=== PATIENT | male | born 1970 | race Caucasian/White ===

== ENCOUNTER 2018-03-04 19:25 | Inpatient (IN) | payer SELFPAY ==
--- NOTE | 2018-03-04 19:46 | RAD REPORT ---
EXAM DESCRIPTION: CT - Ct Stroke Brain Wo Cont - 03/04/2018 7:40 pm CLINICAL HISTORY: CVA COMPARISON: None. TECHNIQUE: All CT scans are performed using dose optimization technique as appropriate and may inclu de automated exposure control or mA/KV adjustment according to patient size. FINDINGS: No intracranial hemorrhage, hydrocephalus or extra-axial fluid collection.No areas of brai n edema or evidence of midline shift. The paranasal sinuses and mastoids are clear. The calvarium is intact. Increased density is seen within the right vitreous presumably related to chronic retinal detachment. Clinical correlation suggested. IMPRESSION: No acute intracranial abnormality. Findings were discussed with Dr. Middleton in the emergency room at 7:42 p.m. on 03/04/2018 by telepho mary.
[2018-03-04 19:55] LABS: Protime INR 0.92
[2018-03-04 19:56] LABS: Absolute Lymphocytes (CBC) 1.6 K/uL (0.7-4.9); Absolute Monocytes 0.5 K/uL (0.1-1.3); Absolute Neutrophil 4.8 K/uL (1.8-8.0); Basophils % 0.9 % (0-1.3); Eosinophils % 5.9 % (0-4.4); Hematocrit 45.2 % (39.6-49.0); Lymphocytes % 21.2 % (15.3-44.8); MCH 27.6 pg (27.0-35.0); MCV 80.6 fL (80-100); MPV 9.2 fL (7.6-11.3); Monocytes % 6.7 % (3.3-12.3)
[2018-03-04] MEDS ORDERED: ASPIRIN 81 MG CHEWABLE TABLET ONE (19:57)
--- NOTE | 2018-03-04 19:57 | RAD REPORT ---
EXAM DESCRIPTION: RAD - Chest Single View - 03/04/2018 7:48 pm CLINICAL HISTORY: Chest pain, CVA. COMPARISON: None. FINDINGS: Portable technique limits examination quality. The lungs are grossly clear. The heart is normal in size. No displaced fractures. IMPRESSION: No acute intrathoracic process suspected.
[2018-03-04 19:58] LABS: Bicarbonate 27 mEq/L (21-31); Glucose Level 285 mg/dL (65-120); Potassium 4.2 mEq/L (3.6-5.0); Sodium Level 135 mEq/L (135-145)
[2018-03-04 19:59] LABS: BUN Blood Urea Nitrogen 20 mg/dL (6-20)
[2018-03-04] MEDS ORDERED: NA CHLORIDE 0.9% 500 ML ONE (20:16)
--- NOTE | 2018-03-04 20:51 | RAD REPORT ---
EXAM DESCRIPTION: CT - Chest For Pe Angio - 03/04/2018 8:39 pm CLINICAL HISTORY: Chest pain. COMPARISON: None. TECHNIQUE: CT angiogram of the pulmonary arteries was performed with MIP. All CT scans are performed using dose optimization technique as appropriate and may include automated exposure control or mA/KV adjustment according to patient size. FINDINGS: No evidence of pulmonary thromboembolism. No acute aortic finding demonstrated. Interstitial lung prominence with mild bilateral ground-glass nodular opacities noted. Findings favor alveolitis/atypical infection. No significant pericardial or pleural fluid. No concerning bony finding. IMPRESSION: No evidence of pulmonary thromboembolism. Interstitial prominence with ground-glass nodular opacities bilaterally, favoring atypical infection. Follow-up CT chest in 2-3 months would be suggested to ensure clearance.
--- NOTE | 2018-03-04 21:05 | ER ---
Nurse's Notes [facility] Name: Zac Serrato Age: 48 yrs Sex: Male : 1970 Arrival Date: 03/04/2018 Time: 19:29 Bed 7 Private MD: Diagnosis: Facial weakness;Weakness;Altered mental status, unspecified;Hyperglycemia, unspecified Presentation: 03/04 19:25 Presenting complaint: EMS states: pt's was making dinner and came in to ask him aa1 how he wanted his steak cooked and pt would not respond to her. Reports this incident occurred at approx 1830 and pt was seen normal about 30 mins prior to that. When pt began to respond his speech was garbled and was acting unusual for himself. Upon arrival to ED pt speech remains slightly slurred and reports his R side feels weak. Denies pain. Hemorrhage noted to R sclera which pt reports is related to eye sx 2 weeks ago. Transition of care: patient was not received from another setting of care. Onset of symptoms was March 04, 2018 at 18:30. Initial Sepsis Screen: Does the patient meet any 2 criteria? No. Patient's initial sepsis screen is negative. Does the patient have a suspected source of infection? No. Patient's initial sepsis screen is negative. Care prior to arrival: IV initiated. 20 GA, in the left forearm, Glucose check: 229. Activity prior to arrival: unresponsive. 19:25 Method Of Arrival: EMS: [facility] aa1 19:25 Acuity: TERRY 2 aa1 Historical: - Allergies: 19:55 No Known Allergies; aa1 - Home Meds: 19:55 metformin 1,000 mg Oral tab 1 tab 2 times per day [Active]; aa1 - PMHx: 19:55 Diabetes - NIDDM; aa1 20:12 retinal detachment; aa1 - PSHx: 19:55 R eye sx; aa1 - Immunization history:: Flu vaccine is not up to date. - Social history:: Smoking status: Patient uses tobacco products, smokes one-half pack cigarettes per day. - Family history:: not pertinent. - Hospitalizations: : No recent hospitalization is reported. Screenin:28 Abuse screen: Denies threats or abuse. Denies injuries from another. Nutritional aa1 screening: No deficits noted. Tuberculosis screening: No symptoms or risk factors identified. Fall Risk Gait- Weak (10 pts.). 20:00 Patient has been NPO before screening. The patient is alert, able to follow commands. aa1 The patient exhibits slurred or garbled speech. The patient is not exhibiting difficulty speaking. The patient does not exhibit difficulty understanding words. The patient is able to swallow own secretions with no drooling or need for suction. Patient tolerated one teaspoon of water. No drooling, immediate coughing, gurgling, or clearing of the throat was noted. The patient tolerated 90mL of water. No drooling, immediate coughing, gurgling, or clearing of the throat was noted. The patient passed the bedside swallow screening. Oral medications may be given as ordered. Contact Physician for further diet orders. Assessment: 19:28 General: Appears in no apparent distress. comfortable, Behavior is calm, cooperative, aa1 appropriate for age. Pain: Denies pain. Neuro: Level of Consciousness is awake, alert, obeys commands, Oriented to person, place, time, situation, Seismic Interpreter are equal bilaterally Moves all extremities. Weakness in left leg(s) Speech is slurred, Facial droop on right, Pupils are PERRLA, Intact. Cardiovascular: Heart tones S1 S2 present Rhythm is regular. Respiratory: Airway is patent Respiratory effort is even, unlabored, Respiratory pattern is regular, symmetrical, Breath sounds are clear bilaterally. GI: No signs and/or symptoms were reported involving the gastrointestinal system. : No signs and/or symptoms were reported regarding the genitourinary system. EENT: Sclera/Cornea are reddened in right eye. Derm: Skin is intact, is healthy with good turgor, Skin is pink, warm \T\ dry. Musculoskeletal: Circulation, motion, and sensation intact. Capillary refill < 3 seconds, Range of motion: intact in all extremities. 19:32 Reassessment: pt in CT at this time. la1 19:39 Reassessment: Patient appears in no apparent distress at this time. Pt back from CT. aa1 20:30 Reassessment: Patient appears in no apparent distress at this time. Patient and/or aa1 family updated on plan of care and expected duration. Pain level reassessed. Patient is alert, oriented x 3, equal unlabored respirations, skin warm/dry/pink. Awaiting provider reassessment. 21:22 Reassessment: Patient appears in no apparent distress at this time. Patient and/or aa1 family updated on plan of care and expected duration. Pain level reassessed. Patient is alert, oriented x 3, equal unlabored respirations, skin warm/dry/pink. Awaiting bed assignment. 22:06 Reassessment: called 4th floor and informed about the admission but nurse is still not mg2 available to receive the report. 22:19 Reassessment: Patient appears in no apparent distress at this time. Patient is alert, aa1 oriented x 3, equal unlabored respirations, skin warm/dry/pink. Report given to Shana on 4th floor Patient states feeling better. Vital Signs: 19:25 BP 169 / 98; Pulse 81; Resp 19; Temp 97.8; Pulse Ox 98% on R/A; Weight 100.24 kg; aa1 Height 5 ft. 8 in. (172.72 cm); Pain 0/10; 20:23 BP 161 / 88; Pulse 86; Resp 18; Pulse Ox 100% on R/A; Pain 0/10; aa1 21:23 BP 166 / 96; Pulse 81; Resp 18; Pulse Ox 100% on R/A; Pain 0/10; aa1 22:08 BP 140 / 92; Pulse 86; Resp 16; Temp 97.6; Pulse Ox 100% on R/A; Pain 0/10; mg2 19:25 Body Mass Index 33.60 (100.24 kg, 172.72 cm) aa1 ED Course: 19:25 Patient arrived in ED. aa1 19:25 Arm band placed on right wrist. Patient placed in an exam room, on a stretcher. aa1 19:28 Patient has correct armband on for positive identification. Placed in gown. Bed in low aa1 position. Call light in reach. Side rails up X2. ekg monitor on. Pulse ox on. NIBP on. 19:29 EKG done, by veterinary technician. bb 19:30 Maintain EMS IV. Dressing intact. Gauge \T\ site: 20g LFA. bb 19:32 Edward Wilburn MD is Attending Physician. rn 19:37 CT Stroke Brain w/o Contrast In Process Unspecified. EDMS 19:39 Initial lab(s) drawn, by cath lab tech, sent to lab. aa1 19:44 [place], Iliana, RN is Primary Nurse. aa1 19:46 X-ray completed. Portable x-ray completed in exam room. Patient tolerated procedure kp1 well. 19:46 Stroke CXR 1 View In Process Unspecified. EDMS 19:52 Triage completed. aa1 20:39 CT completed. Patient tolerated procedure well. Patient moved back from CT. bq 20:39 CT Chest For PE Angio In Process Unspecified. EDMS 21:04 Morales Mascorro MD is Hospitalizing Provider. rn 22:11 No provider procedures requiring assistance completed. Patient admitted, IV remains in mg2 place. Administered Medications: 20:01 Drug: Aspirin Chewable Tablet 324 mg Route: PO; aa1 21:10 Follow up: Response: No adverse reaction aa1 20:20 Drug: NS 0.9% 500 ml Route: IV; Rate: bolus; Site: left forearm; aa1 22:00 Follow up: IV Status: Completed infusion aa1 21:18 Drug: Zithromax 500 mg Route: IVPB; Infused Over: 1 hrs; Site: left forearm; aa1 21:48 Follow up: IV Status: Completed infusion aa1 Point of Care Testing: Blood Glucose: 19:30 Blood Glucose: 272 mg/dL; bb Ranges: Outcome: 21:04 Decision to Hospitalize by Provider. rn 22:19 Admitted to Tele accompanied by nupur, via wheelchair, room 406, with chart, Report aa1 called to Shana 22:19 Condition: stable 22:19 Instructed on the need for admit, Demonstrated understanding of instructions. 22:19 No charge visit due to 22:32 Patient left the ED. aa1 Signatures: Dispatcher [employer] EDAZ Iliana Garnett, RN RN aa1 Meenakshi Chacon Stephanie Solorio RN RN bb Edward Wilburn MD MD rn Attema, Lee, RN RN la1 Emily Kelley am2 Corinne Benedict 1 Wilmer Lucas, RN RN mg2 Corrections: (The following items were deleted from the chart) 19:46 19:29 Patient arrived in ED. am2 aa1 19:53 19:31 BP 169 / 98; Pulse 81bpm; Resp 19bpm; Pulse Ox 98% RA; la1 aa1
--- NOTE | 2018-03-04 21:05 | EDPHYS ---
Physician Documentation [facility] Name: Zac Serrato Age: 48 yrs Sex: Male : 1970 Arrival Date: 03/04/2018 Time: 19:29 Bed 7 Private MD: ED Physician Edward Wilburn HPI: 03/04 19:52 This 48 yrs old Male presents to ER via EMS with complaints of AMS, possible rn stroke. 19:52 The patient presents with decreased responsiveness. Onset: The symptoms/episode rn began/occurred at an unknown time. Current symptoms: In the emergency department the patient's symptoms have improved. The patient has not experienced similar symptoms in the past. Per , has been sleeping a lot lately, no trauma, went to bed around 1/:30PM today, tried to wake him up around 7PM for dinner, patient was hunched over and unresponsive on bed, didn't shake or make movement, concerned wasn't breathing, lasted approx 5min , noticed right lower facial droop and patient reports right sided weakness. . Historical: - Allergies: 19:55 No Known Allergies; aa1 - Home Meds: 19:55 metformin 1,000 mg Oral tab 1 tab 2 times per day [Active]; aa1 - PMHx: 19:55 Diabetes - NIDDM; aa1 20:12 retinal detachment; aa1 - PSHx: 19:55 R eye sx; aa1 - Immunization history:: Flu vaccine is not up to date. - Social history:: Smoking status: Patient uses tobacco products, smokes one-half pack cigarettes per day. - Family history:: not pertinent. - Hospitalizations: : No recent hospitalization is reported. ROS: 19:52 Constitutional: Negative for fever, chills, and weight loss, Eyes: Negative for injury, rn pain, redness, and discharge, Neck: Negative for injury, pain, and swelling, Cardiovascular: Negative for chest pain, palpitations, and edema, Respiratory: Negative for shortness of breath, cough, wheezing, and pleuritic chest pain, Abdomen/GI: Negative for abdominal pain, nausea, vomiting, diarrhea, and constipation, Back: Negative for injury and pain, MS/Extremity: Negative for injury and deformity, Skin: Negative for injury, rash, and discoloration, Neuro: Negative for headache, numbness, tingling, and seizure. Exam: 19:52 Constitutional: This is a well developed, well nourished patient who is awake, alert, rn tearful Head/Face: Normocephalic, atraumatic. Eyes: Right eye with hyphema, pupils round and reactive Neck: Trachea midline, no thyromegaly or masses palpated, and no cervical lymphadenopathy. Supple, full range of motion without nuchal rigidity, or vertebral point tenderness. No Meningismus. Cardiovascular: Regular rate and rhythm with a normal S1 and S2. No gallops, murmurs, or rubs. Normal PMI, no JVD. No pulse deficits. Respiratory: Lungs have equal breath sounds bilaterally, clear to auscultation and percussion. No rales, rhonchi or wheezes noted. No increased work of breathing, no retractions or nasal flaring. Abdomen/GI: Soft, non-tender, with normal bowel sounds. No distension or tympany. No guarding or rebound. No evidence of tenderness throughout. MS/ Extremity: Pulses equal, no cyanosis. Neurovascular intact. Full, normal range of motion. Equal circumference. Neuro: Awake and alert, GCS 15, oriented to person, place, time, and situation. Slight weakness RUE/RLE, but no detectable drift. + mild right lower facial droop. Sensory grossly intact. Vital Signs: 19:25 BP 169 / 98; Pulse 81; Resp 19; Temp 97.8; Pulse Ox 98% on R/A; Weight 100.24 kg; aa1 Height 5 ft. 8 in. (172.72 cm); Pain 0/10; 20:23 BP 161 / 88; Pulse 86; Resp 18; Pulse Ox 100% on R/A; Pain 0/10; aa1 21:23 BP 166 / 96; Pulse 81; Resp 18; Pulse Ox 100% on R/A; Pain 0/10; aa1 22:08 BP 140 / 92; Pulse 86; Resp 16; Temp 97.6; Pulse Ox 100% on R/A; Pain 0/10; mg2 19:25 Body Mass Index 33.60 (100.24 kg, 172.72 cm) aa1 MDM: 19:32 Patient medically screened. rn 19:48 ED course: Patient with recent surgery on eye 2 weeks ago, has hyphema, also spoke with rn and patient, seems like fell asleep around 1:30 PM, has been sleeping a lot because of retinal detachment and depression, denies drugs, woke up to trying to wake him up, noticed right sided weakness and trouble speaking, definitely not at baseline. Will not TPA due to outside of window, onset at 13:30. NIH stroke scale of 2 for facial droop and mild aphasia. . 21:03 Differential Diagnosis: CVA, electrolyte abnormality, intracranial bleed, overdose, rn pneumonia, seizure, sepsis, TIA, volume depletion. Data reviewed: vital signs, nurses notes, lab test result(s), EKG, radiologic studies, CT scan, plain films, and as a result, I will admit patient. Counseling: I had a detailed discussion with the patient and/or guardian regarding: the historical points, exam findings, and any diagnostic results supporting the discharge/admit diagnosis, lab results, radiology results, the need for further work-up and treatment in the hospital. Response to treatment: the patient's symptoms have mildly improved after treatment, and as a result, I will admit patient. Admission orders: after a detailed discussion of the patient's condition and case, the admit orders are written by me. 03/04 19:31 Order name: glucometer results - FOR PT WITH NO ID; Complete Time: 19:52 la 03/04 19:33 Order name: Basic Metabolic Panel; Complete Time: 20:02 03/04 19:33 Order name: CBC with Diff; Complete Time: 20:02 03/04 19:33 Order name: Protime (+inr); Complete Time: 20:02 03/04 19:33 Order name: Ptt, Activated; Complete Time: 20:02 03/04 19:33 Order name: UDS rn 03/04 19:33 Order name: CT Stroke Brain w/o Contrast; Complete Time: 19:52 03/04 19:33 Order name: Stroke CXR 1 View; Complete Time: 20:02 03/04 19:33 Order name: EKG; Complete Time: 19:34 03/04 19:33 Order name: Accucheck; Complete Time: 19:37 03/04 20:03 Order name: CT Chest For PE Angio; Complete Time: 20:57 03/04 19:33 Order name: Cardiac monitoring; Complete Time: 19:56 rn 03/04 19:33 Order name: EKG - Nurse/Tech; Complete Time: 19:38 rn 03/04 19:33 Order name: IV Saline Lock; Complete Time: 19:38 rn 03/04 19:33 Order name: Labs collected and sent; Complete Time: 19:44 rn 03/04 19:33 Order name: NPO; Complete Time: 19:44 rn 03/04 19:33 Order name: O2 Per Protocol; Complete Time: 19:44 rn 03/04 19:33 Order name: O2 Sat Monitoring; Complete Time: 19:45 rn 03/04 19:33 Order name: Stroke Swallow Screen; Complete Time: 20:03 rn Administered Medications: 20:01 Drug: Aspirin Chewable Tablet 324 mg Route: PO; aa1 21:10 Follow up: Response: No adverse reaction aa1 20:20 Drug: NS 0.9% 500 ml Route: IV; Rate: bolus; Site: left forearm; aa1 22:00 Follow up: IV Status: Completed infusion aa1 21:18 Drug: Zithromax 500 mg Route: IVPB; Infused Over: 1 hrs; Site: left forearm; aa1 21:48 Follow up: IV Status: Completed infusion aa1 Point of Care Testing: Blood Glucose: 19:30 Blood Glucose: 272 mg/dL; bb Ranges: Critical Glucose Levels:Adult <50 mg/dl or >400 mg/dl <40 mg/dl or >180 mg/dl Disposition: 03/04/18 21:04 Hospitalization ordered by Morales Mascorro for Inpatient Admission. Preliminary diagnosis are Facial weakness, Weakness, Altered mental status, unspecified, Hyperglycemia, unspecified. - Bed requested for Telemetry/MedSurg (Inpatient). - Status is Inpatient Admission. aa1 - Condition is Stable. - Problem is new. - Symptoms have improved. UTI on Admission? No Signatures: Dispatcher [employer] EDLuciana Dee RN RN Iliana Garnett RN RN aa1 Edward Wilburn MD MD rn
[2018-03-04] MEDS ORDERED: AZITHROMYCIN 500 MG/250 ML BAG ONE (21:11)
[2018-03-04] MEDS ORDERED: ONDANSETRON 4 MG/2 ML VIAL IV PRN (21:44)
[2018-03-04] MEDS ORDERED: ACETAMINOPHEN 500 MG TAB PO PRN (21:44)
[2018-03-04] MEDS ORDERED: MAGNESIUM HYDROXIDE 8% 30 ML PO PRN (21:44)
[2018-03-04] MEDS ORDERED: NA CHLORIDE 0.9% 1,000 ML IV SCH ×2 (22:00)
[2018-03-04 22:35] VITALS: O2SAT 97
[2018-03-05 01:58] VITALS: BMI 33.5
[2018-03-05 04:54] VITALS: BP 154/83; TEMP 97.4
[2018-03-05 06:01] LABS: Absolute Lymphocytes (CBC) 2.3 K/uL (0.7-4.9); Absolute Monocytes 0.6 K/uL (0.1-1.3); Absolute Neutrophil 5.5 K/uL (1.8-8.0); Basophils % 0.6 % (0-1.3); Eosinophils % 5.5 % (0-4.4); Hematocrit 44.8 % (39.6-49.0); Lymphocytes % 25.7 % (15.3-44.8); MCH 27.5 pg (27.0-35.0); MCV 80.6 fL (80-100); MPV 9.1 fL (7.6-11.3); Monocytes % 6.3 % (3.3-12.3); RBC Red Blood Cell Count 5.57 M/uL (4.33-5.43)
[2018-03-05 06:33] LABS: ALT/SGPT 12 IU/L (10-60); AST/SGOT 12 IU/L (10-42); Albumin 3.3 g/dL (3.2-5.5); Alkaline Phosphatase 64 IU/L (42-121); BUN Blood Urea Nitrogen 16 mg/dL (6-20); Bicarbonate 28 mEq/L (21-31); Bilirubin Total 1.1 mg/dL (0.3-1.2); Glucose Level 224 mg/dL (65-120); HDL Cholesterol 41 mg/dL (27-67); LDL Cholesterol, Calculated 127 (<130); Magnesium 1.7 mg/dL (1.8-2.5); Potassium 4.4 mEq/L (3.6-5.0); Protein, Total 6.5 g/dL (6.0-8.3); Sodium Level 137 mEq/L (135-145)
[2018-03-05] MEDS ORDERED: PNEUMOCOCCAL VACCINE 0.5 ML IMVAC ONE (08:00)
--- NOTE | 2018-03-05 08:02 | P.HP ---
Certification for Inpatient Patient admitted to: Inpatient With expected LOS: >2 Midnights Patient will require the following post-hospital care: None Practitioner: I am a practitioner with admitting privileges, knowledge of patient current condition, hospital course, and medical plan of care. Services: Services provided to patient in accordance with Admission requirements found in Title 42 Section 412.3 of the Code of Federal Regulations Patient History Date of Service: 03/04/18 Reason for admission: acute CVA History of Present Illness: Patient is a 48-year-old gentleman who came into the hospital with acute CVA. Patient had right-sided weakness and a facial droop. Patient's right-sided weakness has improved. Patient continues to have a facial droop and aphasia. However, patient's states his speech is better. In the emergency room patient had a CT which was suggestive of an acute CVA. This looks to be in the left middle cerebral artery territory. Patient will be admitted to the hospital for further evaluation including an MRI of the brain and neurology consultation. Will also get an echocardiogram. A carotid Doppler has already been ordered. Will get a lipid profile and physical therapy evaluation. Bedside swallow has been done and patient has been started on a diet. Allergies No Known Allergies Allergy (Unverified 09/22/17 08:50) Home Medications: Metformin HCl [Glucophage] 1,000 mg PO BID 03/05/18 - Past Medical/Surgical History Has patient received pneumonia vaccine in the past: No Diabetic: Yes -: DM -: Rential Detachment -: Rential Detachment - Family History Mother Medical History: Diabetes Father Medical History: Lung disease, Cancer - Social History Smoking Status: Current every day smoker Alcohol use: No CD- Drugs: No Caffeine use: Yes Place of Residence: Home Review of Systems 10-point ROS is otherwise unremarkable Physical Examination - Vital Signs Temperature: 97.4 F Blood Pressure: 154/83 Pulse: 85 Respirations: 17 Pulse Ox (%): 98 - Physical Exam General: Alert, In no apparent distress, Oriented x3 HEENT: Atraumatic, PERRLA, Mucous membr. moist/pink, EOMI, Sclerae nonicteric Neck: Supple, 2+ carotid pulse no bruit, No LAD, Without JVD or thyroid abnormality Respiratory: Clear to auscultation bilaterally, Normal air movement Cardiovascular: Regular rate/rhythm, Normal S1 S2, No murmurs Gastrointestinal: Normal bowel sounds, Soft and benign, Non-distended, No tenderness Musculoskeletal: No clubbing, No swelling, No tenderness Integumentary: No rashes Neurological: Normal gait, Normal speech, Normal tone, Sensation intact, Normal affect, Abnormal strength, Abnormal cranial nerve function Lymphatics: No axilla or inguinal lymphadenopathy - Studies Laboratory Data (last 24 hrs) 03/04/18 19:40: PT 10.8, INR 0.92, APTT 29.2 03/04/18 19:40: WBC 7.3, Hgb 15.5, Hct 45.2, Plt Count 175 03/04/18 19:40: Sodium 135, Potassium 4.2, BUN 20, Creatinine 0.59 L, Glucose 285 H Assessment & Plan - Problems (Diagnosis) (1) Acute CVA (cerebrovascular accident) Current Visit: Yes Status: Acute (2) Diabetes type 2, controlled Current Visit: Yes Status: Acute (3) Tobacco abuse Current Visit: Yes Status: Acute - Plan 1. MRI of the brain 2. Echocardiogram and carotid Doppler 3. Anti-platelet therapy and statin therapy 4. Neurology consultation 5. Physical therapy/occupational therapy/speech therapy evaluation 6. Modified barium swallow study 7. DVT prophylaxis Discharge Plan: Home Plan to discharge in: Greater than 2 days - Advance Directives Does patient have a Living Will: No Does patient have a Durable POA for Healthcare: No - Code Status/Comfort Care Code Status Assessed: Yes Code Status: Full Code Critical Care: No Time Spent Managing PTS Care (In Minutes): 55
--- NOTE | 2018-03-05 08:16 | RAD REPORT ---
EXAM DESCRIPTION: CT - Ct Stroke Brain Wo Cont - 03/05/2018 7:57 am CLINICAL HISTORY: CVA, change in mental status since prior imaging. COMPARISON: CT head March 04 TECHNIQUE: Axial 5 millimeter thick images of the head were obtained without IV contrast. All CT scans are performed using dose optimization technique as appropriate and may include automated exposure control or mA/KV adjustment according to patient size. FINDINGS: No intracranial hemorrhage has developed since the prior study. There is no new mass effec t or edema. No shift of midline structures. No acute cortical based infarction identified. In the pos terior limb internal capsule on the left and lateral margin of the left thalamus there is a subtle de crease in density compared to the corresponding area on the right. This is regarded as suspicious for an nonhemorrhagic infarction. A CVA in this location would explain right extremity motor symptoms. G ray matter-white matter differentiation is preserved. Visualized portions of the mastoid air cells, paranasal sinuses, and orbits are unremarkable. Findings telephoned to Dr. Thomason 8:12 a.m. IMPRESSION: No intracranial hemorrhage has developed since the prior day study. Suspected nonhemorrhagic CVA in lateral aspect of the left thalamus and posterior limb internal capsu le on the left. CVA in this location would explain motor deficits on the right side. Followup MR imaging could be performed to confirm the suspected CVA and to evaluate any other acute b rain parenchymal process.
--- NOTE | 2018-03-05 08:40 | RAD REPORT ---
EXAM DESCRIPTION: RAD - Chest Single View - 03/05/2018 8:23 am CLINICAL HISTORY: Code stroke chest film COMPARISON: March 04 TECHNIQUE: AP portable chest image was obtained 0809 hours . FINDINGS: Lung volumes are low. No failure, infiltrate or other acute cardiopulmonary finding. Heart and vasculature are normal. No measurable pleural effusion and no pneumothorax. No gross bony abnorm ality seen. No acute aortic findings suspected. IMPRESSION: No acute cardiopulmonary process. No identifiable change from comparison.
[2018-03-05] MEDS ORDERED: CEFTRIAXONE 1 GM/NS 50 ML 1 GM/50 ML BAG IV SCH (09:00)
[2018-03-05] MEDS ORDERED: CEFTRIAXONE/SWI 1gm 1 GM/10 ML SYR IV SCH (09:00)
[2018-03-05] MEDS ORDERED: MAGNESIUM SULFATE 1 gm IVPB 1 GM/100 ML BAG IV ONE (09:00)
[2018-03-05] MEDS ORDERED: AZITHROMYCIN IV 500 MG in NA CHLORIDE 0.9% 250 ML IVPB SCH (09:00)
[2018-03-05] MEDS ORDERED: ASPIRIN EC 81 MG TAB PO SCH (09:00)
[2018-03-05] MEDS ORDERED: CLOPIDOGREL 75 MG TABLET PO SCH (09:00)
[2018-03-05] MEDS ORDERED: ENOXAPARIN 40 MG/0.4 ML SQ SCH (09:00)
--- NOTE | 2018-03-05 09:46 | RAD REPORT ---
EXAM DESCRIPTION: CT - Neck Angio - 03/05/2018 9:09 am CLINICAL HISTORY: Acute stroke symptoms COMPARISON: CT head March 05, February 24 TECHNIQUE: During dynamic enhancement using nonionic IV contrast, axial 2 mm thick images were obtai joshua of the head and neck. Coronal, axial and sagittal 1.5 mm reformatted images were generated and re viewed. FINDINGS: Aortic arch is 3 vessel with no origin stenosis. Left vertebral artery is slightly dominan t. No vertebral artery origin stenosis seen. The bilateral common carotid and internal carotid artery show no dissection, stenosis or measurable atherosclerotic change. There is tortuosity of the bilate ral internal carotid arteries medially prior to entry into the skullbase. Sandra portions are limited in visualization. No focal vertebral artery dissection or stenosis. No discrete pharyngeal mass identified on limited assessment. Tonsillar tissue is prominent but symme tric. No large mass or bulky lymphadenopathy. Exam protocol does not optimally imaged soft tissues of the neck. IMPRESSION: CT angiography of the cervical vasculature shows no measurable atherosclerotic change, d issection or significant vascular finding.
--- NOTE | 2018-03-05 09:50 | RAD REPORT ---
EXAM DESCRIPTION: CT - Head angio - 03/05/2018 9:06 am CLINICAL HISTORY: CVA, abnormal CT study COMPARISON: CT head same day TECHNIQUE: During dynamic enhancement using nonionic IV contrast, axial 2 millimeter thick images of the head and neck were obtained. Axial, sagittal and coronal 1.5 millimeter reconstruction images we re generated and reviewed. FINDINGS: No aneurysm or vascular malformation. Bilateral internal carotid arteries from skullbase t o supraclinoid termination show no stenosis or significant atherosclerotic changes. Basilar artery an d distal vertebral arteries show no dissection, stenosis or suspicious finding. There is normal opaci fication of the major intracranial veins. The anterior, posterior and middle cerebral artery distribu tions show no significant stenosis or occlusion. The suspected CVA in the left thalamus and posterior limb internal capsule region is typically supplied by small perforating branches not well visualized on either CTA or MRA imaging. IMPRESSION: No intracranial aneurysm or vascular malformation. The major intracranial arteries and veins show no significant or suspicious finding on CT angiography . The small perforating branches supplying the suspected area of infarction are not well visualized o n either CTA or MRA imaging.
--- NOTE | 2018-03-05 09:58 | RAD REPORT ---
EXAM DESCRIPTION: KERRY Mathis CP - 03/05/2018 9:40 am CLINICAL HISTORY: CVA COMPARISON: None. TECHNIQUE: Real-time sonographic evaluation of both carotid systems was performed. Doppler interroga tion was performed with waveform tracing bilaterally. FINDINGS: Normal high resistance waveforms are noted in both external carotid arteries. The common c arotid arteries and internal carotid arteries show normal low resistance waveforms. Minimal plaquing changes noted on the left. No measurable narrowing of the vessel lumen. Peak systoli c and end diastolic velocity values and the ICA/CCA ratios are in the non-hemodynamically significant range. Antegrade flow seen in both vertebral arteries. Velocity values and ratios were recorded and are retained in the patient's imaging records. IMPRESSION: No significant atherosclerotic changes noted. No evidence of a hemodynamically significant stenosis.
[2018-03-05] MEDS ORDERED: NA CHLORIDE 0.9% 500 ML IV ONE (10:17)
[2018-03-05 11:16] LABS: Bicarbonate 26 mEq/L (21-31); Glucose Level 214 mg/dL (65-120); Potassium 3.7 mEq/L (3.6-5.0); Protime INR 1.05; Sodium Level 135 mEq/L (135-145)
[2018-03-05 11:17] LABS: Absolute Monocytes 0.5 K/uL (0.1-1.3); Absolute Neutrophil 5.1 K/uL (1.8-8.0); BUN Blood Urea Nitrogen 17 mg/dL (6-20); Basophils % 0.2 % (0-1.3); Eosinophils % 5.2 % (0-4.4); Hematocrit 44.6 % (39.6-49.0); Lymphocytes % 24.9 % (15.3-44.8); MCH 27.5 pg (27.0-35.0); MCV 80.1 fL (80-100); MPV 9.8 fL (7.6-11.3); Monocytes % 6.7 % (3.3-12.3); RBC Red Blood Cell Count 5.57 M/uL (4.33-5.43)
--- NOTE | 2018-03-05 13:00 | DS ---
Date of Discharge: 03/05/2018 Admitting Diagnoses: 1.Acute cerebrovascular accident. 2.Type 2 diabetes mellitus, non-insulin requiring with hyperglycemia. 3.Nicotine dependence. Discharge Diagnoses: 1.Acute cerebrovascular accident, left thalamus. Neurology recommended transfer to higher level of care. 2.Diabetes mellitus type 2 with no use of insulin long-term with hyperglycemia. 3.Obesity, BMI 33. 4.Recent surgery for retinal detachment. 5.Nicotine dependence with cigarette smoking, uncomplicated. Hospital Course: The patient is a 48-year-old male, who came in with right-sided weakness, facial dr oop, aphasia. The patient had waxing and waning symptoms. The patient was admitted to the hospital for workup of his acute CVA type symptoms. He had a CT scan of the brain done which did not show any intracranial abnormalities. CT angio chest was done, which showed no evidence of PE. Did show some ground-glass nodular opacities favoring atypical infection. He had workup done including carotid ar shawna ultrasound, which showed no significant stenosis and Dr. Mayen was consulted. The patient was o n stroke guidelines. He was not a candidate for tPA due to the symptoms, initial onset being unclear . Also the patient had recent surgery. The patient had worsening symptoms, became more weak on the right side with aphasia and worsening facial droop. Therefore, code stroke was called. CT scan was repeated, which showed acute stroke in the left thalamic area. The patient also had CT angio of head and neck, which did not show any major intracranial arteries and veins to show any significant or mullen spicious finding. The patient was then recommended to be transferred by Dr. Mayen, neurologist for p ossible thrombectomy and for higher level of care. [facility] was contacted for transfer for high er level of care and the patient was accepted by the neurologist and hospitalist. The patient was th en transferred to [facility] for higher level of care. Physical Examination: General: Awake, alert, oriented, in some mild distress. Obese male. BMI 33. CV: S1, S2. No murmurs. Regular rate and rhythm. Respiratory: Moving air well bilaterally. No wheezing. Gastrointestinal: Abdomen is soft, nontender, nondistended. Positive bowel sounds. Extremities: No clubbing, cyanosis, edema. Neuro: The patient has right-sided facial droop. The patient is aphasic. Right side strength is 4/ 5 upper and lower extremities. Left upper and lower extremities are 5/5. Sensation intact to light touch. Total time spent transferring patient was 47 minutes. ELIZABETH Voice ID: [id number] Report ID: [id number]
[2018-03-05 13:50] LABS: Platelet Estimate ADEQ; Platelets, Giant PRESENT; Urine White Blood Cell Casts OK
[2018-03-05 13:51] LABS: Blood Morphology Comment NOT SEEN (NOT SEEN)
--- NOTE | 2018-03-05 14:51 | CON ---
Reason: Stroke. History: A 48-year-old gentleman with history of diabetes, diabetic retinopathy, just had surgery to his eye on the 15 of February. Had a retinal detachment that was repaired. He is blind. Came into the emergency department last night at approximately 6:37 p.m. The patient experienced right-sided w eakness, difficulty speaking, and right-sided facial drooping. Evaluation in the Emergency Departmen t, 17:42, no acute stroke on TTE. Symptoms improved while he was in the ER because of the recent ocu lar surgery, felt not to be a candidate for tPA by 2200 and patient's symptoms were fairly resolved a nd when admitted was noted to have some residual right facial weakness and right upper extremity weak ness by the admitting physician last night at 23:58. Carotid Doppler, no hemodynamically significant stenosis and the patient apparently did reasonably well throughout the night, but 7:30 this morning, developed recurrent and progressive symptoms with right hemiparesis difficulty speaking/aphasia, rig ht sky-paresthesias with stroke scale of 8. Emergent repeat CT scan of the brain demonstrates vague hypodensity in the lateral aspect of the left thalamus, was contacted by his attending, recommended CT angio, which does not demonstrate any large vessel occlusion in the carotids or MCA branches on th e left. The patient has actually improved currently. Consultation was requested. Past Medical History: Diabetes. Medications: Glucophage. Allergies: NONE. Social History: , smokes. Normally independent activities of daily living. Family History: No family history of hypercoagulable state. Review of Systems: General: Good health. Eyes: Legally blind, recent ocular surgery for retinal detachment as noted, less than a month ago. Ears, Nose, Throat: Aphasia and dysarthria, currently improving. Cardiovascular: Negative. Pulmonary: Negative. GI: Negative. : Negative. Musculoskeletal: Negative. Neurologic: As noted. Psychiatric: Negative. Endocrine: Diabetes. Hematologic: Negative. Physical Examination: Vital Signs: Temperature 97.4, 85, 17, 154/83. General: He is pleasant gentleman, lying in bed, in no distress. Heart: Sinus rhythm. No carotid bruits. Lungs: Clear. Abdomen: Soft. Bowel sounds present. He is awake, alert, oriented. Neurologic: Legally blind, cannot count fingers, can see light out of the left eye and not the right , which is dilated and fixed with significant ecchymosis around the sclerae and scleral injection. L eft pupil reactive. Ocular motion full. Alejandro full. Face is symmetric. Tongue is midline. Soft palate elevates bilaterally. Examination of his extremities reveals very slight drift, right upper e xtremity. Manual muscle testing reveals full strength. Sensation decreased symmetrically distally. Reflexes are trace. Toes are bilaterally neutral. No [id number] ataxia. Stroke scale per pa is 1 for drift right upper extremity. Laboratory Data: CT angios as noted. White count 8.8, platelets 221. PT/PTT yesterday normal. Glu cose in the 94-200. Liver function tests normal. LDL 127. Impression: Stroke with crescendo/decrescendo symptoms. Fortunately, no evidence of large vessel oc clusion on imaging. Nevertheless, I think the patient would benefit given the waxing, waning symptom s from a higher level of care being in the stroke unit up in the [facility], so he can be observe d more closely. We reviewed those recommendations with his attending. If he cannot be transferred t ana up to the [facility], he should be transferred to the ICU for closer neuro checks. Continue aspirin and Plavix, and bolus 500 cc of normal saline. EVAN/CANDELARIOL Voice ID: [id number] Report ID: [id number]
--- NOTE | 2018-03-05 16:08 | EKG ---
Test Date: 2018-03-05 Test Time: 08:25:24 Sulfate Drier Machine Operator: KEYLA MEASUREMENT RESULTS: Intervals: Rate: 79 FL: 186 QRSD: 102 QT: 404 QTc: 463 [place]: P: 56 FL: 186 QRS: 55 T: 58 INTERPRETIVE STATEMENTS: Normal sinus rhythm Normal ECG No previous ECG available for comparison Electronically Signed On 03-05-18 16:07:34 CDT by Azam Gerber
[2018-03-05] MEDS ORDERED: ATORVASTATIN 20 MG TAB PO SCH (21:00)
--- NOTE | 2018-03-06 07:19 | EKG ---
Test Date: 2018-03-04 Test Time: 19:29:11 Log Truck Driver: MERARI MEASUREMENT RESULTS: Intervals: Rate: 81 MN: 164 QRSD: 100 QT: 386 QTc: 448 [place]: P: 38 MN: 164 QRS: 45 T: 74 INTERPRETIVE STATEMENTS: Normal sinus rhythm Normal ECG No previous ECG available for comparison Electronically Signed On 03-06-18 07:18:53 CDT by Azam Gerber
== END 2018-03-05 11:58 | disposition short-term general hospital (02) | DRG 65 ==
LOC: ER 19:25 → ERHOLD 21:43 → 4TH 21:58
PROVIDERS: ADMIT Hospitalist; ATTEND Family Medicine
DX: I63.9 Cerebral infarction, unspecified (principal); G81.94 Hemiplegia, unspecified affecting left nondominant side; R29.810 Facial weakness; R47.01 Aphasia; E11.319 Type 2 diabetes mellitus with unspecified diabetic retinopathy without macular edema; E11.65 Type 2 diabetes mellitus with hyperglycemia; H54.7 Unspecified visual loss; E66.9 Obesity, unspecified; Z68.33 Body mass index [BMI] 33.0-33.9, adult; Z98.890 Other specified postprocedural states; Z72.0 Tobacco use
CPT/HCPCS: 36415; 70450; 70496; 70498; 71045; 71275; 80048; 80053; 80061; 82962; 83735; 84100; 85025; 85610; 85730; 93005; 93880; 94760; 96361; 96365; J0456; J0696; J1650; J3475; J7030; Q9967

== ENCOUNTER 2018-07-15 09:35 | Emergency (ER) | payer SELFPAY ==
[~2018-07-15 09:35] MED LIST: EPINEPHRINE/PF 1 MG/ML AMP ONE; EPINEPHrine 1 MG/10 ML SYR ONE; LIDOCAINE VISCOUS 2% SOLN 15 ML UDC ONE; NA CHLORIDE 0.9% 1,000 ML ONE
--- OUTSIDE RECORDS SUMMARY | 2018-07-15 09:37 | XMS REPORT | Clinical Summary ---
:1970 Author Organization [facility] Address [address] [place] [address] Phone Care Team Providers Name Role Phone Unavailable Primary Care Provider Unavailable Allergies No Known Allergies Current Medications Prescription Sig. Disp. Refills Start Date End Date Status metFORMIN Take 1,000 mg by Active (GLUCOPHAGE) 1000 mouth. MG tablet prednisoLONE Place 1 drop into Active acetate (PRED the right eye 2 FORTE) 1 % (two) times daily. ophthalmic suspension polymyxin B Place 1 drop into Active sulf-trimethoprim the right eye 2 10,000 unit- 1 (two) times daily. mg/mL Drop timolol (BETIMOL) Place 1 drop into Active 0.5 % ophthalmic the right eye 2 solution (two) times daily. aspirin 81 MG EC Take 1 tablet (81 mg 30 tablet 1 03/08/2018 03/08/2019 Active tablet total) by mouth daily. atorvastatin Take 1 tablet (80 mg 30 tablet 1 03/07/2018 03/07/2019 Active (LIPITOR) 80 MG total) by mouth tablet nightly. lisinopril Take 1 tablet (5 mg 30 tablet 0 03/08/2018 03/08/2019 Active (PRINIVIL,ZESTRIL) total) by mouth 5 MG tablet daily. insulin 70/30, Inject 15 Units 10 mL 1 03/07/2018 03/07/2019 Active insulin NPH-insulin subcutaneously 2 regular, (HUMULIN (two) times daily 70/30,NOVOLIN before meals. 70/30) 100 unit/mL (70-30) injection insulin Use as directed to 100 each 0 03/07/2018 Active syringe-needle inject insulin twice U-100 (BD INSULIN a day. SYRINGE) 1 mL 25 gauge x 5/8" Syrg Active Problems Problem Noted Date Proteinuria 03/06/2018 Acute CVA (cerebrovascular accident) (FORM[facility]LY [facility]) 03/05/2018 Type 2 diabetes mellitus ([facility]) 03/05/2018 Tobacco abuse 03/05/2018 Diabetic retinopathy ([facility]) 03/05/2018 Overview: Retinal detachment on the right Encounters Date Type Specialty Care Team Description 03/05/2018 - Hospital Encounter General Internal Amanda Rice, Acute CVA 03/07/2018 Medicine Juanis Alfaro MD (cerebrovascular Chris, Nejmudin accident) MD Leti ([facility]);Diabetic retinopathy of both eyes without macular edema associated with type 2 diabetes mellitus, unspecified retinopathy severity ([facility]);Tobacco abuse;Right sided weakness after 07/14/2017 Family History Medical History Relation Name Comments Stroke Neg Hx Social History Tobacco Use Types Packs/Day Years Used Date Current Every Day Smoker 0.5 Smokeless Tobacco: Never Used Tobacco Cessation: Ready to Quit: No Alcohol Use Drinks/Week oz/Week Comments No Sex Assigned at Date Recorded Not on file Last Filed Vital Signs Vital Sign Reading Time Taken Blood Pressure 158/96 03/07/2018 11:30 AM CDT Pulse 74 03/07/2018 11:30 AM CDT Temperature 35.9 C (96.6 F) 03/07/2018 11:30 AM CDT Respiratory Rate 22 03/07/2018 11:30 AM CDT Oxygen Saturation 98% 03/07/2018 11:30 AM CDT Inhaled Oxygen Concentration - - Weight 97.8 kg (215 lb 9.6 oz) 03/06/2018 12:00 PM CDT Height 172.7 cm (5' 8") 03/06/2018 12:00 PM CDT Body Mass Index 32.78 03/06/2018 12:00 PM CDT Plan of Treatment Not on file Results RHYTHM STRIP - SCAN (03/08/2018 1:20 PM)ECHOCARDIOGRAM REPORT - SCAN (2017 3:54 PM)POC-Glucose meter (03/07/2018 11:11 AM)Only the most recent of8 resultswithin the time period is included. Component Value Ref Range POC-Glucose Meter 325 (H)Comment: Procedure Error/TESTED AT [facility] 6720 70 - 110 mg/dL [facility] [address] Specimen Performing Laboratory Blood [facility] [address] [address] 2D Echo W/Doppler(CW/PW/Color) (03/07/2018 10:46 AM) Component Value Ref Range Ejection Fraction Specimen Performing Laboratory [facility] ECHO [facility] JAMES CPACS Narrative Transthoracic Echocardiography Report (TTE) Demographics Patient NameWIYOLI,Date of Study 03/07/2018 ZAC Gender Male Visit [id number] [place] Number [id number] Number Date of 1970 Referring ESSIE POON Physician Age 48 year(s) Manager Bridge Ramila Haney, NB, RDCS,RVT,RDMS Java Engineer Pedro Nixon MD ContrerasPhysician Procedure Type of Study TTE procedure:2DECHO W DOPPLER(CW/PW/COLOR) (Pending Discharge) Indications:Suspected cardiac source of emboli. Clinical History HGB 14.6 HCT 44.4 % CVA, DM, Tobacco Abuse Contrast Medium: Bubble Study. Height: 68 inches Weight: 97.52 kg (215 lbs) BSA: 2.11 m^2 BMI: 32.69 kg/m^2 HR: 75 bpm BP: 149/74 mmHg Summary The LV endocardium is adequately visualized. The left ventricle is chamber size (by vol index) is normal (male - LVED vol - 34-74ml/m2). Mild concentric LV hypertrophy. All of the LV segments contract normally . Global LV systolic function normal . LVEF by Moyer's method of disk assessment is normal (>60%) . Otherwise, essentially normal exam. Previous Study No prior exam available for comparison. Signature Findings Left Ventricle The LV endocardium is adequately visualized. The left ventricle is chamber size (by vol index) is normal (male - LVED vol - 34-74ml/m2). Mild concentric LV hypertrophy. All of the LV segments contract normally . Global LV systolic function normal . LVEF by Moyer's method of disk assessment is normal (>60%) . Left AtriumLA size is normal (16-34 ml/m2) . Right VentricleThe right ventricular chamber size and systolic function are within normal limits. Right Atrium RA size is normal. Atrial SeptumIV saline contrast injection was negative for a PFO (patent foramen ovale) at rest and post Valsalva . Aortic Valve Normal AoV structure and function. Mitral Valve Mild MV leaflet thickening. Trace mitral regurgitation. Tricuspid ValveTV structure is normal. A trace of tricuspid regurgitation. Estimated peak systolic PA pressure is 20-25 mmHg . Pulmonic Valve Normal PV structure and function. AortaAortic root size (SInus of Valsalva diameter) is normal . PericardiumNo pericardial effusion is visualized. IVC/SVC/PA/PV/PleuralThe estimated RA pressure by IVC dynamics 0-5mmHg . A left pleural effusion is noted. Chambers/Structures Left Atrium LA Dimension: 4.31 cmLA Area: 22.34 cm^2 LA Volume: 46.6 ml LA Vol. Index: 22 ml/m^2 Left Ventricle LVIDd: 4.58 cm LVIDs: 3.45 cm LV Septum Diastolic: 1.23 cm LV PW Diastolic: 1.32 cmLV FS: 24.7 % LVEDV Moyer's:95.15 mlLV IVRT: 114.3 msec LVESV Moyer's:36.46 mlLVEDVI: 45 ml/m^2 LVEF Moyer's: 61.7 %LVESVI: 17 ml/m^ 2 LVOT Diameter: 2.05 cm Right Atrium RA Vol. (Sngl Plane): 23.7 ml Right Ventricle RV Systolic Pressure: 24.35 mmHg TAPSE: 2.02 cm Aorta Ao Root S of Shirley.: 2.81 cm Doppler/Quantitative Measurements Mitral Valve MV Peak E-Wave: 0.7 m/s MV Peak A-Wave: 0.86 m/s E/ A Ratio: 0.82 Peak Gradient: 1.96 mmHg Deceleration Time: 196.5 msec MV Ryley. Peak: Tissue Doppler E' Lateral Velocity: 0.07 m/s E/E': 10.26 LVOT Peak Velocity: 0.87 m/s Peak Gradient: 3.03 mmHg Mean Velocity: 0.62 m/s Mean Gradient: 1.74 mmHg LVOT Diameter: 2.05 cmLVOT VTI: 20.15 cm LVOT Area: 3.3 cm^2 LVOT SV:66.47 ml LVOT CO: 4.99 l/min LVOT CI: 2.36 l/min/m^2 Tricuspid Valve Estimated RAP: 5 mmHg TR Velocity: 2.2 m/s TR Gradient: 19.35 mmHg Pulmonic Valve Estimated PASP: 24.35 mmHg Procedure Note Interface, External Ris In - 03/07/2018 3:17 PM CDT Transthoracic Echocardiography Report (TTE) Demographics Patient Name THADDEUS, Date of Study 03/07/2018 ZAC Gender Male Visit Number [id number] Race Unknown Room Number [id number] Number Date of 1970 Referring ESSIE POON Physician Age 48 year(s) Manager Bridge Ramila Haney, JADYN, RDCS,RVT,RDMS Java Engineer Raquel Interpreting MD Reza Haque Physician Procedure Type of Study TTE procedure:2DECHO W DOPPLER(CW/PW/COLOR) (Pending Discharge) Indications:Suspected cardiac source of emboli. Clinical History HGB 14.6 HCT 44.4 % CVA, DM, Tobacco Abuse Contrast Medium: Bubble Study. Height: 68 inches Weight: 97.52 kg (215 lbs) BSA: 2.11 m^2 BMI: 32.69 kg/m^2 HR: 75 bpm BP: 149/74 mmHg Summary The LV endocardium is adequately visualized. The left ventricle is chamber size (by vol index) is normal (male - LVED vol - 34-74ml/m2). Mild concentric LV hypertrophy. All of the LV segments contract normally . Global LV systolic function normal . LVEF by Moyer's method of disk assessment is normal (>60%) . Otherwise, essentially normal exam. Previous Study No prior exam available for comparison. Signature Findings Left Ventricle The LV endocardium is adequately visualized. The left ventricle is chamber size (by vol index) is normal (male - LVED vol - 34-74ml/m2). Mild concentric LV hypertrophy. All of the LV segments contract normally . Global LV systolic function normal . LVEF by Moyer's method of disk assessment is normal (>60%) . Left Atrium LA size is normal (16-34 ml/m2) . Right Ventricle The right ventricular chamber size and systolic function are within normal limits. Right Atrium RA size is normal. Atrial Septum IV saline contrast injection was negative for a PFO (patent foramen ovale) at rest and post Valsalva . Aortic Valve Normal AoV structure and function. Mitral Valve Mild MV leaflet thickening. Trace mitral regurgitation. Tricuspid Valve TV structure is normal. A trace of tricuspid regurgitation. Estimated peak systolic PA pressure is 20-25 mmHg . Pulmonic Valve Normal PV structure and function. Aorta Aortic root size (SInus of Valsalva diameter) is normal . Pericardium No pericardial effusion is visualized. IVC/SVC/PA/PV/Pleural The estimated RA pressure by IVC dynamics 0-5mmHg . A left pleural effusion is noted. Chambers/Structures Left Atrium LA Dimension: 4.31 cm LA Area: 22.34 cm^2 LA Volume: 46.6 ml LA Vol. Index: 22 ml/m^2 Left Ventricle LVIDd: 4.58 cm LVIDs: 3.45 cm LV Septum Diastolic: 1.23 cm LV PW Diastolic: 1.32 cm LV FS: 24.7 % LVEDV Moyer's:95.15 ml LV IVRT: 114.3 msec LVESV Moyer's:36.46 ml LVEDVI: 45 ml/m^2 LVEF Moyer's: 61.7 % LVESVI: 17 ml/m^2 LVOT Diameter: 2.05 cm Right Atrium RA Vol. (Sngl Plane): 23.7 ml Right Ventricle RV Systolic Pressure: 24.35 mmHg TAPSE: 2.02 cm Aorta Ao Root S of Shirley.: 2.81 cm Doppler/Quantitative Measurements Mitral Valve MV Peak E-Wave: 0.7 m/s MV Peak A-Wave: 0.86 m/s E/A Ratio: 0.82 Peak Gradient: 1.96 mmHg Deceleration Time: 196.5 msec MV Ryley. Peak: Tissue Doppler E' Lateral Velocity: 0.07 m/s E/E': 10.26 LVOT Peak Velocity: 0.87 m/s Peak Gradient: 3.03 mmHg Mean Velocity: 0.62 m/s Mean Gradient: 1.74 mmHg LVOT Diameter: 2.05 cm LVOT VTI: 20.15 cm LVOT Area: 3.3 cm^2 LVOT SV:66.47 ml LVOT CO: 4.99 l/min LVOT CI: 2.36 l/min/m^2 Tricuspid Valve Estimated RAP: 5 mmHg TR Velocity: 2.2 m/s TR Gradient: 19.35 mmHg Pulmonic Valve Estimated PASP: 24.35 mmHg CBC with platelet count + automated diff (03/07/2018 3:40 AM)Only the most recent of2 resultswithin the time period is included. Component Value Ref Range WBC 7.8 3.5 - 10.5 K/L RBC 5.41 4.63 - 6.08 M/L Hemoglobin 14.6 13.7 - 17.5 GM/DL Hematocrit 44.4 40.1 - 51.0 % MCV 82.1 79.0 - 92.2 fL MCH 27.0 25.7 - 32.2 pg MCHC 32.9 32.3 - 36.5 GM/DL RDW 14.1 11.6 - 14.4 % Platelets 241 150 - 450 K/CU MM MPV 11.2 9.4 - 12.4 fL nRBC 0 0 - 0 /100 WBC % Neutros 55 % % Lymphs 32 % % Monos 7 % % Eos 6 % % Baso 1 % # Neutros 4.28 1.78 - 5.38 K/L # Lymphs 2.47 1.32 - 3.57 K/L # Monos 0.57 0.30 - 0.82 K/L # Eos 0.46 0.04 - 0.54 K/L # Baso 0.04 0.01 - 0.08 K/L Immature Granulocytes-Relative 0 0 - 1 % Specimen Performing Laboratory Blood - Arm, [address] [address] CBC with platelet count + automated diff (03/07/2018 3:40 AM)Only the most recent of2 resultswithin the time period is included. Specimen Performing Laboratory Blood Narrative The following orders were created for panel order CBC with platelet count + automated diff. Procedure Abnormality Status --------- ------ CBC with platelet count ...[[id number]]Final result Please view results for these tests on the individual orders. Magnesium (03/07/2018 3:40 AM)Only the most recent of2 resultswithin the time period is included. Component Value Ref Range Magnesium 1.8 1.6 - 2.6 mg/dL Specimen Performing Laboratory Blood - Arm, [address] [address] Basic metabolic panel (03/07/2018 3:40 AM)Only the most recent of3 resultswithin the time period is included. Component Value Ref Range Sodium 138 136 - 145 meq/L Potassium 4.0 3.5 - 5.1 meq/L Chloride 104 98 - 107 meq/L CO2 25 22 - 29 meq/L BUN 10 7 - 21 mg/dL Creatinine 0.67 0.57 - 1.25 mg/dL Glucose 236 (H) 70 - 105 mg/dL Calcium 9.1 8.4 - 10.2 mg/dL EGFR 127Comment: ESTIMATED GFR IS NOT ACCURATE mL/min/1.73 sq m CREATININE CLEARANCE IN PREDICTING GLOMERULAR FILTRATION RATE. ESTIMATED GFR IS NOT APPLICABLE FOR DIALYSIS PATIENTS. Specimen Performing Laboratory Blood - Arm, [address] [address] Urinalysis w/ Microscopic (03/05/2018 10:40 PM) Component Value Ref Range Color, UA Yellow Clarity, UA Clear Specific Edison, UA 1.048 (H) 1.001 - 1.035 pH, UA 6.0 5.0 - 8.0 Protein, UA 300 mg/dL (A) Negative Glucose, UA >1000 mg/dL (A) Negative Ketones, UA 100 mg/dL (A) Negative Bilirubin, UA Negative Negative Blood, UA Negative Negative Nitrite, UA Negative Negative Leukocytes, UA Negative Negative Urobilinogen, UA 0.2 0.2 - 1.0 mg/dL RBC, UA <1 /HPF WBC, UA 2 /HPF Mucus Occasional Squam Epithel, UA <1 /HPF Specimen Source Urine, Clean Catch Specimen Performing Laboratory Urine - Urine, Clean Catch [facility] [address] [place] [id number] MR brain without IV contrast (03/05/2018 9:32 PM) Specimen Performing Laboratory Beepl RIS Narrative FINAL REPORT MR, BRAIN, WITHOUT CONTRAST, MR, MRA, NECK, WITHOUT IV CONTRAST, MR, MRA, BRAIN, WITHOUT CONTRAST INDICATION: Stroke TECHNIQUE: Multiplanar, multisequence MR images of the brain.3-D time of flight MRA of the cranial and cervical circulation. 2-D time of flight MRA of the neck. 3D MIP angiographic post-processing was performed. Stenosis evaluation utilized NASCET criteria. COMPARISON: None FINDINGS: MRI BRAIN: Midline structures and posterior fossa within normal limits. Small 7 mm, nonhemorrhagic infarct in the left thalamus. No acute intracranial hemorrhage. No acute hydrocephalus. Preserved flow voids in the major intracranial vascular structures. Mild paranasal sinus mucosal disease. There is left-sided retinal detachment. On the right, there is mild periorbital soft tissue swelling. There is some T2 hypointense debris layering dependently within the posterior chamber which could reflect some hemorrhagic products. Additionally, there is complete separation of membranes along the posterior aspect of the globe from the optic nerve insertion. Question recent surgery. The lenses are intact. MRA NECK: On the right, there is no significant atherosclerotic plaque at the CCA bifurcation. No flow-limiting stenosis or dissection. On the left, there is no significant atherosclerotic plaque at the CCA bifurcation. No flow-limiting stenosis or dissection. Co-dominant vertebral artery system. No flow-limiting stenosis of vertebral arteries. MRA HEAD: No flow-limiting stenosis, dissection, or aneurysm of the anterior circulation. No flow-limiting stenosis, dissection, or aneurysm of the posterior circulation. IMPRESSION: Small nonhemorrhagic left thalamic infarct. Unremarkable MRA of the head and neck. Left-sided retinal detachment. Findings suggestive of right orbital surgery. Clinical correlation recommended. Details above. Signed: Oralia Del Rio MD Report Verified Date/Time:03/06/2018 00:02:34 Reading Location: [facility] [id number] Ortho Consult Reading Room Procedure Note Interface, External Ris In - 03/06/2018 12:04 AM CDT FINAL REPORT MR, BRAIN, WITHOUT CONTRAST, MR, MRA, NECK, WITHOUT IV CONTRAST, MR, MRA, BRAIN, WITHOUT CONTRAST INDICATION: Stroke TECHNIQUE: Multiplanar, multisequence MR images of the brain. 3-D time of flight MRA of the cranial and cervical circulation. 2-D time of flight MRA of the neck. 3D MIP angiographic post-processing was performed. Stenosis evaluation utilized NASCET criteria. COMPARISON: None FINDINGS: MRI BRAIN: Midline structures and posterior fossa within normal limits. Small 7 mm, nonhemorrhagic infarct in the left thalamus. No acute intracranial hemorrhage. No acute hydrocephalus. Preserved flow voids in the major intracranial vascular structures. Mild paranasal sinus mucosal disease. There is left-sided retinal detachment. On the right, there is mild periorbital soft tissue swelling. There is some T2 hypointense debris layering dependently within the posterior chamber which could reflect some hemorrhagic products. Additionally, there is complete separation of membranes along the posterior aspect of the globe from the optic nerve insertion. Question recent surgery. The lenses are intact. MRA NECK: On the right, there is no significant atherosclerotic plaque at the CCA bifurcation. No flow-limiting stenosis or dissection. On the left, there is no significant atherosclerotic plaque at the CCA bifurcation. No flow-limiting stenosis or dissection. Co-dominant vertebral artery system. No flow-limiting stenosis of vertebral arteries. MRA HEAD: No flow-limiting stenosis, dissection, or aneurysm of the anterior circulation. No flow-limiting stenosis, dissection, or aneurysm of the posterior circulation. IMPRESSION: Small nonhemorrhagic left thalamic infarct. Unremarkable MRA of the head and neck. Left-sided retinal detachment. Findings suggestive of right orbital surgery. Clinical correlation recommended. Details above. Signed: Oralia Del Rio MD Report Verified Date/Time: 03/06/2018 00:02:34 Reading Location: [facility] B1 [id number] Ortho Consult Reading Room neck without IV contrast (03/05/2018 9:32 PM) Specimen Performing Laboratory Beepl RIS Narrative FINAL REPORT MR, BRAIN, WITHOUT CONTRAST, MR, MRA, NECK, WITHOUT IV CONTRAST, MR, MRA, BRAIN, WITHOUT CONTRAST INDICATION: Stroke TECHNIQUE: Multiplanar, multisequence MR images of the brain.3-D time of flight MRA of the cranial and cervical circulation. 2-D time of flight MRA of the neck. 3D MIP angiographic post-processing was performed. Stenosis evaluation utilized NASCET criteria. COMPARISON: None FINDINGS: MRI BRAIN: Midline structures and posterior fossa within normal limits. Small 7 mm, nonhemorrhagic infarct in the left thalamus. No acute intracranial hemorrhage. No acute hydrocephalus. Preserved flow voids in the major intracranial vascular structures. Mild paranasal sinus mucosal disease. There is left-sided retinal detachment. On the right, there is mild periorbital soft tissue swelling. There is some T2 hypointense debris layering dependently within the posterior chamber which could reflect some hemorrhagic products. Additionally, there is complete separation of membranes along the posterior aspect of the globe from the optic nerve insertion. Question recent surgery. The lenses are intact. MRA NECK: On the right, there is no significant atherosclerotic plaque at the CCA bifurcation. No flow-limiting stenosis or dissection. On the left, there is no significant atherosclerotic plaque at the CCA bifurcation. No flow-limiting stenosis or dissection. Co-dominant vertebral artery system. No flow-limiting stenosis of vertebral arteries. MRA HEAD: No flow-limiting stenosis, dissection, or aneurysm of the anterior circulation. No flow-limiting stenosis, dissection, or aneurysm of the posterior circulation. IMPRESSION: Small nonhemorrhagic left thalamic infarct. Unremarkable MRA of the head and neck. Left-sided retinal detachment. Findings suggestive of right orbital surgery. Clinical correlation recommended. Details above. Signed: Oralia Del Rio MD Report Verified Date/Time:03/06/2018 00:02:34 Reading Location: [facility] B1 [id number] Ortho Consult Reading Room Procedure Note Interface, External Ris In - 03/06/2018 12:04 AM CDT FINAL REPORT MR, BRAIN, WITHOUT CONTRAST, MR, MRA, NECK, WITHOUT IV CONTRAST, MR, MRA, BRAIN, WITHOUT CONTRAST INDICATION: Stroke TECHNIQUE: Multiplanar, multisequence MR images of the brain. 3-D time of flight MRA of the cranial and cervical circulation. 2-D time of flight MRA of the neck. 3D MIP angiographic post-processing was performed. Stenosis evaluation utilized NASCET criteria. COMPARISON: None FINDINGS: MRI BRAIN: Midline structures and posterior fossa within normal limits. Small 7 mm, nonhemorrhagic infarct in the left thalamus. No acute intracranial hemorrhage. No acute hydrocephalus. Preserved flow voids in the major intracranial vascular structures. Mild paranasal sinus mucosal disease. There is left-sided retinal detachment. On the right, there is mild periorbital soft tissue swelling. There is some T2 hypointense debris layering dependently within the posterior chamber which could reflect some hemorrhagic products. Additionally, there is complete separation of membranes along the posterior aspect of the globe from the optic nerve insertion. Question recent surgery. The lenses are intact. MRA NECK: On the right, there is no significant atherosclerotic plaque at the CCA bifurcation. No flow-limiting stenosis or dissection. On the left, there is no significant atherosclerotic plaque at the CCA bifurcation. No flow-limiting stenosis or dissection. Co-dominant vertebral artery system. No flow-limiting stenosis of vertebral arteries. MRA HEAD: No flow-limiting stenosis, dissection, or aneurysm of the anterior circulation. No flow-limiting stenosis, dissection, or aneurysm of the posterior circulation. IMPRESSION: Small nonhemorrhagic left thalamic infarct. Unremarkable MRA of the head and neck. Left-sided retinal detachment. Findings suggestive of right orbital surgery. Clinical correlation recommended. Details above. Signed: Oralia Del Rio MD Report Verified Date/Time: 03/06/2018 00:02:34 Reading Location: [address] Consult Reading Room head without IV contrast (03/05/2018 9:32 PM) Specimen Performing Laboratory Beepl RIS Narrative FINAL REPORT MR, BRAIN, WITHOUT CONTRAST, MR, MRA, NECK, WITHOUT IV CONTRAST, MR, MRA, BRAIN, WITHOUT CONTRAST INDICATION: Stroke TECHNIQUE: Multiplanar, multisequence MR images of the brain.3-D time of flight MRA of the cranial and cervical circulation. 2-D time of flight MRA of the neck. 3D MIP angiographic post-processing was performed. Stenosis evaluation utilized NASCET criteria. COMPARISON: None FINDINGS: MRI BRAIN: Midline structures and posterior fossa within normal limits. Small 7 mm, nonhemorrhagic infarct in the left thalamus. No acute intracranial hemorrhage. No acute hydrocephalus. Preserved flow voids in the major intracranial vascular structures. Mild paranasal sinus mucosal disease. There is left-sided retinal detachment. On the right, there is mild periorbital soft tissue swelling. There is some T2 hypointense debris layering dependently within the posterior chamber which could reflect some hemorrhagic products. Additionally, there is complete separation of membranes along the posterior aspect of the globe from the optic nerve insertion. Question recent surgery. The lenses are intact. MRA NECK: On the right, there is no significant atherosclerotic plaque at the CCA bifurcation. No flow-limiting stenosis or dissection. On the left, there is no significant atherosclerotic plaque at the CCA bifurcation. No flow-limiting stenosis or dissection. Co-dominant vertebral artery system. No flow-limiting stenosis of vertebral arteries. MRA HEAD: No flow-limiting stenosis, dissection, or aneurysm of the anterior circulation. No flow-limiting stenosis, dissection, or aneurysm of the posterior circulation. IMPRESSION: Small nonhemorrhagic left thalamic infarct. Unremarkable MRA of the head and neck. Left-sided retinal detachment. Findings suggestive of right orbital surgery. Clinical correlation recommended. Details above. Signed: Oralia Del Rio MD Report Verified Date/Time:03/06/2018 00:02:34 Reading Location: [address] Consult Reading Room Procedure Note Interface, External Ris In - 03/06/2018 12:04 AM CDT FINAL REPORT MR, BRAIN, WITHOUT CONTRAST, MR, MRA, NECK, WITHOUT IV CONTRAST, MR, MRA, BRAIN, WITHOUT CONTRAST INDICATION: Stroke TECHNIQUE: Multiplanar, multisequence MR images of the brain. 3-D time of flight MRA of the cranial and cervical circulation. 2-D time of flight MRA of the neck. 3D MIP angiographic post-processing was performed. Stenosis evaluation utilized NASCET criteria. COMPARISON: None FINDINGS: MRI BRAIN: Midline structures and posterior fossa within normal limits. Small 7 mm, nonhemorrhagic infarct in the left thalamus. No acute intracranial hemorrhage. No acute hydrocephalus. Preserved flow voids in the major intracranial vascular structures. Mild paranasal sinus mucosal disease. There is left-sided retinal detachment. On the right, there is mild periorbital soft tissue swelling. There is some T2 hypointense debris layering dependently within the posterior chamber which could reflect some hemorrhagic products. Additionally, there is complete separation of membranes along the posterior aspect of the globe from the optic nerve insertion. Question recent surgery. The lenses are intact. MRA NECK: On the right, there is no significant atherosclerotic plaque at the CCA bifurcation. No flow-limiting stenosis or dissection. On the left, there is no significant atherosclerotic plaque at the CCA bifurcation. No flow-limiting stenosis or dissection. Co-dominant vertebral artery system. No flow-limiting stenosis of vertebral arteries. MRA HEAD: No flow-limiting stenosis, dissection, or aneurysm of the anterior circulation. No flow-limiting stenosis, dissection, or aneurysm of the posterior circulation. IMPRESSION: Small nonhemorrhagic left thalamic infarct. Unremarkable MRA of the head and neck. Left-sided retinal detachment. Findings suggestive of right orbital surgery. Clinical correlation recommended. Details above. Signed: Oralia Del Rio MD Report Verified Date/Time: 03/06/2018 00:02:34 Reading Location: [address] Ortho Consult Reading Room chest 1 view portable / bedside (03/05/2018 4:12 PM) Specimen Performing Laboratory [address] Narrative Addendum Begins REPORT STATUS:A Addendum: CLINICAL INFORMATION: Pneumonia Signed: Jessie Florence MD Report Verified Date/Time:03/09/2018 16:17:25 Reading Location: [facility] Diagnostic Imaging Reading Room - [facility] F1 1120 Addendum Ends FINAL REPORT AP view of the chest dated 03/05/2018 CLINICAL INFORMATION: ? Pneumonia Comment:Heart is normal in size. Pulmonary vasculature is unremarkable. Lungs are clear. No pulmonary infiltrate or pleural effusion is present. Impression:No pneumonia. Signed: Jessie Florence MD Report Verified Date/Time:03/05/2018 16:33:23 Reading Location: [address] Ortho Consult Reading Room Procedure Note Interface, External Ris In - 03/09/2018 4:19 PM CDT Addendum Begins REPORT STATUS:A Addendum: CLINICAL INFORMATION: Pneumonia Signed: Jessie Florence MD Report Verified Date/Time: 03/09/2018 16:17:25 Reading Location: [facility] Diagnostic Imaging Reading Room - [place] [address] 1120 Addendum Ends FINAL REPORT AP view of the chest dated 03/05/2018 CLINICAL INFORMATION: ? Pneumonia Comment: Heart is normal in size. Pulmonary vasculature is unremarkable. Lungs are clear. No pulmonary infiltrate or pleural effusion is present. Impression: No pneumonia. Signed: Jessie Florence MD Report Verified Date/Time: 03/05/2018 16:33:23 Reading Location: [facility] C013X Ortho Consult Reading Room Vitamin B12 and Folate (03/05/2018 3:44 PM) Component Value Ref Range Vitamin B12 559 213 - 816 pg/mL Folate 13.7 >=7.0 ng/mL Specimen Performing Laboratory [address] [address] HIV-1 Antigen with HIV-1/2 Antibody (03/05/2018 3:44 PM) Component Value Ref Range HIV-1 Antigen with HIV 1&2 Antibody Nonreactive Nonreactive Specimen Performing Laboratory [address] [address] RPR (03/05/2018 3:44 PM) Component Value Ref Range RPR Nonreactive Nonreactive Specimen Performing Laboratory [address] [address] TSH (03/05/2018 3:44 PM) Component Value Ref Range TSH 0.54 0.35 - 4.94 uIU/mL Specimen Performing Laboratory [address] [address] Sedimentation rate (03/05/2018 3:00 PM) Component Value Ref Range Sed Rate 37 (H) 0 - 15 mm/HR Specimen Performing Laboratory [address] [address] Hemoglobin A1c (03/05/2018 2:46 PM) Component Value Ref Range Hemoglobin A1C 12.3 (H) 4.3 - 6.1 % Specimen Performing Laboratory Blood [address] [address] Lipid panel (03/05/2018 2:46 PM) Component Value Ref Range Triglycerides 149 mg/dL Cholesterol 189 mg/dL HDL 34 mg/dL LDL Calculated 125 mg/dL Specimen Performing Laboratory Blood [address] [address] Narrative Triglyceride Reference Range: Low Risk <150 Kflymhsajs683-884 High Risk 200-499 Very High Risk>=500 Cholesterol Reference Range: Low Risk <200 Gserdxnwmt111-269 High Risk>240 HDL Cholesterol Reference Range: Low Risk >=60 High Risk <40 LDL Cholesterol Reference Range: Optimal<100 Near Psiqhvx987-481 Ienaduexey686-644 Dpys999-412 Very High >=190 after 07/14/2017
--- OUTSIDE RECORDS SUMMARY | 2018-07-15 09:38 | XMS REPORT ---
:1970 [facility] [address] [place] [address] Care Team Providers Name Role Phone KALYANI GOOD Unavailable Unavailable Problems This patient has no known problems. Allergies, Adverse Reactions, Alerts This patient has no known allergies or adverse reactions. Medications This patient has no known medications. Results Test Description Test Time Test Comments Text Results Atomic Results Result Comments RAD, CHEST, 1 2018-03-09 16:17:00 Reason for exam:->? Addendum BeginsREPORT VIEW, NON DEPT PneumoniaShould this be STATUS:A PATIENT ID: performed at the [id number] Addendum: bedside?->Yes CLINICAL INFORMATION: Pneumonia Signed: Jessie Florence Verified Date/Time: 03/09/2018 16:17:25 Reading Location: [facility] Diagnostic Imaging Reading Room - [place] [address]Addendum EndsFINAL REPORT AP view of the chest dated 03/05/2018 CLINICAL INFORMATION: ? Pneumonia Comment: Heart is normal in size. Pulmonary vasculature is unremarkable. Lungs are clear. No pulmonary infiltrate or pleural effusion is present. Impression: No pneumonia. Signed: Jessie Florence Verified Date/Time: 03/05/2018 16:33:23 Reading Location: [facility] B1 C013X Ortho Consult Reading Room -GLUCOSE METER 2018-03-07 11:32:00 Test Item Value Reference Range Comments POC-GLUCOSE METER (BEAKER) (test 325 mg/dL 70-110 Procedure Error/TESTED AT [facility] qvlg=0913) [address] [facility] [address] POCT-GLUCOSE [id number] 07:43:00 Test Item Value Reference Range Comments POC-GLUCOSE METER (BEAKER) 252 mg/dL 70-110 TESTED AT [facility] [address] (test pedl=9064) [facility] [place] [address] [id number] 04:34:00 Test Item Value Reference Range Comments MAGNESIUM (BEAKER) (test czsd=050) 1.8 mg/dL 1.6-2.6 BASIC METABOLIC [id number] 04:34:00 Test Item Value Reference Range Comments SODIUM (BEAKER) (test 138 meq/L 136-145 flmm=118) POTASSIUM (BEAKER) (test 4.0 meq/L 3.5-5.1 kfrj=955) CHLORIDE (BEAKER) (test 104 meq/L 98-107 lknd=777) CO2 (BEAKER) (test 25 meq/L 22-29 ninx=788) BLOOD UREA NITROGEN 10 mg/dL 7-21 (BEAKER) (test yvus=792) CREATININE (BEAKER) (test 0.67 mg/dL 0.57-1.25 zcsy=798) GLUCOSE RANDOM (BEAKER) 236 mg/dL 70-105 (test yuui=904) CALCIUM (BEAKER) (test 9.1 mg/dL 8.4-10.2 yemg=380) EGFR (BEAKER) (test 127 mL/min/1.73 sq m ESTIMATED GFR IS NOT oego=1964) ACCURATE CREATININE CLEARANCE IN PREDICTING GLOMERULAR FILTRATION RATE. ESTIMATED GFR IS NOT APPLICABLE FOR DIALYSIS PATIENTS. CBC W/PLT COUNT & AUTO [id number] 04:11:00 Test Item Value Reference Range Comments WHITE BLOOD CELL COUNT (BEAKER) (test keab=486) 7.8 K/ L 3.5-10.5 RED BLOOD CELL COUNT (BEAKER) (test pudr=490) 5.41 M/ L 4.63-6.08 HEMOGLOBIN (BEAKER) (test lhoz=701) 14.6 GM/DL 13.7-17.5 HEMATOCRIT (BEAKER) (test hvso=482) 44.4 % 40.1-51.0 MEAN CORPUSCULAR VOLUME (BEAKER) (test egqj=727) 82.1 fL 79.0-92.2 MEAN CORPUSCULAR HEMOGLOBIN (BEAKER) (test 27.0 pg 25.7-32.2 iakp=297) MEAN CORPUSCULAR HEMOGLOBIN CONC (BEAKER) (test 32.9 GM/DL 32.3-36.5 asso=771) RED CELL DISTRIBUTION WIDTH (BEAKER) (test 14.1 % 11.6-14.4 ovbg=003) PLATELET COUNT (BEAKER) (test zzim=975) 241 K/CU MM 150-450 MEAN PLATELET VOLUME (BEAKER) (test zqwn=087) 11.2 fL 9.4-12.4 NUCLEATED RED BLOOD CELLS (BEAKER) (test 0 /100 WBC 0-0 wchz=584) NEUTROPHILS RELATIVE PERCENT (BEAKER) (test 55 % pwhh=551) LYMPHOCYTES RELATIVE PERCENT (BEAKER) (test 32 % wdgb=626) MONOCYTES RELATIVE PERCENT (BEAKER) (test 7 % tgvm=142) EOSINOPHILS RELATIVE PERCENT (BEAKER) (test 6 % pejo=372) BASOPHILS RELATIVE PERCENT (BEAKER) (test 1 % cauj=484) NEUTROPHILS ABSOLUTE COUNT (BEAKER) (test 4.28 K/ L 1.78-5.38 yfwk=799) LYMPHOCYTES ABSOLUTE COUNT (BEAKER) (test 2.47 K/ L 1.32-3.57 twre=097) MONOCYTES ABSOLUTE COUNT (BEAKER) (test 0.57 K/ L 0.30-0.82 ctca=398) EOSINOPHILS ABSOLUTE COUNT (BEAKER) (test 0.46 K/ L 0.04-0.54 cifc=117) BASOPHILS ABSOLUTE COUNT (BEAKER) (test 0.04 K/ L 0.01-0.08 dcat=517) IMMATURE GRANULOCYTES-RELATIVE PERCENT (BEAKER) 0 % 0-1 (test ndzh=3854) POCT-GLUCOSE [id number] 03:47:00 Test Item Value Reference Range Comments POC-GLUCOSE METER (BEAKER) 237 mg/dL 70-110 TESTED AT [address] (test qtdd=2770) [place] [id number] POCT-GLUCOSE [id number] 02:07:00 Test Item Value Reference Range Comments POC-GLUCOSE METER (BEAKER) 355 mg/dL 70-110 TESTED AT [address] (test qftp=8859) [place] [address] POCT-GLUCOSE [id number] 18:33:00 Test Item Value Reference Range Comments POC-GLUCOSE METER (BEAKER) 291 mg/dL 70-110 TESTED AT [address] (test wgpb=8205) [place] [address] POCT-GLUCOSE [id number] 11:50:00 Test Item Value Reference Range Comments POC-GLUCOSE METER (BEAKER) 361 mg/dL 70-110 Notified ROMMEL MALONEY/TESTED AT [facility] (test rimq=9130) [address] [facility] [place] [address] HEMOGLOBIN [id number] 09:38:00 Test Item Value Reference Range Comments HEMOGLOBIN A1C (BEAKER) (test dssi=806) 12.3 % 4.3-6.1 POCT-GLUCOSE [id number] 08:08:00 Test Item Value Reference Range Comments POC-GLUCOSE METER (BEAKER) 252 mg/dL 70-110 TESTED AT [facility] [address] (test nxzu=5364) [place] [address] [id number] 06:38:00 Test Item Value Reference Range Comments MAGNESIUM (BEAKER) (test oapm=558) 1.7 mg/dL 1.6-2.6 BASIC METABOLIC [id number] 06:38:00 Test Item Value Reference Range Comments SODIUM (BEAKER) (test 138 meq/L 136-145 cjbl=654) POTASSIUM (BEAKER) (test 3.9 meq/L 3.5-5.1 gznv=754) CHLORIDE (BEAKER) (test 103 meq/L 98-107 wxvw=198) CO2 (BEAKER) (test 25 meq/L 22-29 uscc=259) BLOOD UREA NITROGEN 13 mg/dL 7-21 (BEAKER) (test kmvu=861) CREATININE (BEAKER) (test 0.64 mg/dL 0.57-1.25 awdx=694) GLUCOSE RANDOM (BEAKER) 245 mg/dL 70-105 (test lgnd=792) CALCIUM (BEAKER) (test 9.1 mg/dL 8.4-10.2 yinu=368) EGFR (BEAKER) (test 133 mL/min/1.73 sq m ESTIMATED GFR IS NOT hnsq=4480) ACCURATE CREATININE CLEARANCE IN PREDICTING GLOMERULAR FILTRATION RATE. ESTIMATED GFR IS NOT APPLICABLE FOR DIALYSIS PATIENTS. CBC W/PLT COUNT & AUTO [id number] 06:11:00 Test Item Value Reference Range Comments WHITE BLOOD CELL COUNT (BEAKER) (test xajh=822) 7.9 K/ L 3.5-10.5 RED BLOOD CELL COUNT (BEAKER) (test abkx=171) 5.53 M/ L 4.63-6.08 HEMOGLOBIN (BEAKER) (test rclk=593) 14.9 GM/DL 13.7-17.5 HEMATOCRIT (BEAKER) (test qpcq=461) 45.6 % 40.1-51.0 MEAN CORPUSCULAR VOLUME (BEAKER) (test hjjg=288) 82.5 fL 79.0-92.2 MEAN CORPUSCULAR HEMOGLOBIN (BEAKER) (test 26.9 pg 25.7-32.2 okjx=724) MEAN CORPUSCULAR HEMOGLOBIN CONC (BEAKER) (test 32.7 GM/DL 32.3-36.5 hlnr=643) RED CELL DISTRIBUTION WIDTH (BEAKER) (test 13.8 % 11.6-14.4 phvv=875) PLATELET COUNT (BEAKER) (test lkyy=093) 213 K/CU MM 150-450 MEAN PLATELET VOLUME (BEAKER) (test ngab=229) 11.5 fL 9.4-12.4 NUCLEATED RED BLOOD CELLS (BEAKER) (test 0 /100 WBC 0-0 vshc=254) NEUTROPHILS RELATIVE PERCENT (BEAKER) (test 61 % zvat=979) LYMPHOCYTES RELATIVE PERCENT (BEAKER) (test 27 % klic=836) MONOCYTES RELATIVE PERCENT (BEAKER) (test 7 % lflr=149) EOSINOPHILS RELATIVE PERCENT (BEAKER) (test 5 % purp=404) BASOPHILS RELATIVE PERCENT (BEAKER) (test 1 % ytdz=155) NEUTROPHILS ABSOLUTE COUNT (BEAKER) (test 4.80 K/ L 1.78-5.38 ajnf=301) LYMPHOCYTES ABSOLUTE COUNT (BEAKER) (test 2.08 K/ L 1.32-3.57 cgge=560) MONOCYTES ABSOLUTE COUNT (BEAKER) (test 0.53 K/ L 0.30-0.82 dixf=705) EOSINOPHILS ABSOLUTE COUNT (BEAKER) (test 0.39 K/ L 0.04-0.54 jklr=540) BASOPHILS ABSOLUTE COUNT (BEAKER) (test 0.04 K/ L 0.01-0.08 gzof=947) IMMATURE GRANULOCYTES-RELATIVE PERCENT (BEAKER) 0 % 0-1 (test masr=3351) POCT-GLUCOSE [id number] 05:15:00 Test Item Value Reference Range Comments POC-GLUCOSE METER (BEAKER) 284 mg/dL 70-110 TESTED AT [facility] [address] (test ecok=8045) [facility] [place] [address] [id number] 02:24:00 Test Item Value Reference Range Comments RPR SCREEN (JOVANNY) (test jsrc=333) Nonreactive Nonreactive MR, BRAIN, WITHOUT [id number] 00:02:00FINAL REPORT MR, BRAIN, WITHOUT CONTRAST, MR, MRA, NECK, WITHOUT IV CONTRAST,MR, MRA , BRAIN, WITHOUT CONTRAST INDICATION: Stroke TECHNIQUE: Multiplanar, multisequence MR images of the brain. 3-D time of flight MRA of the cranial and cervical circulation. 2-D time of flight MRAof the neck. 3D MIP angiographic post-processing was performed. Stenosis evaluation utilized NASCET criteria. COMPARISON: None FINDINGS: MRI BRAIN: Midline structures and posterior fossa within normal limits.Small 7 mm, nonhemorrhagic infarct in the left thalamus.No acute intracranial hemorrhage.No acute hydrocephalus.Preserved flow voids in the major intracranial vascular structures. Mild paranasal sinus mucosal disease. There is left-sided retinal detachment.On the right, there is mild periorbital soft tissue swelling. There is some T2 hypointense debris layering dependently within the posterior chamber which could reflect some hemorrhagic products. Additionally, there is complete separationof membranes along the posterior aspect of the globe from the optic nerve insertion. Question recentsurgery.The lenses are intact. MRA NECK: On the right, there is no significant atherosclerotic plaque at the CCA bifurcation. No flow-limiting stenosis or dissection.On the left, there is no significant atherosclerotic plaque at the CCA bifurcation. No flow-limiting stenosis or dissection.Co- dominant vertebral artery system. No flow-limiting stenosis of vertebral arteries. MRA HEAD: No flow-limiting stenosis, dissection, or aneurysm of the anterior circulation.No flow-limiting stenosis, dissection, or aneurysm of the posterior circulation. IMPRESSION:Small nonhemorrhagic left thalamic infarct.Unremarkable MRA of the head and neck.Left-sided retinal detachment.Findings suggestive of right orbital surgery. Clinical correlation recommended. Details above. Signed: Oralia Del Rio MDReport Verified Date/Time : 03/06/2018 00:02:34 Reading Location: [address] Consult Reading Room MR , MRA, BRAIN, WITHOUT [id number] 00:02:00FINAL REPORT MR, BRAIN, WITHOUT CONTRAST, MR, MRA, NECK, WITHOUT IV CONTRAST,MR, MRA , BRAIN, WITHOUT CONTRAST INDICATION: Stroke TECHNIQUE: Multiplanar, multisequence MR images of the brain. 3-D time of flight MRA of the cranial and cervical circulation. 2-D time of flight MRAof the neck. 3D MIP angiographic post-processing was performed. Stenosis evaluation utilized NASCET criteria. COMPARISON: None FINDINGS: MRI BRAIN: Midline structures and posterior fossa within normal limits.Small 7 mm, nonhemorrhagic infarct in the left thalamus.No acute intracranial hemorrhage.No acute hydrocephalus.Preserved flow voids in the major intracranial vascular structures. Mild paranasal sinus mucosal disease. There is left-sided retinal detachment.On the right, there is mild periorbital soft tissue swelling. There is some T2 hypointense debris layering dependently within the posterior chamber which could reflect some hemorrhagic products. Additionally, there is complete separationof membranes along the posterior aspect of the globe from the optic nerve insertion. Question recentsurgery.The lenses are intact. MRA NECK: On the right, there is no significant atherosclerotic plaque at the CCA bifurcation. No flow-limiting stenosis or dissection.On the left, there is no significant atherosclerotic plaque at the CCA bifurcation. No flow-limiting stenosis or dissection.Co- dominant vertebral artery system. No flow-limiting stenosis of vertebral arteries. MRA HEAD: No flow-limiting stenosis, dissection, or aneurysm of the anterior circulation.No flow-limiting stenosis, dissection, or aneurysm of the posterior circulation. IMPRESSION:Small nonhemorrhagic left thalamic infarct.Unremarkable MRA of the head and neck.Left-sided retinal detachment.Findings suggestive of right orbital surgery. Clinical correlation recommended. Details above. Signed: Oralia Del Rio MDReport Verified Date/Time : 03/06/2018 00:02:34 Reading Location: [facility] C0X [facility] Consult Reading Room MR , MRA, NECK, WITHOUT IV [id number] 00:02:00FINAL REPORT MR, BRAIN, WITHOUT CONTRAST, MR, MRA, NECK, WITHOUT IV CONTRAST,MR, MRA , BRAIN, WITHOUT CONTRAST INDICATION: Stroke TECHNIQUE: Multiplanar, multisequence MR images of the brain. 3-D time of flight MRA of the cranial and cervical circulation. 2-D time of flight MRAof the neck. 3D MIP angiographic post-processing was performed. Stenosis evaluation utilized NASCET criteria. COMPARISON: None FINDINGS: MRI BRAIN: Midline structures and posterior fossa within normal limits.Small 7 mm, nonhemorrhagic infarct in the left thalamus.No acute intracranial hemorrhage.No acute hydrocephalus.Preserved flow voids in the major intracranial vascular structures. Mild paranasal sinus mucosal disease. There is left-sided retinal detachment.On the right, there is mild periorbital soft tissue swelling. There is some T2 hypointense debris layering dependently within the posterior chamber which could reflect some hemorrhagic products. Additionally, there is complete separationof membranes along the posterior aspect of the globe from the optic nerve insertion. Question recentsurgery.The lenses are intact. MRA NECK: On the right, there is no significant atherosclerotic plaque at the CCA bifurcation. No flow-limiting stenosis or dissection.On the left, there is no significant atherosclerotic plaque at the CCA bifurcation. No flow-limiting stenosis or dissection.Co- dominant vertebral artery system. No flow-limiting stenosis of vertebral arteries. MRA HEAD: No flow-limiting stenosis, dissection, or aneurysm of the anterior circulation.No flow-limiting stenosis, dissection, or aneurysm of the posterior circulation. IMPRESSION:Small nonhemorrhagic left thalamic infarct.Unremarkable MRA of the head and neck.Left-sided retinal detachment.Findings suggestive of right orbital surgery. Clinical correlation recommended. Details above. Signed: Oralia Del Rio MDReport Verified Date/Time : 03/06/2018 00:02:34 Reading Location: [facility] B1 C013X [facility] Consult Reading Room URINALYSIS W/ [id number] 23:06:00 Test Item Value Reference Range Comments COLOR (BEAKER) (test fkxj=972) Yellow CLARITY (BEAKER) (test ucwb=434) Clear SPECIFIC GRAVITY UA (BEAKER) (test 1.048 1.001-1.035 lgiw=362) PH UA (BEAKER) (test hddn=704) 6.0 5.0-8.0 PROTEIN UA (BEAKER) (test sonx=183) 300 mg/dL Negative GLUCOSE UA (BEAKER) (test hoir=490) >1000 mg/dL Negative KETONES UA (BEAKER) (test mzqf=853) 100 mg/dL Negative BILIRUBIN UA (BEAKER) (test ning=903) Negative Negative BLOOD UA (BEAKER) (test mwdj=383) Negative Negative NITRITE UA (BEAKER) (test rmdj=675) Negative Negative LEUKOCYTE ESTERASE UA (BEAKER) (test Negative Negative rvfy=018) UROBILINOGEN UA (BEAKER) (test pqoh=564) 0.2 mg/dL 0.2-1.0 RBC UA (BEAKER) (test jsht=928) < /HPF WBC UA (BEAKER) (test pjhh=663) 2 /HPF MUCUS (BEAKER) (test euvi=8938) Occasional SQUAMOUS EPITHELIAL (BEAKER) (test < /HPF xndn=967) SOURCE(BEAKER) (test vcfc=4462) Urine, Clean Catch HIV-1 ANTIGEN WITH HIV-1/2 [id number] 18:51:00 Test Item Value Reference Range Comments HIV-1 ANTIGEN WITH HIV 1\T\2 ANTIBODY (2) Nonreactive Nonreactive (BEAKER) (test acri=6521) [id number] 17:29:00 Test Item Value Reference Range Comments THYROID STIMULATING HORMONE (BEAKER) (test 0.54 uIU/mL 0.35-4.94 fpip=463) VITAMIN B12 AND [id number] 17:29:00 Test Item Value Reference Range Comments VITAMIN B12 (BEAKER) (test hoqw=579) 559 pg/mL 213-816 FOLATE (BEAKER) (test oblx=247) 13.7 ng/mL >=7.0 SEDIMENTATION [id number] 16:20:00 Test Item Value Reference Range Comments SEDIMENTATION RATE, ERYTHROCYTE (BEAKER) (test 37 mm/HR 0-15 gavb=726) LIPID [id number] 15:23:00 Test Item Value Reference Range Comments TRIGLYCERIDES (BEAKER) (test mezw=241) 149 mg/dL CHOLESTEROL (BEAKER) (test talv=721) 189 mg/dL HDL CHOLESTEROL (BEAKER) (test chpm=545) 34 mg/dL LDL CHOLESTEROL CALCULATED (BEAKER) (test 125 mg/dL zldw=660) Triglyceride Reference Range: Low Risk <150 Borderline 150- 199 High Risk 200-499 Very High Risk >=500Cholesterol Reference Range: Low Risk <200 Borderline 200-239 High Risk > 240HDL Cholesterol Reference Range: Low Risk >=60 High Risk <40LDL Cholesterol Reference Range: Optimal <100 Near Optimal 100-129 Borderline 130-159 High 160-189 Very High >=190BASIC METABOLIC [id number] 15:23:00 Test Item Value Reference Range Comments SODIUM (BEAKER) (test 137 meq/L 136-145 todt=786) POTASSIUM (BEAKER) (test 4.0 meq/L 3.5-5.1 mgkl=196) CHLORIDE (BEAKER) (test 103 meq/L 98-107 uoko=144) CO2 (BEAKER) (test 23 meq/L 22-29 wxtc=480) BLOOD UREA NITROGEN 14 mg/dL 7-21 (BEAKER) (test asqb=054) CREATININE (BEAKER) (test 0.64 mg/dL 0.57-1.25 uhub=399) GLUCOSE RANDOM (BEAKER) 229 mg/dL 70-105 (test thuw=261) CALCIUM (BEAKER) (test 8.9 mg/dL 8.4-10.2 narj=889) EGFR (BEAKER) (test 133 mL/min/1.73 sq m ESTIMATED GFR IS NOT fpyt=0364) ACCURATE CREATININE CLEARANCE IN PREDICTING GLOMERULAR FILTRATION RATE. ESTIMATED GFR IS NOT APPLICABLE FOR DIALYSIS PATIENTS.
[2018-07-15] MEDS ORDERED: NA CHLORIDE 0.9% 500 ML ONE (09:49)
[2018-07-15 09:56] LABS: Absolute Lymphocytes (CBC) 2.2 K/uL (0.7-4.9); Absolute Monocytes 0.5 K/uL (0.1-1.3); Absolute Neutrophil 4.6 K/uL (1.8-8.0); Basophils % 0.6 % (0-1.3); Eosinophils % 4.5 % (0-4.4); Lymphocytes % 28.8 % (15.3-44.8); MCH 28.1 pg (27.0-35.0); MCV 81.6 fL (80-100); RBC Red Blood Cell Count 4.53 M/uL (4.33-5.43)
[2018-07-15 10:04] LABS: Protime INR 1.04
--- NOTE | 2018-07-15 10:19 | RAD REPORT ---
EXAM DESCRIPTION: CT - Ct Stroke Brain Wo Cont - 07/15/2018 9:53 am CLINICAL HISTORY: slurred speech, weakness CVA COMPARISON: Head angio dated 03/05/2018; Ct Stroke Brain Wo Cont dated 03/05/2018Head angio dated 03/05; Ct Stroke Brain Wo Cont dated 03/05/2018; Neck Angio dated 03/05/2018 TECHNIQUE: All CT scans are performed using dose optimization technique as appropriate and may inclu de automated exposure control or mA/KV adjustment according to patient size. FINDINGS: No intracranial hemorrhage, hydrocephalus or extra-axial fluid collection.Evidence of glio sis in the left basal ganglia likely representing fold infarct.No areas of brain edema or evidence of midline shift. The paranasal sinuses and mastoids are clear. The calvarium is intact. Increased density in the globe s likely represents retinal detachment, age undetermined. IMPRESSION: No acute intracranial abnormality. Bilateral increase globe density as detailed.
[2018-07-15 10:52] LABS: BUN Blood Urea Nitrogen 20 mg/dL (7-18); Bicarbonate 30 mmol/L (21-32); Glucose Level 189 mg/dL (74-106); Sodium Level 143 mmol/L (136-145)
--- NOTE | 2018-07-15 11:03 | RAD REPORT ---
EXAM DESCRIPTION: RAD - Chest Single View - 07/15/2018 10:25 am CLINICAL HISTORY: slurred speech Chest pain. COMPARISON: Chest Single View dated 03/05/2018; Chest Single View dated 03/04/2018 FINDINGS: Portable technique limits examination quality. The lungs are grossly clear. The heart is normal in size. No displaced fractures. IMPRESSION: No acute intrathoracic process suspected.
--- NOTE | 2018-07-15 11:25 | ER ---
Nurse's Notes [facility] Unit Name: Zac Serrato Age: 48 yrs Sex: Male : 1970 Arrival Date: 07/15/2018 Time: 09:37 Bed 5 Private MD: Diagnosis: Slurred speech;Facial weakness Presentation: 07/15 09:37 Presenting complaint: EMS states: Pt hx of CVA x 3, states that when he woke up ph this morning at approx 0845 he had slurred speech and was stumbling, droop noted to R mouth, pt states that he felt normal when he went to bed last night at approx 9 pm. Transition of care: patient was not received from another setting of care. No acute neurological deficit is noted. Onset of symptoms was July 15, 2018. Risk Assessment: Do you want to hurt yourself or someone else? Patient reports no desire to harm self or others. Initial Sepsis Screen: Does the patient meet any 2 criteria? No. Patient's initial sepsis screen is negative. Does the patient have a suspected source of infection? No. Patient's initial sepsis screen is negative. Care prior to arrival: None. 09:37 Method Of Arrival: EMS: [facility] ph 09:37 Acuity: TERRY 2 ph 09:50 The patients blood glucose was checked before arriving to the hospital and was found to hb be normal. Stroke Activation: Symptom onset > 6 hours Physician: Stroke Attending; Name: ; Notified At: ; Arrived At: Physician: Chief Stroke Resident; Name: ; Notified At: ; Arrived At: Physician: Stroke Resident; Name: ; Notified At: ; Arrived At: Physician: ED Attending; Name: ; Notified At: ; Arrived At: Physician: ED Resident; Name: ; Notified At: ; Arrived At: Historical: - Allergies: 09:45 No Known Allergies; hb - Home Meds: 09:45 metformin 1,000 mg Oral tab 1 tab 2 times per day [Active]; hb - PMHx: 09:45 Diabetes - NIDDM; RETINAL DETACHMENT; hb - PSHx: 09:45 R eye sx; hb - Immunization history:: Adult Immunizations up to date. - Social history:: Smoking status: Patient/guardian denies using tobacco. - Ebola Screening: : No symptoms or risks identified at this time. - Family history:: not pertinent. - Hospitalizations: : No recent hospitalization is reported. Screenin:40 Abuse screen: Denies threats or abuse. Denies injuries from another. Nutritional hb screening: No deficits noted. Tuberculosis screening: No symptoms or risk factors identified. Fall Risk Total Zambrano Fall Scale indicates High Risk Score (45 or more points). Fall prevention measures have been instituted. Side Rails Up X 2 Frequent Obs/Assessments Occuring Family Present and informed to notify staff if the need to leave the bedside As available patient and family educated on Fall Prevention Program and Strategies. Assessment: 09:45 Patient has been NPO before screening. The patient is alert, and able to follow hb commands. The patient exhibits slurred or garbled speech. Provider notified of the indication for Speech Therapy consult. The patient failed the bedside swallow screening. The patient will be kept NPO until cleared by Speech Therapy or Physician. Provider notified of bedside swallow screening results: Edward Wilburn MD. T-PA (Activase) Screening: Contraindications: Patient reports onset of signs and symptoms of stroke greater than 6 hours ago: Yes. 10:45 Reassessment: Patient appears in no apparent distress at this time. No changes from hb previously documented assessment. Patient and/or family updated on plan of care and expected duration. Pain level reassessed. Patient is alert, oriented x 3, equal unlabored respirations, skin warm/dry/pink. 11:45 Reassessment: Patient appears in no apparent distress at this time. No changes from hb previously documented assessment. Patient and/or family updated on plan of care and expected duration. Pain level reassessed. Patient is alert, oriented x 3, equal unlabored respirations, skin warm/dry/pink. Vital Signs: 09:34 BP 161 / 82; Pulse 91; Resp 15; Temp 98.1; Pulse Ox 100% on R/A; Pain 0/10; hb 10:30 BP 152 / 87; Pulse 83; Resp 16; Pulse Ox 97% on R/A; Pain 0/10; hb 11:45 BP 154 / 82; Pulse 81; Resp 15; Pulse Ox 100% on R/A; Pain 0/10; hb NIH Stroke Scale Scores: 09:50 NIHSS Score: 5 hb ED Course: 08:35 Arm band placed on right wrist. hb 09:37 Patient arrived in ED. ph 09:37 Edward Wilburn MD is Attending Physician. rn 09:43 Triage completed. ph 09:45 Patient has correct armband on for positive identification. Placed in gown. Bed in low hb position. Call light in reach. Side rails up X2. 09:53 CT completed. Patient moved to CT via stretcher. Patient moved back from CT. cw1 09:53 CT Stroke Brain w/o Contrast In Process Unspecified. EDMS 10:25 Stroke CXR 1 View In Process Unspecified. EDMS 10:56 initiated a transfer with Araceli from the [facility] transfer center. eb 11:[address] Dr[address] Malik with Dr. Wilburn for patient transfer consulation. eb 11:15 Leonor Allison, RN is Primary Nurse. hb 11:23 administrative approval given by Araceli Sanchez/ Pt going to 2406 bed 1/ Dr. Ponce eb has a accepted the patient in transfer/ report to be called to [phone]. Administered Medications: 10:12 Drug: NS 0.9% 500 ml Route: IV; Rate: bolus; Site: right antecubital; hb 11:45 Drug: Aspirin Chewable Tablet 324 mg Route: PO; hb Point of Care Testing: Blood Glucose: 09:40 Blood Glucose: 180 mg/dL; hb Ranges: Outcome: 11:24 ER care complete, transfer ordered by . rn 12:20 Transferred by ground EMS Transfer form completed. X-rays sent w/ patient. iw 12:20 Condition: good 12:20 Discharge instructions given to patient, Instructed on the need for transfer. 12:21 Patient left the ED. iw NIH Stroke Scale - NIH Stroke Score Date: 07/15/2018 Time: 09:50 Total Score = 5 1a. Level of Consciousness (LOC) - 0(Alert) 1b. Level of Consciousness (LOC) (Year \T\ Age) - 0(Both) 1c. LOC Commands (Open \T\ Closes Eyes/Knitting Machine Operator) - 0(Both) 2. Best Gaze (Lateral Gaze Paresis) - 0(Normal) 3. Visual Field Loss - 3(Bilateral hemianopia) 4. Facial Palsy - 1(Minor Paralysis) 5a. Left Arm: Motor (10-second hold) - 0(No drift) 5b. Right Arm: Motor (10-second hold) - 0(No drift) 6a. Left Leg: Motor (5-second hold - always test supine) - 0(No drift) 6b. Right Leg: Motor (5-second hold - always test supine) - 0(No drift) 7. Limb Ataxia (finger/nose \T\ heel/aj - test with eyes open) - 0(Absent) 8. Sensory Loss (pinprick arms/legs/face) - 0(Normal) 9. Best Language: Aphasia (description/naming/reading) - 0(No aphasia) 10. Dysarthria (speech clarity - read or repeat words) - 1(Mild to Moderate) 11. Extinction and Inattention (visual/tactile/auditory/spatial/personal) - 0(No abnormality) Initials: Signatures: Dispatcher [employer] Reanna Magdaleno RN RN iw Nieto, Roman, MD MD rn Woodley, Esha 1 Bing Bardales RN RN ph Baxter, Heather, RN RN hb Botello, Elizabeth eb Corrections: (The following items were deleted from the chart) 11:20 11:10 initiated a transfer with Araceli from the [facility] transfer center. adrianna eb
--- NOTE | 2018-07-15 11:25 | EDPHYS ---
Physician Documentation [facility] Name: Zac Serrato Age: 48 yrs Sex: Male : 1970 Arrival Date: 07/15/2018 Time: 09:37 Bed 5 Private MD: ED Physician Edward Wilburn HPI: 07/15 11:17 This 48 yrs old Male presents to ER via EMS with complaints of S/S of rn Possible Stroke. 11:17 The patient's problem is reported as a facial droop, on right, dysphasia, slurred rn speech. Onset: The symptoms/episode began/occurred at an unknown time. Duration: The episode is continuous. Associated signs and symptoms: Pertinent positives:. Severity of symptoms: At their worst the symptoms were mild in the emergency department the symptoms are unchanged. The patient has experienced similar episodes in the past. The patient has not recently seen a physician. Went to bed normal last night, woke up with slurred speech and generalized weakness with right facial weakness.. Historical: - Allergies: 09:45 No Known Allergies; hb - Home Meds: 09:45 metformin 1,000 mg Oral tab 1 tab 2 times per day [Active]; hb - PMHx: 09:45 Diabetes - NIDDM; RETINAL DETACHMENT; hb - PSHx: 09:45 R eye sx; hb - Immunization history:: Adult Immunizations up to date. - Social history:: Smoking status: Patient/guardian denies using tobacco. - Ebola Screening: : No symptoms or risks identified at this time. - Family history:: not pertinent. - Hospitalizations: : No recent hospitalization is reported. ROS: 11:17 Constitutional: Negative for fever, chills, and weight loss, Eyes: Negative for injury, rn pain, redness, and discharge, Neck: Negative for injury, pain, and swelling, Cardiovascular: Negative for chest pain, palpitations, and edema, Respiratory: Negative for shortness of breath, cough, wheezing, and pleuritic chest pain, Abdomen/GI: Negative for abdominal pain, nausea, vomiting, diarrhea, and constipation, : Negative for injury, bleeding, discharge, and swelling, MS/Extremity: Negative for injury and deformity, Skin: Negative for injury, rash, and discoloration, Neuro: Negative for headache, tingling, and seizure, + slurred speech Exam: 11:17 Radiologist reports: NO acute findings rn 11:17 Constitutional: This is a well developed, well nourished patient who is awake, alert, and in no acute distress. Head/Face: Normocephalic, atraumatic. Eyes: + baseline blindness with watery eyes Neck: Trachea midline, no thyromegaly or masses palpated, and no cervical lymphadenopathy. Supple, full range of motion without nuchal rigidity, or vertebral point tenderness. No Meningismus. Cardiovascular: Regular rate and rhythm with a normal S1 and S2. No gallops, murmurs, or rubs. Normal PMI, no JVD. No pulse deficits. Respiratory: Lungs have equal breath sounds bilaterally, clear to auscultation and percussion. No rales, rhonchi or wheezes noted. No increased work of breathing, no retractions or nasal flaring. Abdomen/GI: Soft, non-tender, with normal bowel sounds. No distension or tympany. No guarding or rebound. No evidence of tenderness throughout. MS/ Extremity: Pulses equal, no cyanosis. Neurovascular intact. Full, normal range of motion. Equal circumference. Neuro: Awake and alert, GCS 15, oriented to person, place, time, and situation. + right facial droop with slurred speech. Motor strength 5/5 in all extremities. Sensory grossly intact. Vital Signs: 09:34 BP 161 / 82; Pulse 91; Resp 15; Temp 98.1; Pulse Ox 100% on R/A; Pain 0/10; hb 10:30 BP 152 / 87; Pulse 83; Resp 16; Pulse Ox 97% on R/A; Pain 0/10; hb 11:45 BP 154 / 82; Pulse 81; Resp 15; Pulse Ox 100% on R/A; Pain 0/10; hb NIH Stroke Scale Scores: 09:50 NIHSS Score: 5 hb MDM: 09:37 Patient medically screened. rn 09:38 ED course: Last known normal 9PM last night, woke up with slurred speech, denies rn residual symptoms from previous strokes, no TPA indicated due to outside of window.. 11:17 Differential diagnosis: CVA, TIA, metabolic disorder. Data reviewed: vital signs, rn nurses notes, lab test result(s), radiologic studies, CT scan, and as a result, I will admit patient. Counseling: I had a detailed discussion with the patient and/or guardian regarding: the historical points, exam findings, and any diagnostic results supporting the discharge/admit diagnosis, lab results, radiology results, the need for further work-up and treatment in the hospital, the need to transfer to another facility, for higher level of care, [facility] does not immediately have the required specialist. Response to treatment: There is no appreciated change of the patient's symptoms at this time. ED course: Accepted for transfer to [facility] due to no neuro here, by Dr. Malik. . 11:17 ED course: NIH score of 2.. rn 07/15 09:38 Order name: Basic Metabolic Panel; Complete Time: 10:53 rn 07/15 09:38 Order name: CBC with Diff; Complete Time: 10: rn 07/15 09:38 Order name: Protime (+inr); Complete Time: 10:29 rn 07/15 09:38 Order name: Ptt, Activated; Complete Time: 10:29 rn 07/15 09:38 Order name: CT Stroke Brain w/o Contrast; Complete Time: 10: rn 07/15 09:40 Order name: Glucose, Ancillary Testing; Complete Time: 10:29 EDMS 07/15 09:38 Order name: Stroke CXR 1 View; Complete Time: 11:04 rn 07/15 09:38 Order name: Accucheck; Complete Time: 10:12 rn 07/15 09:38 Order name: Cardiac monitoring; Complete Time: 10:15 rn 07/15 09:38 Order name: EKG - Nurse/Tech; Complete Time: 10:15 rn 07/15 09:38 Order name: IV Saline Lock; Complete Time: 10:15 rn 07/15 09:38 Order name: Labs collected and sent; Complete Time: 10:15 rn 07/15 09:38 Order name: NPO; Complete Time: 10:15 rn 07/15 09:38 Order name: O2 Per Protocol; Complete Time: 10:15 rn 07/15 09:38 Order name: O2 Sat Monitoring; Complete Time: 10:15 rn 07/15 09:38 Order name: Stroke Swallow Screen; Complete Time: 10:15 rn Administered Medications: 10:12 Drug: NS 0.9% 500 ml Route: IV; Rate: bolus; Site: right antecubital; hb 11:45 Drug: Aspirin Chewable Tablet 324 mg Route: PO; hb Point of Care Testing: Blood Glucose: 09:40 Blood Glucose: 180 mg/dL; hb Ranges: Critical Glucose Levels:Adult <50 mg/dl or >400 mg/dl <40 mg/dl or >180 mg/dl Disposition: 07/15/18 11:24 Transfer ordered to [facility]. Diagnosis are Slurred speech, Facial weakness. - Reason for transfer: Higher level of care. - Accepting physician is Dr. Ponce. - Condition is Stable. - Problem is new. - Symptoms are unchanged. NIH Stroke Scale - NIH Stroke Score Date: 07/15/2018 Time: 09:50 Total Score = 5 1a. Level of Consciousness (LOC) - 0(Alert) 1b. Level of Consciousness (LOC) (Year \T\ Age) - 0(Both) 1c. LOC Commands (Open \T\ Closes Eyes/Service Technician) - 0(Both) 2. Best Gaze (Lateral Gaze Paresis) - 0(Normal) 3. Visual Field Loss - 3(Bilateral hemianopia) 4. Facial Palsy - 1(Minor Paralysis) 5a. Left Arm: Motor (10-second hold) - 0(No drift) 5b. Right Arm: Motor (10-second hold) - 0(No drift) 6a. Left Leg: Motor (5-second hold - always test supine) - 0(No drift) 6b. Right Leg: Motor (5-second hold - always test supine) - 0(No drift) 7. Limb Ataxia (finger/nose \T\ heel/aj - test with eyes open) - 0(Absent) 8. Sensory Loss (pinprick arms/legs/face) - 0(Normal) 9. Best Language: Aphasia (description/naming/reading) - 0(No aphasia) 10. Dysarthria (speech clarity - read or repeat words) - 1(Mild to Moderate) 11. Extinction and Inattention (visual/tactile/auditory/spatial/personal) - 0(No abnormality) Initials: hb Signatures: Dispatcher [employer] Reanna Magdaleno RN RN iw Edward Wilburn MD MD rn Baxter, Heather, RN RN hb Corrections: (The following items were deleted from the chart) 12:21 11:24 07/15/2018 11:24 Transfer ordered to [facility]. iw Diagnosis is Slurred speech; Facial weakness. Reason for transfer: Higher level of care. Accepting physician is Dr. Ponce. Condition is Stable. Problem is new. Symptoms are unchanged. rn
[2018-07-15 12:30] VITALS: BP 154/82; O2SAT 100
== END 2018-07-15 12:21 | disposition short-term general hospital (02) ==
LOC: ER 09:35
DX: R29.810 Facial weakness (principal); E11.9 Type 2 diabetes mellitus without complications
CPT/HCPCS: 36415; 70450; 71045; 80048; 82962; 85025; 85610; 85730; 99285; J0171; J7030

== ENCOUNTER 2019-03-12 00:01 | Inpatient (IN) | payer SELFPAY ==
--- OUTSIDE RECORDS SUMMARY | 2019-03-12 00:12 | XMS REPORT ---
:1970 [facility] Address [address] [place] [address] Care Team Providers Name Role Phone FRANCES REYNOLD Reeves Unavailable Unavailable KALYANI GOOD Unavailable Unavailable Problems This patient has no known problems. Allergies, Adverse Reactions, Alerts This patient has no known allergies or adverse reactions. Medications This patient has no known medications. Results Test Description Test Time Test Comments Text Results Atomic Results Result Comments POCT-GLUCOSE METER 2018-07-17 12:30:00 Test Item Value Reference Range Comments POC-GLUCOSE METER (BEAKER) (test 191 mg/dL 70-110 TESTED AT [address] babc=6219) [facility] [address] POCT-GLUCOSE [id number] 08:49:00 Test Item Value Reference Range Comments POC-GLUCOSE METER (BEAKER) 182 mg/dL 70-110 TESTED AT [address] (test wpus=3121) [facility] [address] POCT-GLUCOSE [id number] 21:25:00 Test Item Value Reference Range Comments POC-GLUCOSE METER (BEAKER) 176 mg/dL 70-110 TESTED AT [address] (test drjx=7165) [place] [address] POCT-GLUCOSE [id number] 17:30:00 Test Item Value Reference Range Comments POC-GLUCOSE METER (BEAKER) 176 mg/dL 70-110 TESTED AT [address] (test abxa=4660) [place] [address] VITAMIN [id number] 15:00:00 Test Item Value Reference Range Comments VITAMIN B12 (BEAKER) (test deim=884) 352 pg/mL 213-816 TSH/FREE T4 IF [id number] 15:00:00 Test Item Value Reference Range Comments THYROID STIMULATING HORMONE (BEAKER) (test 0.91 uIU/mL 0.35-4.94 ldgr=516) POCT-GLUCOSE [id number] 11:13:00 Test Item Value Reference Range Comments POC-GLUCOSE METER (BEAKER) 235 mg/dL 70-110 TESTED AT [address] (test odut=6309) [place] [address] POCT-GLUCOSE [id number] 11:13:00 Test Item Value Reference Range Comments POC-GLUCOSE METER (BEAKER) 195 mg/dL 70-110 TESTED AT [address] (test texs=7746) [place] [address] HEMOGLOBIN [id number] 09:35:00 Test Item Value Reference Range Comments HEMOGLOBIN A1C (BEAKER) (test qawk=535) 7.0 % 4.3-6.1 POCT-GLUCOSE [id number] 21:52:00 Test Item Value Reference Range Comments POC-GLUCOSE METER (BEAKER) 200 mg/dL 70-110 TESTED AT [address] (test jhnr=3499) [place] [address] MR, BRAIN, WITHOUT [id number] 19:24:00Reason for exam:->Ischemic Stroke EvaluationFINAL REPORT MR, BRAIN, WITHOUT CONTRAST INDICATION: Ischemic Stroke EvaluationIschemic Stroke Evaluation TECHNIQUE: Multiplanar, multisequence MR imaging of the brain without intravenous contrast. COMPARISON: March 05, 2018, correlation to CT examination July 15, 2018 approximately six hours prior FINDINGS: Diffusion restriction involving the posterior limb of the left internal capsule and lateral thalamus. No associated susceptibility artifact. Minimal adjacent T2 prolongation. Remaining brain parenchyma is morphologically normal and without signal characteristic abnormality. The ventricles are normal in size and configuration The larger intracranial vascular flow-voids are preserved. Paranasal sinuses and mastoid air cells are clear. There is normal bone marrow signal intensity within the calvarium and skull base. 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 Signed: JR Duggan Robert MDReport Verified Date/Time: 07/15/2018 19:24:03 Reading Location: [facility] B1 C013Y CT Body Reading Room Electronically signedby: JUANY DUGGAN on 07/15/2018 07:24 PMPOCT-GLUCOSE [id number] 17:14:00 Test Item Value Reference Range Comments POC-GLUCOSE METER (BEAKER) 192 mg/dL 70-110 TESTED AT [facility] [address] (test ygta=0972) [place] [address] [id number] 14:54:00 Test Item Value Reference Range Comments MAGNESIUM (BEAKER) (test ypob=667) 1.7 mg/dL 1.6-2.6 COMPREHENSIVE METABOLIC [id number] 14:54:00 Test Item Value Reference Range Comments TOTAL PROTEIN (BEAKER) 6.4 gm/dL 6.0-8.3 (test pcic=480) ALBUMIN (BEAKER) (test 3.5 g/dL 3.5-5.0 fkwf=8394) ALKALINE PHOSPHATASE 58 U/L 40-150 (BEAKER) (test pvyv=217) BILIRUBIN TOTAL (BEAKER) 0.7 mg/dL 0.2-1.2 (test puyt=081) SODIUM (BEAKER) (test 132 meq/L 136-145 nyvc=606) POTASSIUM (BEAKER) (test 3.9 meq/L 3.5-5.1 muhk=141) CHLORIDE (BEAKER) (test 102 meq/L 98-107 geyb=451) CO2 (BEAKER) (test 22 meq/L 22-29 bwhu=195) BLOOD UREA NITROGEN 20 mg/dL 7-21 (BEAKER) (test erap=344) CREATININE (BEAKER) (test 0.68 mg/dL 0.57-1.25 sgtl=908) GLUCOSE RANDOM (BEAKER) 207 mg/dL 70-105 (test oqll=321) CALCIUM (BEAKER) (test 9.1 mg/dL 8.4-10.2 dixt=625) AST (SGOT) (BEAKER) (test 9 U/L 5-34 qgpc=303) ALT (SGPT) (BEAKER) (test 10 U/L 6-55 djki=328) EGFR (BEAKER) (test 124 mL/min/1.73 sq ESTIMATED GFR IS NOT rhnh=8629) m ACCURATE CREATININE CLEARANCE IN PREDICTING GLOMERULAR FILTRATION RATE. ESTIMATED GFR IS NOT APPLICABLE FOR DIALYSIS PATIENTS. LIPID [id number] 14:54:00 Test Item Value Reference Range Comments TRIGLYCERIDES (BEAKER) (test cqkv=588) 115 mg/dL CHOLESTEROL (BEAKER) (test bgsw=665) 129 mg/dL HDL CHOLESTEROL (BEAKER) (test muoc=663) 37 mg/dL LDL CHOLESTEROL CALCULATED (BEAKER) (test 69 mg/dL avgq=333) Triglyceride Reference Range: Low Risk <150 Borderline 150- 199 High Risk 200-499 Very High Risk >=500Cholesterol Reference Range: Low Risk <200 Borderline 200-239 High Risk > 240HDL Cholesterol Reference Range: Low Risk >=60 High Risk <40LDL Cholesterol Reference Range: Optimal <100 Near Optimal 100-129 Borderline 130-159 High 160-189 Very High >=190CBC W/PLT COUNT & AUTO [id number] 14:37:00 Test Item Value Reference Range Comments WHITE BLOOD CELL COUNT (BEAKER) (test onik=693) 7.0 K/ L 3.5-10.5 RED BLOOD CELL COUNT (BEAKER) (test vcfn=855) 4.28 M/ L 4.63-6.08 HEMOGLOBIN (BEAKER) (test yusy=546) 12.0 GM/DL 13.7-17.5 HEMATOCRIT (BEAKER) (test tnsf=070) 35.5 % 40.1-51.0 MEAN CORPUSCULAR VOLUME (BEAKER) (test hfep=068) 82.9 fL 79.0-92.2 MEAN CORPUSCULAR HEMOGLOBIN (BEAKER) (test 28.0 pg 25.7-32.2 rqyb=151) MEAN CORPUSCULAR HEMOGLOBIN CONC (BEAKER) (test 33.8 GM/DL 32.3-36.5 oybc=120) RED CELL DISTRIBUTION WIDTH (BEAKER) (test 13.7 % 11.6-14.4 fnjj=933) PLATELET COUNT (BEAKER) (test emql=487) 195 K/CU MM 150-450 MEAN PLATELET VOLUME (BEAKER) (test jhtw=587) 10.8 fL 9.4-12.4 NUCLEATED RED BLOOD CELLS (BEAKER) (test 0 /100 WBC 0-0 zbsw=312) NEUTROPHILS RELATIVE PERCENT (BEAKER) (test 68 % lamf=501) LYMPHOCYTES RELATIVE PERCENT (BEAKER) (test 22 % rhgw=615) MONOCYTES RELATIVE PERCENT (BEAKER) (test 5 % enog=962) EOSINOPHILS RELATIVE PERCENT (BEAKER) (test 3 % chxg=210) BASOPHILS RELATIVE PERCENT (BEAKER) (test 0 % xksr=017) NEUTROPHILS ABSOLUTE COUNT (BEAKER) (test 4.79 K/ L 1.78-5.38 hqvm=342) LYMPHOCYTES ABSOLUTE COUNT (BEAKER) (test 1.57 K/ L 1.32-3.57 hlcs=858) MONOCYTES ABSOLUTE COUNT (BEAKER) (test 0.37 K/ L 0.30-0.82 ucmp=930) EOSINOPHILS ABSOLUTE COUNT (BEAKER) (test 0.24 K/ L 0.04-0.54 qfpl=553) BASOPHILS ABSOLUTE COUNT (BEAKER) (test 0.03 K/ L 0.01-0.08 qppw=216) IMMATURE GRANULOCYTES-RELATIVE PERCENT (BEAKER) 0 % 0-1 (test lswk=0018) CT, CTANGIO [id number] 14:18:00FINAL REPORT CLINICAL HISTORY: Stroke TECHNIQUE: Contiguous contrast-enhanced axial images through the neck followed by axial images through the head with coronal and sagittal reformations to assess the arterial circulation. 3-D reconstructions were performed using a volume rendered technique separately on a workstation. This exam was performed according to the departmental dose optimization program which includes automated exposure control, adjustment of the mA and/or kV according to the patient size, and/or use of an iterative reconstruction technique. COMPARISON: Noncontrast head CT 07/15/2018 FINDINGS: There is no evidence for a [place] proximal branch vessel occlusion. A severe stenosis of the mid to distal left posterior cerebral artery is again seen. No aneurysms are identified. The major intradural venous sinuses are patent. There is no hemodynamically significant stenosis in the proximal internal carotid arteries by NASCET criteria. The vertebral arteries in the neck are patent including their origins. There are dorsal spondylitic changes in the cervical spine. There are scattered subcentimeter lymph nodes in the neck. The visualized lung apices are clear. IMPRESSION: No evidence for a [place] proximal branch vessel occlusion. 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 No evidence of hemodynamically significant stenosis in the cervical carotid or vertebral arteries by NASCET criteria. Signed: Isadora Sanchez MDReport Verified Date/Time: 07/15/2018 14:18:24 Reading Location: [address] Neuro Reading Room CT, CAROTID, [id number] 14:18:00FINAL REPORT CLINICAL HISTORY: Stroke TECHNIQUE: Contiguous contrast- enhanced axial images through the neck followed by axial images through the head with coronal and sagittal reformations to assess the arterial circulation. 3-D reconstructions were performed using a volume rendered technique separately on a workstation. This exam was performed according to the departmental dose optimization program which includes automated exposure control, adjustment of the mA and/or kV according to the patient size, and/or use of an iterative reconstruction technique. COMPARISON: Noncontrast head CT 07/15/2018 FINDINGS: There is no evidence for a [place] proximal branch vessel occlusion. A severe stenosis of the mid to distal left posterior cerebral artery is again seen. No aneurysms are identified. The major intradural venous sinuses are patent. There is no hemodynamically significant stenosis in the proximal internal carotid arteries by NASCET criteria. The vertebral arteries in the neck are patent including their origins. There are dorsal spondylitic changes in the cervical spine. There are scattered subcentimeter lymph nodes in the neck. The visualized lung apices are clear. IMPRESSION: No evidence for a [place] proximal branch vessel occlusion. 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 No evidence of hemodynamically significant stenosis in the cervical carotid or vertebral arteries by NASCET criteria. Signed: Isadora Sanchez MDReport Verified Date/Time: 07/15/2018 14:18:24 Reading Location: [address] Neuro Reading Room CT, BRAIN, WITHOUT [id number] 13:56: 00FINAL REPORT CT Head without contrast CLINICAL HISTORY : Stroke TECHNIQUE: Contiguous axial images through the head without contrast. This exam was performed according to the departmental dose optimization program which includes automated exposure control, adjustment of the mA and/or kV according to the patient size, and/or use of an iterative reconstruction technique. COMPARISON: MRI 03/05/2018 FINDINGS: There is no CT evidence of acute infarct or intracranial hemorrhage. Thereis a chronic lacunar infarct of the posterior limb left internal capsule. There is mild sulcal prominence without hydrocephalus, midline shift, or apparent mass effect. There are no extra-axial fluid collections. The skull is intact. The visualized paranasal sinuses are well-aerated. There are bilateral globe silicone injections. IMPRESSION: No CT evidence of acute infarct, hemorrhage, or hydrocephalus. Chronic lacunar infarct posterior limb left internal capsule. Signed: Isadora Sanchezort Verified Date/Time: 07/15/2018 13:56:47 Reading Location: [address] Neuro Reading Room RAD, CHEST, 1 VIEW, NON [id number] 16:17:00Reason for exam:->? PneumoniaShould this be performed at the bedside?->YesAddendum BeginsREPORT STATUS:A Addendum: CLINICAL INFORMATION: Pneumonia Signed : Jessie Florenceort Verified Date/Time: 03/09/2018 16:17:25 Reading Location : [facility] Diagnostic Imaging Reading Room - [place] [address] [id number] EndsFINAL REPORT AP view of the chest dated 03/05/2018 CLINICAL INFORMATION: ? Pneumonia Comment: Heart is normal in size. Pulmonary vasculature is unremarkable. Lungs are clear. No pulmonary infiltrate or pleural effusion is present.Impression: No pneumonia. Signed: Jessie Florence Verified Date/Time: 03/05/2018 16:33:23 Reading Location: [facility] C013X Ortho Consult Reading Room POCT-GLUCOSE [id number] 11:32:00 Test Item Value Reference Range Comments POC-GLUCOSE METER (BEAKER) 325 mg/dL 70-110 Procedure Error/TESTED AT [facility] (test wayz=8928) [address] [place] [address] POCT-GLUCOSE [id number] 07:43:00 Test Item Value Reference Range Comments POC-GLUCOSE METER (BEAKER) 252 mg/dL 70-110 TESTED AT [address] (test bzla=6321) [place] [address] [id number] 04:34:00 Test Item Value Reference Range Comments MAGNESIUM (BEAKER) (test ipbt=963) 1.8 mg/dL 1.6-2.6 BASIC METABOLIC [id number] 04:34:00 Test Item Value Reference Range Comments SODIUM (BEAKER) (test 138 meq/L 136-145 uyxf=510) POTASSIUM (BEAKER) (test 4.0 meq/L 3.5-5.1 llsi=578) CHLORIDE (BEAKER) (test 104 meq/L 98-107 upsk=002) CO2 (BEAKER) (test 25 meq/L 22-29 sjro=433) BLOOD UREA NITROGEN 10 mg/dL 7-21 (BEAKER) (test grfv=462) CREATININE (BEAKER) (test 0.67 mg/dL 0.57-1.25 xpxk=850) GLUCOSE RANDOM (BEAKER) 236 mg/dL 70-105 (test tlau=902) CALCIUM (BEAKER) (test 9.1 mg/dL 8.4-10.2 pfad=093) EGFR (BEAKER) (test 127 mL/min/1.73 sq m ESTIMATED GFR IS NOT mvlc=0246) ACCURATE CREATININE CLEARANCE IN PREDICTING GLOMERULAR FILTRATION RATE. ESTIMATED GFR IS NOT APPLICABLE FOR DIALYSIS PATIENTS. CBC W/PLT COUNT & AUTO [id number] 04:11:00 Test Item Value Reference Range Comments WHITE BLOOD CELL COUNT (BEAKER) (test uoxt=700) 7.8 K/ L 3.5-10.5 RED BLOOD CELL COUNT (BEAKER) (test xhly=571) 5.41 M/ L 4.63-6.08 HEMOGLOBIN (BEAKER) (test jsqy=417) 14.6 GM/DL 13.7-17.5 HEMATOCRIT (BEAKER) (test jtsx=438) 44.4 % 40.1-51.0 MEAN CORPUSCULAR VOLUME (BEAKER) (test rcmc=079) 82.1 fL 79.0-92.2 MEAN CORPUSCULAR HEMOGLOBIN (BEAKER) (test 27.0 pg 25.7-32.2 jqsi=469) MEAN CORPUSCULAR HEMOGLOBIN CONC (BEAKER) (test 32.9 GM/DL 32.3-36.5 lrue=578) RED CELL DISTRIBUTION WIDTH (BEAKER) (test 14.1 % 11.6-14.4 lkgp=903) PLATELET COUNT (BEAKER) (test ntqm=165) 241 K/CU MM 150-450 MEAN PLATELET VOLUME (BEAKER) (test qhvh=552) 11.2 fL 9.4-12.4 NUCLEATED RED BLOOD CELLS (BEAKER) (test 0 /100 WBC 0-0 edku=867) NEUTROPHILS RELATIVE PERCENT (BEAKER) (test 55 % kvkt=456) LYMPHOCYTES RELATIVE PERCENT (BEAKER) (test 32 % jqxk=236) MONOCYTES RELATIVE PERCENT (BEAKER) (test 7 % pbxy=020) EOSINOPHILS RELATIVE PERCENT (BEAKER) (test 6 % ordt=515) BASOPHILS RELATIVE PERCENT (BEAKER) (test 1 % zsdf=995) NEUTROPHILS ABSOLUTE COUNT (BEAKER) (test 4.28 K/ L 1.78-5.38 fzhl=814) LYMPHOCYTES ABSOLUTE COUNT (BEAKER) (test 2.47 K/ L 1.32-3.57 wlsn=943) MONOCYTES ABSOLUTE COUNT (BEAKER) (test 0.57 K/ L 0.30-0.82 oihc=324) EOSINOPHILS ABSOLUTE COUNT (BEAKER) (test 0.46 K/ L 0.04-0.54 osai=432) BASOPHILS ABSOLUTE COUNT (BEAKER) (test 0.04 K/ L 0.01-0.08 yhbw=948) IMMATURE GRANULOCYTES-RELATIVE PERCENT (BEAKER) 0 % 0-1 (test lvex=1358) POCT-GLUCOSE [id number] 03:47:00 Test Item Value Reference Range Comments POC-GLUCOSE METER (BEAKER) 237 mg/dL 70-110 TESTED AT [address] (test paje=6710) [place] [address] POCT-GLUCOSE [id number] 02:07:00 Test Item Value Reference Range Comments POC-GLUCOSE METER (BEAKER) 355 mg/dL 70-110 TESTED AT [address] (test kmge=0568) [place] [address] POCT-GLUCOSE [id number] 18:33:00 Test Item Value Reference Range Comments POC-GLUCOSE METER (BEAKER) 291 mg/dL 70-110 TESTED AT [address] (test njvj=8421) [place] [address] POCT-GLUCOSE [id number] 11:50:00 Test Item Value Reference Range Comments POC-GLUCOSE METER (BEAKER) 361 mg/dL 70-110 Notified ROMMEL MALONEY/TESTED AT [facility] (test yquu=0398) [address] [place] [address] HEMOGLOBIN [id number] 09:38:00 Test Item Value Reference Range Comments HEMOGLOBIN A1C (BEAKER) (test myoe=042) 12.3 % 4.3-6.1 POCT-GLUCOSE [id number] 08:08:00 Test Item Value Reference Range Comments POC-GLUCOSE METER (BEAKER) 252 mg/dL 70-110 TESTED AT [facility] [address] [place] [address] (test nrgx=3681) [facility] [address] [id number] 06:38:00 Test Item Value Reference Range Comments MAGNESIUM (BEAKER) (test poso=604) 1.7 mg/dL 1.6-2.6 BASIC METABOLIC [id number] 06:38:00 Test Item Value Reference Range Comments SODIUM (BEAKER) (test 138 meq/L 136-145 zzlf=347) POTASSIUM (BEAKER) (test 3.9 meq/L 3.5-5.1 vtcj=139) CHLORIDE (BEAKER) (test 103 meq/L 98-107 qgpu=374) CO2 (BEAKER) (test 25 meq/L 22-29 xywg=790) BLOOD UREA NITROGEN 13 mg/dL 7-21 (BEAKER) (test yeft=910) CREATININE (BEAKER) (test 0.64 mg/dL 0.57-1.25 btdk=361) GLUCOSE RANDOM (BEAKER) 245 mg/dL 70-105 (test eecr=161) CALCIUM (BEAKER) (test 9.1 mg/dL 8.4-10.2 ljqi=604) EGFR (BEAKER) (test 133 mL/min/1.73 sq m ESTIMATED GFR IS NOT ulpu=6781) ACCURATE CREATININE CLEARANCE IN PREDICTING GLOMERULAR FILTRATION RATE. ESTIMATED GFR IS NOT APPLICABLE FOR DIALYSIS PATIENTS. CBC W/PLT COUNT & AUTO [id number] 06:11:00 Test Item Value Reference Range Comments WHITE BLOOD CELL COUNT (BEAKER) (test bngd=793) 7.9 K/ L 3.5-10.5 RED BLOOD CELL COUNT (BEAKER) (test bmav=560) 5.53 M/ L 4.63-6.08 HEMOGLOBIN (BEAKER) (test nsir=924) 14.9 GM/DL 13.7-17.5 HEMATOCRIT (BEAKER) (test rvly=220) 45.6 % 40.1-51.0 MEAN CORPUSCULAR VOLUME (BEAKER) (test wsue=307) 82.5 fL 79.0-92.2 MEAN CORPUSCULAR HEMOGLOBIN (BEAKER) (test 26.9 pg 25.7-32.2 lpov=966) MEAN CORPUSCULAR HEMOGLOBIN CONC (BEAKER) (test 32.7 GM/DL 32.3-36.5 bqjn=635) RED CELL DISTRIBUTION WIDTH (BEAKER) (test 13.8 % 11.6-14.4 lspx=402) PLATELET COUNT (BEAKER) (test gdlu=612) 213 K/CU MM 150-450 MEAN PLATELET VOLUME (BEAKER) (test whau=651) 11.5 fL 9.4-12.4 NUCLEATED RED BLOOD CELLS (BEAKER) (test 0 /100 WBC 0-0 yaer=136) NEUTROPHILS RELATIVE PERCENT (BEAKER) (test 61 % manm=362) LYMPHOCYTES RELATIVE PERCENT (BEAKER) (test 27 % skup=063) MONOCYTES RELATIVE PERCENT (BEAKER) (test 7 % lgqm=710) EOSINOPHILS RELATIVE PERCENT (BEAKER) (test 5 % blkn=601) BASOPHILS RELATIVE PERCENT (BEAKER) (test 1 % gztq=547) NEUTROPHILS ABSOLUTE COUNT (BEAKER) (test 4.80 K/ L 1.78-5.38 hnfq=419) LYMPHOCYTES ABSOLUTE COUNT (BEAKER) (test 2.08 K/ L 1.32-3.57 bfsh=007) MONOCYTES ABSOLUTE COUNT (BEAKER) (test 0.53 K/ L 0.30-0.82 zeqb=146) EOSINOPHILS ABSOLUTE COUNT (BEAKER) (test 0.39 K/ L 0.04-0.54 hbad=458) BASOPHILS ABSOLUTE COUNT (BEAKER) (test 0.04 K/ L 0.01-0.08 pjtm=193) IMMATURE GRANULOCYTES-RELATIVE PERCENT (BEAKER) 0 % 0-1 (test qvyb=1206) POCT-GLUCOSE [id number] 05:15:00 Test Item Value Reference Range Comments POC-GLUCOSE METER (BEAKER) 284 mg/dL 70-110 TESTED AT [facility] [address] [facility] (test oxvc=6670) [facility] [address] [id number] 02:24:00 Test Item Value Reference Range Comments RPR SCREEN (BEAKER) (test ysni=151) Nonreactive Nonreactive MR, BRAIN, WITHOUT [id number] 00:02:00FINAL REPORT MR, BRAIN, WITHOUT CONTRAST, MR, [...] Verified Date/Time : 03/06/2018 00:02:34 Reading Location: [address] Consult Reading Room MR , MRA, BRAIN, WITHOUT [id number] 00:02:00FINAL REPORT MR, BRAIN, WITHOUT CONTRAST, MR, [...] Verified Date/Time : 03/06/2018 00:02:34 Reading Location: [address] Consult Reading Room MR , MRA, NECK, WITHOUT IV [id number] 00:02:00FINAL REPORT MR, BRAIN, WITHOUT CONTRAST, MR, [...] Verified Date/Time : 03/06/2018 00:02:34 Reading Location: [facility] C013X [facility] Consult Reading Room URINALYSIS W/ [id number] 23:06:00 Test Item Value Reference Range Comments COLOR (BEAKER) (test weaq=922) Yellow CLARITY (BEAKER) (test fiil=791) Clear SPECIFIC GRAVITY UA (BEAKER) (test 1.048 1.001-1.035 aksx=888) PH UA (BEAKER) (test sbhy=320) 6.0 5.0-8.0 PROTEIN UA (BEAKER) (test tfhl=999) 300 mg/dL Negative GLUCOSE UA (BEAKER) (test atnc=223) >1000 mg/dL Negative KETONES UA (BEAKER) (test jccx=893) 100 mg/dL Negative BILIRUBIN UA (BEAKER) (test vhvf=448) Negative Negative BLOOD UA (BEAKER) (test fgtl=919) Negative Negative NITRITE UA (BEAKER) (test hetu=444) Negative Negative LEUKOCYTE ESTERASE UA (BEAKER) (test Negative Negative mfpu=201) UROBILINOGEN UA (BEAKER) (test mdgp=229) 0.2 mg/dL 0.2-1.0 RBC UA (BEAKER) (test xukd=629) < /HPF WBC UA (BEAKER) (test foxx=770) 2 /HPF MUCUS (BEAKER) (test bodj=0837) Occasional SQUAMOUS EPITHELIAL (BEAKER) (test < /HPF vzdk=464) SOURCE(BEAKER) (test vgku=4101) Urine, Clean Catch HIV-1 ANTIGEN WITH HIV-1/2 [id number] 18:51:00 Test Item Value Reference Range Comments HIV-1 ANTIGEN WITH HIV 1\T\2 ANTIBODY (2) Nonreactive Nonreactive (BEAKER) (test rcgt=8031) [id number] 17:29:00 Test Item Value Reference Range Comments THYROID STIMULATING HORMONE (BEAKER) (test 0.54 uIU/mL 0.35-4.94 ksfn=613) VITAMIN B12 AND [id number] 17:29:00 Test Item Value Reference Range Comments VITAMIN B12 (BEAKER) (test pfis=038) 559 pg/mL 213-816 FOLATE (BEAKER) (test btgd=989) 13.7 ng/mL >=7.0 SEDIMENTATION [id number] 16:20:00 Test Item Value Reference Range Comments SEDIMENTATION RATE, ERYTHROCYTE (BEAKER) (test 37 mm/HR 0-15 sojj=096) LIPID [id number] 15:23:00 Test Item Value Reference Range Comments TRIGLYCERIDES (BEAKER) (test cjsm=062) 149 mg/dL CHOLESTEROL (BEAKER) (test kmuw=189) 189 mg/dL HDL CHOLESTEROL (BEAKER) (test jjim=352) 34 mg/dL LDL CHOLESTEROL CALCULATED (BEAKER) (test 125 mg/dL wlog=742) Triglyceride Reference Range: Low Risk <150 Borderline 150- 199 High Risk 200-499 Very High Risk >=500Cholesterol Reference Range: Low Risk <200 Borderline 200-239 High Risk > 240HDL Cholesterol Reference Range: Low Risk >=60 High Risk <40LDL Cholesterol Reference Range: Optimal <100 Near Optimal 100-129 Borderline 130-159 High 160-189 Very High >=190BASIC METABOLIC [id number] 15:23:00 Test Item Value Reference Range Comments SODIUM (BEAKER) (test 137 meq/L 136-145 agan=418) POTASSIUM (BEAKER) (test 4.0 meq/L 3.5-5.1 ezpn=270) CHLORIDE (BEAKER) (test 103 meq/L 98-107 vifr=814) CO2 (BEAKER) (test 23 meq/L 22-29 xxge=151) BLOOD UREA NITROGEN 14 mg/dL 7-21 (BEAKER) (test uhnw=819) CREATININE (BEAKER) (test 0.64 mg/dL 0.57-1.25 efji=589) GLUCOSE RANDOM (BEAKER) 229 mg/dL 70-105 (test jjvl=701) CALCIUM (BEAKER) (test 8.9 mg/dL 8.4-10.2 xzdi=282) EGFR (BEAKER) (test 133 mL/min/1.73 sq m ESTIMATED GFR IS NOT xrkl=[id number]) ACCURATE CREATININE CLEARANCE IN PREDICTING GLOMERULAR FILTRATION RATE. ESTIMATED GFR IS NOT APPLICABLE FOR DIALYSIS PATIENTS.
--- OUTSIDE RECORDS SUMMARY | 2019-03-12 00:12 | XMS REPORT | Clinical Summary ---
:1970 Author Organization [facility] Address [address] [place] [address] Care Team Providers Name Role Phone Sharpless Primary Care Provider Unavailable Allergies No Known Allergies Medications Medication Sig Dispensed Refills Start Date End Date Status metFORMIN Take 1,000 mg by 0 Active (GLUCOPHAGE) 1000 mouth 2 (two) times MG tablet daily with breakfast and dinner . lisinopril Take 20 mg by mouth 0 Active (PRINIVIL,ZESTRIL daily. ) 20 MG tablet insulin degludec Inject 30 Units 0 Active (TRESIBA subcutaneously FLEXTOUCH U-100) daily. 100 unit/mL (3 mL) InPn prednisoLONE Place 1 drop into 0 07/15/20 Discontinued acetate (PRED the right eye 2 18 FORTE) 1 % (two) times daily. ophthalmic suspension polymyxin B Place 1 drop into 0 07/15/20 Discontinued sulf-trimethoprim the right eye 2 18 10,000 unit- 1 (two) times daily. mg/mL Drop timolol (BETIMOL) Place 1 drop into 0 07/15/20 Discontinued 0.5 % ophthalmic the right eye 2 18 solution (two) times daily. aspirin 81 MG EC Take 1 tablet (81 30 tablet 1 03/08/2018 03/08/20 tablet mg total) by mouth 19 daily. atorvastatin Take 1 tablet (80 30 tablet 1 03/07/2018 07/15/20 Discontinued (LIPITOR) 80 MG mg total) by mouth 18 tablet nightly. lisinopril Take 1 tablet (5 mg 30 tablet 0 03/08/2018 07/15/20 Discontinued (PRINIVIL,ZESTRIL total) by mouth 18 ) 5 MG tablet daily. insulin 70/30, Inject 15 Units 10 mL 1 03/07/2018 07/15/20 Discontinued insulin subcutaneously 2 18 NPH-insulin (two) times daily regular, (HUMULIN before meals. 70/30,NOVOLIN 70/30) 100 unit/mL (70-30) injection insulin Use as directed to 100 each 0 03/07/2018 07/15/20 Discontinued syringe-needle inject insulin 18 U-100 (BD INSULIN twice a day. SYRINGE) 1 mL 25 gauge x 5/8" Syrg pravastatin Take 40 mg by mouth 0 07/17/20 Discontinued (PRAVACHOL) 40 MG once at bedtime . 18 tablet atorvastatin Take 1 tablet (80 30 tablet 0 07/17/2018 08/16/20 (LIPITOR) 80 MG mg total) by mouth 18 tabletIndications nightly for 30 : Acute CVA days. (cerebrovascular accident) ([facility]) amLODIPine Take 1 tablet (5 mg 30 tablet 0 07/17/2018 08/16/20 (NORVASC) 5 MG total) by mouth 18 tabletIndications daily for 30 days. : Essential hypertension clopidogrel Take 1 tablet (75 90 tablet 0 07/18/2018 10/16/20 (PLAVIX) 75 mg mg total) by mouth 18 tabletIndications daily for 90 days. : Acute CVA (cerebrovascular accident) ([facility]) Active Problems Problem Noted Date Acute ischemic stroke 07/15/2018 Essential hypertension 07/15/2018 Proteinuria 03/06/2018 Acute CVA (cerebrovascular accident) 03/05/2018 Type 2 diabetes mellitus with complication, with long-term current use of insulin Tobacco abuse 03/05/2018 Diabetic retinopathy 03/05/2018 Overview: Retinal detachment on the right Encounters Date Type Specialty Care Team Description 07/15/2018 - Hospital Encounter General Internal Darshan Ponce Acute CVA ( cerebrovascular accident) ([facility]); 07/17/2018 Medicine MD Lala Acute ischemic stroke ([facility]); Peggy Bryan Diabetic retinopathy of both eyes without macular edema associated with type 2 diabetes mellitus, unspecified retinopathy severity ([facility]) ; MD Malou Tobacco abuse; Facial droop; Dysarthria; Essential hypertension; Type 2 diabetes mellitus with complication, with long-term current use of insulin ([facility]) after 03/11/2018 Family History Medical History Relation Name Comments Stroke Neg Hx Social History Tobacco Use Types Packs/Day Years Used Date Current Every Day Smoker 0.5 Smokeless Tobacco: Never Used Tobacco Cessation: Ready to Quit: No Alcohol Use Drinks/Week oz/Week Comments No Sex Assigned at Date Recorded Not on file Job Start Date Occupation Industry Not on file Not on file Not on file Travel History Travel Start Travel End No recent travel history available. Last Filed Vital Signs Vital Sign Reading Time Taken Blood Pressure 167/72 07/17/2018 2:07 PM CDT Pulse 97 07/17/2018 2:07 PM CDT Temperature 37 C (98.6 F) 07/17/2018 12:00 PM CDT Respiratory Rate 18 07/17/2018 2:07 PM CDT Oxygen Saturation 98% 07/17/2018 2:07 PM CDT Inhaled Oxygen Concentration - - Weight 101.6 kg (224 lb) 07/16/2018 12:00 AM CDT Height 172.7 cm (5' 8") 07/16/2018 12:00 AM CDT Body Mass Index 34.06 07/16/2018 12:00 AM CDT Plan of Treatment Not on file Procedures Procedure Name Priority Date/Time Associated Comments Diagnosis RHYTHM STRIP - SCAN 07/18/2018 2:01 PM CDT POCT-GLUCOSE METER Routine 07/17/2018 12:00 Results for this PM CDT procedure are in the results section. POCT-GLUCOSE METER Routine 07/17/2018 8:30 Results for this AM CDT procedure are in the results section. POCT-GLUCOSE METER Routine 07/16/2018 9:20 Results for this PM CDT procedure are in the results section. POCT-GLUCOSE METER Routine 07/16/2018 5:28 Results for this PM CDT procedure are in the results section. POCT-GLUCOSE METER Routine 07/16/2018 11:09 Results for this AM CDT procedure are in the results section. VITAMIN B12 Routine 07/16/2018 10:38 Results for this AM CDT procedure are in the results section. TSH/FREE T4 IF Routine 07/16/2018 10:38 Results for this INDICATED AM CDT procedure are in the results section. ECHOCARDIOGRAM REPORT 07/16/2018 8:20 - SCAN AM CDT POCT-GLUCOSE METER Routine 07/16/2018 7:48 Results for this AM CDT procedure are in the results section. POCT-GLUCOSE METER Routine 07/15/2018 9:43 Results for this PM CDT procedure are in the results section. MR BRAIN WITHOUT IV Routine 07/15/2018 7:00 Results for this CONTRAST PM CDT procedure are in the results section. POCT-GLUCOSE METER Routine 07/15/2018 5:03 Results for this PM CDT procedure are in the results section. 2D ECHO W/ DOPPLER STAT 07/15/2018 3:58 Results for this (CW/PW/COLOR) PM CDT procedure are in the results section. CBC W/PLT COUNT & AUTO Routine 07/15/2018 2:24 Results for this DIFFERENTIAL PM CDT procedure are in the results section. LIPID PANEL Routine 07/15/2018 2:24 Results for this PM CDT procedure are in the results section. HEMOGLOBIN A1C AP Routine 07/15/2018 2:24 Results for this PM CDT procedure are in the results section. MAGNESIUM Routine 07/15/2018 2:24 Results for this PM CDT procedure are in the results section. COMPREHENSIVE Routine 07/15/2018 2:24 Results for this METABOLIC PANEL PM CDT procedure are in the results section. CBC W/PLT COUNT & AUTO Routine 07/15/2018 2:24 Results for this DIFFERENTIAL PM CDT procedure are in the results section. CT/CTA CAROTID STAT 07/15/2018 2:13 Results for this PM CDT procedure are in the results section. CT/CTA BRAIN STAT 07/15/2018 2:13 Results for this PM CDT procedure are in the results section. CT BRAIN WITHOUT IV STAT 07/15/2018 2:13 Results for this CONTRAST PM CDT procedure are in the results section. after 03/11/2018 Results RHYTHM STRIP - SCAN (07/18/2018 2:01 PM CDT) Narrative Performed At POC-Glucose meter (07/17/2018 12:00 PM CDT)Only the most recent of8 resultswithin the time period is included. POC-Glucose Meter 191 (H)Comment: TESTED AT 70 - 110 mg/dL [place] [id number] [facility] [id number] Specimen Blood Performing Organization Address City/State/Zipcode Phone Number [address] [address] [phone] CENTER TSH/Free T4 If Indicated (07/16/2018 10:38 AM CDT) TSH 0.91 0.35 - 4.94 uIU/mL [facility] Specimen Blood Performing Organization Address City/State/Zipcode Phone Number [facility] [address] [place] [address] CENTER Vitamin B12 (07/16/2018 10:38 AM CDT) Vitamin B12 352 213 - 816 pg/mL [facility] Specimen Blood Performing Organization Address City/[facility]/Zipcode Phone Number [facility] [address] [place] [address] [phone] CENTER ECHOCARDIOGRAM REPORT - SCAN (07/16/2018 8:20 AM CDT) Narrative Performed At MR brain without IV contrast (07/15/2018 7:00 PM CDT) Specimen Narrative Performed At FINAL REPORT [facility] MR, BRAIN, WITHOUT CONTRAST INDICATION: Ischemic Stroke Evaluation Ischemic Stroke Evaluation TECHNIQUE: Multiplanar, multisequence MR imaging [...] capsule nonhemorrhagic infarct. Signed: JR Duggan Robert MD Report Verified Date/Time:07/15/2018 19:24:03 Reading Location: [facility] B1 C013Y CT Body Reading Room Procedure Note Interface, External Ris In - 07/15/2018 7:26 PM CDT FINAL REPORT MR, BRAIN, WITHOUT CONTRAST INDICATION: Ischemic Stroke Evaluation Ischemic Stroke Evaluation TECHNIQUE: Multiplanar, multisequence MR imaging [...] capsule nonhemorrhagic infarct. Signed: JR Duggan Robert MD Report Verified Date/Time: 07/15/2018 19:24:03 Reading Location: [facility] C013Y CT Body Reading Room Performing Organization Address City/State/Zipcode Phone Number [employer] 2D Echo W/Doppler(CW/PW/Color) (07/15/2018 3:58 PM CDT) Ejection Fraction [facility] [employer] [facility] Specimen Narrative Performed At Transthoracic Echocardiography Report (TTE) [facility] ECHO [employer] [facility] Demographics Patient Name ZAC TRAVIS Date of Study 07/15/2018 [id number] GenderMale Visit Number [id number] Unknown [id number] Room Number 2231 Number Date of Birth1970Referring Physician Darshan Ponce Age48 year(s)Ladle Puller Noemi Topete [facility] InterpretingRamayela Nixon Physician Fellow LIANE Trejo Procedure Type of Study TTE procedure:2DECHO W DOPPLER(CW/PW/COLOR) (STAT) Indications:Suspected cardiac source of emboli. Clinical History DM HGB 12.0 HCT 35.5 % Contrast Medium: Definity. Height: 68 inches Weight: 97.52 kg (215 lbs) BSA: 2.11 m^2 BMI: 32.69 kg/m^2 HR: 80 bpm BP: 166/75 mmHg Summary IV saline contrast injection was negative for a PFO (patent foramen ovale) at rest and post Valsalva . Normal interatrial septum by available views. The LV endocardium is adequately visualized. The left ventricle is chamber size (by vol index) is normal (male - LVED vol - 34-74ml/m2). Mild concentric LV hypertrophy. All of the LV segments contract normally . LVEF by Moyer's method of disk assessment is normal (>60%) . Grade 1 diastolic dysfunction (impaired relaxation and low-normal LA pressure). IV saline contrast injection was negative for a PFO (patent foramen ovale) at rest and post Valsalva . Normal interatrial septum by available views. The estimated RA pressure by IVC dynamics 5-10mmHg . TV structure is normal. A trace of tricuspid regurgitation. Estimated peak systolic PA pressure is cannot be determined due to inadequate TR velocity signal . Signature Findings Rhythm/BPRegular sinus rhythm during the exam. Left Ventricle The LV endocardium is adequately visualized. Th e left ventricle is chamber size (by vol index) is normal (male - LVED vol - 34-74ml/m2). Mi ld concentric LV hypertrophy. Al l of the LV segments contract normally . LV EF by Moyer's method of disk assessment is no rmal (>60%) . Gr frank 1 diastolic dysfunction (impaired relaxation an d low-normal LA pressure). Left AtriumLA size is normal (16-34 ml/m2) . Right VentricleThe right ventricular chamber size and systolic fu nction are within normal limits. Right Atrium RA size is normal. Atrial SeptumIV saline contrast injection was negative for a PFO (p atent foramen ovale) at rest and post Valsalva . No rmal interatrial septum by available views. Aortic Valve Normal trileaflet AoV structure and function. Th ere is no aortic stenosis. Mitral Valve Normal MV structure and function. Tricuspid ValveTV structure is normal. A trace of tricuspid regurgitation. Es timated peak systolic PA pressure is cannot be de termined due to inadequate TR velocity signal . Pulmonic Valve Normal PV structure and function by limited views an d Doppler. AortaAortic root size (SInus of Valsalva diameter) is no rmal . Vi sualized aortic arch is normal . PericardiumNo significant pericardial effusion is visualized. IVC/SVC/PA/PV/PleuralThe estimated RA pressure by IVC dynamics 5-10mmHg . Chambers/Structures Left Atrium LA Volume: 44.48 ml LA Area: 16.29 cm^2 LA Vol. Index: 21 ml/m^2 Left Ventricle LVIDd: 4.38 cm LVEDV:104.66 ml LVIDs: 3.34 cm LVESV:37.1 ml LV Septum Diastolic: 1.36 cmLVEF 2D Cube: 65.3 % LV PW Diastolic: 1.21 cm LVEDV Moyer's:121.7 mlLV FS: 23.7 % LVESV Moyer's:42.09 ml LVEF Moyer's: 65.4 %LVEDV I: 58 ml/m^2 LVESVI: 20 ml/m^2 LVOT Diameter: 2.13 cm LVEF: 64.6 % Aorta Ao Root S of Shirley.: 3.21 cmAortic Arch: 2.96 cm Doppler/Quantitative Measurements Mitral Valve MV Peak E-Wave: 0.71 m/sMV Peak A-Wave: 1.04 m/s E/A Ratio: 0.68 Peak Gradient: 1.99 mmHg Deceleration Time: 198.2 msec MV Ryley. Peak: Tissue Doppler E' Lateral Velocity: 0.08 m/s A' Lateral Velocity: 0.17 m/s E/E': 8.72 Aortic Valve Peak Velocity: 1.3 m/s Mean Velocity: 0.84 m/s Peak Gradient: 6.72 mmHg Mean Gradient: 3.28 mmHg AV Area (continuity): 3.55 cm^2 AV VTI: 24.88 cm AV DVI: 1 LVOT Peak Velocity: 1.11 m/s Peak Gradient: 4.96 mmHg Mean Velocity: 0.73 m/s Mean Gradient: 2.47 mmHg LVOT Diameter: 2.13 cmLVOT VTI: 24.83 cm LVOT Area: 3.56 cm^2LVOT SV:88.43 ml LVOT CO: 7.07 l/min LVOT CI: 3.35 l/min/m^2 Procedure Note Interface, External Ris In - 07/16/2018 7:50 AM CDT Transthoracic Echocardiography Report (TTE) Demographics Patient Name ZAC TRAVIS Date of Study 07/15/2018 Gender Male Visit Number [id number] Race Unknown Room Number 2231 Number Date of 1970 Referring Physician Darshan Ponce Age 48 year(s) Ladle Puller Noemi Topete [facility] Interpreting Enrique Nixon, Physician Fellow LIANE Trejo Procedure Type of Study TTE procedure:2DECHO W DOPPLER(CW/PW/COLOR) (STAT) Indications:Suspected cardiac source of emboli. Clinical History DM HGB 12.0 HCT 35.5 % Contrast Medium: Definity. Height: 68 inches Weight: 97.52 kg (215 lbs) BSA: 2.11 m^2 BMI: 32.69 kg/m^2 HR: 80 bpm BP: 166/75 mmHg Summary IV saline contrast injection was negative for a PFO (patent foramen ovale) at rest and post Valsalva . Normal interatrial septum by available views. The LV endocardium is adequately visualized. The left ventricle is chamber size (by vol index) is normal (male - LVED vol - 34-74ml/m2). Mild concentric LV hypertrophy. All of the LV segments contract normally . LVEF by Moyer's method of disk assessment is normal (>60%) . Grade 1 diastolic dysfunction (impaired relaxation and low-normal LA pressure). IV saline contrast injection was negative for a PFO (patent foramen ovale) at rest and post Valsalva . Normal interatrial septum by available views. The estimated RA pressure by IVC dynamics 5-10mmHg . TV structure is normal. A trace of tricuspid regurgitation. Estimated peak systolic PA pressure is cannot be determined due to inadequate TR velocity signal . Signature Findings Rhythm/BP Regular sinus rhythm during the exam. Left Ventricle The LV endocardium is adequately visualized. The left ventricle is chamber size (by vol index) is normal (male - LVED vol - 34-74ml/m2). Mild concentric LV hypertrophy. All of the LV segments contract normally . LVEF by Moyer's method of disk assessment is normal (>60%) . Grade 1 diastolic dysfunction (impaired relaxation and low-normal LA pressure). Left Atrium LA size is normal (16-34 ml/m2) . Right Ventricle The right ventricular chamber size and systolic function are within normal limits. Right Atrium RA size is normal. Atrial Septum IV saline contrast injection was negative for a PFO (patent foramen ovale) at rest and post Valsalva . Normal interatrial septum by available views. Aortic Valve Normal trileaflet AoV structure and function. There is no aortic stenosis. Mitral Valve Normal MV structure and function. Tricuspid Valve TV structure is normal. A trace of tricuspid regurgitation. Estimated peak systolic PA pressure is cannot be determined due to inadequate TR velocity signal . Pulmonic Valve Normal PV structure and function by limited views and Doppler. Aorta Aortic root size (SInus of Valsalva diameter) is normal . Visualized aortic arch is normal . Pericardium No significant pericardial effusion is visualized. IVC/SVC/PA/PV/Pleural The estimated RA pressure by IVC dynamics 5-10mmHg . Chambers/Structures Left Atrium LA Volume: 44.48 ml LA Area: 16.29 cm^2 LA Vol. Index: 21 ml/m^2 Left Ventricle LVIDd: 4.38 cm LVEDV:104.66 ml LVIDs: 3.34 cm LVESV:37.1 ml LV Septum Diastolic: 1.36 cm LVEF 2D Cube: 65.3 % LV PW Diastolic: 1.21 cm LVEDV Moyer's:121.7 ml LV FS: 23.7 % LVESV Moyer's:42.09 ml LVEF Moyer's: 65.4 % LVEDVI: 58 ml/m^2 LVESVI: 20 ml/m^2 LVOT Diameter: 2.13 cm LVEF: 64.6 % Aorta Ao Root S of Shirley.: 3.21 cm Aortic Arch: 2.96 cm Doppler/Quantitative Measurements Mitral Valve MV Peak E-Wave: 0.71 m/s MV Peak A-Wave: 1.04 m/s E/A Ratio: 0.68 Peak Gradient: 1.99 mmHg Deceleration Time: 198.2 msec MV Ryley. Peak: Tissue Doppler E' Lateral Velocity: 0.08 m/s A' Lateral Velocity: 0.17 m/s E/E': 8.72 Aortic Valve Peak Velocity: 1.3 m/s Mean Velocity: 0.84 m/s Peak Gradient: 6.72 mmHg Mean Gradient: 3.28 mmHg AV Area (continuity): 3.55 cm^2 AV VTI: 24.88 cm AV DVI: 1 LVOT Peak Velocity: 1.11 m/s Peak Gradient: 4.96 mmHg Mean Velocity: 0.73 m/s Mean Gradient: 2.47 mmHg LVOT Diameter: 2.13 cm LVOT VTI: 24.83 cm LVOT Area: 3.56 cm^2 LVOT SV:88.43 ml LVOT CO: 7.07 l/min LVOT CI: 3.35 l/min/m^2 Performing Organization Address City/State/Zipcode Phone Number [facility] [employer] CBC with platelet count + automated diff (07/15/2018 2:24 PM CDT) WBC 7.0 3.5 - 10.5 K/L [facility] RBC 4.28 (L) 4.63 - 6.08 M/L [facility] Hemoglobin 12.0 (L) 13.7 - 17.5 GM/DL [facility] Hematocrit 35.5 (L) 40.1 - 51.0 % [facility] MCV 82.9 79.0 - 92.2 fL [facility] MCH 28.0 25.7 - 32.2 pg [facility] MCHC 33.8 32.3 - 36.5 GM/DL [facility] RDW 13.7 11.6 - 14.4 % [facility] Platelets 195 150 - 450 K/CU MM [facility] MPV 10.8 9.4 - 12.4 fL [facility] nRBC 0 0 - 0 /100 WBC [facility] % Neutros 68 % [facility] % Lymphs 22 % [facility] % Monos 5 % [facility] % Eos 3 % [facility] % Baso 0 % [facility] # Neutros 4.79 1.78 - 5.38 K/L [facility] # Lymphs 1.57 1.32 - 3.57 K/L [facility] # Monos 0.37 0.30 - 0.82 K/L [facility] # Eos 0.24 0.04 - 0.54 K/L [facility] # Baso 0.03 0.01 - 0.08 K/L [facility] Immature Granulocytes-Relative 0 0 - 1 % [facility] Specimen Blood Performing Organization Address City/[facility]/Zipcode Phone Number [address] [address] CENTER Magnesium (07/15/2018 2:24 PM CDT) Magnesium 1.7 1.6 - 2.6 mg/dL [facility] Specimen Blood Performing Organization Address City/[facility]/Zipcode Phone Number [address] [address] CENTER Hemoglobin A1c (07/15/2018 2:24 PM CDT) Hemoglobin A1C 7.0 (H) 4.3 - 6.1 % [facility] Specimen Blood Performing Organization Address [facility]/Zipcode Phone Number [address] [address] [place] Lipid panel (07/15/2018 2:24 PM CDT) Triglycerides 115 mg/dL [facility] Cholesterol 129 mg/dL [facility] HDL 37 mg/dL [facility] LDL Calculated 69 mg/dL [facility] Specimen Blood Narrative Performed At [facility] Triglyceride Reference Range: Low Risk <150 [id number] High Risk 200-499 Very High Risk>=500 Cholesterol Reference Range: Low Risk <200 [id number] High Risk>240 HDL Cholesterol Reference Range: Low Risk >=60 High Risk <40 LDL Cholesterol Reference Range: Optimal<100 Near [id number] Very High >=190 Performing Organization Address City/State/Zipcode Phone Number [facility] [address] [place] [address] [phone] [place] Comprehensive metabolic panel (07/15/2018 2:24 PM CDT) Protein, Total 6.4 6.0 - 8.3 gm/dL [facility] Albumin 3.5 3.5 - 5.0 g/dL [facility] Alkaline Phosphatase 58 40 - 150 U/L [facility] Total Bilirubin 0.7 0.2 - 1.2 mg/dL [facility] Sodium 132 (L) 136 - 145 meq/L [facility] Potassium 3.9 3.5 - 5.1 meq/L [facility] Chloride 102 98 - 107 meq/L [facility] CO2 22 22 - 29 meq/L [facility] BUN 20 7 - 21 mg/dL [facility] Creatinine 0.68 0.57 - 1.25 mg/dL [facility] Glucose 207 (H) 70 - 105 mg/dL [facility] Calcium 9.1 8.4 - 10.2 mg/dL [facility] AST 9 5 - 34 U/L [facility] ALT 10 6 - 55 U/L [facility] EGFR 124Comment: ESTIMATED mL/min/1.73 sq m [facility] GFR IS NOT ACCURATE [facility] CREATININE CLEARANCE IN PREDICTING GLOMERULAR FILTRATION RATE. ESTIMATED GFR IS NOT APPLICABLE FOR DIALYSIS PATIENTS. Specimen Blood Performing Organization Address City/State/Zipcode Phone Number [facility] [address] [place] [address] brain without IV contrast (07/15/2018 2:13 PM CDT) Specimen Narrative Performed At FINAL REPORT [employer] CT Head without contrast CLINICAL HISTORY: Stroke TECHNIQUE: Contiguous axial images through the head without contrast. This exam was performed according to the departmental dose optimization program which includes automated exposure control, adjustment of the mA and/or kV according to the patient size, and/or use of an iterative reconstruction technique. COMPARISON: MRI 03/05/2018 FINDINGS: There is no CT evidence of acute infarct or intracranial hemorrhage. There is a chronic lacunar infarct of the posterior [...] posterior limb left internal capsule. Signed: Isadora Sanchez MD Report Verified Date/Time:07/15/2018 13:56:47 Reading Location: [facility] C013V Neuro Reading Room Procedure Note Interface, External Ris In - 07/15/2018 2:14 PM CDT FINAL REPORT CT Head without contrast CLINICAL HISTORY: Stroke TECHNIQUE: Contiguous axial images through the head without contrast. This exam was performed according to the departmental dose optimization program which includes automated exposure control, adjustment of the mA and/or kV according to the patient size, and/or use of an iterative reconstruction technique. COMPARISON: MRI 03/05/2018 FINDINGS: There is no CT evidence of acute infarct or intracranial hemorrhage. There is a chronic lacunar infarct of the posterior [...] posterior limb left internal capsule. Signed: Isadora Sanchez MD Report Verified Date/Time: 07/15/2018 13:56:47 Reading Location: [address] Neuro Reading Room Performing Organization Address City/State/Zipcode Phone Number [employer] CTA carotid (07/15/2018 2:13 PM CDT) Specimen Narrative Performed At FINAL REPORT [employer] RIS CLINICAL HISTORY: Stroke TECHNIQUE:Contiguous contrast-enhanced axial images through the neck followed [...] FINDINGS: There is no evidence for a mcgrath of Leon proximal branch vessel occlusion. A [...] are clear. IMPRESSION: No evidence for a mcgrath of Leon proximal branch vessel occlusion. 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 No evidence of hemodynamically significant stenosis in the cervical carotid or vertebral arteries by NASCET criteria. Signed: Isadora Sanchez MD Report Verified Date/Time:07/15/2018 14:18:24 Reading Location: [address] Neuro Reading Room Procedure Note Interface, External Ris In - 07/15/2018 2:20 PM CDT FINAL REPORT CLINICAL HISTORY: Stroke TECHNIQUE: Contiguous contrast-enhanced [...] FINDINGS: There is no evidence for a mcgrath of Leon proximal branch vessel occlusion. A [...] are clear. IMPRESSION: No evidence for a mcgrath of Leon proximal branch vessel occlusion. 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 No evidence of hemodynamically significant stenosis in the cervical carotid or vertebral arteries by NASCET criteria. Signed: Isadora Sanchez MD Report Verified Date/Time: 07/15/2018 14:18:24 Reading Location: [address] Neuro Reading Room Performing Organization Address City/State/Zipcode Phone Number [employer] CTA brain (07/15/2018 2:13 PM CDT) Specimen Narrative Performed At FINAL REPORT [employer] CLINICAL HISTORY: Stroke TECHNIQUE:Contiguous contrast-enhanced axial images through the neck followed [...] FINDINGS: There is no evidence for a mcgrath of Leon proximal branch vessel occlusion. A [...] are clear. IMPRESSION: No evidence for a mcgrath of Leon proximal branch vessel occlusion. 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 No evidence of hemodynamically significant stenosis in the cervical carotid or vertebral arteries by NASCET criteria. Signed: Isadora Sanchez MD Report Verified Date/Time:07/15/2018 14:18:24 Reading Location: [address] Neuro Reading Room Procedure Note Interface, External Ris In - 07/15/2018 2:20 PM CDT FINAL REPORT CLINICAL HISTORY: Stroke TECHNIQUE: Contiguous contrast-enhanced [...] FINDINGS: There is no evidence for a mcgrath of Leon proximal branch vessel occlusion. A [...] are clear. IMPRESSION: No evidence for a mcgrath of Leon proximal branch vessel occlusion. 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 No evidence of hemodynamically significant stenosis in the cervical carotid or vertebral arteries by NASCET criteria. Signed: Isadora Sanchez MD Report Verified Date/Time: 07/15/2018 14:18:24 Reading Location: [facility] C013V Neuro Reading Room Performing Organization Address City/State/Zipcode Phone Number [employer] RIS after 03/11/2018 Advance Directives For more information, please contact:[address] [phone] Code Status Date Activated Date Inactivated Comments Full Code 07/15/2018 2:39 PM 07/17/2018 5:01 PM This code status was determined by: Patient Full Code 03/05/2018 2:19 PM 03/07/2018 6:56 PM This code status was determined by: Patient
[2019-03-12] MEDS ORDERED: MORPHINE 4 MG/ML SYR ONE (01:07)
[2019-03-12] MEDS ORDERED: NA CHLORIDE 0.9% 1,000 ML ONE (01:07)
[2019-03-12] MEDS ORDERED: ONDANSETRON 4 MG/2 ML VIAL ONE (01:07)
[2019-03-12 01:17] LABS: Absolute Lymphocytes (CBC) 1.9 K/uL (0.7-4.9); Absolute Monocytes 0.6 K/uL (0.1-1.3); Absolute Neutrophil 6.6 K/uL (1.8-8.0); Basophils % 0.6 % (0-1.3); Hematocrit 33.7 % (39.6-49.0); Lymphocytes % 19.8 % (15.3-44.8); MPV 9.6 fL (7.6-11.3); Monocytes % 6.3 % (3.3-12.3); RBC Red Blood Cell Count 4.25 M/uL (4.33-5.43)
[2019-03-12 01:34] LABS: Albumin 2.7 g/dL (3.4-5.0); Bilirubin Direct 0.1 mg/dL (0-0.2); Bilirubin Total 0.6 mg/dL (0.2-1.0); Potassium 4.1 mmol/L (3.5-5.1); Protein, Total 6.9 g/dL (6.4-8.2)
--- NOTE | 2019-03-12 04:29 | ER ---
Nurse's Notes [facility] Name: Zac Serrato Age: 49 yrs Sex: Male : 1970 Arrival Date: 03/12/2019 Time: 00:06 Bed 13 Private MD: Diagnosis: Incarcerated ventral hernia;Renal Mass;Cholelithiasis Presentation: 03/12 00:42 Presenting complaint: Patient states: he is having "hernia pain" x 2 days pt has an bb umbilical hernia denies vomiting or diarrhea. Transition of care: patient was not received from another setting of care. Onset of symptoms was March 09, 2019. Risk Assessment: Do you want to hurt yourself or someone else? Patient reports no desire to harm self or others. Initial Sepsis Screen: Does the patient meet any 2 criteria? No. Patient's initial sepsis screen is negative. Does the patient have a suspected source of infection? No. Patient's initial sepsis screen is negative. Care prior to arrival: None. 00:42 Method Of Arrival: Ambulatory bb 00:42 Acuity: TERRY 3 bb Historical: - Allergies: 00:45 No Known Allergies; bb - Home Meds: 00:45 metformin 1,000 mg Oral tab 1 tab 2 times per day [Active]; Lisinopril Oral [Active]; bb amlodipine oral [Active]; atorvastatin oral oral [Active]; clopidogrel oral oral [Active]; - PMHx: 00:45 Diabetes - NIDDM; RETINAL DETACHMENT; Hypertension; bb - PSHx: 00:45 R eye sx; bb - Immunization history:: Adult Immunizations. - Social history:: Smoking status: unknown. - Ebola Screening: : No symptoms or risks identified at this time. Screenin:10 Abuse screen: Denies threats or abuse. Nutritional screening: No deficits noted. ea Tuberculosis screening: No symptoms or risk factors identified. Fall Risk Assessment: 01:09 General: Appears uncomfortable, Behavior is calm, cooperative, appropriate for age. ea Pain: Complains of pain in abdomen. Neuro: Level of Consciousness is awake, alert, obeys commands, Oriented to person, place, time, situation. Cardiovascular: Patient's skin is warm and dry. Respiratory: Airway is patent Respiratory effort is even, unlabored, Respiratory pattern is regular, symmetrical. GI: Abdomen is hernia noted to right lower abdomen. GI: Reports lower abdominal pain. Derm: Skin is dry, Skin is pale, Skin temperature is warm. 02:30 Reassessment: Patient and/or family updated on plan of care and expected duration. Pain ea level reassessed. Pt resting with eyes closed. Respirations even and unlabored. Chest expansions even and symmetrical. 03:50 Reassessment: Patient and/or family updated on plan of care and expected duration. Pain ea level reassessed. Pt resting with eyes closed, respirations even and unlabored. Chest expansions even and symmetrical. 04:30 Reassessment: Patient and/or family updated on plan of care and expected duration. Pain ea level reassessed. Pt resting with eyes closed, respirations even and unlabored. Chest expansions even and symmetrical. 05:31 Reassessment: Report called to Celine CARNEY. ea Vital Signs: 00:45 BP 176 / 98; Pulse 94; Resp 16 S; Temp 98.9(O); Pulse Ox 99% on R/A; Weight 99.79 kg bb (R); Height 5 ft. 8 in. (172.72 cm) (R); Pain 10/10; 02:50 BP 161 / 90; Pulse 78; Resp 18; Pulse Ox 97% on R/A; ea 00:45 Body Mass Index 33.45 (99.79 kg, 172.72 cm) bb ED Course: 00:06 Patient arrived in ED. es 00:43 Remy Dumont NP is PHCP. pm1 00:43 Edward Wilburn MD is Attending Physician. pm1 00:43 Triage completed. bb 00:45 Arm band placed on Patient placed in an exam room, on a stretcher, on pulse oximetry. bb Family accompanied patient. 01:02 Initial lab(s) drawn, by me, sent to lab. Missed attempt(s): 22 gauge in right lt1 antecubital area. 01:08 Carlyn Moran, ROMMEL is Primary Nurse. ea 01:08 Inserted saline lock: 18 gauge in right forearm, using aseptic technique. ea 01:10 Patient has correct armband on for positive identification. Bed in low position. Call ea light in reach. Side rails up X2. 04:28 Misael Medrano MD is Hospitalizing Provider. rn 05:49 No provider procedures requiring assistance completed. Patient admitted, IV remains in ea place. Administered Medications: 01:07 Drug: morphine 4 mg Route: IVP; Site: right forearm; ea 02:00 Follow up: Response: No adverse reaction; Pain is decreased ea 04:16 Follow up: Response: No adverse reaction; Pain is decreased ea 01:07 Drug: Zofran 4 mg Route: IVP; Site: right forearm; ea 02:00 Follow up: Response: No adverse reaction; Nausea is decreased ea 01:09 Drug: NS 0.9% 1000 ml Route: IV; Rate: 1000 ml; Site: right forearm; ea 02:00 Follow up: Response: No adverse reaction; IV Status: Completed infusion; IV Intake: ea 1000ml Intake: 02:00 IV: 1000ml; Total: 1000ml. ea Outcome: 04:29 Decision to Hospitalize by Provider. rn 05:49 Admitted to Med/surg accompanied by nurse, family with patient, via wheelchair, room ea 229, with chart, Report called to Shandra 05:49 Condition: stable 05:49 Instructed on the need for admit, Demonstrated understanding of instructions. 05:50 Patient left the ED. ea Signatures: Glendy Cartwright Brenda, RN RN Edward Ortega MD MD rn Marinas, Patrick, WATER RESTORATION TECHNICIAN WATER RESTORATION TECHNICIAN pm1 Carlyn Moran RN RN ea Tran, Leah 1
--- NOTE | 2019-03-12 04:29 | EDPHYS ---
Physician Documentation [facility] Name: Zac Serrato Age: 49 yrs Sex: Male : 1970 Arrival Date: 03/12/2019 Time: 00:06 Bed 13 Private MD: ED Physician Edward Wilburn HPI: 03/12 01:26 This 49 yrs old Male presents to ER via Ambulatory with complaints of Hernia pm1 pain. 01:26 The patient presents with abdominal pain in the lower abdomen. Onset: The pm1 symptoms/episode began/occurred 2 day(s) ago. The symptoms do not radiate. Associated signs and symptoms: Pertinent negatives: nausea, vomiting, and diarrhea, blood in stools, shortness of breath. The symptoms are described as sharp. Modifying factors: The symptoms are alleviated by nothing, the symptoms are aggravated by nothing. Severity of pain: in the emergency department the pain is actually worse. 01:26 The patient has not recently seen a physician. According to , the patient has had pm1 this hernia present for at least the past 10 years that they have been . reports that is has not been fully reducible and about the size of a baseball. It appears bigger the past few. Patient is not able to tell the change in size due to blindness. Historical: - Allergies: 00:45 No Known Allergies; bb - Home Meds: 00:45 metformin 1,000 mg Oral tab 1 tab 2 times per day [Active]; Lisinopril Oral [Active]; bb amlodipine oral [Active]; atorvastatin oral oral [Active]; clopidogrel oral oral [Active]; - PMHx: 00:45 Diabetes - NIDDM; RETINAL DETACHMENT; Hypertension; bb - PSHx: 00:45 R eye sx; bb - Immunization history:: Adult Immunizations. - Social history:: Smoking status: unknown. - Ebola Screening: : No symptoms or risks identified at this time. ROS: 01:26 Constitutional: Negative for fever, chills, and weight loss, Eyes: Negative for injury, pm1 pain, redness, and discharge, ENT: Negative for injury, pain, and discharge, Neck: Negative for injury, pain, and swelling, Cardiovascular: Negative for chest pain, palpitations, and edema, Respiratory: Negative for shortness of breath, cough, wheezing, and pleuritic chest pain. 01:26 Back: Negative for injury and pain, : Negative for injury, bleeding, discharge, and swelling, MS/Extremity: Negative for injury and deformity, Skin: Negative for injury, rash, and discoloration, Neuro: Negative for headache, weakness, numbness, tingling, and seizure. 01:26 Abdomen/GI: Positive for abdominal pain, Negative for nausea, vomiting, and diarrhea. Exam: 01:26 Constitutional: This is a well developed, well nourished patient who is awake, alert, pm1 and in no acute distress. Head/Face: Normocephalic, atraumatic. Eyes: Pupils equal round and reactive to light, extra-ocular motions intact. Lids and lashes normal. Conjunctiva and sclera are non-icteric and not injected. Cornea within normal limits. Periorbital areas with no swelling, redness, or edema. ENT: Nares patent. No nasal discharge, no septal abnormalities noted. Tympanic membranes are normal and external auditory canals are clear. Oropharynx with no redness, swelling, or masses, exudates, or evidence of obstruction, uvula midline. Mucous membranes moist. Neck: Trachea midline, no thyromegaly or masses palpated, and no cervical lymphadenopathy. Supple, full range of motion without nuchal rigidity, or vertebral point tenderness. No Meningismus. Chest/axilla: Normal chest wall appearance and motion. Nontender with no deformity. No lesions are appreciated. Cardiovascular: Regular rate and rhythm with a normal S1 and S2. No gallops, murmurs, or rubs. Normal PMI, no JVD. No pulse deficits. Respiratory: Lungs have equal breath sounds bilaterally, clear to auscultation and percussion. No rales, rhonchi or wheezes noted. No increased work of breathing, no retractions or nasal flaring. 01:26 Back: No spinal tenderness. No costovertebral tenderness. Full range of motion. Skin: Warm, dry with normal turgor. Normal color with no rashes, no lesions, and no evidence of cellulitis. MS/ Extremity: Pulses equal, no cyanosis. Neurovascular intact. Full, normal range of motion. 01:26 Abdomen/GI: Inspection: obese large ventral hernia, Bowel sounds: normal, Hernia: noted in the mid line, ventral, tenderness, that is moderate. 01:26 Neuro: Orientation: is normal, Motor: is normal, moves all fours. Vital Signs: 00:45 BP 176 / 98; Pulse 94; Resp 16 S; Temp 98.9(O); Pulse Ox 99% on R/A; Weight 99.79 kg bb (R); Height 5 ft. 8 in. (172.72 cm) (R); Pain 10/10; 02:50 BP 161 / 90; Pulse 78; Resp 18; Pulse Ox 97% on R/A; ea 00:45 Body Mass Index 33.45 (99.79 kg, 172.72 cm) bb MDM: 00:46 Patient medically screened. pm1 03:41 Data reviewed: vital signs. Data interpreted: Pulse oximetry: on room air is 97 %. pm1 Interpretation: normal. 03/12 00:49 Order name: Basic Metabolic Panel pm1 03/12 00:49 Order name: CBC with Diff pm1 03/12 00:49 Order name: Creatinine for Radiology pm1 03/12 00:49 Order name: Hepatic Function pm1 03/12 00:49 Order name: Lipase pm1 03/12 01:13 Order name: Lactate pm1 03/12 00:49 Order name: CT Abd/Pelvis - W/Contrast pm1 03/12 01:18 Order name: CBC with Automated Diff; Complete Time: 01:29 EDMS 03/12 01:30 Order name: Creatinine (Radiology Only); Complete Time: 01:53 EDMS 03/12 01:34 Order name: Basic Metabolic Panel; Complete Time: 01:53 EDMS 03/12 01:34 Order name: Liver (Hepatic) Function; Complete Time: 01:53 EDMS 03/12 01:34 Order name: Lipase; Complete Time: 01:53 EDMS 03/12 02:30 Order name: Lactate; Complete Time: 02:43 EDMS 03/12 00:49 Order name: IV Saline Lock; Complete Time: 01:03 pm1 03/12 00:49 Order name: Labs collected and sent; Complete Time: 01:03 pm1 03/12 00:49 Order name: NPO; Complete Time: 01:09 pm1 Administered Medications: 01:07 Drug: morphine 4 mg Route: IVP; Site: right forearm; ea 02:00 Follow up: Response: No adverse reaction; Pain is decreased ea 04:16 Follow up: Response: No adverse reaction; Pain is decreased ea 01:07 Drug: Zofran 4 mg Route: IVP; Site: right forearm; ea 02:00 Follow up: Response: No adverse reaction; Nausea is decreased ea 01:09 Drug: NS 0.9% 1000 ml Route: IV; Rate: 1000 ml; Site: right forearm; ea 02:00 Follow up: Response: No adverse reaction; IV Status: Completed infusion; IV Intake: ea 1000ml Disposition: 04:27 I agree with the assessment and plan of care. rn Disposition: 03/12/19 04:29 Hospitalization ordered by Misael Medrano for Inpatient Admission. Preliminary diagnosis are Incarcerated ventral hernia, Renal Mass, Cholelithiasis. - Bed requested for Telemetry/MedSurg (Inpatient). - Status is Inpatient Admission. ea - Condition is Stable. - Problem is new. - Symptoms have improved. UTI on Admission? No Signatures: Dispatcher [employer] EDMS Stephanie Solorio RN RN bb Nieto, Roman, MD MD rn Garcia, Cindy, RN RN cg Marinas, Patrick, YUKI TRANSMISSION TECHNICIAN pm1 Carlyn Moran RN RN ea Corrections: (The following items were deleted from the chart) 05:19 04:29 Hospitalization Ordered by Misael Medrano MD for Inpatient Admission. Preliminary cg diagnosis is Incarcerated ventral hernia; Renal Mass; Cholelithiasis. Bed requested for Telemetry/MedSurg (Inpatient). Status is Inpatient Admission. Condition is Stable. Problem is new. Symptoms have improved. UTI on Admission? No. rn 05:50 05:19 03/12/2019 04:29 Hospitalization Ordered by Misael Medrano MD for Inpatient ea Admission. Preliminary diagnosis is Incarcerated ventral hernia; Renal Mass; Cholelithiasis. Bed requested for Telemetry/MedSurg (Inpatient). Status is Inpatient Admission. Condition is Stable. Problem is new. Symptoms have improved. UTI on Admission? No. cg
--- NOTE | 2019-03-12 05:08 | P.HP ---
Certification for Inpatient Patient admitted to: Inpatient With expected LOS: >2 Midnights Practitioner: I am a practitioner with admitting privileges, knowledge of patient current condition, hospital course, and medical plan of care. Services: Services provided to patient in accordance with Admission requirements found in Title 42 Section 412.3 of the Code of Federal Regulations Patient History Date of Service: 03/12/19 Reason for admission: incarcerated ventral hernia History of Present Illness: Mr Serrato is a 49 years old male with history of DM II, CVA, HTN, who came to ED complaining of abdominal pain in his chronic ventral hernia area. His symptoms started about 2 days ago, he denied nausea, vomiting or diarrhea. No history of fever or chills either. Lab work shows normal WBC count, normal lactate. CT abd/pelvis remarkable for large fat containing ventral hernia. Also it was incidentally reported a right kidney mass concerning for malignancy. In ER, his ventral hernia was attempted to be reduced, however, clinically seems to be incarcerated. No fever at presentation. Allergies No Known Allergies Allergy (Unverified 09/22/17 08:50) Home medications list reviewed: Yes Home Medications: Metformin HCl [Glucophage] 1,000 mg PO BID 03/05/18 - Past Medical/Surgical History Diabetic: Yes -: DM -: Rential Detachment -: CVA -: Rential Detachment - Family History Mother -: Diabetes Father -: Lung disease, Cancer - Social History Smoking Status: Former smoker Alcohol use: No CD- Drugs: No Caffeine use: Yes Place of Residence: Home Review of Systems 10-point ROS is otherwise unremarkable Physical Examination - Physical Exam General: Alert, In no apparent distress HEENT: Atraumatic, PERRLA, Mucous membr. moist/pink, EOMI, Sclerae nonicteric Neck: Supple, 2+ carotid pulse no bruit, No LAD, Without JVD or thyroid abnormality Respiratory: Clear to auscultation bilaterally, Normal air movement Cardiovascular: Regular rate/rhythm, Normal S1 S2 Gastrointestinal: Normal bowel sounds, No tenderness Musculoskeletal: No tenderness Integumentary: No rashes Neurological: Normal strength at 5/5 x4 extr, Normal tone, Normal affect, Abnormal speech (slurred (sequelar)) Lymphatics: No axilla or inguinal lymphadenopathy - Studies Laboratory Data (last 24 hrs) 03/12/19 01:01: Creatinine 0.88 03/12/19 01:01: WBC 9.6, Hgb 11.6 L, Hct 33.7 L, Plt Count 248 03/12/19 01:01: Sodium 140, Potassium 4.1, BUN 22 H, Creatinine 0.91, Glucose 183 H, Total Bilirubin 0.6, AST 12 L, ALT 14, Alkaline Phosphatase 100, Lipase 114 Assessment and Plan - Problems (Diagnosis) (1) History of CVA (cerebrovascular accident) Current Visit: Yes Status: Acute (2) Ventral hernia Current Visit: Yes Status: Acute Qualifiers: Obstruction and gangrene presence: without obstruction or gangrene Qualified Code(s): K43.9 - Ventral hernia without obstruction or gangrene (3) Renal mass, right Current Visit: Yes Status: Acute (4) Diabetes type 2, controlled Current Visit: No Status: Acute Qualifiers: Diabetes mellitus fine grade operator insulin use: without fine grade operator use Diabetes mellitus complication status: with unspecified complications Qualified Code(s) : E11.8 - Type 2 diabetes mellitus with unspecified complications - Plan The patient will be admitted to the hospital due to possible incarcerated ventral hernia. It was also incidentally found a right kidney mass concerning for malignancy. Will keep the patient NPO, start IV fluids, symptomatic medication for pain, Consult Dr Bull and also Dr Wade. - Advance Directives Does patient have a Living Will: No Does patient have a Durable POA for Healthcare: No - Code Status/Comfort Care Code Status Assessed: Yes Code Status: Full Code
[2019-03-12] MEDS ORDERED: ONDANSETRON 4 MG/2 ML VIAL IV PRN (05:37)
[2019-03-12] MEDS: INSULIN -REGULAR HUMAN 50 UNIT/0.5 ML ML SQ SCH ×5 (06:00→23:06)
[2019-03-12] MEDS: NA CHLORIDE 0.9% 1,000 ML IV SCH ×2 (06:00→16:35)
[2019-03-12 07:27] VITALS: BMI 33.4
[2019-03-12 10:38] LABS: Urine Appearance CLEAR; Urine Bilirubin NEGATIVE (NEG); Urine Blood 1+ (NEG); Urine Color YELLOW; Urine Glucose TRACE (NEG); Urine Protein 3+ (NEG); Urine Specific Gravity >=1.030 (1.005-1.030); Urine Urobilinogen 0.2 mg/dL (0.2-1.0)
[2019-03-12 10:51] LABS: Urine Microscopic Reflex ORDER UMIC
[2019-03-12 11:07] LABS: Urine Bacteria 20-50 /HPF (NONE SEEN); Urine Culture Reflex Order NOT NEEDED; Urine Mucus 1+ /HPF (NONE SEEN)
[2019-03-12] MEDS: MORPHINE 2 MG/ML SYR IV PRN ×2 (12:03→16:17)
[2019-03-12] MEDS: HYDRALAZINE HCL 20 MG/ML VIAL IV PRN (12:04)
--- NOTE | 2019-03-12 12:56 | RAD REPORT ---
EXAM DESCRIPTION: CT ABDOMEN AND PELVIS WITH CONTRAST CLINICAL HISTORY: Hernia;Abd pain COMPARISON: None Available. TECHNIQUE: CT of the abdomen and pelvis performed following IV administration of iodinated contrast. DLP: 2654 mGycm FINDINGS: Lung Bases: The visualized lung bases are clear. Bones: Degenerative change of the spine. Abdomen: Liver: The liver has normal size and density. No intrahepatic mass or biliary dilatation. Gallbladder: Gallbladder sludge and calcified gallstones. No pericholecystic inflammatory change. Spleen, Pancreas, and Adrenal Glands: The spleen, pancreas, and adrenal glands are unremarkable. Kidneys: Multiple subcentimeter hypodensities in the kidneys bilaterally likely representing cysts. Fat density structure involving the inferior pole of the left kidney. This may represent cortical de fect related to previous injury however an AML could produce this appearance. There is an enhancing h eterogeneous predominantly solid mass involving the superior pole of the left kidney measuring 3.5 x 3.7 x 3.1 cm. No definite abnormalities of the left renal vein. No definite perinephric lymphadenopat hy. Vasculature: Aortoiliac atherosclerosis. IVC is unremarkable. The portal vein is patent. The proxim al visceral and renal arteries are patent. Stomach: The stomach and duodenum have normal course. Other: No free intraperitoneal air. No free fluid or lymphadenopathy. Pelvis: Bladder: Urinary bladder is unremarkable. Bowel: No dilated loops of large or small bowel. Appendix: Normal appendix. Pelvis: Large fat-containing umbilical hernia small amount of free fluid. Prostate is not enlarged. IMPRESSION: 1. There is a 3.7 cm heterogeneous enhancing solid mass arising from the superior pole o f the left kidney highly concerning for renal cell carcinoma. Urologic consultation recommended. 2. Cholelithiasis and gallbladder sludge. 3. Large fat-containing umbilical hernia with small amount of free fluid. This exam was performed according to our departmental dose-optimization program, which includes autom ated exposure control, adjustment of the mA and/or kV according to patient size and/or use of iterati ve reconstruction technique. Electronically signed by: Linden Prabhakar 03/12/2019 3:54 AM CDT Due to temporary technical issues with the PACS/Fluency reporting system, reports are being signed by the in house radiologist as a courtesy to ensure prompt reporting. The interpreting radiologist is f alinaly responsible for the content of the report.
--- NOTE | 2019-03-12 15:02 | CON ---
History Of Present Illness: A 49-year-old gentleman with history of diabetes type 2, CVA, hypertensi on, came to the ED, complaining of ventral hernia pain. Symptom began 2 days before. Denies fever, chills, nausea, vomiting, or diarrhea. He had normal white count. On admission, he had a CT scan that was done, that was remarkable for ventral hernia, but however an incidental 3.5 x 3.7 X 3.1 cm left upper pole lateral renal mass was detected, solid in nature and en hances, very suspicious for renal cell carcinoma, have recommended to the patient to follow up with Jacob Mendez in [place] for possible partial nephrectomy. However, his hernia may need to be repaired onc e the general surgeon sees him at this time due to pain. Dr. Mendez's appointment may take a few weeks . One consideration would be to do both surgeries at the same time, but the hernia may be more press ing right now. Allergies: NO KNOWN DRUG ALLERGIES. Medication List: Reviewed. Takes metformin. Past Medical History: Diabetes, retinal detachment, CVA. Family History: Mother had diabetes. Father had lung disease, cancer. Smoking Status: Former smoker. No alcohol use. No drug use. He does use caffeine. Resides at [facility]. Review of Systems: Ten-point review of systems otherwise unremarkable. Physical Examination: GENERAL: The patient is alert, awake, had difficulty with speech due to his stroke. His mom was pre sent in the room. HEENT: Atraumatic, normocephalic. NECK: Supple. RESPIRATORY: Clear to auscultation bilaterally. CARDIOVASCULAR: Normal S1, S2. GASTROINTESTINAL: Normal bowel sounds. No tenderness. SKIN: No rashes. NEUROLOGIC: Alert and oriented. Lab Studies: Reviewed. Creatinine 0.8. CBC: White count 9.6, H and H of 11.6 and 33.7, platelet c ount 248. Electrolytes: Sodium 144, potassium 4.1, BUN 22, creatinine 0.9, glucose 183, total bili 0.6, AST 12, ALT 14, alkaline phosphatase 100, lipase 114. Assessment/plan: 1.A 3 to 4 cm left upper pole lateral renal mass, solid, suspicious for RCC, needs further evaluatio n by Dr. Mendez. 2.Ventral hernia, will be evaluated by general surgeon. 3.History of cerebrovascular accident. 4.Diabetes type 2, controlled. Thank you very much for this interesting consultation. Will call Dr. Mendez's office to arrange an luisana ointment for the patient. Thank you very much. KISHA Voice ID: [id number] Report ID: [id number]
[2019-03-12] MEDS: LISINOPRIL 10 MG TAB PO SCH (16:34)
[2019-03-12] MEDS: AMLODIPINE 10 MG TAB PO SCH (16:34)
[2019-03-12] MEDS: HYDROCODONE/APAP 5/325 MG TAB PO PRN (18:38)
--- NOTE | 2019-03-12 19:23 | PN ---
Date of Progress Note: 03/12/2019 Subjective: The patient seen and examined, chart reviewed and case discussed with RN and Dr. Selena burton, the patient still having some pain. Medications: List reviewed. Physical Examination: Vital Signs: Temperature 97.6, heart rate 75, blood pressure 190/98, respirations 16, O2 98% on room air. General: Awake, alert, oriented x3. Some mild distress, ill-appearing male, obese, BMI 33. CV: S1, S2. Regular rate and rhythm. Peripheral pulses present. No murmurs. Respiratory: Clear to auscultation bilaterally. No wheezing or stridor. No use of accessory muscle s. Gastrointestinal: Abdomen is soft. The patient does have umbilical hernia, which is non-reducible, hard on palpation. Bowel sounds positive. Extremities: No clubbing, cyanosis, or edema. Neurologic: Nonfocal. Laboratory Data: Glucose levels ranging between 119 to 135. Lactate is normal. Assessment: A 49-year-old male with: 1.Ventral hernia without obstruction or gangrene. Dr. Bull is on board. The patient has had th is hernia for the past 10 to 12 years and does not recommend surgery at this time. 2.History of cerebrovascular accident with right-sided weakness and facial droop. 3.Right renal mass. Dr. Wade has been consulted. CT scan shows lesions suspicious for carcinoma. May need biopsy or cystoscopy for further workup. 4.Diabetes mellitus type 2 without long-term use of insulin with hyperglycemia. We will continue wi sliding scale insulin and monitor Accu-Cheks. 5.Obesity. BMI 33. 6.DVT prophylaxis. No chemical anticoagulation due to possible procedure. We will place SCDs. Plan: The patient is started on full liquids. We will resume home medications as appropriate. Cont inue IV fluids. SA/MODL Voice ID: [id number] Report ID: [id number]
[2019-03-12] MEDS: ATORVASTATIN 80 MG TAB PO SCH (22:11)
[2019-03-13] MEDS: NA CHLORIDE 0.9% 1,000 ML IV SCH ×3 (01:58→22:10)
[2019-03-13] MEDS: HYDRALAZINE HCL 20 MG/ML VIAL IV PRN ×2 (02:01→12:29)
[2019-03-13 05:17] LABS: Absolute Lymphocytes (CBC) 1.1 K/uL (0.7-4.9); Absolute Monocytes 0.7 K/uL (0.1-1.3); Absolute Neutrophil 9.7 K/uL (1.8-8.0); Basophils % 0.6 % (0-1.3); Eosinophils % 2.6 % (0-4.4); Hematocrit 32.2 % (39.6-49.0); Lymphocytes % 9.6 % (15.3-44.8); MPV 9.2 fL (7.6-11.3); Monocytes % 5.7 % (3.3-12.3); RBC Red Blood Cell Count 4.09 M/uL (4.33-5.43)
[2019-03-13 05:45] LABS: BUN Blood Urea Nitrogen 13 mg/dL (7-18); Bicarbonate 25 mmol/L (21-32); Glucose Level 166 mg/dL (74-106); Sodium Level 141 mmol/L (136-145)
[2019-03-13] MEDS: INSULIN -REGULAR HUMAN 50 UNIT/0.5 ML ML SQ SCH ×4 (07:30→21:00)
[2019-03-13] MEDS: LISINOPRIL 10 MG TAB PO SCH (08:45)
[2019-03-13] MEDS: AMLODIPINE 10 MG TAB PO SCH (08:45)
[2019-03-13] MEDS: HYDROCODONE/APAP 5/325 MG TAB PO PRN (13:39)
--- NOTE | 2019-03-13 17:06 | P.PN ---
Subjective Date of Service: 03/13/19 Chief Complaint: incarcerated ventral hernia Subjective: No new changes Patient seen and examined at bedside. No family at bedside. Chart reviewed and case discussed with nursing staff. No changes in pain. Tolerating full liquid diet. No Acute events noted overnight Review of Systems 10-point ROS is otherwise unremarkable Physical Examination - Vital Signs Temperature: 97.5 F Blood Pressure: 169/84 Pulse: 105 Respirations: 18 Pulse Ox (%): 97 - Physical Exam General: Alert, Oriented x3, Mild distress HEENT: Atraumatic, PERRLA, EOMI Neck: Supple, JVD not distended Respiratory: Clear to auscultation bilaterally, Normal air movement Cardiovascular: Regular rate/rhythm, Normal S1 S2 Gastrointestinal: Normal bowel sounds, Other (Umbilical hernia, not reducible and hard), Tenderness Assessment And Plan - Plan A 49-year-old male with: Ventral hernia without obstruction or gangrene. Dr. Bull is on board. The patient has had this hernia for the past 10 to 12 years and does not recommend surgery at this time. We will continue conservative measures. History of cerebrovascular accident with right-sided weakness and facial droop. Right renal mass. Dr. Wade has been consulted, recommendations appreciated. CT scan shows lesions suspicious for carcinoma. May need biopsy or cystoscopy for further workup. Diabetes mellitus type 2 without long-term use of insulin with hyperglycemia. We will continue with sliding scale insulin and monitor Accu-Cheks. Obesity. BMI 33. DVT prophylaxis. Continue with SCDs. Plan: Continue full liquids. We will resume home medications as appropriate. Continue IV fluids. Possible discharge home in the next 24-48 hr
[2019-03-13] MEDS: ATORVASTATIN 80 MG TAB PO SCH (22:10)
[2019-03-14] MEDS: HYDRALAZINE HCL 20 MG/ML VIAL IV PRN ×2 (04:42→22:25)
[2019-03-14 06:15] LABS: BUN Blood Urea Nitrogen 9 mg/dL (7-18); Bicarbonate 24 mmol/L (21-32); Glucose Level 173 mg/dL (74-106); Magnesium 1.7 mg/dL (1.8-2.4); Sodium Level 143 mmol/L (136-145)
[2019-03-14] MEDS: INSULIN -REGULAR HUMAN 50 UNIT/0.5 ML ML SQ SCH ×4 (07:30→22:24)
[2019-03-14] MEDS: LISINOPRIL 10 MG TAB PO SCH (08:46)
[2019-03-14] MEDS: AMLODIPINE 10 MG TAB PO SCH (08:47)
[2019-03-14] MEDS: NA CHLORIDE 0.9% 1,000 ML IV SCH ×2 (08:48→17:45)
[2019-03-14] MEDS ORDERED: MAGNESIUM SULFATE 1 gm IVPB 1 GM/100 ML BAG IV ONE (09:00)
--- NOTE | 2019-03-14 13:19 | P.PN ---
Subjective Date of Service: 03/14/19 Chief Complaint: incarcerated ventral hernia Subjective: Improving Patient seen and examined at bedside. No family at bedside. Chart reviewed and case discussed with nursing staff. No changes in pain. Tolerating full liquid diet. No Acute events noted overnight Review of Systems 10-point ROS is otherwise unremarkable Physical Examination - Vital Signs Temperature: 98.5 F Blood Pressure: 183/92 Pulse: 95 Respirations: 20 Pulse Ox (%): 96 - Physical Exam General: Alert, In no apparent distress HEENT: Atraumatic, PERRLA, EOMI Neck: Supple, JVD not distended Respiratory: Clear to auscultation bilaterally, Normal air movement Cardiovascular: Regular rate/rhythm, Normal S1 S2 Gastrointestinal: Other (Umbilical hernia, hard, unreducible) Assessment And Plan - Plan A 49-year-old male with: Ventral hernia without obstruction or gangrene. Dr. Bull is on board. The patient has had this hernia for the past 10 to 12 years and does not recommend surgery at this time. We will continue conservative measures. Urinary tract infection Will start IV antibiotics, pending urine cultures. History of cerebrovascular accident with right-sided weakness and facial droop. Right renal mass. Dr. Wade has been consulted, recommendations appreciated. CT scan shows lesions suspicious for carcinoma. May need biopsy or cystoscopy for further workup. Diabetes mellitus type 2 without long-term use of insulin with hyperglycemia. We will continue with sliding scale insulin and monitor Accu-Cheks. Obesity. BMI 33. DVT prophylaxis. Continue with SCDs. Plan: Advance to GI soft. We will resume home medications as appropriate. Continue IV fluids. Possible discharge home in the next 24-48 hr
[2019-03-14] MEDS: CEFTRIAXONE/SWI 1gm 1 GM/10 ML SYR IV SCH (13:46)
[2019-03-14] MEDS: ATORVASTATIN 80 MG TAB PO SCH (22:25)
[2019-03-14] MEDS: HYDROCODONE/APAP 5/325 MG TAB PO PRN (23:34)
[2019-03-15 03:47] VITALS: O2SAT 94
[2019-03-15] MEDS: NA CHLORIDE 0.9% 1,000 ML IV SCH (05:30)
[2019-03-15 05:58] LABS: BUN Blood Urea Nitrogen 8 mg/dL (7-18); Bicarbonate 27 mmol/L (21-32); Glucose Level 167 mg/dL (74-106); Potassium 3.9 mmol/L (3.5-5.1); Sodium Level 143 mmol/L (136-145)
[2019-03-15] MEDS: INSULIN -REGULAR HUMAN 50 UNIT/0.5 ML ML SQ SCH ×2 (07:30→11:30)
[2019-03-15] MEDS: LISINOPRIL 10 MG TAB PO SCH (08:30)
[2019-03-15] MEDS: CEFTRIAXONE/SWI 1gm 1 GM/10 ML SYR IV SCH (08:32)
[2019-03-15] MEDS: AMLODIPINE 10 MG TAB PO SCH (08:32)
--- NOTE | 2019-03-15 10:39 | P.DS ---
Admission Date: 03/12/19 Discharge Date: 03/15/19 Disposition: ROUTINE DISCHARGE Discharge Condition: GOOD Reason for Admission: incarcerated ventral hernia Consultations: General surgery, Dr. Bull Urology, Dr. Wade Brief History of Present Illness: Mr Serrato is a 49 years old male with history of DM II, CVA, HTN, who came to ED complaining of abdominal pain in his chronic ventral hernia area. His symptoms started about 2 days ago, he denied nausea, vomiting or diarrhea. No history of fever or chills either. Lab work shows normal WBC count, normal lactate. CT abd/pelvis remarkable for large fat containing ventral hernia. Also it was incidentally reported a right kidney mass concerning for malignancy. In ER, his ventral hernia was attempted to be reduced, however, clinically seems to be incarcerated. No fever at presentation. Hospital Course: Patient was admitted for abdominal pain in his chronic ventral hernia area. Dr. Bull, general surgery was consulted. He was kept NPO, started IV fluids and he was provided symptomatic medications for pain control. It was deemed that patient has had this hernia for the past 10-12 years, no surgical intervention was recommended by general surgery at this time. He was continued on conservative pain management measures. Incidentally, he was also found to have a right kidney mass that was concerning for malignancy on the imaging. Dr. Wade, urology was consulted. Per Dr. Wade, he will need to see Dr. suh as an outpatient. Dr. Wade's office or working on setting this up for the patient. Patient was provided information for Dr. pimentel office to have continued follow up with this. It was suspected that he may have a urinary tract infection, he was started on IV antibiotics. Urine cultures did not grow anything therefore antibiotics were discontinued. Patient does have a history of cerebrovascular accident with right-sided weakness and facial droop, this remained at baseline throughout the stay. Patient otherwise did well throughout the stay. Prior to discharge, his pain had drastically improved, he was tolerating a GI soft diet and he was in no acute distress. His mentation remained at baseline along with the prior right- sided weakness His diagnoses/treatment plans discussed extensively with patient. All questions were answered and he verbalized understanding. He was then discharged home a safe and stable manner. Patient lives with his , does not having insurance/resources at this time. Social work was consulted throughout the stay to help with social situation. Vital Signs/Physical Exam: Temp Pulse Resp BP Pulse Ox 97.8 F 89 20 148/84 H 98 03/15/19 08:00 03/15/19 08:32 03/15/19 08:00 03/15/19 08:32 03/15/19 08:00 General: Alert, In no apparent distress, Oriented x3 Respiratory: Clear to auscultation bilaterally, Normal air movement Cardiovascular: Regular rate/rhythm, Normal S1 S2 Gastrointestinal: Other (Umbilical hernia noted,) Musculoskeletal: No tenderness Neurological: Abnormal speech (At baseline), Abnormal cranial nerve function ( At baseline) Laboratory Data at Discharge: WBC 11.9 K/uL (4.3-10.9) H D 03/13/19 04:51 Hgb 11.1 g/dL (13.6-17.9) L 03/13/19 04:51 Hct 32.2 % (39.6-49.0) L 03/13/19 04:51 Plt Count 217 K/uL (152-406) 03/13/19 04:51 Sodium 143 mmol/L (136-145) 03/15/19 05:35 Potassium 3.9 mmol/L (3.5-5.1) 03/15/19 05:35 BUN 8 mg/dL (7-18) 03/15/19 05:35 Creatinine 0.66 mg/dL (0.55-1.3) 03/15/19 05:35 Glucose 167 mg/dL (74-106) H 03/15/19 05:35 Magnesium 2.0 mg/dL (1.8-2.4) 03/15/19 05:35 Total Bilirubin 0.6 mg/dL (0.2-1.0) 03/12/19 01:01 AST 12 U/L (15-37) L 03/12/19 01:01 ALT 14 U/L (12-78) 03/12/19 01:01 Alkaline Phosphatase 100 U/L (45-117) 03/12/19 01:01 Lipase 114 U/L (73-393) 03/12/19 01:01 Home Medications: Metformin HCl [Glucophage] 1,000 mg PO BID 03/05/18 Amlodipine [Norvasc*] 10 mg PO DAILY 03/12/19 Aspirin Chewable [Aspirin Chewable*] 81 mg PO DAILY 03/12/19 Atorvastatin Calcium [Lipitor] 80 mg PO DAILY 03/12/19 Clopidogrel Bisulfate [Clopidogrel] 300 mg PO DAILY 03/12/19 Lisinopril [Prinivil*] 10 mg PO DAILY 03/12/19 Patient Discharge Instructions: Please follow up with Dr. Bull, General surgery, is in 2 weeks. Please follow up with Dr. Wade, urology in 1-2 weeks. Please follow up at the [facility] in 2-3 days. Please return to the emergency room for worsening symptoms Diet: GI soft Activity: Ad samantha Followup: Thong Wade MD [ACTIVE - CAN ADMIT] - 1-2 Weeks Burton Bull MD [ACTIVE - CAN ADMIT] - 1-2 Weeks Time spent managing pt's care (in minutes): 45
[2019-03-15 13:21] VITALS: BP 151/87; TEMP 98.4
== END 2019-03-15 12:53 | disposition home or self-care (01) | DRG 394 ==
LOC: ER 00:01 → ERHOLD 04:57 → 2ND 05:30
PROVIDERS: ADMIT Internal Medicine; ATTEND Family Medicine
DX: K43.9 Ventral hernia without obstruction or gangrene (principal); I69.351 Hemiplegia and hemiparesis following cerebral infarction affecting right dominant side; N28.89 Other specified disorders of kidney and ureter; E11.65 Type 2 diabetes mellitus with hyperglycemia; I10 Essential (primary) hypertension; I69.392 Facial weakness following cerebral infarction; E66.9 Obesity, unspecified; Z68.33 Body mass index [BMI] 33.0-33.9, adult; Z79.84 Long term (current) use of oral hypoglycemic drugs; Z87.891 Personal history of nicotine dependence
CPT/HCPCS: 36415; 74177; 80048; 80076; 81003; 81015; 82962; 83605; 83690; 83735; 85025; 87077; 87086; 87088; 87186; 96361; 96365; 96367; 96374; 96375; 99285; J0360; J0696; J2270; J2405; J3475; J7030; Q9967

== ENCOUNTER 2020-11-22 19:20 | Inpatient (IN) | payer OTHER, SELFPAY ==
--- OUTSIDE RECORDS SUMMARY | 2020-11-22 19:22 | XMS REPORT | Clinical Summary ---
:1970 Author Organization [facility] Address [address] [place] [address] Care Team Providers Name Role Phone Sharptracy Primary Care Provider Unavailable Allergies No Known Allergies Medications Medication Sig Dispensed Refills Start Date End Date Status metFORMIN Take 1,000 mg by mouth 0 Active (GLUCOPHAGE) 1000 2 (two) times daily MG tablet with breakfast and dinner . lisinopril Take 20 mg by mouth 0 Active (PRINIVIL,ZESTRIL) daily. 20 MG tablet insulin degludec Inject 30 Units 0 Active (TRESIBA FLEXTOUCH subcutaneously daily. U-100) 100 unit/mL (3 mL) InPn Active Problems Problem Noted Date Acute ischemic stroke 07/15/2018 Essential hypertension 07/15/2018 Proteinuria 03/06/2018 Acute CVA (cerebrovascular accident) 03/05/2018 Type 2 diabetes mellitus with complication, with long- term current use of 03/05/2018 insulin Tobacco abuse 03/05/2018 Diabetic retinopathy 03/05/2018 Overview: Retinal detachment on the right Family History Medical History Relation Name Comments Stroke Neg Hx Social History Tobacco Use Types Packs/Day Years Used Date Current Every Day Smoker 0.5 Smokeless Tobacco: Never Used Tobacco Cessation: Ready to Quit: No Alcohol Use Drinks/Week oz/Week Comments No Sex Assigned at Date Recorded Not on file Last Filed Vital Signs Not on file Plan of Treatment Health Maintenance Due Date Last Done Comments COLON CANCER SCREENING COLONOSCOPY 1970 PNEUMOCOCCAL VACCINE 0-64 YRS (1 of 1 - 02/04/1976 PPSV23) DIABETIC EYE EXAM 02/04/1980 DIABETIC FOOT EXAM 02/04/1980 URINE MICROALBUMIN 02/04/1980 HEMOGLOBIN A1C 01/12/2019 07/15/2018, 03/05/2018 INFLUENZA VACCINE (#1) 2020 LIPID PANEL 07/15/2021 07/15/2018, 03/05/2018 Results Not on fileafter 11/22/2019 Advance Directives For more information, please contact: [phone] Code Status Date Activated Date Inactivated Comments Full Code 07/15/2018 2:39 PM 07/17/2018 5:01 PM This code status was determined by: Patient Full Code 03/05/2018 2:19 PM 03/07/2018 6:56 PM This code status was determined by: Patient
--- OUTSIDE RECORDS SUMMARY | 2020-11-22 19:24 | XMS REPORT | Continuity of Care Document ---
:[address] [facility] [place], [place] t Address [address] [place] [address] Care Team Providers Name Role Phone Sharpless Primary Care Physician Unavailable Bairon Roe MD Attending Clinician Janna MALONEY Attending Clinician Doctor Unassigned, Name Attending Clinician Unavailable Marv CARNEY C Attending Clinician Lala DANIELS Attending Clinician Unavailable GUILLERMINA GOOD Attending Clinician Unavailable Lala DANIELS Admitting Clinician Unavailable GUILLERMINA GOOD Admitting Clinician Unavailable Problems Condition Condition Condition Status Onset Resolution Last Treating Co mments Source Name Details Category Date Date Treatment Clinician Date Acute Acute Disease Active [facility] stroke 00:[facility]: Medical 00 [place] Essential Essential Disease Active [facility] hypertensi hypertensi 07-15 Tabatha kes - on on 00:00: Medical 00 [place] 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-06 [facility] - 00:[facility]: Medical 00 [place] Acute CVA Acute CVA Disease Active [facility] (cerebrova (cerebrova 03-05 Tabatha kes - scular scular 00:00: Medical accident) accident) 00 Cent er Type 2 Type [address] [facility] diabetes diabetes 03-05 [facility] - mellitus mellitus 00:00: Medica l with with 00 Center complicati complicati on, with on, with long-term long-term current current use of use of insulin insulin Tobacco Tobacco Disease Active [facility] abuse abuse 03-05 [facility] - 00:00: Medical [address] [place] [address] Diabetic Diabetic Disease Active Overview: [facility] retinopath retinopath 03-05 Retinal L u[facility] - y y 00:00: [place] [address] t on the Center right Allergies, Adverse Reactions, Alerts This patient has no known allergies or adverse reactions. Family History Family Member Diagnosis Comments Start Date Stop Date Source Family member Stroke [facility] Social History Social Habit Start Date Stop Date Quantity Comments Source Sex Assigned At [facility] Cigarettes smoked 2018-07-15 2018-07-15 [facility] - current (pack per 00:00:00 00:00:00 [facility] day) - Reported Tobacco use and 2018-07-15 2018-07-15 Never used [facility] - exposure 00:00:00 00:00:00 [facility] Alcohol intake 2018-07-15 2018-07-15 Current [facility] es - 00:00:00 00:00:00 non-drinker of [facility] nter alcohol (finding) Smoking Status Start Date Stop Date Source Current every day smoker 2018-07-15 00:00:00 [facility] Medications Ordered Filled Start Stop Current Ordering Indication Dosage Frequency Signature Comments Components Source Medication Medication Date Date Medication? Clinician (SIG) Name Name metFORMIN Yes 1000mg Take 1,[address] [facility] [address] (GLUCOPHAGE 9-10 mg by [facility] - ) 1000 MG 15:01: mouth 2 Medic al tablet 39 (two) Center times daily with breakfast and dinner . lisinopril Yes 20mg QD Take [address] (PRINIVIL,Z 9-10 by mouth [place] s ESTRIL) 20 15:01: daily. Medic al MG tablet 39 [place] insulin Yes 30U QD Inject 30 [facility] degludec 9-10 Units [facility] - (TRESIBA 15:01: subcutaneo Med ical FLEXTOUCH 39 [facility] Center U-100) 100 daily. unit/mL (3 mL) InPn Procedures This patient has no known procedures. Plan of Care Planned Activity Planned Date Details Comments Source Future Scheduled 2021-07-[address] [address] [facility] - Test 00:00:00 (procedure) [code = Medical Center 32627744] Future Scheduled 2020-07-08 INFLUENZA VACCINE (#1) [facility] - Test 00:[facility]:00 [code = INFLUENZA Medical Ce nter VACCINE (#1)] Future Scheduled 2019-01-[address] [address] Tabatha kes - Test 00:00:00 measurement Medical Center (procedure) [code = 72537769] Future Scheduled 1980-02-[address] EXAM [facility] - Test 00:00:00 [code = DIABETIC EYE Medical Center EXAM] Future Scheduled 1980-02-[address] [facility] es - Test 00:00:00 examination Medical Center (regime/therapy) [code = 946120436] Future Scheduled 1980-02-04 Urine screening [facility] - Test 00:00:00 protein (procedure) Medical Center [code = 792139336] Future Scheduled 1976-02-[address] [facility] - Test 00:00:00 0-64 YRS (1 of 1 - Medical C enter PPSV23) [code = PNEUMOCOCCAL VACCINE 0-64 YRS (1 of 1 - PPSV23)] Future Scheduled [address] - Test 00:00:00 malignant neoplasm of Medica l Center colon (procedure) [code = 322291856] Encounters Start End Encounter Admission Attending Care Care Encounter Source Date/Time Date/Time Type Type Clinicians Facility Department ID 2020-01-04 2020-01-04 Emergency Virilegacy [facility], [facility] [id number] 13:23:35 18:37:00 Juany Lyle [id number] [place] 4.2.7.2.686 [place] [id number] 2019-12-04 2019-12-04 Imm/Inj Puthenparam [facility] [id number] 10:27:45 11:20:12 Visit Iban liu 350.1.13.10 [place] 4.2.7.2.686 [facility] [facility] [id number] AND DEN[facility] 2019-12-04 2019-12-04 Orders Doctor GLADYS [id number] 00:00:00 00:00:00 Only Unassigned, KANDI 350.1.13.10 [facility] 4.2.7.2.686 [id number] 2019-07-17 2019-07-17 Office Sirisha [facility] [id number] 10:02:14 11:00:55 Visit alexa, Iban MALIK 350..13.10 IALTY 4.2.7.2.686 [facility] [id number] AND [facility] 2019-07-17 2019-07-17 Case Marv GRAHAM [id number] 00:00:00 00:00:00 Management , Chyna CHAU 350.1.13.10 [facility] 4.2.7.2.686 [id number] Results Test Description Test Time Test Comments Results Result Comments Source POCT-GLUCOSE METER 2018-07-17 12:30:00 Test Item Value Reference Range Interpretation Comme nts POC-GLUCOSE METER (Mila) (test 191 mg/dL 70-110 H TESTED AT [address] code = 1538) [facility] 7[address] 0 POCT-GLUCOSE [id number] 08:49:00 Test Item Value Reference Range Interpretation Comments POC-GLUCOSE METER 182 mg/dL 70-110 H TESTED AT [place] [address] ([facility]) (test code = IVONNE Menezes [facility] 1538) [address] POCT-GLUCOSE [id number] 21:25:00 Test Item Value Reference Range Interpretation Comments POC-GLUCOSE METER 176 mg/dL 70-110 H TESTED AT [place] [address] ([facility]) ([facility] = [facility] 1538) [address] POCT-GLUCOSE [id number] 17:30:00 Test Item Value Reference Range Interpretation Comments POC-GLUCOSE METER 176 mg/dL 70-110 H TESTED AT [place] [address] ([facility]) (test code = [facility] Riri [facility] 1538) [address] VITAMIN [id number] 15:00:00 Test Item Value Reference Range Interpretation Comments VITAMIN B12 (Mila) (test code = 352 pg/mL 321-909 890) TSH/FREE T4 IF [id number] 15:00:00 Test Item Value Reference Range Interpretation Comments THYROID STIMULATING HORMONE 0.91 uIU/mL 0.35-4.94 ([facility]) (test code = 772) POCT-GLUCOSE [id number] 11:13:00 Test Item Value Reference Range Interpretation Comments POC-GLUCOSE METER 235 mg/dL 70-110 H TESTED AT [place] [address] ([facility]) (test code = IVONNE Menezes [place] 1538) [address] POCT-GLUCOSE [id number] 11:13:00 Test Item Value Reference Range Interpretation Comments POC-GLUCOSE METER 195 mg/dL 70-110 H TESTED AT [place] [address] ([facility]) (test code = IVONNE Menezes [place] 1538) [address] HEMOGLOBIN [id number] 09:35:00 Test Item Value Reference Range Interpretation Comments HEMOGLOBIN A1C ([facility]) (test code = 7.0 % 4.3-6.1 H 368) POCT-GLUCOSE [id number] 21:52:00 Test Item Value Reference Range Interpretation Comments POC-GLUCOSE METER 200 mg/dL 70-110 H TESTED AT [place] [address] ([facility]) (test code = IVONNE Menezes [place] 1538) [address] MR, BRAIN, WITHOUT [id number] 19:24:00Reason for exam:->Ischemic Stroke EvaluationFINAL REPORT MR, [...] is morphologically normal and without signal characteristic abnorma lity. The ventricles are normal in size and configuration The larger intracranial vascular flow-voids are preserved. Paranasal sinuses and mastoid air cells are clear. There is normal bone marrow signal intensity within the calvarium and skull base. 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 Signed: JR Duggan Robert MDReport Verified Date/Time: 07/15/2018 19:24:03 Reading Location: [facility] B1 C013Y CT Body Reading Room Electronically signedby: JUANY DUGGAN on 07/15/2018 07:24 PMPOCT-GLUCOSE [id number] 17:14:00 Test Item Value Reference Range Interpretation Comments POC-GLUCOSE METER 192 mg/dL 70-[address] [facility] 67[address] (BEAKER) (test code = IVONNE [place] 1538) [address] [id number] 14:54:00 Test Item Value Reference Range Interpretation Comments MAGNESIUM (BEAKER) (test code = 1.7 mg/dL 1.6-2.6 627) COMPREHENSIVE METABOLIC [id number] 14:54:00 Test Item Value Reference Range Interpretation Comments TOTAL PROTEIN 6.4 gm/dL 6.0-8.3 (BEAKER) (test code = 770) ALBUMIN (BEAKER) 3.5 g/dL 3.5-5.0 (test code = 1145) ALKALINE PHOSPHATASE 58 U/L 40-150 (BEAKER) (test code = 346) BILIRUBIN TOTAL 0.7 mg/dL 0.2-1.2 (BEAKER) (test code = 377) SODIUM (BEAKER) (test 132 meq/L 136-145 L code = 381) POTASSIUM (BEAKER) 3.9 meq/L 3.5-5.1 (test code = 379) CHLORIDE (BEAKER) 102 meq/L 98-107 (test code = 382) CO2 (BEAKER) (test 22 meq/L 22-29 code = 355) BLOOD UREA NITROGEN 20 mg/dL 7-21 (BEAKER) (test code = 354) CREATININE (BEAKER) 0.68 mg/dL 0.57-1.25 (test code = 358) GLUCOSE RANDOM 207 mg/dL 70-105 H (BEAKER) (test code = 652) CALCIUM (BEAKER) 9.1 mg/dL 8.4-10.2 (test code = 697) AST (SGOT) (BEAKER) 9 U/L 5-34 (test code = 353) ALT (SGPT) (BEAKER) 10 U/L 6-55 (test code = 347) EGFR (BEAKER) (test 124 ESTIMATE D GFR IS code = 1092) mL/min/1.73 sq NOT ACCURA TE m CREATININE CLEARANCE IN PREDICTING GLOMERULAR FILTRATION RATE . ESTIMATED GFR I S NOT APPLICABLE FOR DIALYSIS PATIEN TS. LIPID [id number] 14:54:00 Test Item Value Reference Range Interpretation Comments TRIGLYCERIDES (BEAKER) (test code = 115 mg/dL 540) CHOLESTEROL (BEAKER) (test code = 129 mg/dL 631) HDL CHOLESTEROL (BEAKER) (test code 37 mg/dL = 976) LDL CHOLESTEROL CALCULATED (BEAKER) 69 mg/dL (test code = 633) Triglyceride Reference Range: Low Risk <150 Borderline 150-199 High Risk 200-499 Very High Risk >=500Cholesterol Reference Range: Low Risk <200 Borderline 200-239 High Risk >240HDL Cholesterol Reference Range: Low Risk >=60 High Risk <40LDL Cholesterol Reference Range: Optimal <100 Near Optimal 100-129 Borderline 130-159 High 160-189 Very High >=190CBC W/PLT COUNT & AUTO [id number] 14:37:00 Test Item Value Reference Range Interpretation Comments WHITE BLOOD CELL COUNT (BEAKER) 7.0 K/ L 3.5-10.5 (test code = 775) RED BLOOD CELL COUNT (BEAKER) 4.28 M/ L 4.63-6.08 L (test code = 761) HEMOGLOBIN (BEAKER) (test code = 12.0 GM/DL 13.7-17.5 L 410) HEMATOCRIT (BEAKER) (test code = 35.5 % 40.1-51.0 L 411) MEAN CORPUSCULAR VOLUME (BEAKER) 82.9 fL 79.0-92.2 (test code = 753) MEAN CORPUSCULAR HEMOGLOBIN 28.0 pg 25.7-32.2 (BEAKER) (test code = 751) MEAN CORPUSCULAR HEMOGLOBIN CONC 33.8 GM/DL 32.3-36.5 (BEAKER) (test code = 752) RED CELL DISTRIBUTION WIDTH 13.7 % 11.6-14.4 (BEAKER) (test code = 412) PLATELET COUNT (BEAKER) (test 195 K/CU MM 150-450 code = 756) MEAN PLATELET VOLUME (BEAKER) 10.8 fL 9.4-12.4 (test code = 754) NUCLEATED RED BLOOD CELLS 0 /100 WBC 0-0 (BEAKER) (test code = 413) NEUTROPHILS RELATIVE PERCENT 68 % (BEAKER) (test code = 429) LYMPHOCYTES RELATIVE PERCENT 22 % (BEAKER) (test code = 430) MONOCYTES RELATIVE PERCENT 5 % (BEAKER) (test code = 431) EOSINOPHILS RELATIVE PERCENT 3 % (BEAKER) (test code = 432) BASOPHILS RELATIVE PERCENT 0 % (BEAKER) (test code = 437) NEUTROPHILS ABSOLUTE COUNT 4.79 K/ L 1.78-5.38 (BEAKER) (test code = 670) LYMPHOCYTES ABSOLUTE COUNT 1.57 K/ L 1.32-3.57 (BEAKER) (test code = 414) MONOCYTES ABSOLUTE COUNT (BEAKER) 0.37 K/ L 0.30-0.82 (test code = 415) EOSINOPHILS ABSOLUTE COUNT 0.24 K/ L 0.04-0.54 (BEAKER) (test code = 416) BASOPHILS ABSOLUTE COUNT (BEAKER) 0.03 K/ L 0.01-0.08 (test code = 417) IMMATURE GRANULOCYTES-RELATIVE 0 % 0-1 PERCENT (BEAKER) (test code = 2801) CT, CTANGIO [id number] 14:18:00FINAL REPORT CLINICAL HISTORY: Stroke TECHNIQUE: Contiguous [...] control, adjustment of the mA and/or kV acco rding to the patient size, and/or use of an iterative reconstruction technique. COMPARISON: Noncontrast head CT 07/15/2018 FINDINGS: There is no evidence for a [place] proximal branch vessel occlusion. A [...] are clear. IMPRESSION: No evidence for a [place] proximal branch vessel occlusion. 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 No evidence of hemodynamically significant stenosis in the cervical carotid or vertebral arteries by NASCET criteria. Signed: Isadora Salas MDRalberto Verified Date/Time: 07/15/2018 14:18:24 Reading Location: [address] Neuro Reading Room CT, CAROTID, [id number] 14:18:00FINAL REPORT CLINICAL HISTORY: Stroke TECHNIQUE: Contiguous [...] control, adjustment of the mA and/or kV acco rding to the patient size, and/or use of an iterative reconstruction technique. COMPARISON: Noncontrast head CT 07/15/2018 FINDINGS: There is no evidence for a [place] proximal branch vessel occlusion. A [...] are clear. IMPRESSION: No evidence for a [place] proximal branch vessel occlusion. 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 No evidence of hemodynamically significant stenosis in the cervical carotid or vertebral arteries by NASCET criteria. Signed: Isadora Salas MDRalberto Verified Date/Time: 07/15/2018 14:18:24 Reading Location: [address] Neuro Reading Room CT, BRAIN, WITHOUT [id number] 13:56:00FINAL REPORT CT Head without contrast CLINICAL HISTORY: [...] posterior limb left internal capsule. Signed: Isadora Salasort Verified Date/Time: 07/15/2018 13:56:47 Reading Location: [address] Neuro Reading Room RAD, CHEST, 1 VIEW, NON [id number] 16:17:00Reason for exam:->? PneumoniaShould this be performed at the bedside?->YesAddendum BeginsREPORT STATUS:A Addendum: CLINICAL INFORMATION: Pneumonia Signed: Jessie Florenceort Verified Date/Time: 03/09/2018 16:17:25 Reading Location: [facility] Diagnostic Imaging Reading Room - [place] [id number] EndsFINAL REPORT AP view of the chest dated 03/05/2018 CLINICAL INFORMATION: ? Pneumonia Comment: Heart is normal in size. Pulmonary vasculature is unremarkable. Lungs are clear. No pulmonary infiltrate or pleural effusion is present.Impression: No pneumonia. Signed: Jessie Florence Verified Date/Time: 03/05/2018 16:33:23 Reading Location: [facility] C013X Ortho Consult Reading Room POCT-GLUCOSE [id number] 11:32:00 Test Item Value Reference Range Interpretation Comments POC-GLUCOSE METER 325 mg/dL 70-110 H Procedure Error/TESTED (BEAKER) (test code AT [facility] [address] [facility] = 1538) [facility] 7703 0 POCT-GLUCOSE [id number] 07:43:00 Test Item Value Reference Range Interpretation Comments POC-GLUCOSE METER 252 mg/dL 70-[address] [facility] 67[address] (BEAKER) (test code = [place] 1538) [address] [id number] 04:34:00 Test Item Value Reference Range Interpretation Comments MAGNESIUM (BEAKER) (test code = 1.8 mg/dL 1.6-2.6 627) BASIC METABOLIC [id number] 04:34:00 Test Item Value Reference Range Interpretation Comments SODIUM (BEAKER) 138 meq/L 136-145 (test code = 381) POTASSIUM (BEAKER) 4.0 meq/L 3.5-5.1 (test code = 379) CHLORIDE (BEAKER) 104 meq/L 98-107 (test code = 382) CO2 (BEAKER) (test 25 meq/L 22-29 code = 355) BLOOD UREA NITROGEN 10 mg/dL 7-21 (BEAKER) (test code = 354) CREATININE (BEAKER) 0.67 mg/dL 0.57-1.25 (test code = 358) GLUCOSE RANDOM 236 mg/dL 70-105 H (BEAKER) (test code = 652) CALCIUM (BEAKER) 9.1 mg/dL 8.4-10.2 (test code = 697) EGFR (BEAKER) (test 127 mL/min/1.73 ESTIM ATED GFR IS code = 1092) sq m NOT ACCURATE CREATININE CLEARANCE IN PREDICTING GLOMERULAR FILTRATION RATE . ESTIMATED GFR I S NOT APPLICABLE FOR DIALYSIS PATIEN TS. CBC W/PLT COUNT & AUTO [id number] 04:11:00 Test Item Value Reference Range Interpretation Comments WHITE BLOOD CELL COUNT (BEAKER) 7.8 K/ L 3.5-10.5 (test code = 775) RED BLOOD CELL COUNT (BEAKER) 5.41 M/ L 4.63-6.08 (test code = 761) HEMOGLOBIN (BEAKER) (test code = 14.6 GM/DL 13.7-17.5 410) HEMATOCRIT (BEAKER) (test code = 44.4 % 40.1-51.0 411) MEAN CORPUSCULAR VOLUME (BEAKER) 82.1 fL 79.0-92.2 (test code = 753) MEAN CORPUSCULAR HEMOGLOBIN 27.0 pg 25.7-32.2 (BEAKER) (test code = 751) MEAN CORPUSCULAR HEMOGLOBIN CONC 32.9 GM/DL 32.3-36.5 (BEAKER) (test code = 752) RED CELL DISTRIBUTION WIDTH 14.1 % 11.6-14.4 (BEAKER) (test code = 412) PLATELET COUNT (BEAKER) (test 241 K/CU MM 150-450 code = 756) MEAN PLATELET VOLUME (BEAKER) 11.2 fL 9.4-12.4 (test code = 754) NUCLEATED RED BLOOD CELLS 0 /100 WBC 0-0 (BEAKER) (test code = 413) NEUTROPHILS RELATIVE PERCENT 55 % (BEAKER) (test code = 429) LYMPHOCYTES RELATIVE PERCENT 32 % (BEAKER) (test code = 430) MONOCYTES RELATIVE PERCENT 7 % (BEAKER) (test code = 431) EOSINOPHILS RELATIVE PERCENT 6 % (BEAKER) (test code = 432) BASOPHILS RELATIVE PERCENT 1 % (BEAKER) (test code = 437) NEUTROPHILS ABSOLUTE COUNT 4.28 K/ L 1.78-5.38 (BEAKER) (test code = 670) LYMPHOCYTES ABSOLUTE COUNT 2.47 K/ L 1.32-3.57 (BEAKER) (test code = 414) MONOCYTES ABSOLUTE COUNT (BEAKER) 0.57 K/ L 0.30-0.82 (test code = 415) EOSINOPHILS ABSOLUTE COUNT 0.46 K/ L 0.04-0.54 (BEAKER) (test code = 416) BASOPHILS ABSOLUTE COUNT (BEAKER) 0.04 K/ L 0.01-0.08 (test code = 417) IMMATURE GRANULOCYTES-RELATIVE 0 % 0-1 PERCENT (BEAKER) (test code = 2801) POCT-GLUCOSE [id number] 03:47:00 Test Item Value Reference Range Interpretation Comments POC-GLUCOSE METER 237 mg/dL 70-[address] [facility] [address] [facility] (test code = [place] 1538) [address] POCT-GLUCOSE [id number] 02:07:00 Test Item Value Reference Range Interpretation Comments POC-GLUCOSE METER 355 mg/dL 70-[address] [facility] 67[address] (BEAKER) (test code = [place] 1538) [address] POCT-GLUCOSE [id number] 18:33:00 Test Item Value Reference Range Interpretation Comments POC-GLUCOSE METER 291 mg/dL 70-[address] [facility] 67[address] (BEAKER) (test code = IVONNE Menezes [facility] 1538) [address] POCT-GLUCOSE [id number] 11:50:00 Test Item Value Reference Range Interpretation Comments POC-GLUCOSE METER 361 mg/dL 70-110 H Notified R Amena MALONEY/TESTED (BEAKER) (test code = AT [facility] [address] [facility] 1538) [facility] 7703 0 HEMOGLOBIN [id number] 09:38:00 Test Item Value Reference Range Interpretation Comments HEMOGLOBIN A1C (BEAKER) (test code = 12.3 % 4.3-6.1 H 368) POCT-GLUCOSE [id number] 08:08:00 Test Item Value Reference Range Interpretation Comments POC-GLUCOSE METER 252 mg/dL 70-[address] [facility] 67[address] (BEAKER) (test code = IVONNE Menezes [facility] 1538) [address] [id number] 06:38:00 Test Item Value Reference Range Interpretation Comments MAGNESIUM (BEAKER) (test code = 1.7 mg/dL 1.6-2.6 627) BASIC METABOLIC [id number] 06:38:00 Test Item Value Reference Range Interpretation Comments SODIUM (BEAKER) 138 meq/L 136-145 (test code = 381) POTASSIUM (BEAKER) 3.9 meq/L 3.5-5.1 (test code = 379) CHLORIDE (BEAKER) 103 meq/L 98-107 (test code = 382) CO2 (BEAKER) (test 25 meq/L 22-29 code = 355) BLOOD UREA NITROGEN 13 mg/dL 7-21 (BEAKER) (test code = 354) CREATININE (BEAKER) 0.64 mg/dL 0.57-1.25 (test code = 358) GLUCOSE RANDOM 245 mg/dL 70-105 H (BEAKER) (test code = 652) CALCIUM (BEAKER) 9.1 mg/dL 8.4-10.2 (test code = 697) EGFR (BEAKER) (test 133 mL/min/1.73 ESTIM ATED GFR IS code = 1092) sq m NOT ACCURATE CREATININE CLEARANCE IN PREDICTING GLOMERULAR FILTRATION RATE . ESTIMATED GFR I S NOT APPLICABLE FOR DIALYSIS PATIEN TS. CBC W/PLT COUNT & AUTO [id number] 06:11:00 Test Item Value Reference Range Interpretation Comments WHITE BLOOD CELL COUNT (BEAKER) 7.9 K/ L 3.5-10.5 (test code = 775) RED BLOOD CELL COUNT (BEAKER) 5.53 M/ L 4.63-6.08 (test code = 761) HEMOGLOBIN (BEAKER) (test code = 14.9 GM/DL 13.7-17.5 410) HEMATOCRIT (BEAKER) (test code = 45.6 % 40.1-51.0 411) MEAN CORPUSCULAR VOLUME (BEAKER) 82.5 fL 79.0-92.2 (test code = 753) MEAN CORPUSCULAR HEMOGLOBIN 26.9 pg 25.7-32.2 (BEAKER) (test code = 751) MEAN CORPUSCULAR HEMOGLOBIN CONC 32.7 GM/DL 32.3-36.5 (BEAKER) (test code = 752) RED CELL DISTRIBUTION WIDTH 13.8 % 11.6-14.4 (BEAKER) (test code = 412) PLATELET COUNT (BEAKER) (test 213 K/CU MM 150-450 code = 756) MEAN PLATELET VOLUME (BEAKER) 11.5 fL 9.4-12.4 (test code = 754) NUCLEATED RED BLOOD CELLS 0 /100 WBC 0-0 (BEAKER) (test code = 413) NEUTROPHILS RELATIVE PERCENT 61 % (BEAKER) (test code = 429) LYMPHOCYTES RELATIVE PERCENT 27 % (BEAKER) (test code = 430) MONOCYTES RELATIVE PERCENT 7 % (BEAKER) (test code = 431) EOSINOPHILS RELATIVE PERCENT 5 % (BEAKER) (test code = 432) BASOPHILS RELATIVE PERCENT 1 % (BEAKER) (test code = 437) NEUTROPHILS ABSOLUTE COUNT 4.80 K/ L 1.78-5.38 (BEAKER) (test code = 670) LYMPHOCYTES ABSOLUTE COUNT 2.08 K/ L 1.32-3.57 (BEAKER) (test code = 414) MONOCYTES ABSOLUTE COUNT (BEAKER) 0.53 K/ L 0.30-0.82 (test code = 415) EOSINOPHILS ABSOLUTE COUNT 0.39 K/ L 0.04-0.54 (BEAKER) (test code = 416) BASOPHILS ABSOLUTE COUNT (BEAKER) 0.04 K/ L 0.01-0.08 (test code = 417) IMMATURE GRANULOCYTES-RELATIVE 0 % 0-1 PERCENT (JOVANNY) (test code = 2801) POCT-GLUCOSE [id number] 05:15:00 Test Item Value Reference Range Interpretation Comments POC-GLUCOSE METER 284 mg/dL 70-[address] [facility] 67[address] (JOVANNY) (test code = [place] 1538) [id number] 02:24:00 Test Item Value Reference Range Interpretation Comments RPR SCREEN (JOVANNY) (test code = Nonreactive Nonreactive 420) MR, BRAIN, WITHOUT [id number] 00:02:00FINAL REPORT MR, BRAIN, WITHOUT CONTRAST, MR, MRA, NECK, WITHOUT IV CONTRAST,MR, MRA, BRAIN, WITHOUT CONTRAST INDICATION: Stroke TECHNIQUE: [...] the CCA bifurcation. No flow-limiting stenosis or dissection.Co-dominant vertebral artery system. No flow-limiting stenosis of vertebral arteries. MRA HEAD: No flow-limiting stenosis, dissection, or aneurysm of the anterior circulation.No flow-limiting stenosis, dissection, or aneurysm of the posterior circulation. IMPRESSION:Small nonhemorrhagic left thalamic infarct.Unremarkable MRA of the head and neck.Left-sided retinal detachment.Findings suggestive of right orbital surgery. Clinical correlation recommended. Details above. Signed: Oralia Del Rio MDReport Verified Date/Time: 03/06/2018 00:02:34 Reading Location: [facility] B1 [id number] Ortho Consult Reading Room MR, MRA, BRAIN, WITHOUT [id number] 00:02:00FINAL REPORT MR, BRAIN, WITHOUT CONTRAST, MR, MRA, NECK, WITHOUT IV CONTRAST,MR, MRA, BRAIN, WITHOUT CONTRAST INDICATION: Stroke TECHNIQUE: [...] the CCA bifurcation. No flow-limiting stenosis or dissection.Co-dominant vertebral artery system. No flow-limiting stenosis of vertebral arteries. MRA HEAD: No flow-limiting stenosis, dissection, or aneurysm of the anterior circulation.No flow-limiting stenosis, dissection, or aneurysm of the posterior circulation. IMPRESSION:Small nonhemorrhagic left thalamic infarct.Unremarkable MRA of the head and neck.Left-sided retinal detachment.Findings suggestive of right orbital surgery. Clinical correlation recommended. Details above. Signed: Oralia Del Rio MDReport Verified Date/Time: 03/06/2018 00:02:34 Reading Location: [facility] B1 [id number] Ortho Consult Reading Room MR, MRA, NECK, WITHOUT IV [id number] 00:02:00FINAL REPORT MR, BRAIN, WITHOUT CONTRAST, MR, MRA, NECK, WITHOUT IV CONTRAST,MR, MRA, BRAIN, WITHOUT CONTRAST INDICATION: Stroke TECHNIQUE: Multiplanar, multisequence MR images of the brain. 3-D time of flight MRA of the cranial and cervical circulation. 2-D time of flight MRAof the neck. 3D MIP angiographic post- processing was performed. Stenosis evaluation utilized NASCET criteria. [...] the CCA bifurcation. No flow-limiting stenosis or dissection.Co-dominant vertebral artery system. No flow-limiting stenosis of vertebral arteries. MRA HEAD: No flow-limiting stenosis, dissection, or aneurysm of the anterior circulation.No flow-limiting stenosis, dissection, or aneurysm of the posterior circulation. IMPRESSION:Small nonhemorrhagic left thalamic infarct.Unremarkable MRA of the head and neck.Left-sided retinal detachment.Findings suggestive of right orbital surgery. Clinical correlation recommended. Details above. Signed: Oralia Del Rio MDReport Verified Date/Time: 03/06/2018 00:02:34 Reading Location: [facility] [id number] [facility] Consult Reading Room URINALYSIS W/ [id number] 23:06:00 Test Item Value Reference Range Interpretation Comments COLOR (BEAKER) (test code Yellow = 470) CLARITY (BEAKER) (test Clear code = 469) SPECIFIC GRAVITY UA 1.048 1.001-1.035 H (BEAKER) (test code = 468) PH UA (BEAKER) (test code 6.0 5.0-8.0 = 467) PROTEIN UA (BEAKER) (test 300 mg/dL Negative A code = 464) GLUCOSE UA (BEAKER) (test >1000 mg/dL Negative A code = 365) KETONES UA (BEAKER) (test 100 mg/dL Negative A code = 371) BILIRUBIN UA (BEAKER) Negative Negative (test code = 462) BLOOD UA (BEAKER) (test Negative Negative code = 461) NITRITE UA (BEAKER) (test Negative Negative code = 465) LEUKOCYTE ESTERASE UA Negative Negative (BEAKER) (test code = 466) UROBILINOGEN UA (BEAKER) 0.2 mg/dL 0.2-1.0 (test code = 463) RBC UA (BEAKER) (test code < /HPF = 519) WBC UA (BEAKER) (test code 2 /HPF = 520) MUCUS (BEAKER) (test code Occasional = 1574) SQUAMOUS EPITHELIAL < /HPF (BEAKER) (test code = 516) SOURCE(BEAKER) (test code Urine, Clean Catch = 2795) HIV-1 ANTIGEN WITH HIV-1/2 [id number] 18:51:00 Test Item Value Reference Range Interpretation Comments HIV-1 ANTIGEN WITH HIV 1\T\2 Nonreactive Nonreactive ANTIBODY (2) (BEAKER) (test code = 2586) [id number] 17:29:00 Test Item Value Reference Range Interpretation Comments THYROID STIMULATING HORMONE 0.54 uIU/mL 0.35-4.94 (BEAKER) (test code = 772) VITAMIN B12 AND [id number] 17:29:00 Test Item Value Reference Range Interpretation Comments VITAMIN B12 (BEAKER) (test code = 559 pg/mL 213-816 774) FOLATE (BEAKER) (test code = 362) 13.7 ng/mL >=7.0 SEDIMENTATION [id number] 16:20:00 Test Item Value Reference Range Interpretation Comments SEDIMENTATION RATE, ERYTHROCYTE 37 mm/HR 0-15 H (BEAKER) (test code = 766) LIPID [id number] 15:23:00 Test Item Value Reference Range Interpretation Comments TRIGLYCERIDES (BEAKER) (test code = 149 mg/dL 540) CHOLESTEROL (BEAKER) (test code = 189 mg/dL 631) HDL CHOLESTEROL (BEAKER) (test code 34 mg/dL = 976) LDL CHOLESTEROL CALCULATED (BEAKER) 125 mg/dL (test code = 633) Triglyceride Reference Range: Low Risk <150 Borderline 150-199 High Risk 200-499 Very High Risk >=500Cholesterol Reference Range: Low Risk <200 Borderline 200-239 High Risk >240HDL Cholesterol Reference Range: Low Risk >=60 High Risk <40LDL Cholesterol Reference Range: Optimal <100 Near Optimal 100-129 Borderline 130-159 High 160-189 Very High >=190BASIC METABOLIC [id number] 15:23:00 Test Item Value Reference Range Interpretation Comments SODIUM (BEAKER) 137 meq/L 136-145 (test code = 381) POTASSIUM (BEAKER) 4.0 meq/L 3.5-5.1 (test code = 379) CHLORIDE (BEAKER) 103 meq/L 98-107 (test code = 382) CO2 (BEAKER) (test 23 meq/L 22-29 code = 355) BLOOD UREA NITROGEN 14 mg/dL 7-21 (BEAKER) (test code = 354) CREATININE (BEAKER) 0.64 mg/dL 0.57-1.25 (test code = 358) GLUCOSE RANDOM 229 mg/dL 70-105 H (BEAKER) (test code = 652) CALCIUM (BEAKER) 8.9 mg/dL 8.4-10.2 (test code = 697) EGFR (BEAKER) (test 133 mL/min/1.73 ESTIM ATED GFR IS code = 1092) sq m NOT ACCURATE CREATININE CLEARANCE IN PREDICTING GLOMERULAR FILTRATION RATE . ESTIMATED GFR I S NOT APPLICABLE FOR DIALYSIS PATIEN TS.
[2020-11-22 20:33] LABS: Absolute Lymphocytes (CBC) 0.9 K/uL (0.7-4.9); Basophils % 0.7 % (0-1.3); Lymphocytes % 9.8 % (15.3-44.8); Protime INR 1.06; RBC Red Blood Cell Count 3.64 M/uL (4.33-5.43)
[2020-11-22] MEDS ORDERED: ONDANSETRON 4 MG/2 ML VIAL ONE (20:46)
[2020-11-22] MEDS ORDERED: FAMOTIDINE 20 MG/2 ML VIAL IV ONE (20:46)
[2020-11-22] MEDS ORDERED: NA CHLORIDE 0.9% 1,000 ML ONE ×2 (20:46→22:45)
[2020-11-22 20:47] LABS: ALT/SGPT 9 U/L (12-78); AST/SGOT 16 U/L (15-37); Albumin 2.2 g/dL (3.4-5.0); Alkaline Phosphatase 102 U/L (45-117); BUN Blood Urea Nitrogen 27 mg/dL (7-18); Bicarbonate 25 mmol/L (21-32); Bilirubin Direct 0.1 mg/dL (0-0.2); Bilirubin Total 0.4 mg/dL (0.2-1.0); Glucose Level 151 mg/dL (74-106); Lipase 76 U/L (73-393); Magnesium 1.8 mg/dL (1.8-2.4); NT PRO-BNP 275 pg/mL (<125); Protein, Total 6.6 g/dL (6.4-8.2); Sodium Level 142 mmol/L (136-145); Troponin (Emerg Dept Use Only) < 0.02 ng/mL (0.0-0.045)
--- NOTE | 2020-11-22 21:19 | RAD REPORT ---
EXAM DESCRIPTION: RAD - Chest Single View - 11/22/2020 9:14 pm CLINICAL HISTORY: weakness Chest pain. COMPARISON: Chest Single View dated 07/15/2018; Chest Single View dated 03/05/2018; Chest Single View d ated 03/04/2018 FINDINGS: Portable technique limits examination quality. The lungs are grossly clear. The heart is normal in size. No displaced fractures. IMPRESSION: No acute intrathoracic process suspected.
--- NOTE | 2020-11-22 21:27 | RAD REPORT ---
EXAM DESCRIPTION: CT - Head Brain Wo Cont - 11/22/2020 9:16 pm CLINICAL HISTORY: DIZZINESS Headache, drowsiness COMPARISON: Ct Stroke Brain Wo Cont dated 07/15/2018; Head angio dated 03/05/2018 TECHNIQUE: All CT scans are performed using dose optimization technique as appropriate and may inclu de automated exposure control or mA/KV adjustment according to patient size. FINDINGS: No intracranial hemorrhage, hydrocephalus or extra-axial fluid collection.No areas of brai n edema or evidence of midline shift. The paranasal sinuses and mastoids are clear. The calvarium is intact. Increased density is seen with in the globes, chronic. IMPRESSION: No acute intracranial abnormality.
--- NOTE | 2020-11-22 21:32 | RAD REPORT ---
EXAM DESCRIPTION: CT - Abdomen Pelvis Wo Contrast - 11/22/2020 9:16 pm CLINICAL HISTORY: Abdominal pain. ABD PAIN COMPARISON: Abdomen Pelvis W Contrast dated 03/12/2019; Ct Stroke Brain Wo Cont dated 03/05/2018; Hea d Brain Wo Cont dated 11/22/2020 TECHNIQUE: CT imaging of the abdomen and pelvis was performed without contrast. Solid organ and vasc ular assessment is limited due to lack of IV contrast. All CT scans are performed using dose optimization technique as appropriate and may include automated exposure control or mA/KV adjustment according to patient size. FINDINGS: The lower lung mcfralane are clear.Small hiatal hernia. The liver, spleen, pancreas, adrenal glands and right kidney are within normal limits for a limited n on-contrast examination.3 cm lesion is present superolateral left kidney. Full assessment is limited due to lack of contrast but on prior study dated 03/12/2019 this was shown to be a solid-appearing ma ss. The gallbladder appears distended with gallstones present. No bowel obstruction, free air, free fluid or abscess. Large ventral hernia is present containing pre dominately small intestine without bowel obstruction. The appendix is normal. The osseous structures are within normal limits. IMPRESSION: Large ventral hernia containing fat and small intestine without evidence of bowel obstru ction. Distended gallbladder containing multiple gallstones. Followup gallbladder ultrasound could be obtain ed for further evaluation. Suspected 3 cm superolateral left kidney lesion. Assessment is limited on this study due to lack of I V contrast, however prior CT in 2019 demonstrated a solid mass in this location. A limited non-contrast examination was performed as detailed.
[2020-11-22] MEDS ORDERED: PROMETHAZINE INJ 25 MG/ML AMP ONE (21:43)
[2020-11-22 23:28] LABS: Urine Blood 3+ (NEG); Urine Glucose 2+ (NEG); Urine Protein 3+ (NEG); Urine Specific Gravity 1.025 (1.005-1.030); Urine pH 5.5 (5.0-7.0)
[2020-11-23 00:22] LABS: Potassium 4.2 mmol/L (3.5-5.1)
--- NOTE | 2020-11-23 00:32 | EDPHYS ---
Physician Documentation [facility] Name: Zac Serrato Age: 50 yrs Sex: Male : 1970 Arrival Date: 11/22/2020 Time: 19:23 Bed 15 Private MD: ED Physician Ravindra Brantley HPI: 11/22 20:18 This 50 yrs old Male presents to ER via EMS with complaints of Weakness, mh7 Nausea. Dizziness. 20:18 The patient presents with dizziness, generalized weakness, lightheadedness. Onset: The mh7 symptoms/episode began/occurred yesterday. Context: occurred at home, occurred while the patient was standing. Modifying factors: The symptoms are alleviated by nothing, the symptoms are aggravated by movement of head, standing up. Associated signs and symptoms:. 20:19 Associated signs and symptoms: Pertinent positives: nausea, vomiting, Noise in left mh7 ear, Pertinent negatives: abdominal pain, agitation, ataxia, blurred vision, chest pain, combativeness, confusion, diaphoresis, focal weakness, head injury, headache, near-syncope, numbness, palpitations, seizure, shortness of breath, syncope, tingling. Severity of symptoms: At their worst the symptoms were moderate last night, in the emergency department the symptoms have improved moderately. 20:22 Patient's baseline: Neuro: alert and fully oriented, Motor: no deficits, Ambulation: mh7 walks without assistance, Speech: slurred. Historical: - Allergies: 19:33 No Known Allergies; mg2 - PMHx: 19:33 Diabetes - NIDDM; Hypertension; RETINAL DETACHMENT; mg2 - PSHx: 19:33 eye surgery; mg2 - Immunization history:: Flu vaccine is not up to date. - Social history:: Smoking status: Patient denies any tobacco usage or history of. Patient/guardian denies using alcohol, street drugs, IV drugs. ROS: 20:22 Constitutional: Negative for fever, chills, and weight loss, Eyes: Negative for injury, mh7 pain, redness, and discharge, ENT: Negative for injury, pain, and discharge, Neck: Negative for injury, pain, and swelling, Cardiovascular: Negative for chest pain, palpitations, and edema, Respiratory: Negative for shortness of breath, cough, wheezing, and pleuritic chest pain, Back: Negative for injury and pain, : Negative for injury, bleeding, discharge, and swelling, MS/Extremity: Negative for injury and deformity, Skin: Negative for injury, rash, and discoloration, Psych: Negative for depression, anxiety, suicide ideation, homicidal ideation, and hallucinations, Allergy/Immunology: Negative for hives, rash, and allergies, Endocrine: Negative for neck swelling, polydipsia, polyuria, polyphagia, and marked weight changes, Hematologic/Lymphatic: Negative for swollen nodes, abnormal bleeding, and unusual bruising. Exam: 20:22 Constitutional: This is a well developed, well nourished patient who is awake, alert, mh7 and in no acute distress. Head/Face: Normocephalic, atraumatic. Eyes: Pupils equal round and reactive to light, extra-ocular motions intact. Lids and lashes normal. Conjunctiva and sclera are non-icteric and not injected. Cornea within normal limits. Periorbital areas with no swelling, redness, or edema. ENT: Nares patent. No nasal discharge, no septal abnormalities noted. Tympanic membranes are normal and external auditory canals are clear. Oropharynx with no redness, swelling, or masses, exudates, or evidence of obstruction, uvula midline. Mucous membranes moist. Neck: Trachea midline, no thyromegaly or masses palpated, and no cervical lymphadenopathy. Supple, full range of motion without nuchal rigidity, or vertebral point tenderness. No Meningismus. Chest/axilla: Normal chest wall appearance and motion. Nontender with no deformity. No lesions are appreciated. Cardiovascular: Regular rate and rhythm with a normal S1 and S2. No gallops, murmurs, or rubs. Normal PMI, no JVD. No pulse deficits. Respiratory: Lungs have equal breath sounds bilaterally, clear to auscultation and percussion. No rales, rhonchi or wheezes noted. No increased work of breathing, no retractions or nasal flaring. 20:22 Back: No spinal tenderness. No costovertebral tenderness. Full range of motion. Skin: Warm, dry with normal turgor. Normal color with no rashes, no lesions, and no evidence of cellulitis. MS/ Extremity: Pulses equal, no cyanosis. Neurovascular intact. Full, normal range of motion. Neuro: Awake and alert, GCS 15, oriented to person, place, time, and situation. Cranial nerves II-XII grossly intact. Motor strength 5/5 in all extremities. Sensory grossly intact. Cerebellar exam normal. Normal gait. Psych: Awake, alert, with orientation to person, place and time. Behavior, mood, and affect are within normal limits. 20:22 Abdomen/GI: Inspection: obese Bowel sounds: normal, in all quadrants, Palpation: moderate abdominal tenderness, in the epigastric area, right upper quadrant and left upper quadrant, Rectal exam: the exam is deferred, because of patient request, Indicators: McBurney's point is not tender, Cox's sign is negative, Rovsing's sign is negative, Obturator sign is negative, Psoas sign is negative, Liver: no appreciated palpable abnormalities, Hernia: noted in the paraumbilical area. Vital Signs: 19:29 BP 196 / 98; Pulse 95; Resp 18; Temp 98.3; Pulse Ox 100% on R/A; Weight 99.79 kg; mg2 Height 5 ft. 8 in. (172.72 cm); Pain 0/10; 20:11 BP 164 / 90; mg2 21:40 BP 173 / 91; Pulse 92; Resp 18; Pulse Ox 98% on R/A; mg2 22:50 BP 165 / 79; Pulse 100; Resp 18; Pulse Ox 100% on R/A; mg2 19:29 Body Mass Index 33.45 (99.79 kg, 172.72 cm) mg2 MDM: 11/23 00:28 Differential diagnosis: cardiac arrhythmia, CVA, generalized weakness, hypovolemia, mh7 idiopathic dizziness, near-syncope, sepsis, syncope, vertigo. Data reviewed: vital signs, nurses notes, old medical records, lab test result(s), cardiac enzymes, CBC, electrolytes, urinalysis, EKG, radiologic studies, CT scan, plain films. Data interpreted: Pulse oximetry: on room air is 100 %. Interpretation: normal. Counseling: I had a detailed discussion with the patient and/or guardian regarding: the historical points, exam findings, and any diagnostic results supporting the discharge/admit diagnosis, the presence of at least one elevated blood pressure reading (>120/80) during this emergency department visit, lab results, radiology results, the need for further work-up and treatment in the hospital. Response to treatment: the patient's symptoms have mildly improved after treatment. 00:31 Patient medically screened. [facility] 11/22 19:53 Order name: Basic Metabolic Panel; Complete Time: 20:51 7 11/22 19:53 Order name: CBC with Diff; Complete Time: 20:51 7 11/22 19:53 Order name: LFT's; Complete Time: 20:51 7 11/22 19:53 Order name: Magnesium; Complete Time: 20:51 7 11/22 19:53 Order name: NT PRO-BNP; Complete Time: 20:51 7 11/22 19:53 Order name: PT-INR; Complete Time: 20:51 [facility] 11/22 19:53 Order name: Troponin (emerg Dept Use Only); Complete Time: 20:51 [facility] 11/22 19:53 Order name: Lipase; Complete Time: 20:51 [facility] 11/22 20:01 Order name: Glucose, Ancillary Testing; Complete Time: 20:51 [facility] 11/22 22:49 Order name: BMP: after completing iv fluid; Complete Time: 00:23 [facility] [place] 11/22 23:12 Order name: Urine Dipstick--Ancillary (enter results); Complete Time: 23:43 [facility] 11/23 00:31 Order name: COVID-19 [facility] [place] 11/23 01:07 Order name: CBC with Automated Diff [facility] 11/23 01:07 Order name: CBC with Automated Diff [facility] 11/22 19:53 Order name: XRAY Chest (1 view); Complete Time: 21:48 [facility] 11/22 19:53 Order name: EKG; Complete Time: 19:54 7 11/22 19:53 Order name: CT Head Brain wo Cont; Complete Time: 21:48 [facility] 11/22 20:55 Order name: CT Abd/Pelvis - Without Contrast; Complete Time: 21:48 [facility] 11/23 01:07 Order name: CONS Pharmacy Consult [facility] 11/23 01:07 Order name: Regular [facility]NE 11/23 01:07 Order name: Comprehensive Metabolic Panel [facility] 11/23 01:07 Order name: Comprehensive Metabolic Panel [facility] 11/23 03:38 Order name: SARS-COV-2 RT PCR [facility] 11/22 19:53 Order name: Cardiac monitoring; Complete Time: 20:10 7 11/22 19:53 Order name: EKG - Nurse/Tech; Complete Time: 20:11 [facility] 11/22 19:53 Order name: IV Saline Lock; Complete Time: 20:11 [facility] 11/22 19:53 Order name: Labs collected and sent; Complete Time: 20:11 [facility] 11/22 19:53 Order name: O2 Per Protocol; Complete Time: 20:11 [facility] 11/22 19:53 Order name: O2 Sat Monitoring; Complete Time: 20:11 [facility] 11/22 19:53 Order name: Urine Dipstick-Ancillary (obtain specimen); Complete Time: 23:34 [facility] 11/22 22:43 Order name: PO challenge; Complete Time: 22:44 mg2 Administered Medications: 11/22 20:45 Drug: Pepcid 20 mg Route: IVP; Site: right antecubital; mg2 21:41 Follow up: Response: No adverse reaction mg2 20:46 Drug: NS 0.9% 1000 ml Route: IV; Rate: 1000 ml; Site: right antecubital; mg2 21:41 Follow up: Response: No adverse reaction; IV Status: Completed infusion; IV Intake: mg2 1000ml 20:46 Drug: Zofran (Ondansetron) 4 mg Route: IVP; Site: right antecubital; mg2 21:41 Follow up: Response: No adverse reaction mg2 21:32 Drug: Phenergan 12.5 mg Route: IVP; Site: right antecubital; rr5 22:43 Follow up: Response: No adverse reaction mg2 22:44 Drug: NS 0.9% 1000 ml Route: IV; Rate: 1000 ml; Site: right antecubital; mg2 11/23 00:45 Drug: Phenergan 12.5 mg Route: IVP; Site: right antecubital; mg2 Disposition: 11/23/20 00:31 Hospitalization ordered by Luis Daniel Aaron for Observation. Preliminary diagnosis are Dizziness and giddiness, Vomiting, Dehydration. - Bed requested for Telemetry/MedSurg (Inpatient). - Status is Observation. mg2 - Condition is Stable. - Problem is new. - Symptoms have improved. Signatures: Dispatcher [employer] EDMS Luciana Clements RN RN Wilmer Lucas RN RN mg2 Enrique Riddle RN RN rr5 Ravindra Brantley MD MD 7 Corrections: (The following items were deleted from the chart) 11/22 21:10 19:55 Abdomen Pelvis W Con+CT.RAD.BRZ ordered. EDMS EDMS 11/23 02:21 00:31 Hospitalization Ordered by Luis Daniel Aaron MD for Observation. Preliminary mg2 diagnosis is Dizziness and giddiness; Vomiting; Dehydration. Bed requested for Telemetry/MedSurg (observation). Status is Observation. Condition is Stable. Problem is new. Symptoms have improved. mh7 04:14 02:21 11/23/2020 00:31 Hospitalization Ordered by Luis Daniel Aaron MD for Observation. mw Preliminary diagnosis is Dizziness and giddiness; Vomiting; Dehydration. Bed requested for [facility] ER HOLD. Status is Observation. Condition is Stable. Problem is new. Symptoms have improved. mg2 04:15 04:14 11/23/2020 00:31 Hospitalization Ordered by Luis Daniel Aaron MD for Observation. mw Preliminary diagnosis is Dizziness and giddiness; Vomiting; Dehydration. Bed requested for Telemetry/MedSurg (Inpatient). Status is Observation. Condition is Stable. Problem is new. Symptoms have improved. mw 05:38 04:15 11/23/2020 00:31 Hospitalization Ordered by Luis Daniel Aaron MD for Observation. mg2 Preliminary diagnosis is Dizziness and giddiness; Vomiting; Dehydration. Bed requested for Telemetry/MedSurg (Inpatient). Status is Observation. Condition is Stable. Problem is new. Symptoms have improved. mw
--- NOTE | 2020-11-23 00:32 | ER ---
Nurse's Notes [facility] Name: Zac Serrato Age: 50 yrs Sex: Male : 1970 Arrival Date: 11/22/2020 Time: 19:23 Bed 15 Private MD: Diagnosis: Dizziness and giddiness;Vomiting;Dehydration Presentation: 11/22 19:29 Chief complaint: EMS states: he started to have weakness yesterday and vomiting with mg2 dizziness today. he is also complaining of muffled sound in the left ear propbably an ear infection. BP- 100/101. Coronavirus screen: Client denies travel out of the [place] in the last 14 days. Ebola Screen: No symptoms or risks identified at this time. Initial Sepsis Screen: Does the patient meet any 2 criteria? No. Patient's initial sepsis screen is negative. Does the patient have a suspected source of infection? No. Patient's initial sepsis screen is negative. Risk Assessment: Do you want to hurt yourself or someone else? Patient reports no desire to harm self or others. 19:29 Method Of Arrival: EMS: [facility] mg2 19:29 Acuity: TERRY 3 mg2 19:33 Care prior to arrival: Medication(s) given: zofran 4 mg. mg2 19:53 Onset of symptoms was November 21, 2020. mg2 Historical: - Allergies: 19:33 No Known Allergies; mg2 - PMHx: 19:33 Diabetes - NIDDM; Hypertension; RETINAL DETACHMENT; mg2 - PSHx: 19:33 eye surgery; mg2 - Immunization history:: Flu vaccine is not up to date. - Social history:: Smoking status: Patient denies any tobacco usage or history of. Patient/guardian denies using alcohol, street drugs, IV drugs. Screenin:54 Abuse screen: Denies threats or abuse. Denies injuries from another. Nutritional mg2 screening: No deficits noted. Tuberculosis screening: No symptoms or risk factors identified. Fall Risk IV access (20 points). Assessment: 19:53 General: Appears in no apparent distress. comfortable, Behavior is calm, cooperative. mg2 19:53 Pain: Denies pain. Neuro: Level of Consciousness is awake, alert, obeys commands, mg2 Oriented to person, place, time, situation. Neuro: Reports dizziness. Cardiovascular: Capillary refill < 3 seconds Patient's skin is warm and dry. Respiratory: Airway is patent Respiratory effort is even, unlabored, Respiratory pattern is regular, symmetrical. GI: Reports nausea, vomiting. : No signs and/or symptoms were reported regarding the genitourinary system. EENT: No signs and/or symptoms were reported regarding the EENT system. Derm: Skin is intact, is healthy with good turgor, Skin is pink, warm \T\ dry. normal. Musculoskeletal: Circulation, motion, and sensation intact. Capillary refill < 3 seconds. 21:25 Reassessment: came back from CT scan complaining of nausea and vomiting. ED provider rr5 aware with order made and carried out. 21:44 Reassessment: Richard- (brother) [id number]. mg2 23:06 Reassessment: Melyssa-[id number] ( sister in law). mg2 11/23 02:14 Reassessment: [id number] (brother). mg2 Vital Signs: 11/22 19:29 BP 196 / 98; Pulse 95; Resp 18; Temp 98.3; Pulse Ox 100% on R/A; Weight 99.79 kg; mg2 Height 5 ft. 8 in. (172.72 cm); Pain 0/10; 20:11 BP 164 / 90; mg2 21:40 BP 173 / 91; Pulse 92; Resp 18; Pulse Ox 98% on R/A; mg2 22:50 BP 165 / 79; Pulse 100; Resp 18; Pulse Ox 100% on R/A; mg2 19:29 Body Mass Index 33.45 (99.79 kg, 172.72 cm) mg2 ED Course: 19:23 Patient arrived in ED. cl3 19:28 Wilmer Lucas, ROMMEL is Primary Nurse. mg2 19:30 Ravindra Brantley MD is Attending Physician. mh7 19:32 Triage completed. mg2 19:32 Arm band placed on. mg2 19:55 Patient has correct armband on for positive identification. Pulse ox on. NIBP on. Door mg2 closed. Warm blanket given. 19:55 No provider procedures requiring assistance completed. Maintain EMS IV. Dressing mg2 intact. Good blood return noted. Site clean \T\ dry. Gauge \T\ site: 20 \T\ RAC. 21:14 XRAY Chest (1 view) In Process Unspecified. EDMS 21:16 CT Head Brain wo Cont In Process Unspecified. EDMS 21:16 CT Abd/Pelvis - Without Contrast In Process Unspecified. EDMS 11/23 00:29 Luis Daniel Aaron MD is Hospitalizing Provider. [facility] 03:30 Patient admitted, IV remains in place. mg2 Administered Medications: 11/22 20:45 Drug: Pepcid 20 mg Route: IVP; Site: right antecubital; mg2 21:41 Follow up: Response: No adverse reaction mg2 20:46 Drug: NS 0.9% 1000 ml Route: IV; Rate: 1000 ml; Site: right antecubital; mg2 21:41 Follow up: Response: No adverse reaction; IV Status: Completed infusion; IV Intake: mg2 1000ml 20:46 Drug: Zofran (Ondansetron) 4 mg Route: IVP; Site: right antecubital; mg2 21:41 Follow up: Response: No adverse reaction mg2 21:32 Drug: Phenergan 12.5 mg Route: IVP; Site: right antecubital; rr5 22:43 Follow up: Response: No adverse reaction mg2 22:44 Drug: NS 0.9% 1000 ml Route: IV; Rate: 1000 ml; Site: right antecubital; mg2 11/23 00:45 Drug: Phenergan 12.5 mg Route: IVP; Site: right antecubital; mg2 Intake: 11/22 21:41 IV: 1000ml; Total: 1000ml. mg2 Outcome: 11/23 00:31 Decision to Hospitalize by Provider. mh7 03:30 Admitted to ER Hold. Please see [facility] for further documentation. mg2 03:30 Condition: stable 03:30 Instructed on the need for admit, Demonstrated understanding of instructions, report given to ROMMEL Thompson 05:38 Patient left the ED. [facility] [place] Signatures: Dispatcher [employer] EDMS Wilmer Lucas RN RN mg2 Enrique Riddle RN RN rr5 Shira Gastelum cl3 Ravindra Brantley MD MD 7
[2020-11-23] MEDS ORDERED: PROMETHAZINE INJ 25 MG/ML AMP ONE (00:45)
[2020-11-23] MEDS ORDERED: ACETAMINOPHEN 500 MG TAB PO PRN (01:04)
--- NOTE | 2020-11-23 01:04 | P.HP ---
Certification for Inpatient Patient admitted to: Observation With expected LOS: <2 Midnights Patient will require the following post-hospital care: None Practitioner: I am a practitioner with admitting privileges, knowledge of patient current condition, hospital course, and medical plan of care. Services: Services provided to patient in accordance with Admission requirements found in Title 42 Section 412.3 of the Code of Federal Regulations Patient History Date of Service: 11/23/20 Reason for admission: Intractable nausea and vomiting. Dizziness History of Present Illness: 50 yo male With past medical history of hypertension, diabetes, history of retinal detachment, CVA came to ER with dizziness and generalized weakness which started 1 day back. This states that he started feeling dizzy and had a rotational feeling associated with nausea and vomiting. Worsened on standing or changing positions. Denies any headache. No focal weakness would associated with generalized weakness and fatigue. Denies any ringing in the ears. No chest pain or shortness of breath. No fever or chills. As the symptoms worsened during the day and was brought to ER . In the ER he had a workup with CT of the brain and was noted to be dehydrated and was started on IV fluids and other measures. At the time of interview patient is feeling slightly better but still continues to have dizziness. No chest pain or shortness of breath Allergies No Known Allergies Allergy (Verified 11/23/20 02:59) Home medications list reviewed: Yes Home Medications: Amlodipine [Norvasc] 10 mg PO DAILY 11/23/20 Aspirin [Low Dose Aspirin EC] 81 mg PO DAILY 11/23/20 Atorvastatin Calcium [Lipitor] 80 mg PO BEDTIME 11/23/20 Clopidogrel Bisulfate [Plavix] 75 mg PO DAILY 11/23/20 Insulin Degludec [Tresiba Flextouch U-100] 20 unit SQ DAILY 11/23/20 Lisinopril [Zestril] 40 mg PO DAILY 11/23/20 Metformin HCl 1,000 mg PO BID 11/23/20 - Past Medical/Surgical History Diabetic: Yes Past Medical History: Reviewed- Non-Contributory -: DM -: Rential Detachment -: CVA Past Surgical History: Reviewed- Non-Contributory -: Rential Detachment -: Cataract - Family History Mother -: Diabetes Father -: Lung disease, Cancer - Social History Smoking Status: Never smoker Alcohol use: No CD- Drugs: No Caffeine use: Yes Review of Systems 10-point ROS is otherwise unremarkable Physical Examination - Vital Signs Temperature: 99.2 F Blood Pressure: 142/78 Pulse: 86 Respirations: 18 - Physical Exam General: Alert, In no apparent distress, Oriented x3 HEENT: Atraumatic, Normocephalic Neck: Supple, 2+ carotid pulse no bruit Respiratory: Clear to auscultation bilaterally, Normal air movement Cardiovascular: Regular rate/rhythm, Normal S1 S2 Capillary refill: <2 Seconds Gastrointestinal: Soft and benign, Non-distended, W/out hepatosplenomegaly Musculoskeletal: No clubbing, No swelling Integumentary: No rashes, No breakdown Neurological: Other (Alert, Awake , Nystagmus +) Lymphatics: No axilla or inguinal lymphadenopathy - Studies Laboratory Data (last 24 hrs) 11/22/20 23:58: Sodium 143, Potassium 4.2, BUN 30 H, Creatinine 1.98 H, Glucose 159 H 11/22/20 20:15: PT 12.5, INR 1.06 11/22/20 20:15: WBC 9.4, Hgb 9.9 L, Hct 29.0 L, Plt Count 265 11/22/20 20:15: Sodium 142, Potassium 4.0, BUN 27 H, Creatinine 2.03 H, Glucose 151 H, Magnesium 1.8, Total Bilirubin 0.4, AST 16, ALT 9 L, Alkaline Phosphatase 102, Lipase 76 Assessment and Plan - Problems (Diagnosis) (1) Dizziness Current Visit: Yes Status: Acute (2) Diabetes type 2, controlled Current Visit: No Status: Acute Qualifiers: Diabetes mellitus retirement insulin use: without retirement use Diabetes m ellitus complication status: with unspecified complications Qualified Code(s): E11.8 - Type 2 diabetes mellitus with unspecified complications (3) History of CVA (cerebrovascular accident) Current Visit: No Status: Acute (4) Renal mass, right Current Visit: No Status: Acute (5) Tobacco abuse Current Visit: No Status: Acute (6) Ventral hernia Current Visit: No Status: Acute Qualifiers: Obstruction and gangrene presence: without obstruction or gangrene Qualified Code(s): K43.9 - Ventral hernia without obstruction or gangrene - Plan Vertigo Acute kidney injury Dehydration History of CVA Diabetes Hypertension Hematuria Renal mass Large ventral hernia without bowel obstruction Plan Monitor closely under tc operator neuro vital signs serially CT of the head was negative for any acute changes Start on aspirin and statin will start on meclizine as well IV hydration Monitor renal parameters Electrolytes monitored and replaced accordingly insulin sliding scale CT abdomen showed Large ventral hernia containing fat and small intestine without evidence of bowel obstruction,Distended gallbladder containing multiple gallstones. Followup gallbladder ultrasound could be obtained for further evaluation.Suspected 3 cm superolateral left kidney lesion. Assessment is limited on this study due to lack of IV contrast, however prior CT in 2019 demonstrated a solid mass in this location. Get an ultrasound of the abdomen of right upper quadrant May need MRI of the brain if symptoms continues to be present to exclude posterior circulation CVA Continue home medications and titrate as needed Hydralazine p.r.n. Patient needs follow up with urology as outpatient Advised smoking cessation GI/DVT prophylaxis - Advance Directives Does patient have a Living Will: No Does patient have a Durable POA for Healthcare: Yes Time Spent Managing Pts Care (In Minutes): 42
[2020-11-23] MEDS: NA CHLORIDE 0.9% 1,000 ML IV SCH ×3 (02:00→22:00)
[2020-11-23] MEDS ORDERED: NA CHLORIDE 0.9% 1,000 ML ONE (03:00)
[2020-11-23] MEDS: ONDANSETRON 4 MG/2 ML VIAL IV PRN ×3 (04:09→21:20)
[2020-11-23] MEDS ORDERED: ONDANSETRON 4 MG/2 ML VIAL ONE (04:20)
[2020-11-23 06:18] VITALS: BMI 33.4
[2020-11-23] MEDS: AMLODIPINE 10 MG TAB PO SCH (06:43)
[2020-11-23] MEDS: INSULIN -REGULAR HUMAN 50 UNIT/0.5 ML ML SQ SCH ×4 (08:27→21:08)
[2020-11-23] MEDS: ASPIRIN 81 MG CHEWABLE TABLET PO SCH (08:28)
[2020-11-23] MEDS: MECLIZINE HCL 12.5 MG TAB PO SCH ×3 (08:28→21:07)
[2020-11-23] MEDS: ATORVASTATIN 80 MG TAB PO SCH (08:29)
[2020-11-23] MEDS ORDERED: Levofloxacin500mg IV 500 MG/100 ML BAG IV SCH (13:00)
[2020-11-23] MEDS ORDERED: cloNIDine HCL 0.1 MG TAB PO ONE (13:25)
[2020-11-23] MEDS ORDERED: METOCLOPRAMIDE 10 MG/2mL INJ IV ONE (16:03)
[2020-11-23] MEDS ORDERED: INFLUENZA VACCINE (for 3y+) 0.5 ML DOSE IMVAC ONE (17:00)
[2020-11-23] MEDS: METRONIDAZOLE 500mg IVPB 500 MG/100 ML BAG IV SCH ×2 (18:04→23:32)
[2020-11-23] MEDS ORDERED: ATORVASTATIN 80 MG TAB PO SCH (21:00)
[2020-11-24] MEDS: ONDANSETRON 4 MG/2 ML VIAL IV PRN ×2 (04:08→10:25)
[2020-11-24] MEDS: NA CHLORIDE 0.9% 1,000 ML IV SCH (04:14)
[2020-11-24 04:58] LABS: Absolute Lymphocytes (CBC) 1.2 K/uL (0.7-4.9); Basophils % 0.5 % (0-1.3); Hematocrit 28.9 % (39.6-49.0); Lymphocytes % 13.9 % (15.3-44.8); MPV 8.7 fL (7.6-11.3)
[2020-11-24 05:11] LABS: Albumin 2.3 g/dL (3.4-5.0); Bilirubin Total 0.4 mg/dL (0.2-1.0); Protein, Total 6.6 g/dL (6.4-8.2)
[2020-11-24] MEDS: METRONIDAZOLE 500mg IVPB 500 MG/100 ML BAG IV SCH ×3 (05:19→17:00)
--- NOTE | 2020-11-24 06:43 | P.PN ---
Subjective Date of Service: 11/23/20 Patient having persistent nausea and vomiting. Patient was given Zofran as well as Reglan. Patient does have a large ventral hernia as well as CT scan finding revealing distended gallbladder. Will get general surgery consultation for their recommendations. Hopefully we can manage patient conservatively. Abdominal ultrasound pending as well. Review of Systems 10-point ROS is otherwise unremarkable Physical Examination - Vital Signs Temperature: 97.3 F Blood Pressure: 160/70 Pulse: 81 Respirations: 16 Pulse Ox (%): 96 - Physical Exam General: Alert, In no apparent distress, Oriented x3 Respiratory: Clear to auscultation bilaterally, Normal air movement Cardiovascular: Regular rate/rhythm, Normal S1 S2, No murmurs Gastrointestinal: Normal bowel sounds, Other ( Ventral hernia. Mild abdominal tenderness.), Distended, Tenderness Musculoskeletal: No tenderness Neurological: Sensation intact, Cranial nerves 3-12 intact, Normal affect Lymphatics: No axilla or inguinal lymphadenopathy - Studies Medications List Reviewed: Yes Assessment & Plan - Problems (Diagnosis) (1) Intractable nausea and vomiting Current Visit: Yes Status: Acute (2) Gallbladder anomaly Current Visit: Yes Status: Acute (3) Diabetes type 2, controlled Current Visit: No Status: Acute Qualifiers: Diabetes mellitus terminal block assembler insulin use: without prison use Diabetes mellitus complication status: with unspecified complications Qualified Code(s): E11.8 - Type 2 diabetes mellitus with unspecified complications (4) History of CVA (cerebrovascular accident) Current Visit: No Status: Acute (5) Renal mass, right Current Visit: No Status: Acute (6) Tobacco abuse Current Visit: No Status: Acute (7) Ventral hernia Current Visit: No Status: Acute Qualifiers: Obstruction and gangrene presence: without obstruction or gangrene Qualified Code(s): K43.9 - Ventral hernia without obstruction or gangrene - Plan Plan: 1. IV hydration 2. Antiemetics 3. Abdominal ultrasound 4. IV antibiotics 5. General surgery consultation 6. Outpatient urology follow-up 7. PPI and DVT prophylaxis Discharge Plan: Home Plan to discharge in: Greater than 2 days - Advance Directives Does patient have a Living Will: No Does patient have a Durable POA for Healthcare: Yes - Code Status/Comfort Care Code Status Assessed: Yes Code Status: Full Code Critical Care: No Time Spent Managing PTS Care (In Minutes): 35
[2020-11-24] MEDS ORDERED: SODIUM CHLORIDE 0.9% 10ML INJ IV PRN (06:44)
[2020-11-24] MEDS: INSULIN -REGULAR HUMAN 50 UNIT/0.5 ML ML SQ SCH ×4 (07:30→20:58)
--- NOTE | 2020-11-24 08:05 | RAD REPORT ---
EXAM DESCRIPTION: US - Abdomen Exam Complete - 11/23/2020 9:21 pm CLINICAL HISTORY: cholecystitis COMPARISON: Abdomen Pelvis Wo Contrast dated 11/22/2020; Abdomen Pelvis W Contrast dated 03/12/2019 FINDINGS: There are several 5 millimeter or less sized gallstones present surrounded by sandlike sto marlyn and sludge, all layering in the dependent portion the gallbladder. This matches the CT November 22 findings. No wall thickening or pericholecystic fluid seen. Common bile duct is normal with no commo n duct stone identified. The liver and spleen show no suspicious findings. Liver shows a slight increased parenchymal echogeni city. Fatty infiltration was not evident on the recent CT study. The pancreas is grossly normal. Pancreatic tail is partially obscured by bowel. No pancreatic tail ab normality suspected on the noncontrast November 22 study. No hydronephrosis of either kidney. In the superior pole left kidney a 3.2 centimeter partially exoph ytic masses present isoechoic to the renal parenchyma. This is the correlate to CT finding. This does not meet sonographic criteria for simple or high protein content cyst. This finding needs evaluation as a solid mass of the kidney. The 2018 contrast-enhanced study showed a heterogeneously enhancing s olid mass, suspicious for renal cell carcinoma. Bilateral renal cysts are present. Small hyperechoic mass lower pole left kidney is probably a high protein content cyst or possibly an angiomyolipoma. Th is is probably not a significant finding. Aorta and IVC show no significant finding. No ascites or bulky lymphadenopathy. IMPRESSION: Solid mass upper pole left kidney present suspicious for renal cell carcinoma. Several 5 mm or less gallstones are present along with moderate amount of sandlike stones and sludge in a normal size gallbladder. No wall thickening or pericholecystic fluid. No biliary tree abnormality seen.
[2020-11-24] MEDS: CLOPIDOGREL 75 MG TABLET PO SCH (09:00)
[2020-11-24] MEDS: PANTOPRAZOLE 40 MG INJ IVP SCH ×2 (09:00→21:00)
[2020-11-24] MEDS: HOME MED 1 EA UNK (Insulin Degludec [Tresiba Flextouch U-100] 100 UNIT/ML Insuln.Pen) SQ SCH (09:00)
[2020-11-24] MEDS ORDERED: AMLODIPINE 10 MG TAB PO SCH (09:00)
[2020-11-24] MEDS: ASPIRIN 81 MG CHEWABLE TABLET PO SCH (09:00)
[2020-11-24] MEDS: AMLODIPINE 10 MG TAB PO SCH (09:00)
[2020-11-24] MEDS ORDERED: ASPIRIN EC 81 MG TAB PO SCH (09:00)
[2020-11-24] MEDS: ATORVASTATIN 80 MG TAB PO SCH (09:00)
[2020-11-24] MEDS: NACHLORIDE 0.45% 1,000 ML IV SCH ×3 (09:00→17:00)
[2020-11-24] MEDS: MECLIZINE HCL 12.5 MG TAB PO SCH ×3 (09:00→21:00)
--- NOTE | 2020-11-24 09:11 | RAD REPORT ---
EXAM DESCRIPTION: MRI - Brain Wo Cont - 11/24/2020 8:42 am CLINICAL HISTORY: to r/o CVA, stroke-like symptoms, nausea, vomiting COMPARISON: No comparisons TECHNIQUE: Sagittal T1-weighted images were obtained along with axial PD, heavily T2-weighted and T2 -FLAIR images. Axial DWI and ADC mapping sequences were also obtained along with coronal heavily T2-w eighted images. FINDINGS: No intracranial hemorrhage, mass or acute infarction. There is no edema or shift of midlin e structures. No extra-axial fluid collections. Dee-matter/white matter junction is preserved. Signa l voids are seen as a normal finding in the major intracranial vessels. No measurable atrophy changes . Ventricles are normal. Hyperintense T2/IR signal is present in the deep periventricular white matte r posterior left frontal lobe extending inferiorly into the left posterior internal capsule region. T here is faint T2/IR signal that continues inferiorly into the left cerebral peduncle and left anterio r sidra. This is a probable area of old ischemic injury. Patient could potentially have right extremit y chronic symptoms. This needs clinical correlation. Serpiginous hypointense signal is present in each posterior globe. Ophthalmic history is unknown. The se could be retinal detachments and can be correlated with ophthalmic examination or history. No mass in the orbits. No supra sella mass. Mastoid air cells and paranasal sinuses are clear. IMPRESSION: No acute infarction changes are present. No mass, hemorrhage or other acute intracrania l finding seen. Abnormal signal extending from the left posterior frontal lobe white matter through the posterior ramirez b internal capsule into the brainstem is probably an old ischemic injury. Correlation is needed with any chronic right extremity motor sensory symptoms. Suspected bilateral retinal detachments. Correlation is needed with ophthalmic history and exam.
[2020-11-24] MEDS: Levofloxacin 250mg IV 250 MG/50 ML BAG IV SCH (10:25)
[2020-11-24] MEDS: HYDRALAZINE HCL 20 MG/ML VIAL IV PRN ×2 (10:33→20:58)
--- NOTE | 2020-11-24 12:49 | P.CNS ---
Date of Consult: 11/24/20 PC: HPC: This 50-year-old male to the emergency room with abdominal pain and vomiting. PMH: Patient starting have abdominal pain yesterday. More importantly is been having nausea. Keeps having dry heaves. Describes is very distressing. Used to weigh 450 lb, now down to 210. PSHx: Denies any prior abdominal surgeries SOC: An allergies SYS REVIEW: No cough, wheeze, shortness of breath. No chest pain or palpitations. Has a larger ventral hernia that has a min causing him any pain. Came about after he lost all was weighed. O/E awake alert ill-looking male currently dry heaving vital signs are stable HEENT: NAD Chest: Chest movement equal bilaterally ABD: On palpation of his abdomen the hernia is mobile and is reducible. There is no peritoneal signs. He does have mild right upper quadrant discomfort. LOCO: Intact DATA: Scan demonstrates gallbladder full of sludge, as well as large ventral hernia IMPRESSION: Acute on chronic cholecystitis with cholelithiasis, ventral hernia PLAN: I will take him the operating room for laparoscopic cholecystectomy with intraoperative cholangiogram. The patient does have a large ventral hernia I have explained to him that we cannot do an adequate mesh repair at this time due to the fact that his gallbladder is inflamed. We will most likely reduce the hernia, and placed sutures has at least a temporizing if not a permanent a remedy for his hernia. The risks of this procedure were discussed. The possibility of bleeding, infection, injury to bowel and surrounding structures were outlined. The possibility of injury to bile ducts blood vessels intestines were described. The possible need for an open and further surgeries and procedures were explained. Recurrence of this hernia ABD have it redone were also outlined. He understands and wants us to proceed.
[2020-11-24] MEDS ORDERED: propofoL 200 MG/20 ML VIAL IV ONE (13:14)
[2020-11-24] MEDS ORDERED: FENTANYL CITR 100 MCG/2 ML ONE (13:15)
[2020-11-24] MEDS ORDERED: MIDAZOLAM HCL 2 MG/2 ML INJ ONE (13:15)
[2020-11-24] MEDS ORDERED: ONDANSETRON 4 MG/2 ML VIAL ONE (13:18)
[2020-11-24] MEDS ORDERED: GLYCOPYRROLATE 0.2 MG/ML SYR ONE (13:18)
[2020-11-24] MEDS ORDERED: LIDOCAINE 1% MPF 2 ML AMPULE ONE (13:20)
[2020-11-24] MEDS ORDERED: ROCURONIUM 50 MG/5 ML VIAL IV ONE (13:20)
[2020-11-24] MEDS ORDERED: NEOSTIGMINE 1 MG/ML -5 ML ONE (13:20)
[2020-11-24] MEDS ORDERED: EPHEDRINE SULF 50 MG/ML VIAL ONE (14:43)
--- NOTE | 2020-11-24 15:04 | P.PN ---
Subjective Date of Service: 11/24/20 Chief Complaint: Intractable nausea and vomiting. Dizziness Subjective: Other (Still with nausea or vomiting.) Physical Examination - Vital Signs Temperature: 97.9 F Blood Pressure: 187/84 Pulse: 94 Respirations: 18 Pulse Ox (%): 97 - Physical Exam General: Alert, In no apparent distress, Oriented x3, Cooperative HEENT: Atraumatic Neck: Supple Respiratory: Clear to auscultation bilaterally, Normal air movement Cardiovascular: Normal pulses, Regular rate/rhythm Gastrointestinal: Normal bowel sounds, Tenderness (mild pain to the RUQ area. Large ventral hernia noted. It is reducible. ) Neurological: Normal speech, Normal strength at 5/5 x4 extr, Normal tone, Normal affect - Studies Laboratory Data (last 24 hrs) 11/24/20 04:03: Sodium 142, Potassium 4.0, BUN 29 H, Creatinine 2.10 H, Glucose 131 H, Total Bilirubin 0.4, AST 17, ALT 11 L, Alkaline Phosphatase 99 11/24/20 04:03: WBC 8.6, Hgb 9.9 L, Hct 28.9 L, Plt Count 283 Medications List Reviewed: Yes Assessment & Plan Discharge Plan: Home Plan to discharge in: 48 Hours Physician Review Additional Text: Impression: Intractable nausea and vomiting with right upper quadrant abdominal pain secondary to cholecystitis Large ventral hernia, reducible Diabetes mellitus type 2 History of CVA Left 3.2 cm kidney mass suspect renal cell carcinoma Acute renal failure likely related to above Anemia of chronic disease Hypertension History of retinal detachment Plan: Intractable nausea and vomiting with right upper quadrant abdominal pain secondary to cholecystitis: Patient still with significant nausea and vomiting. Will keep the patient NPO. Case discussed in detail with surgery. Patient wi th cholecystitis. Surgery plans to take the patient to the operating room for intervention. Await findings. Large ventral hernia, reducible: Appears reducible. Surgery does not plan to intervene. Diabetes mellitus type 2: Continue Accu-Cheks. Sliding scale in place. History of CVA: MRI shows no acute stroke. Left 3.2 cm kidney mass suspect renal cell carcinoma: Abdominal ultrasound and CT scan reviewed. Patient will need urology evaluation as an outpatient to further evaluate and treat. Acute renal failure likely related to above: Nephrology consulted. Continue with IV fluids. Anemia of chronic disease: Will monitor this closely. Intervention needed at this time. Patient should have GI evaluation as an outpatient. Hypertension: Continue with blood pressure medication. Will monitor closely. History of retinal detachment: MRI reviewed. Time Spent Managing Pts Care (In Minutes): 55
--- NOTE | 2020-11-24 15:07 | P.OP ---
Preoperative diagnosis: Acute on chronic cholecystitis with cholelithiasis, incarcerated ventral he Postoperative diagnosis: The same Primary procedure: Laparoscopic cholecystectomy Secondary procedure: Ventral hernia repair Other procedure(s): Cholangiogram Anesthesia: General Estimated blood loss: Less than 10 cc Specimen: 1 gallbladder and contents, her ventral hernia sac Operative Technique: The patient brought the operating room and placed supine on the table. After the induction of adequate general endotracheal anesthesia, after insuring the airway was secured, pressure was placed on this ventral hernia of the anterior abdominal wall. We were able to gradually reduce it down but could not get it fully back into the peritoneal cavity. We could see that the patient has had some diaper previous umbilical hernia repair most likely with suture. A subumbilical incision was made. This brought down through the skin and subcutaneous tissue. We were now able to place a Visiport into the peritoneal cavity. We actually entered the hernia sac. We went out a with into the para 2 peritoneal cavity. At no point was any the bowel compromise or the we can close to it. The patient was now placed in reverse Trendelenburg and rolled to the left. A upper midline and 2 right lateral trocars were placed. We could visualize the gallbladder itself. We could see was markedly distended and edematous. The contents were aspirated using the aspirating needle. A grasper was now placed on the fundus. Another down by Neetu's pouch. Gentle dissection lattice to obtain the critical view with the cystic duct and cystic artery being isolated. A clip was placed between the gallbladder and the cystic duct. While we had on lateral traction we could see that there was a small stone actually stuck in the cystic duct. An opening was made into the cystic duct. The small stone was removed. We were now able to obtain intraoperative cholangiogram. The cholangiogram showed good flow contrast into the duodenum. No other filling defects were noted. The catheter was removed. Clips were placed on the distal portion of the cystic duct. The cystic duct was then transected. Attention was turned towards the artery. 2 clips were placed on this and it was divided using electro cautery. The gallbladder was now dissected free from the liver bed, placed into the Endo-Catch and brought out through the umbilical trocar site. The area was inspected to ensure adequate hemostasis. The area was irrigated with a copious amount of saline solution. Attention was now turned towards the umbilical trocar site in the emboli kiss itself. There is approximately a 6 cm abdominal wall defect. I did not see any other all remaining suture or mesh in that area. The area initially we tried to close using just the Endo Close. It was clear this was not going to be an adequate closure. At this point the pneumoperitoneum was collapsed. Attention was turned towards the emboli kiss. An old skin incision that had been noted was now opened. This allowed us to access the underlying hernia defect and the peritoneal sac. The peritoneal sac was dissected away from the surrounding tissue. It was cut down just adjacent to the fascia itself. We were now able to close the fashion with a running suture of 0 looped nylon. Insert there closure was obtained. Did pneumoperitoneum was Re established. Once again we checked to ensure adequate hemostasis. The pneumoperitoneum was collapsed, and now after tacking the emboli kiss down to our repair the skin was approximated with raghu. The trocars were then removed and raghu used to close those holes as well. Percent Marcaine was active into the area around the emboli kiss. At the end of the procedure he was in a stable condition when sent week in. Needle sponge instrument count were correct. No drains placed. Complications: None Transferred to: Recovery Room Condition: Good
[2020-11-24] MEDS ORDERED: MORPHINE 4 MG/ML SYR IV PRN (15:12)
[2020-11-24] MEDS ORDERED: NA CHLORIDE 0.9% 1,000 ML ONE (15:32)
[2020-11-24] MEDS: HYDROMORPHONE HCL 1 MG/ML INJ ONE ×2 (15:33→15:40)
[2020-11-24] MEDS: MEPERIDINE HCL 25 MG/ML SYR ONE ×2 (15:44→15:49)
--- NOTE | 2020-11-24 16:13 | RAD REPORT ---
EXAM DESCRIPTION: RADCholangiogram Oper-Xray Or11/24/2020 4:02 pm CLINICAL HISTORY: Abdominal pain FINDINGS: The examination was performed by Dr. Lazo. The cystic duct was cannulated and contrast administered. Contrast flowed into the duodenum. The biliary tree is normal caliber Fluoroscopy time 0.4 minutes. Six fluoroscopic spot images obtained
[2020-11-24] MEDS: MORPHINE 2 MG/ML SYR IV PRN (20:57)
--- NOTE | 2020-11-24 21:42 | CON ---
Date of Consultation: 11/24/2020 Chief Complaint: Acute on chronic kidney injury, severe prerenal azotemia, nonoliguric acute tubular necrosis. The patient has multiple medical problems including history of diabetes mellitus, hypertension, history of CVA. History Of Present Illness: The patient is a 50-year-old male with past medical history of diabetes mellitus, hypertension, history of retinal detachment, peripheral neuropathy. He came to emergency room because of dizziness and generalized weakness of at least 1 day duration. This started with dizziness and the patient was complaining of nausea, vomiting. Denies melena or hematemesis. His dizziness was getting worse upon standing or changing position. Denies headache or syncope, vision changes, although he has history of retinal detachment and vision impairment. ER workup did not show any focal deficit. He was complaining of generalized weakness and fatigue. CT scan of the brain was done. The patient was started on IV fluids for volume depletion and acute kidney injury. Nephrology consultation is requested for acute kidney injury. The patient was taking lisinopril for blood pressure control prior to this admission. He is on insulin. He has insulin-dependent diabetes mellitus. Past Medical History: Diabetes mellitus, hypertension, CVA, hyperlipidemia, retinal detachment, cataract. Family History: Mother with diabetes, lung disease, and cancer. Social History: Denies tobacco, alcohol, or illicit drugs. Review of Systems: Constitutional: Denies fever, chills. Eyes: Denies vision changes. Ears, Nose, Mouth, and Throat: Denies sore throat or earache. Respiratory: Denies PND or orthopnea. Cardiovascular: Denies chest pain or palpitation. GI: He has nausea, vomiting, and dizziness. Denies hematemesis. : Denies dysuria or hematuria. All other systems reviewed and all are negative. Physical Examination: General: The patient is alert, not in apparent distress, oriented x3. Eyes: Anicteric sclerae. EOMI. Ears, Nose, Mouth, and Throat: Oral mucosa moist. No pallor. Neck: Supple. No bruits. Lungs: Diminished breath sounds at bases. Heart: S1, S2. No pericardial friction rub. Abdomen: Soft, benign, nontender. Extremities: Minimal edema. No clubbing. No cyanosis. Neurological: Moving extremities. Cranial nerves intact. Laboratory Data: Sodium 143, potassium 4.2, BUN 30, creatinine 1.98, glucose 159. Platelets count is 265. Sodium 142, potassium 4.0, creatinine 2.03, glucose 151, magnesium 1.8, lipase 76, bicarbonate 26, chloride 112, albumin 2.3, total protein 6.6. Urinalysis showed specific gravity 1.025, ketones trace, blood 3+, urine protein 3+, urine leukocyte esterase negative, glucose 2+. Abdomen and pelvis without contrast CT scan was done and was compared with ultrasound. There is solid mass in upper pole of left kidney present suspicious for renal cell carcinoma. In the superior pole of the left kidney, 3.2 cm partially exophytic mass is present, isoechoic to renal parenchyma. This is to correlate to CT scan finding. This does not need sonographic criteria for simple cyst. Impression And Plan: 1. Acute on chronic kidney injury with prerenal azotemia. The patient will start IV fluids. Urinalysis showed positive blood. Plan is to check CK level to rule out rhabdomyolysis. Plan is to monitor phosphorus and magnesium level. The patient was found to have proteinuria. He needs to be screen for monoclonal gammopathy of unknown significance. Likely, he has diabetic kidney disease. Monitor creatinine level. Previously in 2019, creatinine level baseline was 0.66. 2. The patient was found to have kidney mass and possible kidney cancer. I recommended to consult urologist as soon as possible for further workup. 3. Hypertension. Continue blood pressure medication. Hold POPPY inhibitor due to acute kidney injury. 4. Diabetes mellitus with renal manifestation. Avoid metformin. Continue insulin and adjust dose according to the blood glucose. SHELDON/MOON Voice ID: [id number] Report ID: [id number] SERGIO
[2020-11-25] MEDS: METRONIDAZOLE 500mg IVPB 500 MG/100 ML BAG IV SCH ×5 (00:28→23:25)
[2020-11-25] MEDS: ONDANSETRON 4 MG/2 ML VIAL IV PRN ×2 (01:19→08:28)
[2020-11-25] MEDS: MECLIZINE HCL 12.5 MG TAB PO SCH ×2 (03:41→10:33)
[2020-11-25] MEDS: NACHLORIDE 0.45% 1,000 ML IV SCH ×3 (05:00→23:25)
[2020-11-25 07:09] LABS: Absolute Lymphocytes (CBC) 0.7 K/uL (0.7-4.9); Basophils % 0.2 % (0-1.3); Hematocrit 28.2 % (39.6-49.0); Lymphocytes % 4.9 % (15.3-44.8); MPV 8.9 fL (7.6-11.3); RBC Red Blood Cell Count 3.48 M/uL (4.33-5.43)
[2020-11-25 07:12] LABS: Albumin 2.1 g/dL (3.4-5.0); Bilirubin Total 0.3 mg/dL (0.2-1.0); Magnesium 2.1 mg/dL (1.8-2.4); Potassium 3.9 mmol/L (3.5-5.1)
[2020-11-25 08:14] LABS: Blood Morphology Comment NOT SEEN (NOT SEEN); Platelet Estimate ADEQ; Platelets, Giant FEW
[2020-11-25] MEDS: ATORVASTATIN 80 MG TAB PO SCH (08:27)
[2020-11-25] MEDS: AMLODIPINE 10 MG TAB PO SCH (08:27)
[2020-11-25] MEDS: ASPIRIN 81 MG CHEWABLE TABLET PO SCH (08:27)
[2020-11-25] MEDS: CLOPIDOGREL 75 MG TABLET PO SCH (08:27)
[2020-11-25] MEDS: Levofloxacin 250mg IV 250 MG/50 ML BAG IV SCH (08:30)
[2020-11-25] MEDS: MORPHINE 2 MG/ML SYR IV PRN (08:35)
[2020-11-25] MEDS: HOME MED 1 EA UNK (Insulin Degludec [Tresiba Flextouch U-100] 100 UNIT/ML Insuln.Pen) SQ SCH (08:38)
[2020-11-25] MEDS: INSULIN -REGULAR HUMAN 50 UNIT/0.5 ML ML SQ SCH ×4 (08:39→21:06)
[2020-11-25] MEDS: PANTOPRAZOLE 40 MG INJ IVP SCH (09:00)
[2020-11-25] MEDS: HYDRALAZINE HCL 20 MG/ML VIAL IV PRN ×2 (09:53→17:11)
[2020-11-25] MEDS ORDERED: FAMOTIDINE 20 MG/2 ML VIAL IV SCH (10:30)
--- NOTE | 2020-11-25 11:46 | P.PN ---
Subjective Date of Service: 11/28/20 Chief Complaint: Intractable nausea and vomiting. Dizziness A a 50-year-old male with past medical history of diabetes mellitus, hypertension, history of retinal detachment, peripheral neuropathy and ventral hernia presmetd for nausea and vomiting , Cr 1.0 in 2019, wa on metfromin and POPPY today Cr trending up , will cont IVF will send for serology W/U S/P lap cholecystectomy and ventral hernia repair yesterday Review of Systems: Head and Neck: No red eye. No ear pain. GI: have nausea and abdominal pain , no vomiting. : No polyuria, no dysuria, no hematuria. Plastic Cutter: Not applicable. Respiratory: No shortness of breath. Cardiovascular: No chest pain. Endocrine: No polydipsia. Skin: No rash. Neuro: Has neuropathy. Musculoskeletal: No back pain . Physical exam general: in moderate sidtress, obese Neck; Supple, No elevated JVD hear: RRR, normal S1,2 no murmur or rub Chest: CTAB, no rlaes or wheezes Abdomen: abdominal dressing Extremities No edema or ulcer EBONI possibly due to ATN will cont IVF abd CT : no hydro no need for renal replacement therpay at this time avoid NSAID and contrast will sned for serology W/U renal mass possible RCC? W/U As an OP DM SSI HTN BP controlled Abodminal pain S/P lap cholecystectomy and ventral hernia repair total time spent [id number] Physical Examination - Vital Signs Temperature: 97.4 F Blood Pressure: 170/90 Pulse: 97 Respirations: 20 Pulse Ox (%): 98 - Studies Medications List Reviewed: Yes
[2020-11-25] MEDS ORDERED: TRAMADOL HCL 50 MG TAB PO PRN (12:57)
--- NOTE | 2020-11-25 13:00 | P.PN ---
Subjective Date of Service: 11/25/20 Chief Complaint: Intractable nausea and vomiting. Dizziness Subjective: Other (Patient status post lap cholecystectomy with ventral repair. Overall stable.) Physical Examination - Vital Signs Temperature: 97.4 F Blood Pressure: 170/90 Pulse: 97 Respirations: 20 Pulse Ox (%): 98 - Physical Exam General: Alert, Cooperative HEENT: Atraumatic Neck: Supple Respiratory: Clear to auscultation bilaterally, Normal air movement Cardiovascular: Normal pulses, Regular rate/rhythm Gastrointestinal: Normal bowel sounds, Other (Status post surgical changes. No significant abdominal pain with deep palpation noted.) Neurological: Normal speech, Normal tone, Normal affect - Studies Medications List Reviewed: Yes Assessment & Plan Discharge Plan: Home Plan to discharge in: 48 Hours Physician Review Additional Text: Impression: Intractable nausea and vomiting with right upper quadrant abdominal pain secondary to cholecystitis status post laparoscopic cholecystectomy with ventral repair Large ventral hernia, reducible status post ventral hernia repair Diabetes mellitus type 2 History of CVA Left 3.2 cm kidney mass suspect renal cell carcinoma Acute renal failure likely related to above Anemia of chronic disease Hypertension History of retinal detachment Plan: Intractable nausea and vomiting with right upper quadrant abdominal pain secondary to cholecystitis status post laparoscopic cholecystectomy with ventral hernia repair: Patient doing well post operatively. Continue to advance diet. No significant nausea noted this morning. Will provide medication for pain. Will adjust medication for pain. Encourage ambulation. Will order physical therapy and occupational therapy to evaluate. Renal function still compromise. Continue IV fluids. Anticipate improvement over the next 24 hr. Will discuss with nephrology and surgery. Large ventral hernia, reducible status post ventral hernia repair: Status post ventral hernia repair. No heavy lifting, pushing or pulling. Binding in place. Diabetes mellitus type 2: Continue Accu-Cheks. Sliding scale in place. History of CVA: MRI shows no acute stroke. Physical therapy and occupational therapy to evaluate. Continue with home medication. Left 3.2 cm kidney mass suspect renal cell carcinoma: Abdominal ultrasound and CT scan reviewed. Patient will need urology evaluation as an outpatient to further evaluate and treat. Acute renal failure likely related to above: Continue IV fluids. Will discuss with nephrology. Patient may have underlying chronic renal disease.. Anemia of chronic disease: Will monitor this closely. Intervention needed at this time. Patient should have GI evaluation as an outpatient. Hypertension: Continue with blood pressure medication. Will monitor closely. History of retinal detachment: MRI reviewed. Time Spent Managing Pts Care (In Minutes): 55
[2020-11-25] MEDS: HYDROCODONE/APAP 7.5/325 MG TAB PO PRN (14:16)
--- NOTE | 2020-11-25 16:10 | CON ---
Reason For Consultation: Left renal mass lesion. History Of Present Illness: Mr. Serrato is a 50-year-old gentleman with hypertension, type 2 diabet es, and history of CVA approximately 2 years ago with resultant right hemiparesis, vision loss, and d ysarthria, who presented to the emergency department with dizziness, ringing in his ears, nausea and vomiting as well as generalized weakness. He describes himself as normally being able to walk, despi te he has right-sided weakness, but because he is visually impaired at this time since the stroke, he is unable to observe much beyond that. Also, because he is dizzy at this time, he is unable to walk . Upon his admitting evaluation, a CT scan was performed, which revealed the following. 11/22/2019, CT scan abdomen and pelvis without contrast, a 3 cm lesion is present in the superolatera l left kidney associated with a distended gallbladder, containing multiple gallstones and a large laney tral hernia containing fat as well as small intestine without evidence of bowel obstruction. This CT scan was then followed up with an abdominal ultrasound, which confirmed the presence of the g allstones as well as sludge within the dependent portion of the gallbladder without wall thickening o r pericholecystic fluid seen and the common bile duct without a common duct stone identified. It als o identified in the superior pole of the left kidney a 3.2 cm partially exophytic mass, isoechoic to the renal parenchyma. It suggested a 2019 contrast-enhanced study that showed a heterogeneously enha ncing solid mass suspicious for renal cell carcinoma. Bilateral renal cysts are otherwise present. I reviewed the imaging directly and could identify the superior isoechoic lesion almost indistinguish able from the normal parenchyma. Unfortunately, I was not able to identify the prior contrast enhanc ed CT study from 2019 that the radiologist mentioned as it was not present within the medical record to my review. As a result, I met with the patient, who was aware of the presence of the mass, but was generally not feeling well at this time. He was lying in bed on his side with a bile bag for emesis in front of h im having a period of retching with spit up. Assessment: This is a 50-year-old gentleman with hypertension, type 2 diabetes, and history of cereb rovascular accident with significant deficits and potential ongoing neurologic compromise, being eval uated at this time relative to the potential for cholecystitis or choledocholithiasis with an inciden tally observed left 3 cm renal mass lesion with prior contrast enhanced study suggestive of being an enhancing renal mass. I was unable to identify the prior contrast enhanced study for comparison today, and I would be curio us about the rate of growth or change of the mass, which was not commented on in the CT report. Rega rdless, given the patient's significant medical comorbidity and risk for mortality, the conversation would better be centered around the potential risk versus benefit of a surgical approach as opposed t o active surveillance/observation of the left renal mass, if it is indeed confirmed to be enhancing a s well as solid as is indicated in the current CT scan, which I am able to review. As a result, I re commend the patient simply recover from his acute circumstance and then follow up with me in the [facility] where we likely would obtain an MRI of the abdomen to assess and characterize the mass luisana ropriately. Certainly, given his medical comorbidity, this may be done 4-6 months from the most rece nt CT scan, so we have an interval assessment of the growth rate of the mass and the risk of metastas is. No acute surgical intervention is recommended or required in this circumstance, though given his relative youth, if he has at least a 5-year life expectancy, perhaps intervention may eventually be required. ALE/MOON Voice ID: [id number] Report ID: [id number]
[2020-11-25] MEDS: METOPROLOL TAR 25 MG TAB PO SCH (17:09)
[2020-11-26] MEDS: NACHLORIDE 0.45% 1,000 ML IV SCH ×2 (01:00→11:00)
[2020-11-26 06:10] LABS: Absolute Lymphocytes (CBC) 1.2 K/uL (0.7-4.9); Basophils % 0.2 % (0-1.3); Hematocrit 27.7 % (39.6-49.0); Lymphocytes % 8.7 % (15.3-44.8); MPV 8.7 fL (7.6-11.3); RBC Red Blood Cell Count 3.45 M/uL (4.33-5.43)
[2020-11-26 06:15] LABS: Magnesium 2.4 mg/dL (1.8-2.4); Potassium 3.6 mmol/L (3.5-5.1)
[2020-11-26] MEDS: METRONIDAZOLE 500mg IVPB 500 MG/100 ML BAG IV SCH ×2 (06:18→12:14)
[2020-11-26] MEDS: METOPROLOL TAR 25 MG TAB PO SCH ×2 (06:21→17:13)
[2020-11-26 07:11] LABS: Phosphorus 3.9 mg/dL (2.5-4.9); Thyroid Stimulating Hormone 0.426 uIU/mL (0.360-3.740)
[2020-11-26] MEDS: INSULIN -REGULAR HUMAN 50 UNIT/0.5 ML ML SQ SCH ×4 (07:30→20:58)
[2020-11-26 07:42] LABS: Rheumatoid Factor NEG (NEG)
[2020-11-26] MEDS: ASPIRIN 81 MG CHEWABLE TABLET PO SCH (08:22)
[2020-11-26] MEDS: ATORVASTATIN 80 MG TAB PO SCH (08:22)
[2020-11-26] MEDS: AMLODIPINE 10 MG TAB PO SCH (08:22)
[2020-11-26] MEDS: CLOPIDOGREL 75 MG TABLET PO SCH (08:22)
[2020-11-26] MEDS: Levofloxacin 250mg IV 250 MG/50 ML BAG IV SCH (08:23)
[2020-11-26] MEDS: HOME MED 1 EA UNK (Insulin Degludec [Tresiba Flextouch U-100] 100 UNIT/ML Insuln.Pen) SQ SCH (08:24)
[2020-11-26] MEDS: HYDRALAZINE HCL 20 MG/ML VIAL IV PRN (12:15)
[2020-11-26] MEDS ORDERED: NACHLORIDE 0.45% 1,000 ML IV SCH (13:57)
--- NOTE | 2020-11-26 16:18 | RAD REPORT ---
EXAM DESCRIPTION: RAD - Abdomen 1 View (KUB) - 11/26/2020 3:49 pm CLINICAL HISTORY: nausea/vomitinhg Pain COMPARISON: Cholangiogram Oper-Xray Or dated 11/24/2020 FINDINGS: The bowel gas pattern is non-obstructive. No evidence of free air or pneumatosis. Moderate stool is seen in the right colon. Mild nonspecific gaseous distention of bowel loops seen. Skin raghu noted in the left lower quadran t and right upper quadrant. IMPRESSION: A mild ileus is probably present. Moderate fecal retention in the right colon.
--- NOTE | 2020-11-26 16:18 | RAD REPORT ---
EXAM DESCRIPTION: RAD - Chest Single View - 11/26/2020 3:48 pm CLINICAL HISTORY: SOB Chest pain. COMPARISON: Abdomen 1 View (KUB) dated 11/26/2020; Chest Single View dated 11/22/2020; Chest Single Vi ew dated 07/15/2018; Chest Single View dated 03/05/2018 FINDINGS: Portable technique limits examination quality. Subsegmental atelectasis is present in the right lung base with an elevated right hemidiaphragm. The heart is mildly prominent size. No displaced fractures.
--- NOTE | 2020-11-26 16:46 | P.PN ---
Subjective Date of Service: 11/26/20 Chief Complaint: Intractable nausea and vomiting. Dizziness Subjective: Other (still with nausea. Patient also with constipation. No BM yet.) Physical Examination - Vital Signs Temperature: 98.3 F Blood Pressure: 128/71 Pulse: 101 Respirations: 16 Pulse Ox (%): 95 - Physical Exam General: Alert, Cooperative HEENT: Atraumatic Neck: Supple Respiratory: Clear to auscultation bilaterally Cardiovascular: Normal pulses, Regular rate/rhythm Gastrointestinal: Normal bowel sounds, Soft and benign, Non-distended, Other (post op changes noted. No significant pain) Integumentary: No erythema, No warmth, No cyanosis Neurological: Normal affect - Studies Medications List Reviewed: Yes Assessment & Plan Discharge Plan: Home Plan to discharge in: 48 Hours Physician Review Additional Text: Impression: Intractable nausea and vomiting with right upper quadrant abdominal pain secondary to cholecystitis status post laparoscopic cholecystectomy with ventral repair Large ventral hernia, reducible status post ventral hernia repair Diabetes mellitus type 2 History of CVA Left 3.2 cm kidney mass suspect renal cell carcinoma Acute renal failure likely related to above with possible chronic renal disease Anemia of chronic disease Hypertension History of retinal detachment Vertigo likely from left otitis media Plan: Intractable nausea and vomiting with right upper quadrant abdominal pain secondary to cholecystitis status post laparoscopic cholecystectomy with ventral hernia repair: Patient still with out of bowel movement. Abdominal soft. X- ray shows increased stool. Possible ileus no distention noted. Will provide mineral oil x1. Will monitor this closely. Case discussed with surgery. Will continue with Levaquin. Dc Flagyl. Will provide medication for nausea. Encourage ambulation. Renal function still compromise. Await recommendations from nephrology. Urology has evaluated patient. Urology recommends follow-up as an outpatient for suspected renal cell carcinoma. Continue ambulation. Will provide incentive spirometer. Need to consider skilled placement if no significant improvement. Large ventral hernia, reducible status post ventral hernia repair: Status post ventral hernia repair. No heavy lifting, pushing or pulling. Binding in place. Abdominal soft. X-ray shows increased stool. Will provide mineral oil. Will monitor for bowel movement. Diabetes mellitus type 2: Continue Accu-Cheks. Sliding scale in place. History of CVA: MRI shows no acute stroke. Physical therapy and occupational therapy to evaluate. Continue with home medication. Left 3.2 cm kidney mass suspect renal cell carcinoma: Abdominal ultrasound and CT scan reviewed. Urology recommends follow-up as an outpatient. Acute renal failure likely related to above with possible chronic renal disease: Continue IV fluids. Will discuss with nephrology. Patient may have underlying chronic renal disease.. Anemia of chronic disease: Will monitor. No intervention needed at this time. Hypertension: Continue with blood pressure medication. Will monitor closely. History of retinal detachment: MRI reviewed. Vertigo likely from left otitis media: Will continue with Levaquin. Will provide nasal spray Time Spent Managing Pts Care (In Minutes): 55
[2020-11-26] MEDS: ONDANSETRON 4 MG/2 ML VIAL IV PRN ×2 (17:02→23:21)
[2020-11-26] MEDS: HYDROCODONE/APAP 7.5/325 MG TAB PO PRN (17:03)
[2020-11-26] MEDS ORDERED: MINERAL OIL 30 ML UCUP PO ONE (18:00)
--- NOTE | 2020-11-26 22:38 | PN ---
Date of Progress Note: 11/26/2020 Subjective: The patient was admitted with a cholecystitis, status post surgery, recovered. The patient is feeling well. Tolerating diet. No nausea or vomiting as by when I interview him. Objective: Vital Signs: Blood pressure 128/71, pulse of 100, afebrile. The patient had good urine output of 1000. Chest: Clear to auscultation. Heart: S1, S2, regular. Abdomen: Soft, mild tenderness on the right upper quadrant. Neurologic: Alert and oriented. Extremities: No edema. Laboratory Data: WBC 13.8, H and H 9.4/27.7, platelets 330. Sodium 143, potassium 3.6, bicarb 22, BUN 41, creatinine 2.4, GFR of 28. Calcium 8.7, magnesium 2.4. Assessment And Plan: 1. Acute kidney injury on chronic kidney disease. The patient possible has chronic kidney disease. I am going to continue the patient on hydration given the patient's poor intake and we will monitor the patient. 2. Hypertension, controlled, optimal. I am going to continue current treatment. 3. Proteinuria +3 with the presence of diabetes and anemia, light chain disease needs to be ruled out. Serum protein electrophoresis is still pending. I am going to quantify the PC ratio. 4. Cholecystitis, status post surgery, follow up with the primary. 5. Anemia with the presence of acute kidney injury, we will rule out light chain disease. We will send for anemia workup. Serum protein electrophoresis and we will follow up. time spend discussing with the patient face to face , placing order , discusse with the patient and other contact center team lead including hospitalist 45 min. ANGEL Voice ID: [id number] Report ID: [id number] [id number]
[2020-11-27 00:15] LABS: Urine Protein/Creatinine Ratio 9.67 ratio (<0.15)
[2020-11-27] MEDS: HYDRALAZINE HCL 20 MG/ML VIAL IV PRN (00:53)
[2020-11-27] MEDS: HYDROCODONE/APAP 7.5/325 MG TAB PO PRN (03:06)
[2020-11-27] MEDS: METOPROLOL TAR 25 MG TAB PO SCH (05:13)
[2020-11-27 06:18] LABS: Absolute Lymphocytes (CBC) 1.1 K/uL (0.7-4.9); Basophils % 0.4 % (0-1.3); Hematocrit 28.8 % (39.6-49.0); Lymphocytes % 8.4 % (15.3-44.8); MPV 8.6 fL (7.6-11.3); RBC Red Blood Cell Count 3.54 M/uL (4.33-5.43)
[2020-11-27] MEDS: MECLIZINE HCL 12.5 MG TAB PO PRN (06:34)
[2020-11-27 06:36] LABS: Ferritin 163.9 ng/mL (26-388); Magnesium 2.4 mg/dL (1.8-2.4); Phosphorus 3.5 mg/dL (2.5-4.9); Potassium 3.6 mmol/L (3.5-5.1)
[2020-11-27] MEDS ORDERED: AYR NASAL SALINE DROPS NAS PRN (07:16)
[2020-11-27] MEDS: INSULIN -REGULAR HUMAN 50 UNIT/0.5 ML ML SQ SCH ×4 (07:30→21:21)
[2020-11-27] MEDS: HOME MED 1 EA UNK (Insulin Degludec [Tresiba Flextouch U-100] 100 UNIT/ML Insuln.Pen) SQ SCH (09:00)
[2020-11-27] MEDS ORDERED: CIPROFLOXACIN/DEXAMETH OTIC 7.5 ML BTL OTIC SCH (09:00)
[2020-11-27] MEDS: Levofloxacin 250mg IV 250 MG/50 ML BAG IV SCH (10:04)
[2020-11-27] MEDS: ASPIRIN 81 MG CHEWABLE TABLET PO SCH (10:06)
[2020-11-27] MEDS: AMLODIPINE 10 MG TAB PO SCH (10:06)
[2020-11-27] MEDS: ATORVASTATIN 80 MG TAB PO SCH (10:06)
[2020-11-27] MEDS: LACTOBACILLUS/ACIDOPHILUS TAB PO SCH ×2 (10:06→21:20)
[2020-11-27] MEDS: CLOPIDOGREL 75 MG TABLET PO SCH (10:07)
[2020-11-27] MEDS: NYSTATIN 500,000 UNIT/5 ML UDC PO SCH ×3 (10:08→21:19)
[2020-11-27] MEDS: FLUTICASONE 50MCG NASAL SPRAY NAS SCH ×2 (10:08→21:20)
--- NOTE | 2020-11-27 12:25 | PN ---
Date of Progress Note: 11/27/2020 Subjective: The patient was admitted with small cholecystitis. The patient was started on hydration. Kidney function is slightly better. Physical Examination: Vital Signs: Blood pressure 180/84, pulse of 84, afebrile. The patient had good urine output of 1000. Chest: Clear to auscultation. Heart: S1, S2 regular. Abdomen: Soft, mild tenderness. No guarding, no rebound. Extremities: No edema. Neuro: Alert. Nonfocal. Laboratory Data: WBC 13, H and H 9.4/28.8. Sodium 143, potassium 3.6, bicarb 24, BUN 40, creatinine 2.2, GFR of 31, calcium 8.3. Iron saturation 12, ferritin 163. Current Medication: The patient on includes: 1. Aspirin. 2. Levaquin. 3. Plavix. 4. Amlodipine. 5. Hydralazine. 6. Metoprolol. 7. Meclizine. 8. Insulin. Assessment And Plan: 1. Acute kidney injury on chronic kidney disease secondary to prerenal, recovering. Still on the dry side. I am going to continue hydration. 2. Hypertension, not controlled. I am going to go ahead and add hydralazine schedule dose and we will follow up. 3. Cholecystitis, status post surgery. We will follow up with Surgery and Primary. time spend discussing with the patient face to face , placing order , discusse with the patient and other steam and power superintendent including hospitalist 45 min. ANGEL Voice ID: [id number] Report ID: [id number] SERGIO
[2020-11-27] MEDS: OFLOXACIN OPH 0.3%-5 ML BTL OTIC SCH ×2 (12:58→21:20)
[2020-11-27] MEDS: HYDRALAZINE HCL 25 MG TABLET PO SCH ×2 (13:05→21:20)
--- NOTE | 2020-11-27 17:30 | P.PN ---
Subjective Date of Service: 11/27/20 Chief Complaint: Intractable nausea and vomiting. Dizziness Subjective: Other (Patient doing better. Still some dizziness. No bowel movement yet) Physical Examination - Vital Signs Temperature: 98.5 F Blood Pressure: 186/82 Pulse: 96 Respirations: 19 Pulse Ox (%): 98 - Physical Exam General: Alert, In no apparent distress, Cooperative HEENT: Atraumatic, Other (Some swelling to the eyelids) Neck: Supple Respiratory: Clear to auscultation bilaterally, Normal air movement Cardiovascular: Normal pulses, Regular rate/rhythm Gastrointestinal: Normal bowel sounds, Soft and benign, Non-distended, No masses, No rebound, No guarding, Other (Postop changes noted) Neurological: Normal speech, Normal tone, Normal affect - Studies Medications List Reviewed: Yes Assessment & Plan Discharge Plan: Home Plan to discharge in: 48 Hours Physician Review Additional Text: Impression: Intractable nausea and vomiting with right upper quadrant abdominal pain secondary to cholecystitis status post laparoscopic cholecystectomy with ventral repair Large ventral hernia, reducible status post ventral hernia repair Diabetes mellitus type 2 History of CVA Left 3.2 cm kidney mass suspect renal cell carcinoma Acute renal failure likely related to above with possible chronic renal disease Anemia of chronic disease Hypertension History of retinal detachment Vertigo likely from left otitis media Plan: Intractable nausea and vomiting with right upper quadrant abdominal pain secondary to cholecystitis status post laparoscopic cholecystectomy with ventral hernia repair: Continue to monitor closely. Still no bowel movement. Patient given medication for this. Will also provide medication for E ear and nasal congestion. Will check chest x-ray. Encourage incentive spirometer. Will advance diet. Continue hydration. Consider Lasix. Will discuss with nephrology. Encourage ambulation. Discuss multiple issues with family and patient. Patient desires soft diet. Will advance tonight and monitor. Doubt ileus at this time. Reassess tomorrow. Large ventral hernia, reducible status post ventral hernia repair: Status post ventral hernia repair. No heavy lifting, pushing or pulling. Binding in place. Abdominal soft. X-ray shows increased stool. Will provide mineral oil. Will monitor for bowel movement. Diabetes mellitus type 2: Continue Accu-Cheks. Sliding scale in place. History of CVA: MRI shows no acute stroke. Physical therapy and occupational therapy to evaluate. Continue with home medication. Left 3.2 cm kidney mass suspect renal cell carcinoma: Abdominal ultrasound and CT scan reviewed. Urology recommends follow-up as an outpatient. Acute renal failure likely related to above with possible chronic renal disease: Hold IV fluids. This has improved Will discuss with nephrology. Patient may have underlying chronic renal disease.. Anemia of chronic disease: Will monitor. No intervention needed at this time. Hypertension: Continue with blood pressure medication. Will monitor closely. History of retinal detachment: MRI reviewed. Vertigo likely from left otitis media: Will continue with Levaquin. Will provide nasal spray Time Spent Managing Pts Care (In Minutes): 55
[2020-11-27] MEDS: METOPROLOL TAR 50 MG TAB PO SCH (18:26)
--- NOTE | 2020-11-27 19:10 | RAD REPORT ---
EXAM DESCRIPTION: RAD - Chest Single View - 11/27/2020 6:57 pm CLINICAL HISTORY: SOB Chest pain. COMPARISON: Chest Single View dated 11/26/2020; Abdomen 1 View (KUB) dated 11/26/2020; Chest Single Vi ew dated 11/22/2020; Chest Single View dated 07/15/2018 FINDINGS: Portable technique limits examination quality. The lungs are underinflated with bilateral interstitial lung opacities again seen, mildly progressive since the comparative study. The heart is normal in size. No displaced fractures. IMPRESSION: Mild worsening in lung aeration is noted since comparative study.
[2020-11-28] MEDS: METOPROLOL TAR 50 MG TAB PO SCH ×2 (05:41→18:11)
[2020-11-28] MEDS: INSULIN -REGULAR HUMAN 50 UNIT/0.5 ML ML SQ SCH ×4 (07:30→20:54)
[2020-11-28 07:42] LABS: Absolute Lymphocytes (CBC) 1.1 K/uL (0.7-4.9); Basophils % 0.3 % (0-1.3); Hematocrit 28.1 % (39.6-49.0); Lymphocytes % 9.6 % (15.3-44.8); MPV 8.7 fL (7.6-11.3); RBC Red Blood Cell Count 3.46 M/uL (4.33-5.43)
[2020-11-28 07:47] LABS: Albumin 1.9 g/dL (3.4-5.0); Magnesium 2.5 mg/dL (1.8-2.4); Phosphorus 3.1 mg/dL (2.5-4.9); Potassium 3.6 mmol/L (3.5-5.1)
[2020-11-28] MEDS ORDERED: FUROSEMIDE 20 MG/ 2ML VIAL IV ONE (07:48)
--- NOTE | 2020-11-28 07:55 | P.PN ---
Subjective Date of Service: 11/28/20 Chief Complaint: Intractable nausea and vomiting. Dizziness Subjective: Other (Patient slightly improved. Still reports some ear pain. No significant nausea this morning. Some nasal congestion. Patient remains on 2 L per nasal cannula) Physical Examination - Vital Signs Temperature: 97.5 F Blood Pressure: 163/71 Pulse: 87 Respirations: 19 Pulse Ox (%): 96 - Physical Exam General: Alert, Cooperative HEENT: Atraumatic Neck: Supple Respiratory: Crackles/rales (Slight crackles to the right base. Left side clear.) Cardiovascular: Normal pulses, Regular rate/rhythm Gastrointestinal: Normal bowel sounds, Soft and benign, Non-distended, No tenderness (No significant abdominal pain noted), Other (Postop changes noted) Integumentary: No tenderness/swelling, No erythema, No warmth, No cyanosis Neurological: Normal strength at 5/5 x4 extr, Normal tone, Normal affect - Studies Medications List Reviewed: Yes Assessment & Plan Discharge Plan: Home Plan to discharge in: 24 Hours Physician Review Additional Text: Impression: Intractable nausea and vomiting with right upper quadrant abdominal pain secondary to cholecystitis status post laparoscopic cholecystectomy with ventral repair Large ventral hernia, reducible status post ventral hernia repair Diabetes mellitus type 2 insulin-dependent Suspect GERD History of CVA with residual right hemipareses, vision loss and dysarthria Left 3.2 cm kidney mass suspect renal cell carcinoma Acute renal failure likely related to above with possible chronic renal disease stage III Anemia of chronic disease Hypertension History of retinal detachment Vertigo likely from left otitis media Plan: Intractable nausea and vomiting with right upper quadrant abdominal pain secondary to cholecystitis status post laparoscopic cholecystectomy with ventral hernia repair: Patient was able the tolerate full diet last night. Will advance diet to soft. Will provide medication for nausea as needed. Encourage incentive spirometer. Encourage ambulation. Chest x-ray shows mild worsening in aeration. Patient remains on 2 L. will give Lasix 20 mg IV x1. Condition improving overall. Will change antibiotic to oral. Case discussed with nephrology and surgery yesterday. If patient has significantly improved will consider discharge today if not tomorrow. Will continue monitor closely. Will discuss with physical therapy about ambulation. Discuss with family in detail about the need for outpatient workup for kidney mass. No heavy lifting, pushing or pulling. I will turn the service over to the hospitalist team tomorrow. I will go plan of care with him. Large ventral hernia, reducible status post ventral hernia repair: Status post ventral hernia repair. No heavy lifting, pushing or pulling. Binding in place. Abdominal soft. X-ray showed increased stool. Patient given medication for constipation. Abdomen soft. This appears benign. Encourage ambulation. Will monitor for bowel movements. Diabetes mellitus type 2 insulin-dependent: Continue Accu-Cheks. Sliding scale in place. Suspect GERD: Will start Protonix. History of CVA with residual right hemipareses, vision loss and dysarthria: Current MRI shows no acute stroke. Physical therapy and occupational therapy the continue to evaluate. Encourage ambulation. Patient appears to be at his baseline level. Left 3.2 cm kidney mass suspect renal cell carcinoma: Abdominal ultrasound and CT scan reviewed. Urology recommends follow-up as an outpatient. Patient will need MRI of kidney in the next 2-4 months to re-evaluate. If this is a solid mass that is suspicious for renal cell carcinoma patient will require referral to [place] to further evaluate and address. Acute renal failure likely related to above with possible chronic renal disease stage III: Case discussed with nephrology. Patient was receiving IV fluids. Chest x-ray showed some mild congestion. Will give IV Lasix x1. Suspect chronic renal disease. Will discuss further with nephrology. Patient is slowly improving. Anticipate improvement over the next 24 hr. Anemia of chronic disease: Will monitor. Overall stable.. Hypertension: Continue with blood pressure medication. Continue to adjust for better control. Will monitor closely. History of retinal detachment: MRI reviewed. Patient with history of retinal detachment. Patient with residual vision loss. Vertigo likely from left otitis media: Will continue with Levaquin. Will provide nasal spray. Overall stable. Provide medication for pain as needed Time Spent Managing Pts Care (In Minutes): 55
[2020-11-28] MEDS: HOME MED 1 EA UNK (Insulin Degludec [Tresiba Flextouch U-100] 100 UNIT/ML Insuln.Pen) SQ SCH (09:00)
[2020-11-28] MEDS: ASPIRIN 81 MG CHEWABLE TABLET PO SCH (10:50)
[2020-11-28] MEDS: ATORVASTATIN 80 MG TAB PO SCH (10:50)
[2020-11-28] MEDS: CLOPIDOGREL 75 MG TABLET PO SCH (10:50)
[2020-11-28] MEDS: LACTOBACILLUS/ACIDOPHILUS TAB PO SCH ×2 (10:50→20:55)
[2020-11-28] MEDS: AMLODIPINE 10 MG TAB PO SCH (10:50)
[2020-11-28] MEDS: levoFLOXacin 250 MG TAB PO SCH (10:51)
[2020-11-28] MEDS: HYDRALAZINE HCL 25 MG TABLET PO SCH ×3 (10:51→20:55)
[2020-11-28] MEDS: NYSTATIN 500,000 UNIT/5 ML UDC PO SCH ×3 (10:51→20:55)
[2020-11-28] MEDS: OFLOXACIN OPH 0.3%-5 ML BTL OTIC SCH ×2 (10:52→20:55)
[2020-11-28] MEDS: FLUTICASONE 50MCG NASAL SPRAY NAS SCH ×2 (10:52→20:55)
--- NOTE | 2020-11-28 10:57 | P.PN ---
Subjective Date of Service: 11/28/20 Chief Complaint: Intractable nausea and vomiting. Dizziness A a 50-year-old male with past medical history of diabetes mellitus, hypertension, history of retinal detachment, peripheral neuropathy and ventral hernia presmetd for nausea and vomiting , Cr 1.0 in 2019, wa on metfromin and POPPY today Cr stable WBC near normal, still complaining of nausea CXR with posible congestion, IVF Dc Review of Systems: Head and Neck: No red eye. No ear pain. GI: have nausea : No polyuria, no dysuria, no hematuria. Senior Analytical Chemist: Not applicable. Respiratory: No shortness of breath. Cardiovascular: No chest pain. Endocrine: No polydipsia. Skin: No rash. Neuro: Has neuropathy. Musculoskeletal: No back pain . Physical exam general: in moderate sidtress, obese Neck; Supple, No elevated JVD hear: RRR, normal S1,2 no murmur or rub Chest: CTAB, no rlaes or wheezes Abdomen: abdominal dressing Extremities No edema or ulcer EBONI possibly due to ATN abd CT : no hydro avoid NSAID and contrast F/U serology Cr slowly improving renal mass possible RCC? W/U As an OP DM SSI HTN BP controlled Abodminal pain S/P lap cholecystectomy and ventral hernia repair total time spent 45min Physical Examination - Vital Signs Temperature: 97.4 F Blood Pressure: 170/90 Pulse: 97 Respirations: 20 Pulse Ox (%): 98 - Studies Medications List Reviewed: Yes
[2020-11-28] MEDS: PANTOPRAZOLE 40MG TABLET PO SCH (11:06)
[2020-11-28] MEDS: HYDROCODONE/APAP 7.5/325 MG TAB PO PRN ×2 (14:19→20:55)
[2020-11-28] MEDS: ONDANSETRON 4 MG/2 ML VIAL IV PRN (18:13)
[2020-11-28] MEDS: HYDRALAZINE HCL 20 MG/ML VIAL IV PRN (18:22)
[2020-11-29] MEDS: ONDANSETRON 4 MG/2 ML VIAL IV PRN (03:40)
[2020-11-29 05:25] LABS: Albumin, (SPE) 2.2 g/dL (3.8-4.8); Alpha-1-Globulins 0.3 g/dL (0.2-0.3); Alpha-2-Globulins 1.1 g/dL (0.5-0.9); Gamma Globulins 0.9 g/dL (0.8-1.7); INTERPRETATION REPORT
[2020-11-29] MEDS: METOPROLOL TAR 50 MG TAB PO SCH ×2 (05:47→17:47)
[2020-11-29] MEDS: PANTOPRAZOLE 40MG TABLET PO SCH (05:48)
[2020-11-29 06:05] LABS: Albumin 1.9 g/dL (3.4-5.0); Phosphorus 3.1 mg/dL (2.5-4.9); Potassium 3.5 mmol/L (3.5-5.1)
[2020-11-29] MEDS ORDERED: PANTOPRAZOLE 40MG TABLET PO SCH (06:30)
[2020-11-29] MEDS: INSULIN -REGULAR HUMAN 50 UNIT/0.5 ML ML SQ SCH ×4 (07:30→20:00)
--- NOTE | 2020-11-29 08:19 | P.PN ---
Subjective Date of Service: 11/29/20 Chief Complaint: Intractable nausea and vomiting. Dizziness Subjective: No C/O voiced, New changes, C/O voiced (-still feel weak -still headache and vomiting - elevated BP noted -) Physical Examination - Vital Signs Temperature: 97.8 F Blood Pressure: 145/76 Pulse: 96 Respirations: 20 Pulse Ox (%): 94 - Physical Exam General: Alert, In no apparent distress, Oriented x3 HEENT: Atraumatic, Normocephalic Neck: Supple, 2+ carotid pulse no bruit Respiratory: Clear to auscultation bilaterally, Normal air movement Cardiovascular: Normal pulses, Regular rate/rhythm, Normal S1 S2 Gastrointestinal: Normal bowel sounds, Soft and benign, Non-distended Musculoskeletal: Swelling Rectal: Normal - Studies Medications List Reviewed: Yes Assessment & Plan Physician Review Additional Text: Impression: Intractable nausea and vomiting with right upper quadrant abdominal pain secondary to cholecystitis status post laparoscopic cholecystectomy with ventral repair Large ventral hernia, reducible status post ventral hernia repair Diabetes mellitus type 2 insulin-dependent Suspect GERD History of CVA with residual right hemipareses, vision loss and dysarthria Left 3.2 cm kidney mass suspect renal cell carcinoma Acute renal failure likely related to above with possible chronic renal disease stage III Anemia of chronic disease Hypertension History of retinal detachment Vertigo likely from left otitis media Plan: - still vomiting , will place scopolamine patch -creatinine improving -since elvated BP and unable to tolerate po well , start clonidine patch for now -still weak and having incontinence , will place condom cath - per PT, need SNF , will place SNF consult -continue other plans 11/28/20 Intractable nausea and vomiting with right upper quadrant abdominal pain secondary to cholecystitis status post laparoscopic cholecystectomy with ventral hernia repair: Patient was able the tolerate full diet last night. Will advance diet to soft. Will provide medication for nausea as needed. Encourage incentive spirometer. Encourage ambulation. Chest x-ray shows mild worsening in aeration. Patient remains on 2 L. will give Lasix 20 mg IV x1. Condition improving overall. Will change antibiotic to oral. Case discussed with nephrology and surgery yesterday. If patient has significantly improved will consider discharge today if not tomorrow. Will continue monitor closely. Will discuss with physical therapy about ambulation. Discuss with family in detail about the need for outpatient workup for kidney mass. No heavy lifting, pushing or pulling. I will turn the service over to the hospitalist team tomorrow. I will go plan of care with him. Large ventral hernia, reducible status post ventral hernia repair: Status post ventral hernia repair. No heavy lifting, pushing or pulling. Binding in place. Abdominal soft. X-ray showed increased stool. Patient given medication for constipation. Abdomen soft. This appears benign. Encourage ambulation. Will monitor for bowel movements. Diabetes mellitus type 2 insulin-dependent: Continue Accu-Cheks. Sliding scale in place. Suspect GERD: Will start Protonix. History of CVA with residual right hemipareses, vision loss and dysarthria: Current MRI shows no acute stroke. Physical therapy and occupational therapy the continue to evaluate. Encourage ambulation. Patient appears to be at his baseline level. Left 3.2 cm kidney mass suspect renal cell carcinoma: Abdominal ultrasound and CT scan reviewed. Urology recommends follow-up as an outpatient. Patient will need MRI of kidney in the next 2-4 months to re-evaluate. If this is a solid mass that is suspicious for renal cell carcinoma patient will require referral to [place] to further evaluate and address. Acute renal failure likely related to above with possible chronic renal disease stage III: Case discussed with nephrology. Patient was receiving IV fluids. Chest x-ray showed some mild congestion. Will give IV Lasix x1. Suspect chronic renal disease. Will discuss further with nephrology. Patient is slowly improving. Anticipate improvement over the next 24 hr. Anemia of chronic disease: Will monitor. Overall stable.. Hypertension: Continue with blood pressure medication. Continue to adjust for better control. Will monitor closely. History of retinal detachment: MRI reviewed. Patient with history of retinal detachment. Patient with residual vision loss. Vertigo likely from left otitis media: Will continue with Levaquin. Will provide nasal spray. Overall stable. Provide medication for pain as needed
[2020-11-29] MEDS ORDERED: SCOPOLAMINE HYDROBROMIDE PATCH TD ONE (08:21)
[2020-11-29] MEDS ORDERED: CLONIDINE 0.2 MG/PATCH TD SCH (09:00)
[2020-11-29] MEDS: HOME MED 1 EA UNK (Insulin Degludec [Tresiba Flextouch U-100] 100 UNIT/ML Insuln.Pen) SQ SCH (09:00)
[2020-11-29] MEDS: NYSTATIN 500,000 UNIT/5 ML UDC PO SCH ×3 (09:28→19:59)
[2020-11-29] MEDS: AMLODIPINE 10 MG TAB PO SCH (09:28)
[2020-11-29] MEDS: CLOPIDOGREL 75 MG TABLET PO SCH (09:28)
[2020-11-29] MEDS: FLUTICASONE 50MCG NASAL SPRAY NAS SCH ×2 (09:29→19:59)
[2020-11-29] MEDS: levoFLOXacin 250 MG TAB PO SCH (09:29)
[2020-11-29] MEDS: ATORVASTATIN 80 MG TAB PO SCH (09:29)
[2020-11-29] MEDS: LACTOBACILLUS/ACIDOPHILUS TAB PO SCH ×2 (09:29→19:59)
[2020-11-29] MEDS: HYDRALAZINE HCL 25 MG TABLET PO SCH ×3 (09:29→19:59)
[2020-11-29] MEDS: ASPIRIN 81 MG CHEWABLE TABLET PO SCH (09:29)
[2020-11-29] MEDS: OFLOXACIN OPH 0.3%-5 ML BTL OTIC SCH ×2 (09:30→20:00)
[2020-11-29 15:17] LABS: HIV AG/AB 4TH GEN Non-reactive (Non-reactive)
--- NOTE | 2020-11-29 16:32 | P.PN ---
Subjective Date of Service: 11/29/20 Chief Complaint: Intractable nausea and vomiting. Dizziness A a 50-year-old male with past medical history of diabetes mellitus, hypertension, history of retinal detachment, peripheral neuropathy and ventral hernia presmetd for nausea and vomiting , Cr 1.0 in 2019, wa on metfromin and POPPY today CR slowly improving will add ensure PT/OT Review of Systems: Head and Neck: No red eye. No ear pain. GI: no nausea, vomiting or diarrhea : No polyuria, no dysuria, no hematuria. Consulting It Architect: Not applicable. Respiratory: No shortness of breath. Cardiovascular: No chest pain. Endocrine: No polydipsia. Skin: No rash. Neuro: Has neuropathy. Musculoskeletal: No back pain . Physical exam general: awake and alert NAD obese Neck; Supple, No elevated JVD hear: RRR, normal S1,2 no murmur or rub Chest: CTAB, no rlaes or wheezes Abdomen: abdominal dressing Extremities No edema or ulcer EBONI possibly due to ATN abd CT : no hydro avoid NSAID and contrast F/U serology Cr slowly improving renal mass possible RCC? W/U As an OP DM SSI HTN BP controlled Abodminal pain S/P lap cholecystectomy and ventral hernia repair total time spent 35min Physical Examination - Vital Signs Temperature: 97.7 F Blood Pressure: 155/81 Pulse: 78 Respirations: 20 Pulse Ox (%): 96 - Studies Medications List Reviewed: Yes
[2020-11-29] MEDS: LACTULOSE 20 GM/30 ML UCUP PO PRN (18:10)
[2020-11-29 18:54] LABS: HBsAG Nonreactive (Nonreactive)
[2020-11-30] MEDS: PANTOPRAZOLE 40MG TABLET PO SCH (05:14)
[2020-11-30] MEDS: METOPROLOL TAR 50 MG TAB PO SCH ×2 (05:15→17:25)
[2020-11-30 05:39] LABS: Absolute Lymphocytes (CBC) 1.2 K/uL (0.7-4.9); Basophils % 0.5 % (0-1.3); Hematocrit 26.5 % (39.6-49.0); Lymphocytes % 13.2 % (15.3-44.8); MPV 8.9 fL (7.6-11.3); RBC Red Blood Cell Count 3.28 M/uL (4.33-5.43)
[2020-11-30 05:49] LABS: Albumin 1.8 g/dL (3.4-5.0); Bilirubin Total 0.4 mg/dL (0.2-1.0); Phosphorus 2.7 mg/dL (2.5-4.9); Potassium 3.5 mmol/L (3.5-5.1); Protein, Total 5.4 g/dL (6.4-8.2)
[2020-11-30] MEDS: HOME MED 1 EA UNK (Insulin Degludec [Tresiba Flextouch U-100] 100 UNIT/ML Insuln.Pen) SQ SCH (09:00)
[2020-11-30] MEDS: CLOPIDOGREL 75 MG TABLET PO SCH (09:38)
[2020-11-30] MEDS: LACTULOSE 20 GM/30 ML UCUP PO PRN (09:38)
[2020-11-30] MEDS: levoFLOXacin 250 MG TAB PO SCH (09:38)
[2020-11-30] MEDS: ASPIRIN 81 MG CHEWABLE TABLET PO SCH (09:38)
[2020-11-30] MEDS: HYDRALAZINE HCL 25 MG TABLET PO SCH ×3 (09:38→21:59)
[2020-11-30] MEDS: LACTOBACILLUS/ACIDOPHILUS TAB PO SCH ×2 (09:38→21:59)
[2020-11-30] MEDS: AMLODIPINE 10 MG TAB PO SCH (09:38)
[2020-11-30] MEDS: ATORVASTATIN 80 MG TAB PO SCH (09:38)
[2020-11-30] MEDS: NYSTATIN 500,000 UNIT/5 ML UDC PO SCH ×3 (09:38→22:02)
[2020-11-30] MEDS: OFLOXACIN OPH 0.3%-5 ML BTL OTIC SCH ×2 (09:39→22:00)
[2020-11-30] MEDS: INSULIN -REGULAR HUMAN 50 UNIT/0.5 ML ML SQ SCH ×4 (09:39→21:00)
[2020-11-30] MEDS: FLUTICASONE 50MCG NASAL SPRAY NAS SCH ×2 (09:39→22:00)
--- NOTE | 2020-11-30 10:41 | P.PN ---
Subjective Date of Service: 11/30/20 Chief Complaint: Intractable nausea and vomiting. Dizziness A a 50-year-old male with past medical history of diabetes mellitus, hypertension, history of retinal detachment, peripheral neuropathy and ventral hernia presmetd for nausea and vomiting , Cr 1.0 in 2019, wa on metfromin and POPPY today Cr stable improving PT/OT plan for SNF discharge Review of Systems: Head and Neck: No red eye. No ear pain. GI: no nausea, vomiting or diarrhea : No polyuria, no dysuria, no hematuria. Butt Welder: Not applicable. Respiratory: No shortness of breath. Cardiovascular: No chest pain. Endocrine: No polydipsia. Skin: No rash. Neuro: Has neuropathy. Musculoskeletal: No back pain . Physical exam general: awake and alert NAD obese Neck; Supple, No elevated JVD hear: RRR, normal S1,2 no murmur or rub Chest: CTAB, no rlaes or wheezes Abdomen: abdominal dressing Extremities No edema or ulcer EBONI possibly due to ATN abd CT : no hydro avoid NSAID and contrast serology W/U negative Cr slowly improving renal mass possible RCC? W/U and Urology evaluation As an OP DM SSI HTN BP controlled Abodminal pain S/P lap cholecystectomy and ventral hernia repair total time spent 35min Physical Examination - Vital Signs Temperature: 98.3 F Blood Pressure: 185/82 Pulse: 76 Respirations: 20 Pulse Ox (%): 96 - Studies Medications List Reviewed: Yes
--- NOTE | 2020-11-30 12:22 | P.PN ---
Subjective Date of Service: 11/30/20 Chief Complaint: Intractable nausea and vomiting. Dizziness Patient has been eating and drinking had 1 episode of nausea and vomiting today he is hurting all over Review of Systems General: Weakness Gastrointestinal: Nausea Physical Examination - Vital Signs Temperature: 98.3 F Blood Pressure: 185/82 Pulse: 76 Respirations: 20 Pulse Ox (%): 96 - Physical Exam General: Alert, Oriented x3, Moderate distress Respiratory: Clear to auscultation bilaterally Cardiovascular: No edema, Regular rate/rhythm Gastrointestinal: Normal bowel sounds, Soft and benign, Non-distended - Studies Medications List Reviewed: Yes Assessment & Plan - Problems (Diagnosis) (1) Intractable nausea and vomiting Current Visit: Yes Status: Acute Plan: Patient is 50 years of age this post laparoscopic cholecystectomy complaining of nausea vomiting he has also had some ileus renal failure is stable white count is normal mild anemia awaiting group home placement blood pressure is little elevated blood pressure is little elevated Discharge Plan: Home
[2020-11-30] MEDS: HYDROCODONE/APAP 7.5/325 MG TAB PO PRN (21:59)
[2020-11-30] MEDS: ONDANSETRON 4 MG/2 ML VIAL IV PRN (22:08)
[2020-11-30 23:55] LABS: Vitamin D 1,25-Dihydroxy Total <8 pg/mL (18-72); Vitamin D,1,25-OH2, D2 <8 pg/mL
[2020-12-01] MEDS: ONDANSETRON 4 MG/2 ML VIAL IV PRN (04:23)
[2020-12-01 04:41] LABS: Absolute Lymphocytes (CBC) 1.6 K/uL (0.7-4.9); Basophils % 0.7 % (0-1.3); Lymphocytes % 19.6 % (15.3-44.8); MPV 8.8 fL (7.6-11.3); RBC Red Blood Cell Count 3.24 M/uL (4.33-5.43)
[2020-12-01 05:02] LABS: Albumin 1.8 g/dL (3.4-5.0); Bilirubin Total 0.5 mg/dL (0.2-1.0); Phosphorus 2.4 mg/dL (2.5-4.9); Potassium 3.4 mmol/L (3.5-5.1); Protein, Total 5.1 g/dL (6.4-8.2)
[2020-12-01] MEDS: METOPROLOL TAR 50 MG TAB PO SCH ×2 (05:31→17:24)
[2020-12-01] MEDS: PANTOPRAZOLE 40MG TABLET PO SCH (05:31)
[2020-12-01] MEDS: HOME MED 1 EA UNK (Insulin Degludec [Tresiba Flextouch U-100] 100 UNIT/ML Insuln.Pen) SQ SCH (09:00)
[2020-12-01] MEDS: FLUTICASONE 50MCG NASAL SPRAY NAS SCH ×2 (09:00→21:40)
[2020-12-01] MEDS: OFLOXACIN OPH 0.3%-5 ML BTL OTIC SCH ×2 (09:00→21:42)
[2020-12-01] MEDS: ATORVASTATIN 80 MG TAB PO SCH (09:25)
[2020-12-01] MEDS: AMLODIPINE 10 MG TAB PO SCH (09:25)
[2020-12-01] MEDS: CLOPIDOGREL 75 MG TABLET PO SCH (09:25)
[2020-12-01] MEDS: MECLIZINE HCL 12.5 MG TAB PO PRN (09:25)
[2020-12-01] MEDS: ASPIRIN 81 MG CHEWABLE TABLET PO SCH (09:25)
[2020-12-01] MEDS: LACTOBACILLUS/ACIDOPHILUS TAB PO SCH ×2 (09:25→21:32)
[2020-12-01] MEDS: HYDRALAZINE HCL 25 MG TABLET PO SCH ×3 (09:26→21:32)
[2020-12-01] MEDS: NYSTATIN 500,000 UNIT/5 ML UDC PO SCH ×3 (09:26→21:32)
[2020-12-01] MEDS: INSULIN -REGULAR HUMAN 50 UNIT/0.5 ML ML SQ SCH ×4 (09:27→21:32)
[2020-12-01] MEDS: LACTULOSE 20 GM/30 ML UCUP PO PRN (18:32)
--- NOTE | 2020-12-01 21:11 | PN ---
Date of Progress Note: 12/01/2020 Chief Complaint: Acute on chronic kidney injury, diabetic kidney disease. History Of Present Illness: The patient presented to the hospital because of nausea and vomiting. T he patient previously was evaluated back in 2019, creatinine level was 1.0. The patient was treated with metformin with an POPPY inhibitor for diabetic kidney disease. The patient during this admission was found to have acute on chronic kidney injury. The patient's creatinine is improving. The patien t was ruled out obstructive uropathy and received IV fluids to prevent renal hypoperfusion. Review of Systems: Unobtainable. The patient is lethargic. Physical Examination: Lungs: Diminished breath sounds at bases. Heart: S1, S2. Abdomen: Soft, benign. Extremities: Dressing in place. Impression And Plan: 1.Acute kidney injury due to acute tubular necrosis. Abdominal CT scan did not show hydronephrosis. Avoid nephrotoxic medication. The patient cannot take nonsteroidal anti-inflammatory medication. Avoid IV contrast procedure. 2.Serology workup is pending to screen for possible secondary glomerulonephritis. Creatinine level is improving. Monitor CK level to rule out rhabdomyolysis. 3.Renal mass, possible renal cell carcinoma. The patient will need to follow up with Urology. 4.Diabetes mellitus. Avoid metformin due to renal insufficiency. 5.Hypertension. Blood pressure controlled. Continue treatment. SHELDON/MOON Voice ID: [id number] Report ID: [id number]
[2020-12-01] MEDS: SOD CHLORIDE 0.65% NASAL SPRAY NAS PRN (21:41)
[2020-12-01] MEDS: ENSURE HIGH PROTEIN 237 ML CAN PO SCH (21:45)
[2020-12-02] MEDS: PANTOPRAZOLE 40MG TABLET PO SCH (05:24)
[2020-12-02] MEDS: METOPROLOL TAR 50 MG TAB PO SCH ×2 (05:25→17:26)
[2020-12-02 05:53] LABS: Absolute Lymphocytes (CBC) 1.4 K/uL (0.7-4.9); Basophils % 0.7 % (0-1.3); Hematocrit 25.4 % (39.6-49.0); Lymphocytes % 16.4 % (15.3-44.8); MPV 8.9 fL (7.6-11.3); RBC Red Blood Cell Count 3.13 M/uL (4.33-5.43)
[2020-12-02 06:16] LABS: Albumin 1.7 g/dL (3.4-5.0); Bilirubin Total 0.3 mg/dL (0.2-1.0); Potassium 3.6 mmol/L (3.5-5.1)
[2020-12-02] MEDS: ATORVASTATIN 80 MG TAB PO SCH (08:41)
[2020-12-02] MEDS: LACTOBACILLUS/ACIDOPHILUS TAB PO SCH ×2 (08:41→20:53)
[2020-12-02] MEDS: MECLIZINE HCL 12.5 MG TAB PO PRN (08:41)
[2020-12-02] MEDS: INSULIN -REGULAR HUMAN 50 UNIT/0.5 ML ML SQ SCH ×4 (08:41→22:42)
[2020-12-02] MEDS: HYDRALAZINE HCL 25 MG TABLET PO SCH ×3 (08:41→20:53)
[2020-12-02] MEDS: LACTULOSE 20 GM/30 ML UCUP PO PRN ×2 (08:41→17:27)
[2020-12-02] MEDS: AMLODIPINE 10 MG TAB PO SCH (08:41)
[2020-12-02] MEDS: CLOPIDOGREL 75 MG TABLET PO SCH (08:41)
[2020-12-02] MEDS: NYSTATIN 500,000 UNIT/5 ML UDC PO SCH ×3 (08:41→20:57)
[2020-12-02] MEDS: ASPIRIN 81 MG CHEWABLE TABLET PO SCH (08:41)
[2020-12-02] MEDS: FLUTICASONE 50MCG NASAL SPRAY NAS SCH ×2 (08:42→20:52)
[2020-12-02] MEDS: ENSURE HIGH PROTEIN 237 ML CAN PO SCH ×2 (08:42→20:52)
[2020-12-02] MEDS: OFLOXACIN OPH 0.3%-5 ML BTL OTIC SCH ×2 (08:42→20:52)
[2020-12-02] MEDS: HOME MED 1 EA UNK (Insulin Degludec [Tresiba Flextouch U-100] 100 UNIT/ML Insuln.Pen) SQ SCH (08:43)
[2020-12-02] MEDS: ONDANSETRON 4 MG/2 ML VIAL IV PRN (14:58)
--- NOTE | 2020-12-02 15:28 | PN ---
Date of Progress Note: 12/02/2020 Subjective: The patient was admitted with acute kidney injury secondary to GI loss secondary to diverticulitis. The patient is more awake today, still confused. Physical Examination: Vital Signs: Blood pressure 153/67, pulse of 73, afebrile. The patient had good urine output of voiding. Chest: Clear to auscultation. Heart: S1, S2. Regular. Abdomen: Soft, nontender. Extremities: No edema. Neuro: Confused. No focality. Laboratory Data: H and H 8.4/25.4. Sodium 145, potassium 3.6, bicarb 26, BUN 30, creatinine 1.7, GFR 42, calcium 7.7. PTH 87. Current Medications: The patient on include; 1. Aspirin. 2. Nystatin. 3. Eyedrops. 4. Plavix. 5. Amlodipine. 6. Atorvastatin. 7. Clonidine 0.2. 8. Metoprolol. 9. Zoloft. 10. Zofran. 11. Pantoprazole. Assessment And Plan: 1. Acute kidney injury on chronic kidney disease secondary to prerenal, recovered, back to baseline. 2. Chronic kidney disease secondary to diabetes nephropathy, hypertension, nephrosclerosis, status post acute kidney injury, normal volume. I am going to continue to monitor the patient. 3. Hypertension, controlled, optimal. Continue current treatment. 4. Cholecystitis, status post surgery. We will follow up with primary and Surgery. 5. Hypokalemia. We will supplement. time spend discussing with the patient face to face , placing order , discusse with the patient and other food service team member including hospitalist 45 min. ANGEL Voice ID: [id number] Report ID: [id number] MTDJacob
--- NOTE | 2020-12-02 15:45 | RAD REPORT ---
EXAM DESCRIPTION: CT - Abdomen Pelvis Wo Contrast - 12/02/2020 2:28 pm CLINICAL HISTORY: Abdominal pain COMPARISON: November TECHNIQUE: Computed axial tomography of the abdomen and pelvis was obtained. IV and oral contrast we re not requested. All CT scans are performed using dose optimization technique as appropriate and may include automated exposure control or mA/KV adjustment according to patient size. FINDINGS: The evaluation of solid organs, vessels and bowel is limited secondary to the lack of con trast administration. Postsurgical changes of a ventral hernia repair are present. 7 centimeter fluid collection is present within the adjacent anterior subcutaneous fat containing air. There appears to have been a cholecystectomy with small amount of fluid in the gallbladder fossa Left renal mass is unchanged an described on the recent ultrasound. The liver, spleen, pancreas, adrenals and right kidney appear grossly normal No evidence of diverticulitis IMPRESSION: Postsurgical changes of a ventral hernia repair. 7 millimeter fluid collection within th e adjacent anterior subcutaneous fat could represent a hematoma or abscess
--- NOTE | 2020-12-02 16:02 | P.PN ---
Subjective Date of Service: 12/01/20 Patient continues to have issues with intractable nausea and vomiting. Patient states he has not had a bowel movement for many days now. Patient does not appear to be improving from even when I was here last time. Patient had his gallbladder removed but this is not helped him either. I think patient may have some underlying neurologic her psychiatric condition that is preventing him from eating or drinking properly. At this time my plan would be to try to continue with arrangements for skilled placement. I will check another CT scan but overall I think this is psychogenic. Physical Examination - Vital Signs Temperature: 97.0 F Blood Pressure: 173/79 Pulse: 64 Respirations: 20 Pulse Ox (%): 96 - Studies Medications List Reviewed: Yes Assessment & Plan - Problems (Diagnosis) (1) Intractable nausea and vomiting Current Visit: Yes Status: Acute (2) Gallbladder anomaly Current Visit: Yes Status: Acute (3) Diabetes type 2, controlled Current Visit: No Status: Acute Qualifiers: Diabetes mellitus halfway insulin use: without terminal superintendent use Diabetes mellitus complication status: with unspecified complications Qualified Code(s): E11.8 - Type 2 diabetes mellitus with unspecified complications (4) History of CVA (cerebrovascular accident) Current Visit: No Status: Acute (5) Renal mass, right Current Visit: No Status: Acute (6) Tobacco abuse Current Visit: No Status: Acute (7) Ventral hernia Current Visit: No Status: Acute Qualifiers: Obstruction and gangrene presence: without obstruction or gangrene Qualified Code(s): K43.9 - Ventral hernia without obstruction or gangrene - Plan Plan: 1. IV hydration 2. Antiemetics 3. Abdominal ultrasound 4. IV antibiotics 5. General surgery consultation 6. Outpatient urology follow-up 7. PPI and DVT prophylaxis - Advance Directives Does patient have a Living Will: No Does patient have a Durable POA for Healthcare: Yes - Code Status/Comfort Care Code Status: Full Code
[2020-12-02] MEDS: KCL 20 MEQ/100 mL IVPB 20 MEQ/100 ML BAG IV SCH ×2 (17:25→20:49)
[2020-12-02] MEDS: HYDROCORTISONE SUC 100 MG INJ IV SCH (17:26)
[2020-12-02] MEDS: METOCLOPRAMIDE 10 MG/2mL INJ IV SCH ×2 (17:26→20:57)
[2020-12-02] MEDS: SOD CHLORIDE 0.65% NASAL SPRAY NAS PRN (20:54)
[2020-12-02 20:55] VITALS: O2SAT 95
[2020-12-02] MEDS: clonazePAM 0.5 MG TAB PO SCH (20:58)
[2020-12-02] MEDS ORDERED: NA CHLORIDE 0.9% 0 ML ONE (21:01)
[2020-12-03] MEDS: HYDROCORTISONE SUC 100 MG INJ IV SCH ×2 (01:00→08:29)
[2020-12-03 06:00] LABS: Albumin 1.8 g/dL (3.4-5.0); Bilirubin Total 0.3 mg/dL (0.2-1.0); Potassium 3.7 mmol/L (3.5-5.1)
[2020-12-03] MEDS: METOPROLOL TAR 50 MG TAB PO SCH (06:20)
[2020-12-03] MEDS: PANTOPRAZOLE 40MG TABLET PO SCH (06:20)
[2020-12-03] MEDS: INSULIN -REGULAR HUMAN 50 UNIT/0.5 ML ML SQ SCH ×2 (08:25→12:47)
[2020-12-03] MEDS: ASPIRIN 81 MG CHEWABLE TABLET PO SCH (08:27)
[2020-12-03] MEDS: METOCLOPRAMIDE 10 MG/2mL INJ IV SCH ×2 (08:27→11:29)
[2020-12-03] MEDS: clonazePAM 0.5 MG TAB PO SCH ×2 (08:27→15:21)
[2020-12-03] MEDS: LACTOBACILLUS/ACIDOPHILUS TAB PO SCH (08:27)
[2020-12-03] MEDS: HYDRALAZINE HCL 25 MG TABLET PO SCH (08:28)
[2020-12-03] MEDS: NYSTATIN 500,000 UNIT/5 ML UDC PO SCH ×2 (08:28→14:00)
[2020-12-03] MEDS: CLOPIDOGREL 75 MG TABLET PO SCH (08:28)
[2020-12-03] MEDS: AMLODIPINE 10 MG TAB PO SCH (08:29)
[2020-12-03] MEDS: FLUTICASONE 50MCG NASAL SPRAY NAS SCH (08:29)
[2020-12-03] MEDS: OFLOXACIN OPH 0.3%-5 ML BTL OTIC SCH (08:29)
[2020-12-03] MEDS: SOD CHLORIDE 0.65% NASAL SPRAY NAS PRN (08:29)
[2020-12-03] MEDS: ENSURE HIGH PROTEIN 237 ML CAN PO SCH (08:30)
[2020-12-03] MEDS: HOME MED 1 EA UNK (Insulin Degludec [Tresiba Flextouch U-100] 100 UNIT/ML Insuln.Pen) SQ SCH (09:00)
[2020-12-03] MEDS ORDERED: BISACODYL 10 MG RECTAL SUPP PR ONE (09:17)
[2020-12-03] MEDS ORDERED: MINERAL OIL 30 ML UCUP PO ONE (09:17)
--- NOTE | 2020-12-03 09:23 | P.PN ---
Subjective Date of Service: 12/02/[address] scheduled which is pending. He still is not eating as much as he should. But he is overall improving. Clinically his labs look stable. Patient does have hypoalbuminemia. His oral intake is minimal. He may need PEG tube if he does really improve his caloric intake. Review of Systems 10-point ROS is otherwise unremarkable Physical Examination - Vital Signs Temperature: 98.0 F Blood Pressure: 149/69 Pulse: 68 Respirations: 18 Pulse Ox (%): 96 - Physical Exam General: Alert, In no apparent distress, Oriented x3 Respiratory: Clear to auscultation bilaterally, Normal air movement Cardiovascular: Regular rate/rhythm, Normal S1 S2, No murmurs Gastrointestinal: Normal bowel sounds, Soft and benign, Non-distended, Tenderness Musculoskeletal: No clubbing, No swelling, No tenderness Neurological: Normal strength at 5/5 x4 extr, Sensation intact, Cranial nerves 3-12 intact - Studies Medications List Reviewed: Yes Assessment & Plan - Problems (Diagnosis) (1) Intractable nausea and vomiting Current Visit: Yes Status: Acute (2) Gallbladder anomaly Current Visit: Yes Status: Acute (3) Diabetes type 2, controlled Current Visit: No Status: Acute Qualifiers: Diabetes mellitus fdc insulin use: without equipment operator intermodal yard use Diabetes mellitus complication status: with unspecified complications Qualified Code(s): E11.8 - Type 2 diabetes mellitus with unspecified complications (4) History of CVA (cerebrovascular accident) Current Visit: No Status: Acute (5) Renal mass, right Current Visit: No Status: Acute (6) Tobacco abuse Current Visit: No Status: Acute (7) Ventral hernia Current Visit: No Status: Acute Qualifiers: Obstruction and gangrene presence: without obstruction or gangrene Qualified Code(s): K43.9 - Ventral hernia without obstruction or gangrene - Plan Plan: 1. IV hydration 2. Antiemetics 3. CT of the abdomen and pelvis 4. IV antibiotics 5. General surgery consultation appreciated 6. Outpatient urology follow-up 7. Will go ahead and start laxative 8. PPI and DVT prophylaxis Discharge Plan: Skilled Nursing Plan to discharge in: Greater than 2 days - Advance Directives Does patient have a Living Will: No Does patient have a Durable POA for Healthcare: Yes - Code Status/Comfort Care Code Status: Full Code Critical Care: No Time Spent Managing PTS Care (In Minutes): 35
[2020-12-03] MEDS ORDERED: POTASSIUM CL 40 MEQ in NA CHLORIDE 0.9% 500 ML IV SCH (11:00)
[2020-12-03] MEDS ORDERED: HYDRALAZINE HCL 25 MG TABLET PO SCH (14:00)
[2020-12-03 14:05] VITALS: BP 166/73; TEMP 97.2
[2020-12-03] MEDS ORDERED: WATER FOR INJ,STERILE 10 ML IV SCH (15:00)
--- NOTE | 2020-12-03 15:38 | PN ---
Date of Progress Note: 12/03/2020 Subjective: The patient was admitted with cholecystitis, status post surgery. The patient had acute kidney injury on chronic kidney disease secondary to prerenal, on recovery. Physical Examination: Vital Signs: Blood pressure 166/74, pulse of 65, afebrile. The patient had good urine output, voiding. Chest: Clear to auscultation. Heart: S1, S2. Regular. Abdomen: Soft, nontender. Neuro: Confused pleasantly. No focal. Laboratory Data: WBC 8.3, H and H 8.4/25.4. Sodium 144, potassium 3.7, bicarb 26, BUN 30, creatinine 1.8, GFR of 39, calcium 7.5, phosphorus 2.5. Current Medications: The patient on include; 1. Aspirin. 2. Plavix. 3. Amlodipine 10. 4. Clonidine patch 0.2. 5. Hydralazine 50 t.i.d. 6. Metoprolol. 7. Clonazepam. 8. Lactulose. Assessment And Plan: 1. Acute kidney injury on advanced chronic kidney disease, stable, normal volume. I am going to continue to monitor the patient. 2. Hypertension, controlled, not optimal. Yesterday, we added hydralazine. I am going to go ahead and decrease hydrocortisone to 25 mg and we will follow up the patient. 3. Hypokalemia. We will supplement. 4. Cholecystitis, status post surgery. Follow up with primary. 5. Deconditioning. Continue PT, OT. The patient cleared from the Renal standpoint for discharge planning to follow up as outpatient. time spend discussing with the patient face to face , placing order , discusse with the patient and other steam and power superintendent including hospitalist 45 min. ANGEL Voice ID: [id number] Report ID: [id number] SERGIO
[2020-12-03] MEDS ORDERED: HYDROCORTISONE SUC 100 MG INJ IV SCH (17:00)
--- NOTE | 2020-12-09 23:43 | P.DS ---
Discharge Date: 12/03/20 Disposition: TRANSFER TO SNF - REHAB Discharge Condition: GOOD Reason for Admission: Intractable nausea and vomiting. Dizziness - Problems (1) Intractable nausea and vomiting Status: Acute (2) Gallbladder anomaly Status: Acute (3) Diabetes type 2, controlled Status: Acute Qualifiers: Diabetes mellitus warehouse director insulin use: without warehouse director use Diabetes mellitus complication status: with unspecified complications Qualified Code(s): E11.8 - Type 2 diabetes mellitus with unspecified complications (4) History of CVA (cerebrovascular accident) Status: Acute (5) Renal mass, right Status: Acute (6) Tobacco abuse Status: Acute (7) Ventral hernia Status: Acute Qualifiers: Obstruction and gangrene presence: without obstruction or gangrene Qualified Code(s): K43.9 - Ventral hernia without obstruction or gangrene Brief History of Present Illness: Patient is a 50 yo male With past medical history of hypertension, diabetes, history of retinal detachment, CVA came to ER with dizziness and generalized weakness which started 1 day back. This states that he started feeling dizzy and had a rotational feeling associated with nausea and vomiting. Worsened on standing or changing positions. Denies any headache. No focal weakness would associated with generalized weakness and fatigue. Denies any ringing in the ears. No chest pain or shortness of breath. No fever or chills. As the symptoms worsened during the day and was brought to ER . In the ER he had a workup with CT of the brain and was noted to be dehydrated and was started on IV fluids and other measures. At the time of interview patient is feeling slightly better but still continues to have dizziness. No chest pain or shortness of breath Hospital Course: Patient had a very prolonged hospitalization. Patient had a laparoscopic cholecystectomy. Patient was very slow to recover from this. Patient had fecal impaction and after being given a laxative patient had multiple bowel movements. Patient is feeling much better. At this time, patient is stable for discharge with outpatient followup. Vital Signs/Physical Exam: Temp Pulse Resp BP Pulse Ox 97.2 F 65 20 166/73 H 96 12/03/20 12:00 12/03/20 12:00 12/03/20 12:00 12/03/20 12:00 12/03/20 12:00 General: Alert, In no apparent distress, Oriented x3 Laboratory Data at Discharge: WBC 8.30 K/uL (4.3-10.9) 12/02/20 05:34 Hgb 8.4 g/dL (13.6-17.9) L 12/02/20 05:34 Hct 25.4 % (39.6-49.0) L 12/02/20 05:34 Plt Count 231 K/uL (152-406) 12/02/20 05:34 PT 12.5 SECONDS (9.5-12.5) 11/22/20 20:15 INR 1.06 11/22/20 20:15 Sodium 144 mmol/L (136-145) 12/03/20 05:16 Potassium 3.7 mmol/L (3.5-5.1) 12/03/20 05:16 BUN 30 mg/dL (7-18) H 12/03/20 05:16 Creatinine 1.85 mg/dL (0.55-1.3) H 12/03/20 05:16 Glucose 179 mg/dL (74-106) H 12/03/20 05:16 Uric Acid 6.0 mg/dL (3.5-7.2) 11/26/20 05:39 Phosphorus 2.4 mg/dL (2.5-4.9) L 12/01/20 04:18 Magnesium 2.5 mg/dL (1.8-2.4) H 12/03/20 05:16 Total Bilirubin 0.3 mg/dL (0.2-1.0) 12/03/20 05:16 AST 17 U/L (15-37) 12/03/20 05:16 ALT 19 U/L (12-78) 12/03/20 05:16 Alkaline Phosphatase 78 U/L (45-117) 12/03/20 05:16 Lipase 76 U/L (73-393) 11/22/20 20:15 Home Medications: Amlodipine [Norvasc*] 10 mg PO DAILY 11/23/20 Aspirin [Low Dose Aspirin EC] 81 mg PO DAILY 11/23/20 Atorvastatin Calcium [Lipitor] 80 mg PO BEDTIME 11/23/20 Clopidogrel Bisulfate [Plavix*] 75 mg PO DAILY 11/23/20 Insulin Degludec [Tresiba Flextouch U-100] 20 unit SQ DAILY 11/23/20 Lisinopril [Zestril] 40 mg PO DAILY 11/23/20 Metformin HCl 1,000 mg PO BID 11/23/20 Amlodipine [Norvasc*] 10 mg PO DAILY #30 tab 12/03/20 Aspirin Chewable [Aspirin Chewable*] 81 mg PO DAILY #30 tab.chew 12/03/20 Ciprofloxacin/Hydrocortisone [Cipro Hc Otic Suspension] 10 ml OT Q6H #1 drops.susp 12/03/20 Clonidine Patch [Catapres-Tts 2*] 0.2 mg TD EVERY 7TH DAY #10 patch 12/03/20 Docusate [Colace Cap] 100 mg PO BID #60 cap 12/03/20 Ensure High Protein 237 ml PO BID #60 can 12/03/20 Lactulose 30 ml PO DAILY #1000 ml 12/03/20 Metoprolol Tartrate [Lopressor*] 50 mg PO BID 6AM 6PM #60 tab 12/03/20 Ofloxacin Oph [Floxin Otic 0.3%*] 4 ml OTIC BID #1 btl 12/03/20 Pantoprazole [Protonix Tab*] 40 mg PO DAILYAC #30 tab 12/03/20 clonazePAM [Klonopin*] 0.5 mg PO TID #60 tab 12/03/20 predniSONE [Prednisone*] 20 mg PO TID #30 tab 12/03/20 New Medications: Aspirin Chewable [Aspirin Chewable*] 81 mg PO DAILY #30 tab.chew Clonidine Patch [Catapres-Tts 2*] 0.2 mg TD EVERY 7TH DAY #10 patch Ciprofloxacin/Hydrocortisone [Cipro Hc Otic Suspension] 10 ml OT Q6H #1 drops.susp Docusate [Colace Cap] 100 mg PO BID #60 cap Ensure High Protein 237 ml PO BID #60 can Ofloxacin Oph [Floxin Otic 0.3%*] 4 ml OTIC BID #1 btl clonazePAM [Klonopin*] 0.5 mg PO TID #60 tab Lactulose 30 ml PO DAILY #1000 ml Metoprolol Tartrate [Lopressor*] 50 mg PO BID 6AM 6PM #60 tab Amlodipine [Norvasc*] 10 mg PO DAILY #30 tab predniSONE [Prednisone*] 20 mg PO TID #30 tab Pantoprazole [Protonix Tab*] 40 mg PO DAILYAC #30 tab Diet: Regular Activity: Fall precautions Followup: Matt Lazo MD [ACTIVE - CAN ADMIT] - NONE,NONE [Primary Care Provider] - Time spent managing pt's care (in minutes): 35
== END 2020-12-03 16:34 | DRG 418 ==
LOC: ER 19:20 → ERHOLD 11-23 01:13 → 2ND 11-23 04:47 → OBSVTOIN 11-24 10:47
PROVIDERS: ADMIT Family Medicine; ATTEND Hospitalist
PROC: 0WQF4ZZ Repair Abdominal Wall, Percutaneous Endoscopic Approach (ICD-10-PCS; 2020-11-24)
PROC: 0FT44ZZ Resection of Gallbladder, Percutaneous Endoscopic Approach (ICD-10-PCS; principal; 2020-11-24 13:00)
DX: K80.12 Calculus of gallbladder with acute and chronic cholecystitis without obstruction (principal); N17.9 Acute kidney failure, unspecified; H33.20 Serous retinal detachment, unspecified eye; Q44.1 Other congenital malformations of gallbladder; N18.4 Chronic kidney disease, stage 4 (severe); I69.351 Hemiplegia and hemiparesis following cerebral infarction affecting right dominant side; K56.7 Ileus, unspecified; I12.9 Hypertensive chronic kidney disease with stage 1 through stage 4 chronic kidney disease, or unspecified chronic kidney disease; E11.22 Type 2 diabetes mellitus with diabetic chronic kidney disease; E11.42 Type 2 diabetes mellitus with diabetic polyneuropathy; E86.0 Dehydration; N28.9 Disorder of kidney and ureter, unspecified; D63.8 Anemia in other chronic diseases classified elsewhere; K21.9 Gastro-esophageal reflux disease without esophagitis; H54.7 Unspecified visual loss; E87.6 Hypokalemia; E88.09 Other disorders of plasma-protein metabolism, not elsewhere classified; E66.9 Obesity, unspecified; I69.322 Dysarthria following cerebral infarction; K43.9 Ventral hernia without obstruction or gangrene; R42 Dizziness and giddiness; R31.9 Hematuria, unspecified; Z68.33 Body mass index [BMI] 33.0-33.9, adult; Z79.82 Long term (current) use of aspirin; Z79.4 Long term (current) use of insulin; Z79.02 Long term (current) use of antithrombotics/antiplatelets; Z20.822 Contact with and (suspected) exposure to COVID-19
CPT/HCPCS: 36415; 70450; 70551; 71045; 74018; 74176; 74300; 76700; 80048; 80053; 80069; 80076; 81003; 82550; 82570; 82607; 82652; 82728; 82746; 82947; 83520; 83540; 83690; 83735; 83880; 83970; 84100; 84156; 84165; 84443; 84466; 84484; 84550; 85025; 85610; 86021; 86038; 86160; 86225; 86317; 86334; 86430; 86706; 86803; 87340; 87389; 88302; 88304; 93005; 94010; 94760; 96361; 96374; 96375; 97161; 97165; 97530; 99285; G0378; J0360; J1170; J1720; J1940; J2001; J2175; J2250; J2270; J2405; J2550; J2704; J2710; J2765; J3010; J3480; J7030; J7040; J7050; U0003

== ENCOUNTER 2024-07-17 12:39 | Inpatient (IN) | payer OTHER ==
[2024-07-17] MEDS ORDERED: PANTOPRAZOLE 40 MG INJ ONE (12:54)
[2024-07-17] MEDS ORDERED: NA CHLORIDE 0.9% 500 ML ONE (12:54)
[2024-07-17 13:00] LABS: Absolute Basophils 0.1 K/uL (0-0.5); Absolute Eosinophils 0.3 K/uL (0-0.5); Absolute Monocytes 0.5 K/uL (0.1-1.3); Absolute Neutrophil 4.1 K/uL (1.8-8.0); Hematocrit 22.7 % (39.6-49.0); Lymphocytes % 16.5 % (15.3-44.8); MCH 25.3 pg (27.0-35.0); MCHC 30.7 g/dL (32.0-36.0); MCV 82.4 fL (80-100); MPV 8.9 fL (7.6-11.3); Monocytes % 8.6 % (3.3-12.3); Neutrophils % 68.9 % (41.7-73.7); Platelets 167 thou/uL (152-406); RBC Red Blood Cell Count 2.76 M/uL (4.33-5.43); Red Cell Distribution Width 16.7 % (12.1-15.2)
[2024-07-17 13:04] LABS: PT Prothrombin Time 12.5 SECONDS (9.4-12.5); Protime INR 1.12
[2024-07-17 13:33] LABS: Albumin 2.8 g/dL (3.4-5.0); Albumin/Globulin Ratio 0.7 (1.1-1.8); Alkaline Phosphatase 68 U/L (45-117); Anion Gap 8.7 mEq/L (5.0-15.0); BUN Blood Urea Nitrogen 62 mg/dL (7-18); Bicarbonate 25 mEq/L (21-32); Bilirubin Total 0.4 mg/dL (0.2-1.0); Globulin 4.2 g/dL (2.3-3.5); Glomerular Filtration Rate 11 ml/min (=/>90); Glucose Level 144 mg/dL (74-106); Lipase 26 U/L (13-75); Magnesium 2.2 mg/dL (1.6-2.4); NT PRO-BNP 4574 pg/mL (<125); Potassium 4.7 mEq/L (3.5-5.1); Sodium Level 140 mEq/L (136-145); Troponin High Sensitivity 15.1 pg/mL (<58.9)
[2024-07-17 13:34] LABS: ALT/SGPT < 14 U/L (16-61); AST/SGOT < 10 U/L (15-37); Bilirubin Direct < 0.2 mg/dL (0-0.2); Bilirubin Indirect, Calculated 0.2 mg/dL (0.2-0.8)
--- NOTE | 2024-07-17 13:52 | RAD REPORT ---
EXAM DESCRIPTION: RAD - Chest Single View - 07/17/2024 1:16 pm CLINICAL HISTORY: COUGH Chest pain. COMPARISON: Chest Single View dated 11/27/2020; Chest Single View dated 11/26/2020; Abdomen 1 View ([facility]) dated 11/26/2020; Chest Single View dated 11/22/2020 FINDINGS: Portable technique limits examination quality. Mild interstitial pulmonary edema. The heart is moderately enlarged. No displaced fractures. IMPRESSION: Mild CHF.
--- NOTE | 2024-07-17 15:51 | EDPHYS ---
Physician Documentation [facility] Name: Zac Serrato Age: 54 yrs Sex: Male : 1970 Arrival Date: 07/17/2024 Time: 12:39 Bed 8 Private MD: VÍCTOR Physician Bill Middleton HPI: 07/17 15:41 This 54 yrs old Male presents to ER via EMS with complaints of Abnormal Lab gauri Results. 15:41 The patient complains of pain in the left mid back and right mid back. The pain does gauri not radiate. Onset: The symptoms/episode began/occurred at an unknown time. Modifying factors: The symptoms are alleviated by nothing. the symptoms are aggravated by nothing. WEAK , PALE , HGB 7. The patient presents with dizziness, generalized weakness. Onset: The symptoms/episode began/occurred 3 day(s) ago. Modifying factors: The symptoms are alleviated by nothing, the symptoms are aggravated by movement of head, standing up, changing position. Severity of symptoms: At their worst the symptoms were mild in the emergency department the symptoms are unchanged. Historical: - Allergies: 12:42 No Known Allergies; ko1 - PMHx: 12:42 Diabetes - NIDDM; Hypertension; RETINAL DETACHMENT; Cerebrovascular accident; Anemia; ko1 Diabetes mellitus; Anxiety; Depressive disorder; Kidney disease; - PSHx: 12:42 Unable to Obtain; ko1 - Immunization history:: Adult Immunizations unknown. - Infectious Disease History:: Denies. - Social history:: Smoking status: Patient denies any tobacco usage or history of. - Family history:: not pertinent. ROS: 15:41 Constitutional: Negative for fever, chills, and weight loss, Eyes: Negative for injury, gauri pain, redness, and discharge, ENT: Negative for injury, pain, and discharge, Neck: Negative for injury, pain, and swelling, Cardiovascular: Negative for chest pain, palpitations, and edema, Abdomen/GI: Negative for abdominal pain, nausea, vomiting, diarrhea, and constipation, Back: Negative for injury and pain, : Negative for injury, bleeding, discharge, and swelling, MS/Extremity: Negative for injury and deformity, Neuro: Negative for headache, weakness, numbness, tingling, and seizure, Psych: Negative for depression, anxiety, suicide ideation, homicidal ideation, and hallucinations, Allergy/Immunology: Negative for hives, rash, and allergies, Endocrine: Negative for neck swelling, polydipsia, polyuria, polyphagia, and marked weight changes, Hematologic/Lymphatic: Negative for swollen nodes, abnormal bleeding, and unusual bruising, 15:41 Respiratory: Positive for cough, shortness of breath, 15:41 Skin: Positive for pallor, Exam: 15:41 Constitutional: This is a well developed, well nourished patient who is awake, alert, gauri and in no acute distress. Head/Face: Normocephalic, atraumatic. Eyes: Pupils equal round and reactive to light, extra-ocular motions intact. Lids and lashes normal. Conjunctiva and sclera are non-icteric and not injected. Cornea within normal limits. Periorbital areas with no swelling, redness, or edema. ENT: Nares patent. No nasal discharge, no septal abnormalities noted. Tympanic membranes are normal and external auditory canals are clear. Oropharynx with no redness, swelling, or masses, exudates, or evidence of obstruction, uvula midline. Mucous membranes moist. Neck: Trachea midline, no thyromegaly or masses palpated, and no cervical lymphadenopathy. Supple, full range of motion without nuchal rigidity, or vertebral point tenderness. No Meningismus. Chest/axilla: Normal chest wall appearance and motion. Nontender with no deformity. No lesions are appreciated. Cardiovascular: Regular rate and rhythm with a normal S1 and S2. No gallops, murmurs, or rubs. Normal PMI, no JVD. No pulse deficits. Back: No spinal tenderness. No costovertebral tenderness. Full range of motion. Male : Normal genitalia with no discharge or lesions. MS/ Extremity: Pulses equal, no cyanosis. Neurovascular intact. Full, normal range of motion. Neuro: Awake and alert, GCS 15, oriented to person, place, time, and situation. Cranial nerves II-XII grossly intact. Motor strength 5/5 in all extremities. Sensory grossly intact. Cerebellar exam normal. Normal gait. Psych: Awake, alert, with orientation to person, place and time. Behavior, mood, and affect are within normal limits. 15:41 ECG was reviewed by the Attending Physician. 15:41 Respiratory: the patient does not display signs of respiratory distress, Respirations: normal, no acute changes, Breath sounds: rales, that are moderate, are located in both bases, decreased breath sounds, that are mild, are located in both bases, rhonchi, that are moderate, are scattered, stridor, is not appreciated, 15:45 Abdomen/GI: Inspection: distension, Bowel sounds: normal, Palpation: soft, nontender, gauri Rectal exam: Prostate: normal, rectal tone normal, Stool: normal, hemorrhoid(s), are not appreciated, mass, is not appreciated, swelling, is not appreciated, tenderness, is not appreciated, Liver: no appreciated palpable abnormalities, Hernia: not appreciated, Vital Signs: 12:40 BP 177 / 84; Pulse 57; Resp 15; Temp 98; Pulse Ox 98% ; ko1 13:00 BP 162 / 82; Pulse 54; Resp 16; Pulse Ox 99% ; ko1 15:00 BP 167 / 56; Pulse 56; Resp 16; Pulse Ox 97% ; ko1 17:58 BP 168 / 50; Pulse 55; Resp 16; Temp 98; Pulse Ox 97% on R/A; ko1 MDM: 12:39 Patient medically screened. gauri 15:44 Differential diagnosis: UTI, diverticulitis. Differential Diagnosis altered mental gauri status, sepsis, flu. Differential diagnosis: cardiac arrhythmia, generalized weakness, hypovolemia, idiopathic dizziness, near-syncope, sepsis, TIA. Data reviewed: vital signs, nurses notes, EMS record, lab test result(s), EKG, radiologic studies, CT scan, plain films. Consideration of Admission/Observation Escalation of care including admission/observation considered. I considered the following discharge prescriptions or medication management in the emergency department Medications were administered in the Emergency Department. See MAR. Independent interpretation of the following test(s) in the Emergency Department EKG: See my EKG interpretation above. Test considered but Not performed: Ultrasound NO ABD USG. Historians other than the Patient: EMS: EMS WELL INFORMED. Counseling: I had a detailed discussion with the patient and/or guardian regarding the historical points, exam findings, and any diagnostic results supporting the discharge/admit diagnosis, the presence of at least one elevated blood pressure reading (>120/80) during this emergency department visit, lab results, radiology results, the need for further work-up and treatment in the hospital. 07/17 12:41 Order name: Basic Metabolic Panel; Complete Time: 15:07 [facility] 07/17 12:41 Order name: CBC with Diff; Complete Time: 15:07 [facility] 07/17 12:41 Order name: LFT's; Complete Time: 15: [facility] 07/17 12:41 Order name: Magnesium; Complete Time: 15: [facility] 07/17 12:41 Order name: NT PRO-BNP; Complete Time: 15: [facility] 07/17 12:41 Order name: PT-INR; Complete Time: 15: [facility] 07/17 12:41 Order name: Troponin HS; Complete Time: 15: [facility] 07/17 12:41 Order name: Lipase; Complete Time: 15: [facility] 07/17 12:41 Order name: Urinalysis w/ reflexes; Complete Time: 18:24 [facility] 07/17 12:41 Order name: Type And Screen [facility] 07/17 15:40 Order name: PRBC [facility] 07/17 15:43 Order name: ABO/RH typing [facility] 07/17 15:43 Order name: Antibody Screen [facility] 07/17 15:47 Order name: Bb Add On bd 07/17 16:01 Order name: ABO/RH no charge; Complete Time: 18:24 EDMS 07/17 16:14 Order name: Packed RBCs (Additional Unit) ED[facility] 07/17 16:26 Order name: Thyroid Stimulating Hormone; Complete Time: 18:24 EDMS 07/17 16:26 Order name: Urinalysis w/ reflexes ED[facility] 07/17 16:26 Order name: CBC with Automated Diff [facility] 07/17 16:26 Order name: CBC with Automated Diff [facility] 07/17 16:26 Order name: CBC with Automated Diff EDMS 07/17 16:26 Order name: CBC with Automated Diff EDMS 07/17 16:26 Order name: Comprehensive Metabolic Panel EDMS 07/17 16:26 Order name: Comprehensive Metabolic Panel ED[facility] 07/17 16:26 Order name: Comprehensive Metabolic Panel EDMS 07/17 16:26 Order name: Comprehensive Metabolic Panel ED[facility] 07/17 16:26 Order name: Lipid Profile [facility] 07/17 16:26 Order name: Lipid Profile [facility] 07/17 16:26 Order name: Magnesium EDMS 07/17 16:26 Order name: Magnesium EDMS 07/17 16:26 Order name: Magnesium EDMS 07/17 16:26 Order name: Magnesium EDMS 07/17 16:26 Order name: Phosphorus EDMS 07/17 16:26 Order name: Phosphorus EDMS 07/17 16:26 Order name: Phosphorus EDMS 07/17 16:26 Order name: Phosphorus EDMS 07/17 12:41 Order name: XRAY Chest (1 view); Complete Time: 15:07 gauri 07/17 17:27 Order name: CT; Complete Time: 18:24 EDMS 07/17 12:41 Order name: Cardiac monitoring; Complete Time: 12:45 [facility] 07/17 12:41 Order name: EKG - Nurse/Tech; Complete Time: 13:48 [facility] 07/17 12:41 Order name: IV Saline Lock; Complete Time: 12:56 [facility] 07/17 12:41 Order name: Labs collected and sent; Complete Time: 12:56 [facility] 07/17 12:41 Order name: O2 Per Protocol; Complete Time: 12:45 [facility] 07/17 12:41 Order name: O2 Sat Monitoring; Complete Time: 12:45 [facility] 07/17 12:41 Order name: IV Saline Lock - Large Bore; Complete Time: 12:55 [facility] 07/17 13:18 Order name: Labs - recollect needed: recollect type and screen, reband pt; Complete bd Time: 13:55 EC:41 Rate is 54 beats/min. Rhythm is regular. QRS [place] is Normal. RI interval is normal. QRS gauri interval is normal. QT interval is normal. T waves are Normal. No ST changes noted. Clinical impression: NSR w/ Non-specific ST/T Changes and No evidence of ischemia. Interpreted by me. Reviewed by me. Administered Medications: 12:59 Drug: Pantoprazole IVP 80 mg IVP once Route: IVP; Site: right forearm; ko1 13:14 Follow up: Response: No adverse reaction ko1 12:59 Drug: NS 0.9% IV 500 ml IV at bolus once Route: IV; Rate: bolus; Site: right forearm; ko1 13:14 Follow up: Response: No adverse reaction ko1 15:00 Follow up: Response: No adverse reaction; IV Status: Completed infusion; IV Intake: ko1 500ml Disposition Summary: 07/17/24 15:50 Hospitalization Ordered Notes: Hospitalization Status: Inpatient Admission gauri Provider: Parveen Hernandez cha Location: Telemetry/MedSurg (Inpatient) gauri Condition: Fair gauri Problem: new gauri Symptoms: have improved gauri Bed/Room Type: Standard gauri Room Assignment: 422(07/17/24 16:41) bd Diagnosis - Anemia, unspecified gauri - Anemia in chronic kidney disease gauri - Obesity, unspecified gauri - Acute kidney failure, unspecified - ON CHRONIC gauri - Chronic combined systolic (congestive) and diastolic (congestive) heart failure gauri - ocean transportation intermediary (current) use of anticoagulants - ASPIRIN / PLAVIX gauri Forms: - Medication Reconciliation Form gauri - SBAR form gauri - Leadership Thank You Letter gauri Signatures: Dispatcher [employer] EDCarolyn Link Corey, MD MD cha Oliver, Kathy, RN RN ko1 Corrections: (The following items were deleted from the chart) 16:41 15:50 gauri bd
--- NOTE | 2024-07-17 15:51 | ER ---
Nurse's Notes [facility] Name: Zac Serrato Age: 54 yrs Sex: Male : 1970 Arrival Date: 07/17/2024 Time: 12:39 Bed 8 Private MD: Diagnosis: Anemia, unspecified;Anemia in chronic kidney disease;Obesity, unspecified;Acute kidney failure, unspecified-ON CHRONIC;Chronic combined systolic (congestive) and diastolic (congestive) heart failure;side puller (current) use of anticoagulants-ASPIRIN / PLAVIX Presentation: 07/17 12:40 Chief complaint: EMS states: sent from [facility] for hgb 6.6, complained of headache ko1 and was given tylenol. No pain now, 162/67 57. BG 218. Coronavirus screen: At this time, the client does not indicate any symptoms associated with coronavirus-19. Ebola Screen: No symptoms or risks identified at this time. Initial Sepsis Screen: Does the patient meet any 2 criteria? No. Patient's initial sepsis screen is negative. Does the patient have a suspected source of infection? No. Patient's initial sepsis screen is negative. Risk Assessment: Do you want to hurt yourself or someone else? Patient reports no desire to harm self or others. Onset of symptoms was July 17, 2024. Care prior to arrival: Glucose check: 218. Transition of care: patient was received from another setting of care (long-term care facility), [facility]. 12:40 Method Of Arrival: EMS: [facility] ko1 12:40 Acuity: TERRY 2 ko1 Triage Assessment: 12:42 General: Appears in no apparent distress. Behavior is calm, cooperative, appropriate ko1 for age. Pain: Denies pain. Historical: - Allergies: 12:42 No Known Allergies; ko1 - PMHx: 12:42 Diabetes - NIDDM; Hypertension; RETINAL DETACHMENT; Cerebrovascular accident; Anemia; ko1 Diabetes mellitus; Anxiety; Depressive disorder; Kidney disease; - PSHx: 12:42 Unable to Obtain; ko1 - Immunization history:: Adult Immunizations unknown. - Infectious Disease History:: Denies. - Social history:: Smoking status: Patient denies any tobacco usage or history of. - Family history:: not pertinent. Screenin:45 [facility] ED Fall Risk Assessment (Adult) History of falling in the last 3 months, ko1 including since admission No falls in past 3 months (0 pts) Confusion or Disorientation No (0 pts) Intoxicated or Sedated No (0 pts) Impaired Gait Yes (1 pt) Mobility Assist Device Used Yes (1 pt) Altered Elimination Yes (1 pt) Score/Fall Risk Level 3 or more points = High Risk Oriented to surroundings, Maintained a safe environment, Educated pt \T\ family on fall prevention, incl call for assistance when getting out of bed, Assessed \T\ reinforced patient's understanding of fall precautions, Provided non-skid footwear, Hourly rounding (assess needs \T\ fall precautionary measures) done, Used ambulatory aids as needed (educated on \T\ assisted with), Used gait belt as appropriate Implemented a Fall Risk Plan of Care, Apply high fall risk patient identification: yellow non skid footwear/ fall signage, Activated bed/chair alarm, Remained w/in arm's length of patient and in sight while toileting, Offered frequent toileting (1:1 observation), Remained with patient while ambulating, Utilized family, sitter, or virtual check cashier as indicated. Abuse screen: Denies threats or abuse. Denies injuries from another. Nutritional screening: No deficits noted. Tuberculosis screening: No symptoms or risk factors identified. Assessment: 12:45 General: Appears in no apparent distress. Behavior is calm, cooperative. Pain: Denies ko1 pain. Neuro: No deficits noted. Cardiovascular: No deficits noted. Respiratory: No deficits noted. GI: No deficits noted. : No deficits noted. EENT: Reports blind. Derm: Skin is pale. Musculoskeletal: Range of motion: limited in all extremities. Vital Signs: 12:40 BP 177 / 84; Pulse 57; Resp 15; Temp 98; Pulse Ox 98% ; ko1 13:00 BP 162 / 82; Pulse 54; Resp 16; Pulse Ox 99% ; ko1 15:00 BP 167 / 56; Pulse 56; Resp 16; Pulse Ox 97% ; ko1 17:58 BP 168 / 50; Pulse 55; Resp 16; Temp 98; Pulse Ox 97% on R/A; ko1 ED Course: 12:39 Patient arrived in ED. ko1 12:39 Bill Middleton MD is Attending Physician. [facility] [place] 12:42 Triage completed. ko1 12:42 Arm band placed on right wrist. Patient placed in an exam room, on a stretcher, on ko1 statue carver, on pulse oximetry, Patient notified of wait time. 12:45 Patient has correct armband on for positive identification. Placed in gown. Bed in low ko1 position. Call light in reach. Side rails up X2. Provided Education on: labs. Client placed on continuous cardiac and pulse oximetry monitoring. NIBP monitoring applied. inspector and adjuster golf club head on. Door closed. Noise minimized. Lights dimmed. Warm blanket given. Pillow given. 12:45 No provider procedures requiring assistance completed. ko1 12:56 Basic Metabolic Panel Sent. bc6 12:56 CBC with Diff Sent. bc6 12:56 LFT's Sent. bc6 12:56 Magnesium Sent. bc6 12:56 NT PRO-BNP Sent. bc6 12:56 PT-INR Sent. bc6 12:56 Troponin HS Sent. bc6 12:56 Initial lab(s) drawn, by al, sent to lab. Inserted saline lock: 20 gauge in right bc6 forearm, using aseptic technique. Blood collected. Flushed with 10 mL NS. 13:06 Type And Screen Sent. bc6 13:06 T\T\S collected, blood band applied to patient. bc6 13:18 XRAY Chest (1 view) In Process Unspecified. EDMS 15:49 Parveen Hernandez MD is Hospitalizing Provider. [facility] [place] 16:02 MARIAH ZIEGLER, ROMMEL is Primary Nurse. dd2 16:22 Bb Add On Sent. ko1 17:58 Patient admitted, IV remains in place. ko1 Administered Medications: 12:59 Drug: Pantoprazole IVP 80 mg IVP once Route: IVP; Site: right forearm; ko1 13:14 Follow up: Response: No adverse reaction ko1 12:59 Drug: NS 0.9% IV 500 ml IV at bolus once Route: IV; Rate: bolus; Site: right forearm; ko1 13:14 Follow up: Response: No adverse reaction ko1 15:00 Follow up: Response: No adverse reaction; IV Status: Completed infusion; IV Intake: ko1 500ml Medication: 12:45 VIS not applicable for this client. ko1 Intake: 15:00 IV: 500ml; Total: 500ml. ko1 Outcome: 15:50 Decision to Hospitalize by Provider. gauri 17:58 Admitted to Med/surg via stretcher, ko1 17:58 Condition: stable 17:58 Instructed on the need for admit, 18:01 Admitted to Med/surg room 422, ko1 18:28 Patient left the ED. ko1 Signatures: Dispatcher [employer] Bill Patiño MD MD cha Oliver, Kathy, RN RN ko1 Dipti Arrieta DIANA, RN RN dd2 Corrections: (The following items were deleted from the chart) 15:03 12:45 EENT: No deficits noted. ko1 ko1 18: 17:58 Instructed on the need for admit, ko1 ko1
[2024-07-17 16:12] LABS: Specific Gravity 1.016 (1.005-1.030); Sqamous Epithelial <5 /HPF (None Seen); Urine Bacteria None Seen /HPF (<20); Urine Bilirubin NEGATIVE (Negative); Urine Blood 1+ (Negative); Urine Clarity Turbid (Clear); Urine Color Light-Yellow (Yellow); Urine Culture Reflex Order NOT NEEDED; Urine Glucose TRACE (Negative); Urine Ketones NEGATIVE (Negative); Urine Microscopic Reflex YN ORDER UMIC; Urine Mucus Slight /HPF (None Seen); Urine Nitrite NEGATIVE (Negative); Urine Protein 3+ (Negative); Urine RBC >50 /HPF (None Seen); Urine Urobilinogen Normal (Normal); Urine WBC <5 /HPF (<5)
[2024-07-17] MEDS: ALBUMIN HUMAN 25% 12.5 GM, FUROSEMIDE 100 MG in NA CHLORIDE 0.9% 40 ML IV SCH (17:00)
[2024-07-17] MEDS ORDERED: DOCUSATE NA/SENNA CONC 1 TAB PO PRN (17:03)
[2024-07-17] MEDS ORDERED: SODIUM CHLORIDE 0.9% 10ML INJ IV PRN (17:03)
[2024-07-17] MEDS ORDERED: LACTULOSE 20 GM/30 ML UCUP PO PRN (17:03)
--- NOTE | 2024-07-17 17:26 | RAD REPORT ---
EXAM DESCRIPTION: CT - Stone Protocol - 07/17/2024 4:57 pm CLINICAL HISTORY: Flank pain. FLANK PAIN COMPARISON: Abdomen Pelvis Wo Contrast dated 01/14/2022 TECHNIQUE: Axial images were obtained without oral or IV contrast. Lack of contrast limits solid org an and vascular assessment. The [id number] spans the entirety of the system partially obscuring uppermost abdomen and lung bases. Coronal reformatted images were obtained and reviewed. All CT scans are performed using dose optimization technique as appropriate and may include automated exposure control or mA/KV adjustment according to patient size. FINDINGS: The lower lung mcfarlane are clear. Cholecystectomy. Imaged portions of the liver and spleen show no suspicious findings on non-contrast imaging. The panc reas and adrenal glands are normal. No pathologic lymphadenopathy in the abdomen or pelvis. There is a large mass emanating from the superior aspect of the left kidney measuring 5.6 x 7 cm. Thi s is compatible with a renal cell carcinoma. No bowel obstruction, free air, free fluid or abscess. Moderate stool retention throughout the colon. Normal appendix. No lytic or blastic bone lesion. IMPRESSION: 7 cm mass superior left kidney compatible with renal cell carcinoma.
[2024-07-17] MEDS: CLONIDINE 0.1 MG/PATCH TD SCH (18:00)
--- NOTE | 2024-07-17 18:41 | P.HP ---
Certification for Inpatient Patient admitted to: Inpatient With expected LOS: >2 Midnights Patient will require the following post-hospital care: [facility] Practitioner: I am a practitioner with admitting privileges, knowledge of patient current condition, hospital course, and medical plan of care. Services: Services provided to patient in accordance with Admission requirements found in Title 42 Section 412.3 of the Code of Federal Regulations <Letty Baumann Eddie - Last Filed: 07/17/24 18:35> Patient History Date of Service: 07/17/24 Reason for admission: Acute on chronic anemia CKD with ARF History of Present Illness: Mr. Serrato is a 54-year-old gentleman with a past medical history of hypertension, [id number]-[id number] diabetes, retinal detachment, depression, CKD, anemia, and a debilitating CVA. He currently lives at [facility]. He denies any complaints but was sent to the emergency department secondary to abnormal blood work. On evaluation he has a hemoglobin of 7.0 with a worsening of his kidney function from a creatinine around 2.5 to a creatinine over 5. On exam he is not severely pale. Vital signs stable at 167/56, pulse 56, respiratory rate 16, SpO2 on room air 97%. CT stone protocol performed that shows no obstructive uropathy. We will admit him for blood administration and diuresis. Labs: H/H 7.0/22.7, INR 1.12, electrolytes generally unremarkable however BUN of 62 with a creatinine of 5.54 9with a GFR of 11, BNP 4574, urine with 3+ hematuria Imaging: Chest x-ray shows Mild CHF, unfortunately although there is no obstructive uropathy there is a 7 cm mass to the superior left kidney compatible with renal cell carcinoma Home medications list reviewed: Yes - Past Medical/Surgical History Has patient received pneumonia vaccine in the past: Yes Diabetic: Yes -: DM -: Rential Detachment -: CVA -: Anemia -: Diabetes -: Anxiety/depression -: CKD -: Rential Detachment -: Cataract Psychosocial/ Personal History: Lives at [facility], CODE STATUS DNR - Family History Mother -: Diabetes Father -: Lung disease, Cancer - Social History Smoking Status: Unknown if ever smoked Alcohol use: No CD- Drugs: No Caffeine use: Yes [facility] <Letty Baumann Eddie - Last Filed: 07/17/24 18:35> Date of Service: 07/18/24 <Parveen Hernandez Tyra - Last Filed: 07/18/24 08:24> Allergies No Known Allergies Allergy (Verified 11/23/20 02:59) Home Medications: Amlodipine [Norvasc*] 10 mg PO DAILY 11/23/20 Aspirin [Low Dose Aspirin EC] 81 mg PO DAILY 11/23/20 Atorvastatin Calcium [Lipitor] 80 mg PO BEDTIME 11/23/20 Clopidogrel Bisulfate [Plavix*] 75 mg PO DAILY 11/23/20 Insulin Degludec [Tresiba Flextouch U-100] 20 unit SQ DAILY 11/23/20 Lisinopril [Zestril] 40 mg PO DAILY 11/23/20 Metformin HCl 1,000 mg PO BID 11/23/20 Amlodipine [Norvasc*] 10 mg PO DAILY #30 tab 12/03/20 Aspirin Chewable [Aspirin Chewable*] 81 mg PO DAILY #30 tab.chew 12/03/20 Ciprofloxacin/Hydrocortisone [Cipro Hc Otic Suspension] 10 ml OT Q6H #1 drops.susp 12/03/20 Clonidine Patch [Catapres-Tts 2*] 0.2 mg TD EVERY 7TH DAY #10 patch 12/03/20 Docusate [Colace Cap] 100 mg PO BID #60 cap 12/03/20 Ensure High Protein 237 ml PO BID #60 can 12/03/20 Lactulose 30 ml PO DAILY #1000 ml 12/03/20 Metoprolol Tartrate [Lopressor*] 50 mg PO BID 6AM 6PM #60 tab 12/03/20 Ofloxacin Oph [Floxin Otic 0.3%*] 4 ml OTIC BID #1 btl 12/03/20 Pantoprazole [Protonix Tab*] 40 mg PO DAILYAC #30 tab 12/03/20 clonazePAM [Klonopin*] 0.5 mg PO TID #60 tab 12/03/20 predniSONE [Prednisone*] 20 mg PO TID #30 tab 12/03/20 Review of Systems 10-point ROS is otherwise unremarkable General: Weakness, Malaise, Other (Severe pallor) Gastrointestinal: Other (Denies pain) Neurological: Weakness, Other (Status post CVA) <Baumann,Letty Eddie - Last Filed: 07/17/24 18:35> Physical Examination - Physical Exam General: Alert, Obese, Other (Severe pallor) HEENT: Atraumatic, Normocephalic Neck: Supple Respiratory: Normal air movement Cardiovascular: Regular rate/rhythm, Normal S1 S2 Capillary refill: <2 Seconds Gastrointestinal: Soft and benign Musculoskeletal: Other (Generalized and right-sided weakness) Integumentary: Other (Pallor) Neurological: Normal affect, Abnormal speech, Abnormal strength, Abnormal tone Lymphatics: No axilla or inguinal lymphadenopathy External genitalia: Deferred Rectal: Deferred - Studies Laboratory Data (last 24 hrs) 07/17/24 07/17/24 07/17/24 12:55 12:55 12:55 WBC 5.90 Hgb 7.0 L Hct 22.7 L Plt Count 167 PT 12.5 INR 1.12 Sodium 140 Potassium 4.7 BUN 62 H Creatinine 5.54 H Glucose 144 H Magnesium 2.2 Total Bilirubin 0.4 AST < 10 L ALT < 14 L Alkaline Phosphatase 68 Lipase 26 <Letty Baumann - Last Filed: 07/17/24 18:35> - Studies Laboratory Data (last 24 hrs) 07/17/24 07/17/24 07/17/24 12:55 12:55 12:55 WBC 5.90 Hgb 7.0 L Hct 22.7 L Plt Count 167 PT 12.5 INR 1.12 Sodium 140 Potassium 4.7 BUN 62 H Creatinine 5.54 H Glucose 144 H Magnesium 2.2 Total Bilirubin 0.4 AST < 10 L ALT < 14 L Alkaline Phosphatase 68 Lipase 26 <Parveen Hernandez - Last Filed: 07/18/24 08:24> Assessment and Plan - Plan CKD with ARF with severe anemia Avoid nephrotoxic 2 units PRBCs Monitor and trend H&H and creatinine/GFR Continue albumin Lasix drip Hypertension with CHF Albumin Lasix drip Monitor and trend fluid status Diabetes Monitor and Insulin glargine Regular insulin with sliding scale Status post CVA Skin measures Assist position change Q2h Hypertension Medications as directed Monitor and trend VTE/GI prophylaxis Subcu heparin/Protonix Discharge Plan: [facility] Plan to discharge in: Greater than 2 days - Advance Directives Does patient have a Living Will: No Does patient have a Durable POA for Healthcare: Yes - Code Status/Comfort Care Code Status Assessed: Yes Code Status: Do Not Attempt Resuscitat <Letty Baumann - Last Filed: 07/17/24 18:35> - Plan Pt seen and examined. I agree with the note by the BELL CLERK. Pt is a 54 yo male with past medical history of DM II, Htn, Anxiety, Depression, Kidney disease, and retinal detachment who abnormal lab. On admission, pt complains of left mid back and right mid back. On admission, lab studies show wbc 5.9, hgb 7, K 4.7, Cr 5.54, BNP 4574 and troponin 15.1. At bedside, pt is in NAD. A/P: Anemia: Hgb is 7. Pt is very pale. Will give 2 unit of blood and monitor H/H. Hypoalbuminemia: Albumin is 2.8. Will give albumin. EBONI on CKD stage 3: cr is 5.54 <- 3. Will continue IVF, avoid nephrotoxins and monitor renal function. Will consult Nephrology Elevated BNP: Pt has poor renal function. Will f/u Echo. Anemia: Hgb is 7. Will monitor H/H. Morbid Obesity: Pt was advised to lose weight. DM II: Continue accuchek, SSI and ADA diet. Htn: Continue home med DVT ppx: SCD Code: DNR <Parveen Hernandez - Last Filed: 07/18/24 08:24>
[2024-07-17] MEDS: METOPROLOL TAR 50 MG TAB PO SCH (20:06)
[2024-07-17] MEDS: ACETAMINOPHEN 325 MG TABLET PO PRN (20:07)
[2024-07-17] MEDS: ATORVASTATIN 20 MG TAB PO SCH (20:07)
[2024-07-17] MEDS: EPOETIN ALFA-EPBX 4,000 UNIT/ML VIAL SQ SCH (20:08)
[2024-07-17] MEDS: HEPARIN 5000 UNIT/ML 1 ML VIAL SQ SCH (20:10)
[2024-07-17] MEDS: HYDRALAZINE HCL 25 MG TABLET PO SCH (20:10)
[2024-07-17] MEDS: ARFORMOTEROL TARTRATE 15 MCG/2 ML VIAL.NEB NEB SCH (20:38)
[2024-07-17] MEDS: INSULIN REGULAR (HUMAN) 100 UNIT/ML SQ SCH (21:00)
[2024-07-17] MEDS: NA CHLORIDE 0.9% 250 ML ONE (21:56)
[2024-07-17] MEDS: FUROSEMIDE 40 MG/4 ML VIAL IV ONE (23:21)
[2024-07-17] MEDS: HYDRALAZINE HCL 20 MG/ML VIAL IV ONE (23:21)
[2024-07-18] MEDS: NA CHLORIDE 0.9% 250 ML ONE (02:05)
[2024-07-18 02:24] VITALS: BMI 33.4
[2024-07-18] MEDS: MORPHINE 2 MG/ML SYR IV ONE (06:19)
[2024-07-18] MEDS: HYDRALAZINE HCL 20 MG/ML VIAL IV PRN (07:48)
[2024-07-18 08:14] LABS: Absolute Basophils 0.1 K/uL (0-0.5); Absolute Eosinophils 0.3 K/uL (0-0.5); Absolute Lymphocytes (CBC) 0.8 K/uL (0.7-4.9); Absolute Monocytes 0.6 K/uL (0.1-1.3); Absolute Neutrophil 5.8 K/uL (1.8-8.0); Basophils % 0.7 % (0-1.3); Eosinophils % 4.5 % (0-4.4); Hematocrit 29.2 % (39.6-49.0); Hemoglobin 9.2 g/dL (13.6-17.9); Lymphocytes % 10.8 % (15.3-44.8); MCH 26.1 pg (27.0-35.0); MCHC 31.4 g/dL (32.0-36.0); MCV 83.2 fL (80-100); MPV 9.6 fL (7.6-11.3); Monocytes % 7.5 % (3.3-12.3); Neutrophils % 76.5 % (41.7-73.7); Nucleated Red Blood Cells % 0.1 % (0-0); Platelets 173 thou/uL (152-406); RBC Red Blood Cell Count 3.52 M/uL (4.33-5.43); Red Cell Distribution Width 16.3 % (12.1-15.2)
[2024-07-18 08:31] LABS: Albumin 3.5 g/dL (3.4-5.0); Albumin/Globulin Ratio 0.8 (1.1-1.8); Alkaline Phosphatase 70 U/L (45-117); Anion Gap 11.3 mEq/L (5.0-15.0); BUN Blood Urea Nitrogen 61 mg/dL (7-18); Bicarbonate 24 mEq/L (21-32); Bilirubin Total 0.8 mg/dL (0.2-1.0); Globulin 4.2 g/dL (2.3-3.5); Glomerular Filtration Rate 12 ml/min (=/>90); Glucose Level 82 mg/dL (74-106); HDL Cholesterol 43 mg/dL (40-60); LDL Cholesterol, Calculated 29 mg/dL (<130); LDL Cholesterol,Calc NonReport 29; Magnesium 2.2 mg/dL (1.6-2.4); Phosphorus 5.1 mg/dL (2.5-4.9); Potassium 5.3 mEq/L (3.5-5.1); Protein, Total 7.7 g/dL (6.4-8.2); Sodium Level 140 mEq/L (136-145)
[2024-07-18 08:32] LABS: ALT/SGPT < 14 U/L (16-61); AST/SGOT < 10 U/L (15-37)
[2024-07-18] MEDS: INSULIN GLARGINE 100 UNIT/ML SQ SCH (09:00)
[2024-07-18] MEDS: ASPIRIN 81 MG CHEWABLE TABLET PO SCH (09:23)
[2024-07-18] MEDS: DRISDOL (VITAMIN D=ERGOCALCIFEROL) 50000 UNIT CAP PO SCH (09:23)
[2024-07-18] MEDS: FE SULF/FA/VIT B COMP & C TAB PO SCH (09:23)
[2024-07-18] MEDS: DOXAZOSIN 2 MG TAB PO SCH (09:23)
[2024-07-18] MEDS: CLOPIDOGREL 75 MG TABLET PO SCH (09:23)
[2024-07-18] MEDS: CITALOPRAM 10 MG TABLET PO SCH (09:24)
[2024-07-18] MEDS: HYDROCOD 2.5mg-ACETAMIN 108mg/5mL Soln PO PRN (09:32)
[2024-07-18] MEDS: PANTOPRAZOLE 40 MG INJ IVP SCH (09:49)
[2024-07-18] MEDS: D50W 25 GM/50 ML SYRINGE IV ONE (11:55)
[2024-07-18] MEDS: METOPROLOL XL 50 MG TAB PO ONE (13:13)
--- NOTE | 2024-07-18 13:19 | P.PN ---
Subjective Date of Service: 07/18/24 Chief Complaint: Acute on chronic anemia CKD with ARF pt with headache related to HTN. He normally takes Hydralazine 50mg po QID. Overnight he needed IV dose of 10mg. On assessment this am he was mildly distressed with a headache. SBP 190s. Additional hydralazine and lortab given. Pt vomited morning meds. Will give one time dose Lopressor 50mg at 1230 and order IV pain medications. <Letty Baumann - Last Filed: 07/18/24 13:13> Date of Service: 07/18/24 <Parveen Hernandez - Last Filed: 07/18/24 13:43> Review of Systems 10-point ROS is otherwise unremarkable General: Weakness, Malaise, As per HPI Neurological: Other (headache) <Letty Baumann - Last Filed: 07/18/24 13:13> Physical Examination - Vital Signs Temperature: 97.5 F Blood Pressure: 196/77 Pulse: 66 Respirations: 16 Pulse Ox (%): 95 - Physical Exam General: Mild distress, Moderate distress, Obese, Other (Pale) HEENT: Atraumatic, Other (Blind) Neck: Supple Respiratory: Normal air movement, Crackles/rales Cardiovascular: Normal pulses, Regular rate/rhythm, Edema Capillary refill: <2 Seconds Gastrointestinal: Normal bowel sounds Musculoskeletal: No clubbing Integumentary: No rashes Neurological: Abnormal speech, Abnormal strength, Abnormal affect Lymphatics: No axilla or inguinal lymphadenopathy External genitalia: Deferred, Other (Using urinal without difficulty) Rectal: Deferred - Studies Laboratory Data (last 24 hrs) 07/17/24 12:55 Sodium 140 Potassium 4.7 BUN 62 H Creatinine 5.54 H Glucose 144 H Magnesium 2.2 Total Bilirubin 0.4 AST < 10 L ALT < 14 L Alkaline Phosphatase 68 Lipase 26 <Letty Baumann - Last Filed: 07/18/24 13:13> Assessment And Plan - Plan CKD with ARF with severe anemia Avoid nephrotoxic drugs 2 units PRBCs Monitor and trend H&H and creatinine/GFR Continue albumin Lasix drip Hypertension with CHF Albumin Lasix drip Monitor and trend fluid status Diabetes Monitor and trend Insulin glargine - held this am for vomiting and FSBS 75mg/dL Regular insulin with sliding scale Status post CVA Skin measures Assist position change Q2h Hypertension Medications as directed (IV medications ordered to assist po) Monitor and trend VTE/GI prophylaxis Subcu heparin/Protonix Time Spent Managing PTS Care (In Minutes): 28 <Letty Baumann - Last Filed: 07/18/24 13:13> - Plan Pt seen and examined. I agree with the note by the WOOD MACHINE CARVER. Hgb is 9.2 after 2 units of blood. Consulted Nephrology. Will avoid nephrotoxins and monitor renal function. Will give prn tylenol for headache and zofran for nausea. <Parveen Hernandez - Last Filed: 07/18/24 13:43>
[2024-07-18] MEDS: MORPHINE 4 MG/ML SYR IV PRN (13:22)
[2024-07-18] MEDS: ALBUTEROL 2.5 MG/3 ML NEB SOL NEB ONE (13:28)
[2024-07-18] MEDS: FENTANYL 50 MCG/PATCH TD ONE (15:21)
[2024-07-18] MEDS: PROMETHAZINE INJ 25 MG/ML AMP IV PRN (15:21)
[2024-07-18] MEDS ORDERED: ENOXAPARIN 40 MG/0.4 ML SQ SCH (17:00)
[2024-07-18] MEDS: ONDANSETRON 4 MG/2 ML VIAL IV PRN (20:46)
[2024-07-19] MEDS: ALBUMIN HUMAN 25% 100 ML IV ONE (00:05)
[2024-07-19] MEDS: FUROSEMIDE 40 MG/4 ML VIAL ONE ×2 (00:11→04:09)
[2024-07-19] MEDS: NA CHLORIDE 0.9% 100 ML ONE ×2 (00:12→04:10)
[2024-07-19] MEDS: FUROSEMIDE 20 MG/ 2ML VIAL ONE (04:09)
[2024-07-19 07:54] LABS: Absolute Eosinophils 0.1 K/uL (0-0.5); Absolute Lymphocytes (CBC) 0.8 K/uL (0.7-4.9); Absolute Monocytes 0.6 K/uL (0.1-1.3); Absolute Neutrophil 6.2 K/uL (1.8-8.0); Basophils % 0.4 % (0-1.3); Eosinophils % 1.4 % (0-4.4); Hematocrit 26.6 % (39.6-49.0); Hemoglobin 8.7 g/dL (13.6-17.9); Lymphocytes % 9.9 % (15.3-44.8); MCH 27.1 pg (27.0-35.0); MCHC 32.7 g/dL (32.0-36.0); MCV 82.9 fL (80-100); MPV 9.3 fL (7.6-11.3); Monocytes % 8.3 % (3.3-12.3); Nucleated Red Blood Cells % 0.1 % (0-0); Platelets 179 thou/uL (152-406); Red Cell Distribution Width 16.3 % (12.1-15.2)
[2024-07-19 08:27] LABS: Albumin 3.6 g/dL (3.4-5.0); Albumin/Globulin Ratio 0.9 (1.1-1.8); Anion Gap 9.8 mEq/L (5.0-15.0); Bilirubin Total 0.6 mg/dL (0.2-1.0); Globulin 3.8 g/dL (2.3-3.5); Magnesium 2.1 mg/dL (1.6-2.4); Phosphorus 5.6 mg/dL (2.5-4.9); Potassium 4.8 mEq/L (3.5-5.1); Protein, Total 7.4 g/dL (6.4-8.2)
[2024-07-19] MEDS: ACETAMIN/CAFFEINE/BUTALB TAB PO PRN (16:28)
--- NOTE | 2024-07-19 16:29 | EKG ---
Test Date: 2024-07-17 Test Time: 13:38:35 Information Assurance: VAL MEASUREMENT RESULTS: Intervals: Rate: 54 OK: 172 QRSD: 102 QT: 500 QTc: 474 [place]: P: 33 OK: 172 QRS: 53 T: 65 INTERPRETIVE STATEMENTS: Sinus bradycardia Nonspecific ST abnormality Abnormal ECG Compared to ECG 11/22/2020 19:42:38 ST (T wave) deviation now present Sinus rhythm no longer present Electronically Signed On 07-19-24 16:23:43 CDT by Dennis Huynh
--- NOTE | 2024-07-19 16:29 | EKG ---
Test Date: 2024-07-17 Test Time: 13:39:08 Language And Literature Division Chair: VAL MEASUREMENT RESULTS: Intervals: Rate: 54 OR: 170 QRSD: 96 QT: 494 QTc: 468 [place]: P: 73 OR: 170 QRS: 50 T: 68 INTERPRETIVE STATEMENTS: Sinus bradycardia Nonspecific ST abnormality Abnormal ECG Compared to ECG 07/17/2024 13:38:35 No significant changes Electronically Signed On 07-19-24 16:23:42 CDT by Dennis Huynh
[2024-07-19] MEDS: FUROSEMIDE 40 MG/4 ML VIAL IV SCH (16:32)
--- NOTE | 2024-07-19 18:12 | CON ---
Date of Consultation: 07/19/2024 Consulting Physician: Dr. Bauer. Reason For Consultation: Elevated BUN and creatinine, fluid management. History Of Present Illness: This is a pleasant 54-year-old gentleman, well known to me from the previous admission with significant past medical history of chronic kidney disease stage 3B secondary to hypertension, nephrosclerosis, diabetes nephropathy, baseline creatinine 2.1, GFR 36 as of December 2022, hyperlipidemia, CVA. The patient came to the hospital complaining from nausea and vomiting, found to have elevation in BUN and creatinine. For that reason, we have been consulted. The patient was started on IV hydration. Kidney function have been improving. Obstructive uropathy has been ruled out with the CT. Past Medical History: Includes: 1. Diabetes complicated with neuropathy and retinopathy. 2. Hypertension. 3. CVA. 4. Chronic kidney disease stage 3B, baseline creatinine 2.1, GFR of 36 as December 2022. Family History: Positive for hypertension. Surgical History: Include cataract, retinal laser. Social History: Denied smoking, denied drinking, denied drugs abuse. Allergies: NO KNOWN DRUG ALLERGY. Home Medications: Include amlodipine, aspirin, atorvastatin, lisinopril, metformin, docusate, lactulose, metoprolol, ciprofloxacin, clonazepam. Review of Systems: Head and Neck: No red eye. No ear pain. GI: Has nausea, vomiting. : No polyuria, no dysuria, no hematuria. Milling Machine Operator: Not applicable. Respiratory: No shortness of breath. Cardiovascular: No chest pain. Endocrine: No polydipsia. Skin: No rash. Neuro: Has neuropathy. Musculoskeletal: Generalized fatigue. Physical Examination: Vital Signs: Blood pressure of 150/64, pulse of 71, afebrile. Chest: Clear to auscultation. Heart: S1, S2 regular. Abdomen: Soft, nontender. Extremities: No edema. Neurologic: Alert. No focality. Laboratory Data: WBC 7.7, hemoglobin 8.6. Sodium 139, potassium 4.8, bicarb 26, BUN 66, creatinine 5.8, GFR of 11, calcium 9.3, phosphorus 5.6, magnesium 2.1, albumin 3.6. PC ratio 9.6. The patient had full serology before, was negative and serum protein electrophoresis was negative. CT abdomen, no hydronephrosis, but had a large mass from the superior of the left kidney, 5.6 cm. Chest x-ray, cardiomegaly with congestion. Assessment And Plan: 1. Acute kidney injury secondary to cardiorenal and advanced chronic kidney disease, over volume. I am going to go ahead and continue the patient on the current diuresis and we will monitor the patient closely. If kidney function continued to decline, patient may need renal replacement therapy. We will follow up. Currently, the patient had good urine output. I do not see the urgency to push for it as no clear uremic symptoms. 2. Keep holding POPPY inhibitor. 3. Hypertension, controlled. We will utilize blood pressure for more diuresis. Continue Lasix. I will add metolazone, discontinue lisinopril with the presence of acute kidney injury. 4. Hyperkalemia, marginal, secondary to renal failure, resolved. Hold lisinopril. Continue diuresis. 5. Diabetes as by primary. 6. Renal mass. The patient will need evaluation. Reviewing the record for the patient back in November 2020, had CT. No change on the mass, but no documentation of the size of it. In November 2020, it was 3 cm, so clearly has increased in size over the last 3 years. We will follow up mostly if the patient is going to need nephrectomy at that time. The patient may end up on dialysis. We will follow up. 7. Cardiorenal syndrome, over volume. Continue diuresis as above. Time spent examining the patient [id number], reviewing data, lab, and radiology, placing order, discussing the case with the patient, discussing the case with the sales floor team leader including hospitalist and nursing staff more than 75 minutes. ANGEL Voice ID: [id number] Report ID: [id number] SERGIO
[2024-07-20] MEDS: HYDRALAZINE HCL 20 MG/ML VIAL IV PRN ×2 (00:48→12:44)
[2024-07-20 06:24] LABS: Absolute Basophils 0.1 K/uL (0-0.5); Absolute Eosinophils 0.4 K/uL (0-0.5); Absolute Lymphocytes (CBC) 1.2 K/uL (0.7-4.9); Absolute Monocytes 0.8 K/uL (0.1-1.3); Absolute Neutrophil 8.3 K/uL (1.8-8.0); Basophils % 0.8 % (0-1.3); Eosinophils % 3.6 % (0-4.4); Hematocrit 29.9 % (39.6-49.0); Hemoglobin 9.7 g/dL (13.6-17.9); Lymphocytes % 11.2 % (15.3-44.8); MCH 26.7 pg (27.0-35.0); MCHC 32.5 g/dL (32.0-36.0); MCV 82.2 fL (80-100); MPV 9.7 fL (7.6-11.3); Monocytes % 7.2 % (3.3-12.3); Neutrophils % 77.2 % (41.7-73.7); Nucleated Red Blood Cells % 0.2 % (0-0); Percent Reticulocyte Count 0.81 % (0.4-2.05); Platelets 180 thou/uL (152-406); RBC Red Blood Cell Count 3.64 M/uL (4.33-5.43); Red Cell Distribution Width 16.6 % (12.1-15.2)
[2024-07-20 06:52] LABS: Albumin 3.8 g/dL (3.4-5.0); Albumin/Globulin Ratio 0.9 (1.1-1.8); Anion Gap 10.5 mEq/L (5.0-15.0); Bilirubin Total 0.5 mg/dL (0.2-1.0); Globulin 4.1 g/dL (2.3-3.5); Magnesium 2.1 mg/dL (1.6-2.4); Phosphorus 4.9 mg/dL (2.5-4.9); Potassium 4.5 mEq/L (3.5-5.1); Protein, Total 7.9 g/dL (6.4-8.2); Uric Acid 6.8 mg/dL (3.5-7.2)
[2024-07-20 07:06] LABS: Blood Morphology Comment NOT SEEN (NOT SEEN); Platelet Estimate ADEQ; White Blood Cell Scan OK (OK)
[2024-07-20 08:40] LABS: Ferritin 44.5 ng/mL (26-388); Thyroid Stimulating Hormone 0.539 uIU/mL (0.358-3.740)
--- NOTE | 2024-07-20 08:48 | P.PN ---
Date of Service: 07/20/24 Subjective Date of Service: 07/20/24 Chief Complaint: Acute on chronic anemia CKD with ARF headache improved, no N/V Review of Systems 10-point ROS is otherwise unremarkable General: Weakness, Malaise, As per HPI Neurological: Other (headache) Vitals reviewed Physical Examination - Physical Exam General: no distress, Obese, Other (Pale) HEENT: Atraumatic, Other (Blind) Neck: Supple Respiratory: Normal air movement, Crackles/rales, mildly improved Cardiovascular: Normal pulses, Regular rate/rhythm, 07/20 Edema improved tremendously, however, creatinine up to 6 Capillary refill: <2 Seconds Gastrointestinal: Normal bowel sounds Musculoskeletal: No clubbing Integumentary: No rashes Neurological: Abnormal speech, Abnormal strength, normal affect Lymphatics: No axilla or inguinal lymphadenopathy External genitalia: Deferred, Other (Using urinal without difficulty) Rectal: Deferred - Studies Laboratory Data (last 24 hrs) 07/17/24 12:55 Sodium 140 Potassium 4.7 BUN 62 H Creatinine 5.54 H Glucose 144 H Magnesium 2.2 Total Bilirubin 0.4 AST < 10 L ALT < 14 L Alkaline Phosphatase 68 Lipase 26 Assessment And Plan - Plan CKD with ARF with severe anemia Avoid nephrotoxic drugs 2 units PRBCs - given, H/H stable Monitor and trend H&H and creatinine/GFR - creatinine up to 6 (07/20) Continue albumin Lasix drip Hypertension with CHF Albumin Lasix drip Monitor and trend fluid status Diabetes Monitor and trend Insulin glargine - held this am for vomiting and FSBS 75mg/dL Regular insulin with sliding scale Status post CVA Skin measures Assist position change Q2h Hypertension Medications as directed (IV medications ordered to assist po as lisinopril and amlodipine held 2nd to ARF) Monitor and trend VTE/GI prophylaxis Subcu heparin/Protonix Time Spent Managing PTS Care (In Minutes): 28 <Letty Baumann - Last Filed: 07/20/24 08:44> Pt seen and examined. I agree with the note by the ASW SPECIALIST. Hgb is 9.7 after 2 units of blood. Consulted Nephrology. Will avoid nephrotoxins and monitor renal function. Headache resolved after he took prn tylenol. Continue zofran for nausea. Recent CT abd shows 7cm left renal mass. Will need to f/u Urologist in clinic. <Parveen Hernandez - Last Filed: 07/20/24 12:19>
[2024-07-20] MEDS: NITROGLYCERIN 0.1 MG/HR (2.5 MG) PATCH TD SCH (09:38)
--- NOTE | 2024-07-20 23:06 | PN ---
Date of Progress Note: 07/20/2024 Subjective: Nephrology consultation was requested for elevated BUN and creatinine. The patient is a 54-year-old with history of chronic kidney disease stage 3B secondary to hypertension, nephroscleros is, diabetes, diabetic kidney disease. Baseline creatinine was 2.1, GFR 36 as of December 30. The p atient has history of CVA, hyperlipidemia. He came to the hospital complaining of nausea, vomiting. He was started on IV fluids. Kidney function is somewhat improved. Review of Systems: Denies chest pain, palpitation. Physical Examination: Lungs: Clear to auscultation bilaterally. Heart: S1, S2. Abdomen: Soft, benign. Extremities: No edema. Impression And Plan: 1.Acute kidney injury secondary to cardiorenal syndrome and advanced chronic kidney. The patient wi ll continue diuretics for volume control. Renal function is gradually improving. Continue to hold A CE inhibitor. 2.Hypertension, controlled. Continue diuretic. The patient is on Lasix and metolazone to control f luid overload. Renal function is improving. Monitor urine output. Adjust treatment according to vo lemia status. 3.Hyperkalemia, marginal secondary to renal failure. It resolved. Lisinopril is on hold to prevent hyperkalemia. 4.Renal mass. The patient will need urology evaluation. The patient has CT scan done in November 2020. The patient will need a close followup with Urology for kidney dana CHUNG/MOON Voice ID: [id number] Report ID: [id number]
[2024-07-21 08:56] LABS: Absolute Basophils 0.1 K/uL (0-0.5); Absolute Eosinophils 0.2 K/uL (0-0.5); Absolute Lymphocytes (CBC) 0.8 K/uL (0.7-4.9); Absolute Monocytes 0.5 K/uL (0.1-1.3); Basophils % 0.7 % (0-1.3); Eosinophils % 3.1 % (0-4.4); Hemoglobin 10.1 g/dL (13.6-17.9); MCHC 32.6 g/dL (32.0-36.0); MCV 82.7 fL (80-100); MPV 8.8 fL (7.6-11.3); Monocytes % 6.7 % (3.3-12.3); Neutrophils % 79.5 % (41.7-73.7); Nucleated Red Blood Cells % 0.1 % (0-0); Platelets 212 thou/uL (152-406); RBC Red Blood Cell Count 3.74 M/uL (4.33-5.43); Red Cell Distribution Width 16.7 % (12.1-15.2)
[2024-07-21 09:10] LABS: Albumin 3.6 g/dL (3.4-5.0); Anion Gap 12.1 mEq/L (5.0-15.0); Phosphorus 5.2 mg/dL (2.5-4.9); Potassium 4.1 mEq/L (3.5-5.1)
[2024-07-21 09:32] LABS: Anion Gap 13.1 mEq/L (5.0-15.0); Potassium 4.1 mEq/L (3.5-5.1)
[2024-07-21] MEDS: NA CHLORIDE 0.9% 1,000 ML IV SCH ×2 (10:00→12:49)
--- NOTE | 2024-07-21 10:38 | P.PN ---
Subjective Date of Service: 07/21/24 Chief Complaint: Acute on chronic anemia CKD with ARF Subjective: Improving pt without c/o this am. headache improved, coloration improved. States he is feeling better. Blood pressure readings improved. Kidney function continues to decline. <Ange Baumanny Eddie - Last Filed: 07/21/24 10:32> Date of Service: 07/21/24 <Parveen Hernandez C - Last Filed: 07/21/24 12:11> Review of Systems 10-point ROS is otherwise unremarkable Respiratory: As per HPI Cardiovascular: As per HPI Neurological: As per HPI <Ange Baumanny Eddie - Last Filed: 07/21/24 10:32> Physical Examination - Vital Signs Temperature: 98.1 F Blood Pressure: 165/72 Pulse: 71 Respirations: 18 Pulse Ox (%): 92 - Physical Exam General: Alert, Obese HEENT: Atraumatic, Normocephalic Neck: Supple Respiratory: Normal air movement, Crackles/rales (Bases) Cardiovascular: Normal pulses, Regular rate/rhythm Capillary refill: <2 Seconds Gastrointestinal: Normal bowel sounds Musculoskeletal: No clubbing, Other (Weakness from previous CVA) Integumentary: Other (Coloration improved from admission) Neurological: Normal affect, Abnormal speech, Abnormal strength Lymphatics: No axilla or inguinal lymphadenopathy External genitalia: Deferred Rectal: Deferred <Ange Baumanny Eddie - Last Filed: 07/21/24 10:32> Assessment And Plan - Plan CKD with ARF with severe anemia Avoid nephrotoxic drugs 2 units PRBCs Monitor and trend H&H and creatinine/GFR Continue albumin Lasix drip - discontinued 07/20/24 Dr. Milligan following Hypertension with CHF Albumin Lasix drip -discontinued 07/20/24 Monitor and trend fluid status Diabetes Monitor and trend Insulin glargine as directed Regular insulin with sliding scale Status post CVA Skin measures Assist position change Q2h Hypertension Medications as directed (IV medications ordered to assist po) Monitor and trend added NTG patch daily with good response VTE/GI prophylaxis Subcu heparin/Protonix Time Spent Managing PTS Care (In Minutes): 25 <Ange Baumanny Eddie - Last Filed: 07/21/24 10:32> - Plan Pt seen and examined. I agree with the note by the ERGONOMIST. Hgb is 9.7 after 2 units of blood. Consulted Nephrology. Will avoid nephrotoxins and monitor renal function. Headache resolved after he took prn tylenol. Continue zofran for nausea. Recent CT abd shows 7cm left renal mass. Pt needs to f/u Urologist in clinic. <Parveen Hernandez - Last Filed: 07/21/24 12:11>
--- NOTE | 2024-07-21 14:31 | RAD REPORT ---
EXAM DESCRIPTION: US - Renal Ultrasound-Complete - 07/21/2024 2:15 pm CLINICAL HISTORY: Abdominal pain COMPARISON: 2020 FINDINGS: The right kidney measures 10 cm with a normal echotexture. Sub centimeter cyst The left kidney measures 13 cm with a normal echotexture. 7 centimeter mass extends off of the upper pole left kidney. It contains areas of vascularity and hyp o and isoechoic areas. It previously measured 3.2 centimeters 7 millimeters cyst is present. A 7 millimeter echogenic structure without posterior shadowing likely benign left kidney Hydronephrosis is not seen. No gross abnormality of bladder IMPRESSION: 7 centimeter solid appearing mass has enlarged since 2020 probably neoplasm
[2024-07-21] MEDS: METOCLOPRAMIDE 10 MG/2mL INJ IV SCH (16:28)
--- NOTE | 2024-07-21 16:48 | PN ---
Date of Progress Note: 07/21/2024 Subjective: The patient was admitted to the hospital with acute kidney injury on advanced chronic kidney disease. Kidney function continued to decline. Physical Examination: Vital Signs: Blood pressure 165/72, pulse of 71, afebrile. General: The patient still has some nausea. No vomiting. Chest: Clear to auscultation. Heart: S1, S2. Regular. Abdomen: Soft, nontender. Extremities: No edema. Neuro: Alert. No focality. Laboratory Data: WBC 7.6, hemoglobin 10.1. Sodium 138, potassium 4.1, bicarb 25, BUN 68, creatinine 6.3. GFR of 10. Calcium 9.6. Phosphorus 5.2. PTH 122. Serum protein electrophoresis is still pending. Current Medications: The patient is on include: 1. Aspirin. 2. Promethazine. 3. Plavix. 4. Atorvastatin. 5. Cardura. 6. Hydralazine 50 q.i.d. 7. Nitroglycerin. 8. Zofran. 9. Insulin. 10. IV fluid. Assessment And Plan: 1. Acute kidney injury on advanced chronic kidney disease, progression to end- stage renal disease with uremia. I had long discussion with the patient regarding possible need to initiate renal replacement therapy, patient refused. Explained risks, benefits, alternatives including cardiac arrest secondary to hyperkalemia. The patient verbalized understanding, but he is still refusing. We will continue medical management. 2. Gastroenteritis as by primary. 3. Renal mass with increase in size compared to previous CT. The patient will need Urology evaluation. 4. Hyperkalemia, recovered, resolved. 5. Diabetes with possible gastroparesis. We will start the patient on hydration. Continue symptomatic treatment. I will start the patient on metoclopramide and we will follow up with primary. Time spent examining the patient [id number], reviewing data, lab, and radiology, placing order, discussing the case with the patient, discussing the case with the steam station supervisor including hospitalist and nursing staff more than 55 minutes. ANGEL Voice ID: [id number] Report ID: [id number] SERGIO
[2024-07-22 05:08] VITALS: TEMP 97.1
[2024-07-22 07:00] LABS: Absolute Basophils 0.1 K/uL (0-0.5); Absolute Eosinophils 0.1 K/uL (0-0.5); Absolute Lymphocytes (CBC) 0.6 K/uL (0.7-4.9); Absolute Monocytes 0.6 K/uL (0.1-1.3); Absolute Neutrophil 10.6 K/uL (1.8-8.0); Basophils % 0.6 % (0-1.3); Eosinophils % 1.2 % (0-4.4); Hematocrit 30.2 % (39.6-49.0); Hemoglobin 9.5 g/dL (13.6-17.9); Lymphocytes % 4.7 % (15.3-44.8); MCH 26.4 pg (27.0-35.0); MCHC 31.4 g/dL (32.0-36.0); MCV 83.9 fL (80-100); MPV 9.2 fL (7.6-11.3); Monocytes % 5.3 % (3.3-12.3); Neutrophils % 88.2 % (41.7-73.7); Platelets 179 thou/uL (152-406); Red Cell Distribution Width 16.8 % (12.1-15.2)
[2024-07-22 07:16] LABS: Albumin 3.2 g/dL (3.4-5.0); Anion Gap 12.9 mEq/L (5.0-15.0); Phosphorus 4.2 mg/dL (2.5-4.9); Potassium 3.9 mEq/L (3.5-5.1)
[2024-07-22] MEDS: POTASSIUM CL SA 10 MEQ TAB PO ONE (08:34)
[2024-07-22 09:24] VITALS: O2SAT 95
--- NOTE | 2024-07-22 10:53 | P.DS ---
Admission Date: 07/17/24 Discharge Date: 07/22/24 Reason for Admission: Acute on chronic anemia CKD with ARF Consultations: Dr. Milligan Procedures: Declined dialysis to Dr. Milligan 07/21/24. Today he and I discussed decreased renal function and risks of not receiving dialysis. Mr. Serrato reiterates that he does not want dialysis. We discussed the mass on his kidney and his need to see Urology. He states he does not know if he wants to do that. Brief History of Present Illness: Mr. Serrato is a 54-year-old gentleman with a past medical history of hypertension, [id number] diabetes, retinal detachment, depression, CKD, anemia, and a debilitating CVA. He currently lives at [facility]. He denies any complaints but was sent to the emergency department secondary to abnormal blood work. On evaluation he has a hemoglobin of 7.0 with a worsening of his kidney function from a creatinine around 2.5 to a creatinine over 5. On exam he is severely pale. Vital signs stable at 167/56, pulse 56, respiratory rate 16, SpO2 on room air 97%. CT stone protocol performed that shows no obstructive uropathy. We will admit him for blood administration and diuresis. Labs: H/H 7.0/22.7, INR 1.12, electrolytes generally unremarkable however BUN of 62 with a creatinine of 5.54 9with a GFR of 11, BNP 4574, urine with 3+ hematuria Imaging: Chest x-ray shows Mild CHF, unfortunately although there is no obstructive uropathy there is a 7 cm mass to the superior left kidney compatible with renal cell carcinoma Hospital Course: Mr. Serrato was admitted for a hemoglobin of 6.9-7. Over the first 2 days of Mr. Serrato's admission, he had nausea, vomiting, and a headache. As he was vomiting and could not tolerate his antihypertensives and necessitated an IV regimen. His blood pressure became more controlled, nausea/vomiting resolved, and his headache became much more manageable. On day 3 his headache is completely resolved. His fluid balance is improved, coloration while still pale is much better. Hemoglobin up from 7 to 9.5. He is back on his baseline medications and does not seek treatment for acute renal failure. As he wants to return back to [place], we will DC him from the hospital and encourage him to follow-up with Dr. Milligan and Dr. Hardin. He is encouraged to return to the emergency department as needed for worsening symptoms, concerns, or if he changes his mind and would like to start dialysis. <Letty Baumann Eddie - Last Filed: 07/22/24 10:54> Admission Date: 07/17/24 Discharge Date: 07/22/24 Hospital Course: Pt seen and examined. I agree with the note by the DATA ARCHITECT. Pt does not want to do dialysis at this point. He needs to follow up with Urology for the renal mass. Follow up with PCP and Nephrology in clinic. Ok to dc pt to SNF. <MaryAquilesdemetrice Mary - Last Filed: 07/22/24 12:09> Disposition: TRANSFER TO ASSISTED Vital Signs/Physical Exam: Temp Pulse Resp BP Pulse Ox 97.1 F 62 18 184/62 H 95 07/22/24 08:00 07/22/24 08:34 07/22/24 08:00 07/22/24 08:34 07/22/24 08:00 General: Alert, Other (Sitting up in bed, alert) HEENT: Atraumatic, Normocephalic Neck: Supple Respiratory: Normal air movement, Crackles/rales (Bases) Cardiovascular: No edema, Normal pulses Capillary refill: <2 Seconds Gastrointestinal: Normal bowel sounds, Other (Tolerating apple juice) Musculoskeletal: No clubbing Integumentary: Other (Pale with scattered ecchymosis) Neurological: Abnormal speech, Abnormal affect Lymphatics: No axilla or inguinal lymphadenopathy External genitalia: Deferred Rectal: Deferred Laboratory Data at Discharge: WBC 12.00 thou/uL (4.3-10.9) H 07/22/24 05:57 Hgb 9.5 g/dL (13.6-17.9) L 07/22/24 05:57 Hct 30.2 % (39.6-49.0) L 07/22/24 05:57 Plt Count 179 thou/uL (152-406) 07/22/24 05:57 PT 12.5 SECONDS (9.4-12.5) 07/17/24 12:55 INR 1.12 07/17/24 12:55 Sodium 139 mEq/L (136-145) 07/22/24 06:39 Potassium 3.9 mEq/L (3.5-5.1) 07/22/24 06:39 BUN 73 mg/dL (7-18) H 07/22/24 06:39 Creatinine 6.32 mg/dL (0.70-1.30) H 07/22/24 06:39 Glucose 201 mg/dL (74-106) H 07/22/24 06:39 Uric Acid 6.8 mg/dL (3.5-7.2) 07/20/24 05:51 Phosphorus 4.2 mg/dL (2.5-4.9) 07/22/24 06:39 Magnesium 2.1 mg/dL (1.6-2.4) 07/22/24 06:39 Total Bilirubin 0.5 mg/dL (0.2-1.0) 07/20/24 05:51 AST 18 U/L (15-37) 07/20/24 05:51 ALT 19 U/L (16-61) 07/20/24 05:51 Alkaline Phosphatase 78 U/L (45-117) 07/20/24 05:51 Triglycerides 85 mg/dL (<150) 07/18/24 07:50 Cholesterol 89 mg/dL (<200) 07/18/24 07:50 HDL Cholesterol 43 mg/dL (40-60) 07/18/24 07:50 Cholesterol/HDL Ratio 2.07 07/18/24 07:50 Lipase 26 U/L (13-75) 07/17/24 12:55 <Baumann,Letty Eddie - Last Filed: 07/22/24 10:54> Vital Signs/Physical Exam: Temp Pulse Resp BP Pulse Ox 97.1 F 62 18 184/62 H 95 07/22/24 08:00 07/22/24 08:34 07/22/24 08:00 07/22/24 08:34 07/22/24 08:00 Laboratory Data at Discharge: WBC 12.00 thou/uL (4.3-10.9) H 07/22/24 05:57 Hgb 9.5 g/dL (13.6-17.9) L 07/22/24 05:57 Hct 30.2 % (39.6-49.0) L 07/22/24 05:57 Plt Count 179 thou/uL (152-406) 07/22/24 05:57 PT 12.5 SECONDS (9.4-12.5) 07/17/24 12:55 INR 1.12 07/17/24 12:55 Sodium 139 mEq/L (136-145) 07/22/24 06:39 Potassium 3.9 mEq/L (3.5-5.1) 07/22/24 06:39 BUN 73 mg/dL (7-18) H 07/22/24 06:39 Creatinine 6.32 mg/dL (0.70-1.30) H 07/22/24 06:39 Glucose 201 mg/dL (74-106) H 07/22/24 06:39 Uric Acid 6.8 mg/dL (3.5-7.2) 07/20/24 05:51 Phosphorus 4.2 mg/dL (2.5-4.9) 07/22/24 06:39 Magnesium 2.1 mg/dL (1.6-2.4) 07/22/24 06:39 Total Bilirubin 0.5 mg/dL (0.2-1.0) 07/20/24 05:51 AST 18 U/L (15-37) 07/20/24 05:51 ALT 19 U/L (16-61) 07/20/24 05:51 Alkaline Phosphatase 78 U/L (45-117) 07/20/24 05:51 Triglycerides 85 mg/dL (<150) 07/18/24 07:50 Cholesterol 89 mg/dL (<200) 07/18/24 07:50 HDL Cholesterol 43 mg/dL (40-60) 07/18/24 07:50 Cholesterol/HDL Ratio 2.07 07/18/24 07:50 Lipase 26 U/L (13-75) 07/17/24 12:55 <Parveen Hernandez - Last Filed: 07/22/24 12:09> Diet: Renal Activity: Fall precautions <Baumann,Letty Eddie - Last Filed: 07/22/24 10:54> <Parveen Hernandez - Last Filed: 07/22/24 12:09> Home Medications: Clopidogrel Bisulfate [Plavix*] 75 mg PO DAILY 11/23/20 Insulin Degludec [Tresiba Flextouch U-100] 20 unit SQ DAILY 11/23/20 Aspirin Chewable [Aspirin Chewable*] 81 mg PO DAILY #30 tab.chew 12/03/20 Ciprofloxacin/Hydrocortisone [Cipro Hc Otic Suspension] 10 ml OT Q6H #1 drops.susp 12/03/20 Clonidine Patch [Catapres-Tts 2*] 0.2 mg TD EVERY 7TH DAY #10 patch 12/03/20 Docusate [Colace Cap*] 100 mg PO BID #60 cap 12/03/20 Ensure High Protein 237 ml PO BID #60 can 12/03/20 Lactulose 30 ml PO DAILY #1000 ml 12/03/20 Metoprolol Tartrate [Lopressor*] 50 mg PO BID 6AM 6PM #60 tab 12/03/20 Ofloxacin Oph [Floxin Otic 0.3%*] 4 ml OTIC BID #1 btl 12/03/20 Pantoprazole [Protonix Tab*] 40 mg PO DAILYAC #30 tab 12/03/20 clonazePAM [Klonopin*] 0.5 mg PO TID #60 tab 12/03/20 Hydralazine HCl 50 mg PO QID 07/20/24 glipiZIDE [Glipizide] 5 mg PO DAILY 07/20/24 Acetam/Caff/Butal [Fioricet*] 1 tab PO Q6H PRN #0 tab 07/22/24 Acetaminophen [Tylenol*] 325 mg PO Q6H PRN #0 tab 07/22/24 Atorvastatin Calcium [Lipitor*] 20 mg PO BEDTIME tab 07/22/24 Citalopram [Celexa*] 20 mg PO DAILY 07/22/24 Clopidogrel Bisulfate [Plavix*] 75 mg PO DAILY 07/22/24 Doxazosin [Cardura*] 1 mg PO DAILY #45 tab 07/22/24 Hydralazine [Apresoline*] 50 mg PO QID tab 07/22/24 Insulin Glargine,Hum.rec.anlog [Semglee] 35 unit SQ DAILY ml 07/22/24 Insulin Regular, Human [Novolin R] See Protocol SQ ACHS ml 07/22/24 Iron/FA/Vit B-Com W/C [Hemocyte Plus*] 1 tab PO DAILY WITH BREAKFAST #90 tab 07/22/24 Metoprolol Tartrate [Lopressor*] 50 mg PO BID tab 07/22/24 Nitroglycerin Patch [Transderm-Nitro 0.2MG/Hr Patch*] 5 mg TD DAILY #90 07/22/24 Vitamin D [Drisdol*] 50,000 unit PO Q7D@0900 #90 cap 07/22/24 New Medications: Doxazosin [Cardura*] 1 mg PO DAILY #45 tab Vitamin D [Drisdol*] 50,000 unit PO Q7D@0900 #90 cap Iron/FA/Vit B-Com W/C [Hemocyte Plus*] 1 tab PO DAILY WITH BREAKFAST #90 tab Nitroglycerin Patch [Transderm-Nitro 0.2MG/Hr Patch*] 5 mg TD DAILY #90 Physician Discharge Instructions: Mr. Serrato was admitted for a hemoglobin of 6.9-7. Over the first 2 days of Mr. Serrato's admission, he had nausea, vomiting, and a headache. As he was vomiting and could not tolerate his antihypertensives and necessitated an IV regimen. His blood pressure became more controlled, nausea/vomiting resolved, and his headache became much more manageable. On day 3 his headache is completely resolved. His fluid balance is improved, coloration while still pale is much better. Hemoglobin up from 7 to 9.5. He is back on his baseline medications and does not seek treatment for acute renal failure. As he wants to return back to [place], we will DC him from the hospital and encourage him to follow-up with Dr. Milligan and Dr. Hardin. He is encouraged to return to the emergency department as needed for worsening symptoms, concerns, or if he changes his mind and would like to start dialysis. Please stop Lisinopril, amlodipine, and metformin secondary to renal failure. Continue other home medications New Rx: Reglan 5mg po q ACHS Nitropatch 5mg/patch q 24h Hemocyte Plus po daily with breakfast Drisdol 50,000units every 7 days INSTRUCTIONS: Physician Discharge Instructions: Okay to DC IV and DC home Follow-up with primary care provider in 1 to 2 weeks Follow-up with Dr. Milligan in 1 week (re: dialysis) Follow-up with Dr. Hardin in 1-2 weeks (re: renal mass) Please call the inpatient unit for any questions or concerns regarding hospital stay Return to the ER for worsening symptoms Followup: Dora Milligan MD [ACTIVE - CAN ADMIT] - NONE,NONE [Primary Care Provider] - Tuan Hardin [ACTIVE - CAN ADMIT] -
[2024-07-22 12:11] VITALS: BP 167/72
--- NOTE | 2024-07-22 13:09 | PN ---
Date of Progress Note: 07/22/2024 Subjective: Patient was admitted to the hospital with acute kidney injury on advanced chronic kidney disease. The patient has still poor intake. Objective: Vital Signs: Blood pressure 167/72, pulse of 64, afebrile. Chest: Clear to auscultation. Heart: S1, S2. Regular. Abdomen: Soft, nontender. Extremities: No edema. Neuro: Alert. No focality. Laboratory Data: Hemoglobin 9.5, sodium 139, potassium 3.9, bicarb 24, BUN 73, creatinine 6.3, calci um 9, phosphorus 4.2, albumin 3.2. Assessment And Plan: 1.Acute kidney injury on advanced chronic kidney disease with progression. I had long discussion wi th the patient that he need to be initiated on renal replacement therapy. Patient still refusing janet n with explaining risks of cardiac arrest secondary to electrolyte imbalance, hyperkalemia, or coma s econdary to uremic symptoms. Patient still refused. 2.Gastroenteritis/uremia. Continue symptomatic treatment. 3.Renal mass, increased in size. The patient is going to need workup as an outpatient. The patient verbalized understanding. ANGEL Voice ID: [id number] Report ID: [id number]
[2024-07-24 13:57] LABS: Abnormal Protein Band 1 REPORT; Albumin, (SPE) 3.4 g/dL (3.8-4.8); Alpha-1-Globulins 0.3 g/dL (0.2-0.3); Alpha-2-Globulins 0.9 g/dL (0.5-0.9); Beta 1 Globulin 0.3 g/dL (0.4-0.6); Gamma Globulins 1.3 g/dL (0.8-1.7); INTERPRETATION REPORT; Total Protein 6.7 g/dL (6.1-8.1)
[2024-07-24 18:50] LABS: C-ANCA Anti-Proteinase 3 <1.0 AI (<1.0); Immunofixation Electrophoresis Normal pattern.; P-ANCA Anti-Myeloperoxidase Ab <1.0 AI (<1.0)
[2024-07-28 13:30] LABS: Beta Globulin 24 HR Urine 10 %; Gamma Globulin, 24hr Urine 13 %; Interpretation: REPORT; Protein/Crea Ratio in g 12998 mg/g creat (<100); Protein/Crea Ratio in mg 12.998 (<0.100); Urine Albumin 24 Hours 69 %; Urine Alpha-1-Globulin, 24Hr 3 %; Urine Alpha-2-Globulins, 24 Hr 5 %; Urine PEP Abn Protein Band1 REPORT; Urine Total Volume 24 Hours 1900 mL
== END 2024-07-22 15:21 | DRG 683 ==
LOC: ER 12:39 → ERHOLD 16:18 → 4TH 17:36
PROVIDERS: ADMIT Hospitalist; ATTEND Hospitalist
PROC: 30233N1 Transfusion of Nonautologous Red Blood Cells into Peripheral Vein, Percutaneous Approach (ICD-10-PCS; principal; 2024-07-17)
PROC: 0T9B70Z Drainage of Bladder with Drainage Device, Via Natural or Artificial Opening (ICD-10-PCS; 2024-07-17)
DX: N17.9 Acute kidney failure, unspecified (principal); I13.2 Hypertensive heart and chronic kidney disease with heart failure and with stage 5 chronic kidney disease, or end stage renal disease; I50.42 Chronic combined systolic (congestive) and diastolic (congestive) heart failure; N18.6 End stage renal disease; E11.22 Type 2 diabetes mellitus with diabetic chronic kidney disease; E11.40 Type 2 diabetes mellitus with diabetic neuropathy, unspecified; D63.1 Anemia in chronic kidney disease; E87.5 Hyperkalemia; E78.5 Hyperlipidemia, unspecified; K52.9 Noninfective gastroenteritis and colitis, unspecified; N28.89 Other specified disorders of kidney and ureter; E88.09 Other disorders of plasma-protein metabolism, not elsewhere classified; E66.01 Morbid (severe) obesity due to excess calories; R31.9 Hematuria, unspecified; Z66 Do not resuscitate; Z79.4 Long term (current) use of insulin; Z79.82 Long term (current) use of aspirin; Z79.01 Long term (current) use of anticoagulants; Z68.33 Body mass index [BMI] 33.0-33.9, adult; Z79.52 Long term (current) use of systemic steroids; Z79.84 Long term (current) use of oral hypoglycemic drugs; Z79.02 Long term (current) use of antithrombotics/antiplatelets; Z53.20 Procedure and treatment not carried out because of patient's decision for unspecified reasons; Z86.73 Personal history of transient ischemic attack (TIA), and cerebral infarction without residual deficits; Z79.899 Other long term (current) drug therapy
CPT/HCPCS: 36415; 71045; 74176; 76377; 76770; 80048; 80053; 80061; 80069; 80076; 81001; 82550; 82607; 82728; 82947; 83540; 83690; 83735; 83880; 83970; 84100; 84165; 84166; 84443; 84466; 84484; 84550; 85025; 85044; 85610; 86021; 86334; 86803; 86850; 86900; 86901; 86920; 93005; 94640; 96361; 96374; 99285; J0360; J1644; J1940; J2270; J2405; J2470; J2550; J2765; J7030; J7040; J7050; J7605; J7613; P9016; P9047; Q5106

== ENCOUNTER 2024-12-06 22:12 | Emergency (ER) | payer OTHER ==
[2024-12-06 23:16] LABS: Absolute Basophils 0.1 K/uL (0-0.5); Absolute Eosinophils 0.3 K/uL (0-0.5); Absolute Lymphocytes (CBC) 1.2 K/uL (0.7-4.9); Absolute Monocytes 0.6 K/uL (0.1-1.3); Absolute Neutrophil 4.7 K/uL (1.8-8.0); Basophils % 0.8 % (0-1.3); Hematocrit 30.9 % (39.6-49.0); Hemoglobin 10.2 g/dL (13.6-17.9); Lymphocytes % 17.4 % (15.3-44.8); MCH 28.1 pg (27.0-35.0); MCHC 32.9 g/dL (32.0-36.0); MCV 85.2 fL (80-100); MPV 8.9 fL (7.6-11.3); Monocytes % 8.5 % (3.3-12.3); Neutrophils % 69.3 % (41.7-73.7); Nucleated Red Blood Cells % 0.1 % (0-0); Platelets 200 thou/uL (152-406); RBC Red Blood Cell Count 3.62 M/uL (4.33-5.43); Red Cell Distribution Width 16.5 % (12.1-15.2)
[2024-12-06 23:25] LABS: PT Prothrombin Time 11.3 SECONDS (9.4-12.5); Protime INR 1.08
[2024-12-06] MEDS ORDERED: Meropenem 1000 MG/VIAL IV ONE (23:34)
[2024-12-06] MEDS ORDERED: CEFTRIAXONE 1000 MG/VIAL ONE (23:34)
[2024-12-06] MEDS ORDERED: NA CHLORIDE 0.9% 250 ML ONE (23:35)
[2024-12-06] MEDS ORDERED: NA CHLORIDE 0.9% 100 ML ONE (23:35)
[2024-12-06] MEDS ORDERED: NA CHLORIDE 0.9% 50 ML ONE (23:35)
[2024-12-06 23:40] LABS: Albumin 2.8 g/dL (3.4-5.0); Albumin/Globulin Ratio 0.7 (1.1-1.8); Alkaline Phosphatase 85 U/L (45-117); Anion Gap 10.5 mEq/L (5.0-15.0); BUN Blood Urea Nitrogen 28 mg/dL (7-18); Bicarbonate 26 mEq/L (21-32); Bilirubin Total 0.3 mg/dL (0.2-1.0); Globulin 4.3 g/dL (2.3-3.5); Glomerular Filtration Rate 16 ml/min (=/>90); Glucose Level 210 mg/dL (74-106); Magnesium 2.3 mg/dL (1.6-2.4); NT PRO-BNP 753 pg/mL (<125); Potassium 4.5 mEq/L (3.5-5.1); Protein, Total 7.1 g/dL (6.4-8.2); Sodium Level 137 mEq/L (136-145); Troponin High Sensitivity 5.4 pg/mL (<58.9)
[2024-12-06 23:45] LABS: ALT/SGPT < 14 U/L (16-61); AST/SGOT < 10 U/L (15-37); Bilirubin Direct < 0.2 mg/dL (0-0.2); Bilirubin Indirect, Calculated 0.1 mg/dL (0.2-0.8)
--- NOTE | 2024-12-06 23:52 | RAD REPORT ---
EXAM: CT Abdomen and Pelvis Without Intravenous Contrast CLINICAL HISTORY: Abd pain; Hematuria; Flank pain TECHNIQUE: Axial computed tomography images of the abdomen and pelvis without intravenous contrast. Sagittal a nd coronal reformatted images were created and reviewed. This CT exam was performed using one or more of the following dose reduction techniques: automated exposure control, adjustment of the mA a nd/or kV according to patient size, and/or use of iterative reconstruction technique. COMPARISON: CT Abdomen Pelvis dated 07/17/2024 FINDINGS: Lung bases: Minimal right basilar mucus plugging. No consolidation. Heart: Coronary artery calcification. ABDOMEN: Liver: Unremarkable. Gallbladder and bile ducts: There has been a cholecystectomy. No ductal dilation. Pancreas: Unremarkable. No ductal dilation. Spleen: Unremarkable. No splenomegaly. Adrenals: Unremarkable. No mass. Kidneys and ureters: Heterogeneous mass at the upper pole of the left kidney measuring approximatel y 8.8 x 6.4 x 8.2 cm (previously 8.1 x 6 x 6.2 cm). Mild left hydroureteronephrosis with perinephric and periureteral stranding. Stomach and bowel: Moderate stool. No bowel obstruction. No appreciable mucosal thickening. PELVIS: Appendix: Normal caliber appendix. No findings to suggest acute appendicitis. Bladder: Lobulated hyperdensity at the left posterior aspect of the urinary bladder measuring appro ximately 4.6 x 2.5 x 2.6 cm. No stones. Reproductive: Unremarkable as visualized. ABDOMEN and PELVIS: Intraperitoneal space: Unremarkable. No free air. No significant fluid collection. Bones/joints: Multilevel spondylosis. Remote mid to lower thoracic compression deformities. No acut e fracture. No dislocation. Soft tissues: Midline ventral abdominal wall incisional scar. Small fat-containing left inguinal he rnia. Vasculature: Mild to moderate atherosclerotic disease. No abdominal aortic aneurysm. Lymph nodes: Interval increase in size of a lymph node medial to the left kidney measuring 16 mm in short axis (previously 8 mm). IMPRESSION: 1. Heterogeneous left renal mass increased in size from the prior, suspected in part related to int ratumoral hemorrhage. Mild left hydroureteronephrosis with perinephric and periureteral stranding. No calculi. Findings are thought secondary to passage of blood within the renal collecting system. Lo bulated hyperdensity at the left posterior aspect of the urinary bladder suggestive of hemorrhagic clot. Direct visualization may be necessary in order to exclude an underlying mass. 2. Other findings as above. Electronically signed by: Yohana Nathan MD 12/06/2024 11:38 PM [facility] Due to temporary technical issues with the PACS/[employer] reporting system, reports are being malgorzata d by the in-house radiologist without review as a courtesy to ensure prompt reporting the interpreting radiologist is fully responsible for the content of the report. Transcribed Date/Time: 12/06/2024 11:52 PM
[2024-12-07 00:22] LABS: Specific Gravity 1.011 (1.005-1.030); Sqamous Epithelial None Seen /HPF (None Seen); Urine Bacteria None Seen /HPF (<20); Urine Bilirubin NEGATIVE (Negative); Urine Blood 3+ (OVER) (Negative); Urine Clarity Extremely Turbid (Clear); Urine Color Dark-Brown (Yellow); Urine Crystals Unidentified Many /HPF (None Seen); Urine Culture Reflex Order NOT NEEDED; Urine Glucose 3+ (Negative); Urine Ketones NEGATIVE (Negative); Urine Microscopic Reflex YN ORDER UMIC; Urine Nitrite NEGATIVE (Negative); Urine Protein 3+ (Negative); Urine RBC >50 /HPF (None Seen); Urine Urobilinogen Normal (Normal)
--- NOTE | 2024-12-07 00:51 | EDPHYS ---
Physician Documentation [facility] Name: Zac Serrato Age: 54 yrs Sex: Male : 1970 Arrival Date: 12/06/2024 Time: 22:12 Bed 19 Private MD: VÍCTOR Physician Bill Middleton HPI: 12/07 00:37 This 54 yrs old Male presents to ER via EMS with complaints of Hematuria. gauri 00:37 The patient complains of pain in the left low back and left mid back. The pain radiates gauri to the left low back and left mid back. Onset: The symptoms/episode began/occurred 3 day(s) ago. Modifying factors: The symptoms are alleviated by nothing. the symptoms are aggravated by nothing. The patient presents with flank pain, described as achy, urinary symptoms, gross hematuria. Modifying factors: The symptoms are alleviated by nothing, the symptoms are aggravated by nothing. weak , left flank pain, gross hematuria. Associated signs and symptoms: The patient has no apparent associated signs or symptoms. Historical: - Allergies: 12/06 22:39 No Known Allergies; ha1 - PMHx: 22:39 Anemia; Anxiety; Cerebrovascular accident; depressive disorder; Diabetes - NIDDM; ha1 diabetes mellitus; Hypertension; kidney disease; RETINAL DETACHMENT; - PSHx: 22:39 stomach surgery (L ); ha1 - Immunization history:: Adult Immunizations up to date. - Infectious Disease History:: Denies. - Family history:: not pertinent. - Social history:: Smoking status: Patient denies any tobacco usage or history of. ROS: 12/07 00:37 Constitutional: Negative for fever, chills, and weight loss, Eyes: Negative for injury, gauri pain, redness, and discharge, ENT: Negative for injury, pain, and discharge, Neck: Negative for injury, pain, and swelling, Cardiovascular: Negative for chest pain, palpitations, and edema, Respiratory: Negative for shortness of breath, cough, wheezing, and pleuritic chest pain, MS/Extremity: Negative for injury and deformity, Skin: Negative for injury, rash, and discoloration, Neuro: Negative for headache, weakness, numbness, tingling, and seizure, Psych: Negative for depression, anxiety, suicide ideation, homicidal ideation, and hallucinations, Allergy/Immunology: Negative for hives, rash, and allergies, Endocrine: Negative for neck swelling, polydipsia, polyuria, polyphagia, and marked weight changes, Hematologic/Lymphatic: Negative for swollen nodes, abnormal bleeding, and unusual bruising, Abdomen/GI: Positive for abdominal pain, nausea, of the anterior aspect of left lateral abdomen, posterior aspect of left lateral abdomen, left upper quadrant and left lower quadrant, : Positive for hematuria, Exam: 00:37 Constitutional: This is a well developed, well nourished patient who is awake, alert, gauri and in no acute distress. Head/Face: Normocephalic, atraumatic. Eyes: Pupils equal round and reactive to light, extra-ocular motions intact. Lids and lashes normal. Conjunctiva and sclera are non-icteric and not injected. Cornea within normal limits. Periorbital areas with no swelling, redness, or edema. ENT: Nares patent. No nasal discharge, no septal abnormalities noted. Tympanic membranes are normal and external auditory canals are clear. Oropharynx with no redness, swelling, or masses, exudates, or evidence of obstruction, uvula midline. Mucous membranes moist. Neck: Trachea midline, no thyromegaly or masses palpated, and no cervical lymphadenopathy. Supple, full range of motion without nuchal rigidity, or vertebral point tenderness. No Meningismus. Chest/axilla: Normal chest wall appearance and motion. Nontender with no deformity. No lesions are appreciated. Cardiovascular: Regular rate and rhythm with a normal S1 and S2. No gallops, murmurs, or rubs. Normal PMI, no JVD. No pulse deficits. Respiratory: Lungs have equal breath sounds bilaterally, clear to auscultation and percussion. No rales, rhonchi or wheezes noted. No increased work of breathing, no retractions or nasal flaring. Abdomen/GI: Soft, non-tender, with normal bowel sounds. No distension or tympany. No guarding or rebound. No evidence of tenderness throughout. Male : Normal genitalia with no discharge or lesions. MS/ Extremity: Pulses equal, no cyanosis. Neurovascular intact. Full, normal range of motion., bilateral aka Neuro: Awake and alert, GCS 15, oriented to person, place, time, and situation. Cranial nerves II-XII grossly intact. Motor strength 5/5 in all extremities. Sensory grossly intact. Cerebellar exam normal. Normal gait. Psych: Awake, alert, with orientation to person, place and time. Behavior, mood, and affect are within normal limits. 00:37 ECG was reviewed by the Attending Physician. 00:37 Back: pain, that is mild, of the left low back and left mid back, ROM is normal, normal spinal alignment noted, CVA tenderness, that is mild, is noted on the left, Vital Signs: 12/06 22:13 BP 148 / 70; Pulse 71; Resp 19 S; Temp 98.9(O); Pulse Ox 99% on R/A; Weight 82.55 kg; ha1 Height 5 ft. 7 in. ; 12/07 00:08 BP 148 / 70; Pulse 74; Resp 17 S; Pulse Ox 98% on R/A; 1 01:00 BP 132 / 67; Pulse 73; Resp 18 S; Pulse Ox 100% on R/A; 1 02:00 BP 123 / 60; Pulse 68; Resp 18 S; Pulse Ox 97% on R/A; 1 03:00 BP 126 / 67; Pulse 65; Resp 18 S; Pulse Ox 100% on R/A; ha1 04:00 BP 124 / 62; Pulse 67; Resp 18 S; Temp 98.9(O); Pulse Ox 98% on R/A; 1 12/06 22:13 Body Mass Index 28.50 (82.55 kg, 170.18 cm) [facility] MDM: 12/06 22:23 Medical Screening Exam initiated gauri 12/07 00:41 Differential diagnosis: nephrolithiasis, pyelonephritis, UTI, UTI, urinary retention, gauri prostatitis, urethritis. Differential Diagnosis altered mental status, sepsis, flu. Data reviewed: vital signs, nurses notes, EMS record, lab test result(s), EKG, radiologic studies, plain films. Consideration of Admission/Observation Escalation of care including admission/observation considered. I considered the following discharge prescriptions or medication management in the emergency department Medications were administered in the Emergency Department. See MAR. Independent interpretation of the following test(s) in the Emergency Department CT Scan: My interpretation is ct stone. Test considered but Not performed: Ultrasound no renal usg. Historians other than the Patient: EMS: ems well informed. Care significantly affected by the following chronic conditions: Diabetes, Obesity, Cancer, Chronic Kidney Disease, anxiety, cva, anemia. Counseling: I had a detailed discussion with the patient and/or guardian regarding the historical points, exam findings, and any diagnostic results supporting the discharge/admit diagnosis, lab results, radiology results, the need to transfer to another facility, for higher level of care, [facility] does not immediately have the required specialist. 12/06 22:26 Order name: Basic Metabolic Panel; Complete Time: 00:19 12/06 22:26 Order name: CBC with Diff; Complete Time: 00:12/06 22:26 Order name: LFT's; Complete Time: 00:19 12/06 22:26 Order name: Magnesium; Complete Time: 00:12/06 22:26 Order name: NT PRO-BNP; Complete Time: 00:12/06 22:26 Order name: PT-INR; Complete Time: 00:12/06 22:26 Order name: Troponin HS; Complete Time: 00:12/06 22:26 Order name: Urinalysis w/ reflexes; Complete Time: 00:43 12/06 22:26 Order name: Urine Culture 12/06 22:26 Order name: Type And Screen; Complete Time: 00:12/06 22:26 Order name: XRAY Chest (1 view) 12/06 22:26 Order name: CT Stone Protocol; Complete Time: 00:19 12/06 22:26 Order name: EKG; Complete Time: 22:26 12/06 22:26 Order name: Cardiac monitoring; Complete Time: 23:29 12/06 22:26 Order name: EKG - Nurse/Tech; Complete Time: 23:59 12/06 22:26 Order name: IV Saline Lock; Complete Time: 23:29 12/06 22:26 Order name: Labs collected and sent; Complete Time: 23:29 12/06 22:26 Order name: O2 Per Protocol; Complete Time: 23:29 12/06 22:26 Order name: O2 Sat Monitoring; Complete Time: 23:29 12/07 03:06 Order name: Epstein; Complete Time: 03:07 ha1 EC:37 Rate is 74 beats/min. Rhythm is regular. QRS [place] is Normal. [place] interval is normal. QRS gauri interval is normal. QT interval is normal. No Q waves. T waves are Normal. No ST changes noted. Clinical impression: NSR w/ Non-specific ST/T Changes and No evidence of ischemia. Interpreted by me. Reviewed by me. Administered Medications: 12/06 23:58 Drug: NS 0.9% IV 500 ml 500 ml IV at 1 bolus once; to be given as a bolus over 30 ha1 minutes Volume: 500 ml; Route: IV; Rate: 1 bolus; Site: right forearm; 12/07 01:00 Follow up: Response: No adverse reaction; IV Status: Completed infusion; IV Intake: ha1 500ml 12/06 23:58 Drug: Rocephin IV 1 grams IV at per protocol once; Given slow IV push per pharmacy ha1 instructions Route: IV; Rate: per protocol; Site: left forearm; 12/07 00:15 Follow up: Response: No adverse reaction; IV Status: Completed infusion; IV Intake: [id number] 00:08 Drug: Meropenem IV 1 grams IV at per protocol once; (mix in NS 100 mL) Route: IV; Rate: ha1 per protocol; Site: left forearm; 01:00 Follow up: Response: No adverse reaction; IV Status: Completed infusion; IV Intake: ha1 100ml Disposition Summary: 12/07/24 00:50 Transfer Ordered Notes: Transfer Location: [facility] gauri Reason: Higher level of care gauri Condition: Fair gauri Problem: new gauri Symptoms: have improved gauri Accepting Physician: to [facility](12/07/24 04:41) ha1 Diagnosis - Gross hematuria gauri - Dependence on renal dialysis - M,W,F gauri - Malignant neoplasm of left renal pelvis - 8X6X8 CM LEFT RENAL WITH INTRATURMORAL gauri HEMORRHAGE - Acute cystitis with hematuria gauri Forms: - Medication Reconciliation Form gauri - SBAR form gauri Signatures: Dispatcher [employer] EDBill Alcazar MD MD cha Ayala, Heidy, RN RN ha1 Corrections: (The following items were deleted from the chart) 12/06 22:26 22:26 BASIC METABOLIC PANEL+C.LAB.BRZ ordered. EDMS EDMS 22:26 22:26 CBC+H.LAB.BRZ ordered. EDMS EDMS 22:26 22:26 HEPATIC FUNCTION+C.LAB.BRZ ordered. EDMS EDMS 22: MAGNESIUM+C.LAB.BRZ ordered. EDMS EDMS 22:26 PROBNP+C.LAB.BRZ ordered. EDMS EDMS 22:26 PROTIME (+INR)+COAG.LAB.BRZ ordered. EDMS EDMS 22:26 Troponin High Sensitivity+C.LAB.BRZ ordered. EDMS EDMS 22:26 Urinalysis+U.LAB.BRZ ordered. EDMS EDMS 22:26 Urine Culture+BA.LAB.BRZ ordered. EDMS EDMS 22:26 TYPE AND SCREEN+BB.LAB.BRZ ordered. EDMS EDMS 12/07 04:41 00:50 to [facility] ha1
--- NOTE | 2024-12-07 00:51 | ER ---
Nurse's Notes [facility] Name: Zac Serrato Age: 54 yrs Sex: Male : 1970 Arrival Date: 12/06/2024 Time: 22:12 Bed 19 Private MD: Diagnosis: Gross hematuria;Dependence on renal dialysis-M,W,F;Malignant neoplasm of left renal pelvis-8X6X8 CM LEFT RENAL WITH INTRATURMORAL HEMORRHAGE;Acute cystitis with hematuria Presentation: 12/06 22:13 Chief complaint: EMS states: Coming from [facility], nurse reports blood in ha1 urine. 22:13 Coronavirus screen: Client denies travel out of the [place] in the last 14 days. Ebola ha1 Screen: No symptoms or risks identified at this time. Initial Sepsis Screen: Does the patient meet any 2 criteria? No. Patient's initial sepsis screen is negative. Does the patient have a suspected source of infection? No. Patient's initial sepsis screen is negative. Risk Assessment: Do you want to hurt yourself or someone else? Patient reports no desire to harm self or others. Onset of symptoms was December 06, 2024. 22:13 Method Of Arrival: EMS: [facility] ha1 22:13 Acuity: TERRY 3 ha1 Triage Assessment: 22:13 General: Appears uncomfortable, Behavior is calm, cooperative. Pain: Denies pain. ha1 Neuro: Level of Consciousness is awake, alert, obeys commands, Oriented to person, place, time. Cardiovascular: Capillary refill < 3 seconds Patient's skin is warm and dry. Respiratory: Airway is patent Respiratory effort is even, unlabored, Respiratory pattern is regular, symmetrical. GI: Abdomen is round obese. : Urine is blood tinged, Parent/caregiver report the patient having blood in the urine. Derm: Skin is pink, warm \T\ dry. Musculoskeletal: Circulation, motion, and sensation intact. Historical: - Allergies: 22:39 No Known Allergies; ha1 - PMHx: 22:39 Anemia; Anxiety; Cerebrovascular accident; depressive disorder; Diabetes - NIDDM; ha1 diabetes mellitus; Hypertension; kidney disease; RETINAL DETACHMENT; - PSHx: 22:39 stomach surgery (L ); ha1 - Immunization history:: Adult Immunizations up to date. - Infectious Disease History:: Denies. - Family history:: not pertinent. - Social history:: Smoking status: Patient denies any tobacco usage or history of. Screenin:15 [facility] ED Fall Risk Assessment (Adult) History of falling in the last 3 months, ha1 including since admission Yes- physiologic fall (2 pts) Confusion or Disorientation No (0 pts) Intoxicated or Sedated No (0 pts) Impaired Gait Yes (1 pt) Mobility Assist Device Used Yes (1 pt) Altered Elimination No (0 pt) Score/Fall Risk Level 3 or more points = High Risk Oriented to surroundings, Maintained a safe environment, Educated pt \T\ family on fall prevention, incl call for assistance when getting out of bed, Hourly rounding (assess needs \T\ fall precautionary measures) done. Abuse screen: Denies threats or abuse. Denies injuries from another. Nutritional screening: No deficits noted. Tuberculosis screening: No symptoms or risk factors identified. Assessment: 22:23 Reassessment: see triage assessment. 12/07 00:09 Reassessment: Patient and/or family updated on plan of care and expected duration. Pain ha1 level reassessed. Patient is alert, oriented x 3, equal unlabored respirations, skin warm/dry/pink. 01:00 Reassessment: Patient and/or family updated on plan of care and expected duration. Pain ha1 level reassessed. Patient is alert, oriented x 3, equal unlabored respirations, skin warm/dry/pink. 02:00 Reassessment: Patient and/or family updated on plan of care and expected duration. Pain ha1 level reassessed. Patient is alert, oriented x 3, equal unlabored respirations, skin warm/dry/pink. 03:00 Reassessment: Patient and/or family updated on plan of care and expected duration. Pain ha1 level reassessed. Patient is alert, oriented x 3, equal unlabored respirations, skin warm/dry/pink. 03:10 Reassessment: attempted to give report. 03:25 Reassessment: report given to ROMMEL Kaplan. 1 04:10 Reassessment: Patient and/or family updated on plan of care and expected duration. Pain ha1 level reassessed. Patient is alert, oriented x 3, equal unlabored respirations, skin warm/dry/pink. Vital Signs: 12/06 22:13 BP 148 / 70; Pulse 71; Resp 19 S; Temp 98.9(O); Pulse Ox 99% on R/A; Weight 82.55 kg; ha1 Height 5 ft. 7 in. ; 12/07 00:08 BP 148 / 70; Pulse 74; Resp 17 S; Pulse Ox 98% on R/A; ha1 01:00 BP 132 / 67; Pulse 73; Resp 18 S; Pulse Ox 100% on R/A; ha1 02:00 BP 123 / 60; Pulse 68; Resp 18 S; Pulse Ox 97% on R/A; ha1 03:00 BP 126 / 67; Pulse 65; Resp 18 S; Pulse Ox 100% on R/A; ha1 04:00 BP 124 / 62; Pulse 67; Resp 18 S; Temp 98.9(O); Pulse Ox 98% on R/A; ha1 12/06 22:13 Body Mass Index 28.50 (82.55 kg, 170.18 cm) ha1 ED Course: 12/06 22:13 Patient arrived in ED. [email or web address] 22:13 Arm band placed on right wrist. ha1 22:13 Patient has correct armband on for positive identification. Placed in gown. Bed in low ha1 position. Call light in reach. Side rails up X2. Adult w/ patient. 22:23 Bill Middleton MD is Attending Physician. [facility] 22:30 Inserted saline lock: 20 gauge in left forearm, using aseptic technique. Blood ha1 collected. Flushed with 10 mL NS. 22:33 Makayla Isaac, ROMMEL is Primary Nurse. ha1 22:39 Triage completed. ha1 22:59 XRAY Chest (1 view) In Process Unspecified. EDMS 23:04 CT Stone Protocol In Process Unspecified. EDMS 23:29 Type And Screen Sent. ha1 23:29 Basic Metabolic Panel Sent. ha1 23:30 LFT's Sent. ha1 23:30 Magnesium Sent. ha1 23:30 NT PRO-BNP Sent. ha1 23:30 Troponin HS Sent. ha1 12/07 01:00 Epstein cath inserted, using sterile technique, 16 Fr., by wv, balloon inflated, to ha1 gravity drainage, urine specimen collected. 01:22 Attempted to initiate transfer with [facility], no answer. Will call back. rv1 01:57 Attempted to initiate transfer with [facility], no answer. Will call back. Provider rv1 notified. 02:00 Provided Education on: need for transfer . ha1 02:03 Initiated transfer with [place] at [facility]. rv1 02:[address] Villafuerte to [facility] ER. rv1 04:36 No provider procedures requiring assistance completed. Patient transferred, IV remains ha1 in place. Administered Medications: 12/06 23:58 Drug: NS 0.9% IV 500 ml 500 ml IV at 1 bolus once; to be given as a bolus over 30 ha1 minutes Volume: 500 ml; Route: IV; Rate: 1 bolus; Site: right forearm; 12/07 01:00 Follow up: Response: No adverse reaction; IV Status: Completed infusion; IV Intake: ha1 500ml 12/06 23:58 Drug: Rocephin IV 1 grams IV at per protocol once; Given slow IV push per pharmacy ha1 instructions Route: IV; Rate: per protocol; Site: left forearm; 12/07 00:15 Follow up: Response: No adverse reaction; IV Status: Completed infusion; IV Intake: [id number] 00:08 Drug: Meropenem IV 1 grams IV at per protocol once; (mix in NS 100 mL) Route: IV; Rate: ha1 per protocol; Site: left forearm; 01:00 Follow up: Response: No adverse reaction; IV Status: Completed infusion; IV Intake: ha1 100ml Medication: 04:40 VIS not applicable for this client. ha1 Intake: 00:15 IV: 50ml; Total: 50ml. ha1 01:00 IV: 500ml; Total: 550ml. ha1 01:00 IV: 100ml; Total: 650ml. ha1 Outcome: 00:50 ER care complete, transfer ordered by . gauri 04:36 Transferred by ground EMS to [facility], Transfer form completed. ha1 X-rays sent w/ patient. Note: transferred by [facility] 04:36 Condition: stable 04:36 Instructed on the need for transfer, Demonstrated understanding of instructions, 04:41 Patient left the ED. ha1 Signatures: Dispatcher [employer] EDMS Bill Middleton MD MD cha Jeffries, Jennifer [email or web address] Ayala, Heidy, RN RN 1 Yuridia Wells rv1 Corrections: (The following items were deleted from the chart) 04:33 12/06 23:00 Epstein cath inserted, using sterile technique, 16 Fr., by wv, balloon ha1 inflated, to gravity drainage, urine specimen collected. ha1
[2024-12-07 09:58] VITALS: TEMP 98.9
[2024-12-07 10:39] VITALS: BP 124/62; O2SAT 98
--- NOTE | 2024-12-07 19:22 | RAD REPORT ---
EXAM: Chest Single View HISTORY: COUGH COMPARISON: 07/17/2024 FINDINGS: LUNGS/PLEURA: The lungs are clear. No pleural effusions or pneumothorax. No pulmonary edema. MEDIASTINUM: The mediastinal silhouette is within normal limits. CARDIAC: Stable size and configuration. UPPER ABDOMEN: No significant abnormality. BONES: No acute abnormality. LINES/TUBES/OTHER: Right IJ approach dialysis catheter with tip overlying the mid to distal SVC. IMPRESSION: No evidence of acute cardiopulmonary disease.
== END 2024-12-07 04:41 | disposition short-term general hospital (02) ==
LOC: ER 22:12
DX: N30.01 Acute cystitis with hematuria (principal); C64.2 Malignant neoplasm of left kidney, except renal pelvis; Z99.2 Dependence on renal dialysis; I10 Essential (primary) hypertension
CPT/HCPCS: 96365; 85025; 81001; 87086; 80048; 36415; 86900; 83735; 86850; 85610; 86901; 80076; 84484; 83880; 76377; 74176; 71045; 51702; 99285; J2185; J7050; J0696; 87088; 93005

== ENCOUNTER 2025-02-04 09:02 | Emergency (ER) | payer OTHER ==
[2025-02-04 10:03] LABS: Absolute Eosinophils 0.4 K/uL (0-0.5); Absolute Lymphocytes (CBC) 1.1 K/uL (0.7-4.9); Absolute Monocytes 0.4 K/uL (0.1-1.3); Absolute Neutrophil 3.6 K/uL (1.8-8.0); Basophils % 0.6 % (0-1.3); Eosinophils % 6.4 % (0-4.4); Hematocrit 33.5 % (39.6-49.0); Hemoglobin 10.6 g/dL (13.6-17.9); Lymphocytes % 19.7 % (15.3-44.8); MCH 27.5 pg (27.0-35.0); MCHC 31.8 g/dL (32.0-36.0); MCV 86.6 fL (80-100); MPV 8.2 fL (7.6-11.3); Monocytes % 7.1 % (3.3-12.3); Neutrophils % 66.2 % (41.7-73.7); Nucleated Red Blood Cells % 0.1 % (0-0); Platelets 218 thou/uL (152-406); RBC Red Blood Cell Count 3.87 M/uL (4.33-5.43); Red Cell Distribution Width 18.6 % (12.1-15.2)
[2025-02-04] MEDS ORDERED: VANCOMYCIN 500 MG/VIAL ONE (10:04)
[2025-02-04] MEDS ORDERED: NA CHLORIDE 0.9% 250 ML ONE (10:04)
[2025-02-04 10:11] LABS: PT Prothrombin Time 12.3 SECONDS (10-13.0); PTT, Activated Partial Thromb 31.3 SECONDS (27.2-37.4); Protime INR 1.08
[2025-02-04 10:20] LABS: Albumin 2.7 g/dL (3.4-5.0); Albumin/Globulin Ratio 0.6 (1.1-1.8); Alkaline Phosphatase 86 U/L (45-117); Anion Gap 11.9 mEq/L (5.0-15.0); BUN Blood Urea Nitrogen 44 mg/dL (7-18); Bicarbonate 25 mEq/L (21-32); Bilirubin Total 0.3 mg/dL (0.2-1.0); Globulin 4.5 g/dL (2.3-3.5); Glomerular Filtration Rate 11 ml/min (=/>90); Glucose Level 178 mg/dL (74-106); Potassium 3.9 mEq/L (3.5-5.1); Protein, Total 7.2 g/dL (6.4-8.2); Sodium Level 136 mEq/L (136-145)
[2025-02-04 10:25] LABS: ALT/SGPT < 14 U/L (16-61); AST/SGOT < 10 U/L (15-37)
--- NOTE | 2025-02-04 10:34 | EDPHYS ---
Physician Documentation [facility] Name: Zac Serrato Age: 55 yrs Sex: Male : 1970 Arrival Date: 02/04/2025 Time: 09:02 Bed 8 Private MD: ED Physician Myrtle Paris HPI: 02/04 09:30 This 55 yrs old Male presents to ER via EMS with complaints of Problem with Dialysis sp3 Fistula. 09:30 55-year-old male with history of CVA, diabetes, end-stage renal disease from renal mass sp3 Tuesday with last dialysis performed 3 days ago on Tuesday via chest port now presents for redness, pain and infection symptoms of his new right upper extremity dialysis graft that was placed approximately 7 to 10 days ago at [facility]. Dr. Hernández was the surgeon of record. Patient denies any other symptoms including fever, headache, chest pain, shortness of breath, bleeding, or any other signs or symptoms on ROS at this time.. Historical: - Allergies: 09:10 No Known Allergies; iw - PMHx: 09:10 Cerebrovascular accident; Anxiety; Anemia; Diabetes - NIDDM; depressive disorder; iw diabetes mellitus; Hypertension; kidney disease; RETINAL DETACHMENT; - PSHx: 09:10 stomach surgery; iw - Immunization history:: Adult Immunizations up to date. - Infectious Disease History:: Denies. - Social history:: Smoking status: Patient/guardian denies using tobacco, the patient reports quitting approximately 5 years ago. ROS: 09:31 Constitutional: Negative for fever, chills, and weight loss, Eyes: Negative for injury, sp3 pain, redness, and discharge, Neck: Negative for injury, pain, and swelling, Cardiovascular: Negative for chest pain, palpitations, and edema, Respiratory: Negative for shortness of breath, cough, wheezing, and pleuritic chest pain, Abdomen/GI: Negative for abdominal pain, nausea, vomiting, diarrhea, and constipation, Back: Negative for injury and pain, Skin: Negative for injury, rash, and discoloration, Neuro: Negative for headache, weakness, numbness, tingling, and seizure, Psych: Negative for depression, anxiety, suicide ideation, homicidal ideation, and hallucinations, Allergy/Immunology: Negative for hives, rash, and allergies, Endocrine: Negative for neck swelling, polydipsia, polyuria, polyphagia, and marked weight changes, 09:31 All other systems are negative, Exam: 09:31 Constitutional: This is a well developed, well nourished patient who is awake, alert, sp3 and in no acute distress. Head/Face: Normocephalic, atraumatic. Eyes: Pupils equal round and reactive to light, extra-ocular motions intact. Lids and lashes normal. Conjunctiva and sclera are non-icteric and not injected. Cornea within normal limits. Periorbital areas with no swelling, redness, or edema. Neck: Trachea midline, no thyromegaly or masses palpated, and no cervical lymphadenopathy. Supple, full range of motion without nuchal rigidity, or vertebral point tenderness. No Meningismus. Chest/axilla: Normal chest wall appearance and motion. Nontender with no deformity. No lesions are appreciated. Cardiovascular: Regular rate and rhythm with a normal S1 and S2. No gallops, murmurs, or rubs. Normal PMI, no JVD. No pulse deficits. Respiratory: Lungs have equal breath sounds bilaterally, clear to auscultation and percussion. No rales, rhonchi or wheezes noted. No increased work of breathing, no retractions or nasal flaring. Abdomen/GI: Soft, non-tender, with normal bowel sounds. No distension or tympany. No guarding or rebound. No evidence of tenderness throughout. Back: No spinal tenderness. No costovertebral tenderness. Full range of motion. Skin: Warm, dry with normal turgor. Normal color with no rashes, no lesions, and no evidence of cellulitis. Neuro: Awake and alert, GCS 15, oriented to person, place, time, and situation. Cranial nerves II-XII grossly intact. Motor strength 5/5 in all extremities. Sensory grossly intact. Cerebellar exam normal. Normal gait. Psych: Awake, alert, with orientation to person, place and time. Behavior, mood, and affect are within normal limits. 09:31 Musculoskeletal/extremity: Right antecubital fossa erythema and swelling noted. Patient afebrile with normal vital signs. Patient in no acute distress.. Vital Signs: 09:09 BP 168 / 75; Pulse 71; Resp 18; Temp 98.6; Pulse Ox 100% ; Weight 99.34 kg; Height 5 iw ft. 8 in. ; 10:12 BP 156 / 76; Pulse 66; Resp 15; Pulse Ox 100% ; jl7 11:49 BP 134 / 76; Pulse 70; Resp 16; Pulse Ox 100% on R/A; iw 09:09 Body Mass Index 33.30 (99.34 kg, 172.72 cm) iw MDM: 09:11 Medical Screening Exam initiated sp3 09:32 Data reviewed: vital signs, nurses notes, lab test result(s), radiologic studies. ED sp3 course: 55-year-old male with infection of the right upper extremity at dialysis graft presumably from recent surgery. Will obtain sepsis workup and administer vancomycin and contact surgeon of record for transfer and continuance of care.. 10:32 ED course: Discussed with Dr. Hernández who has accepted as a program evaluation consultant at [address] We will go to transfer center and get patient transferred.. 02/04 09:16 Order name: Blood Culture Adult (2) sp3 02/04 09:16 Order name: CBC with Diff; Complete Time: 10:09 sp3 02/04 09:16 Order name: CMP; Complete Time: 10:26 sp3 02/04 09:16 Order name: Lactate w/ 2H reflex if indic.; Complete Time: 10:26 sp3 02/04 09:16 Order name: Protime (+inr); Complete Time: 10:26 sp3 02/04 09:16 Order name: Ptt, Activated; Complete Time: 10:26 sp3 02/04 09:16 Order name: Cardiac monitoring; Complete Time: 09:55 sp3 02/04 09:16 Order name: IV Saline Lock - Large Bore; Complete Time: 09:55 sp3 02/04 09:16 Order name: Labs collected and sent; Complete Time: 09:55 sp3 02/04 09:16 Order name: Vital Signs; Complete Time: 09:51 sp3 Administered Medications: 10:12 Drug: vancoMYCIN IVPB 500 mg IVPB once over 1 hrs Route: IVPB; Infused Over: 1 hrs; jl7 Site: left upper arm; Disposition Summary: 02/04/25 10:33 Transfer Ordered Notes: Transfer Location: [facility] sp3 Reason: Higher level of care sp3 Condition: Stable sp3 Problem: an acute exacerbation sp3 Symptoms: have worsened sp3 [facility] iw Diagnosis - Surgical site infection, cellulitis sp3 Forms: - Medication Reconciliation Form sp3 - SBAR form sp3 Signatures: Dispatcher [employer] EDReanna Bella, RN RN iw Simón Garcia RN RN jl7 Myrtle Paris MD MD sp3 Corrections: (The following items were deleted from the chart) 09:17 09:17 BLOOD CULTURE*+BA.LAB.BRZ ordered. EDMS EDMS 09:17 09:17 CBC+H.LAB.BRZ ordered. EDMS EDMS 09:17 09:17 COMPREHENSIVE METABOLIC PANEL+C.LAB.BRZ ordered. EDMS EDMS 09:17 09:17 LACTATE+C.LAB.BRZ ordered. EDMS EDMS 09:17 09:17 PROTIME (+INR)+COAG.LAB.BRZ ordered. EDMS EDMS 09:17 09:17 PTT, ACTIVATED+COAG.LAB.BRZ ordered. EDNC EDMS 11:51 10:33 [facility]
--- NOTE | 2025-02-04 10:34 | ER ---
Nurse's Notes [facility] Name: Zac Serrato Age: 55 yrs Sex: Male : 1970 Arrival Date: 02/04/2025 Time: 09:02 Bed 8 Private MD: Diagnosis: Surgical site infection, cellulitis Presentation: 02/04 09:08 Chief complaint: EMS states: redness and swelling to right upper arm after dialysis iw fistula placement a week ago , are still using the port in his chest for dialysis, is due for dialysis today , fistula was placed at [facility]. Coronavirus screen: At this time, the client does not indicate any symptoms associated with coronavirus-19. Ebola Screen: No symptoms or risks identified at this time. Initial Sepsis Screen: Does the patient meet any 2 criteria? No. Patient's initial sepsis screen is negative. Does the patient have a suspected source of infection? No. Patient's initial sepsis screen is negative. Risk Assessment: Do you want to hurt yourself or someone else? Patient reports no desire to harm self or others. 09:08 Method Of Arrival: EMS: [facility] iw 09:08 Acuity: TERRY 3 iw 09:10 Onset of symptoms was February 04, 2025. iw Historical: - Allergies: 09:10 No Known Allergies; iw - PMHx: 09:10 Cerebrovascular accident; Anxiety; Anemia; Diabetes - NIDDM; depressive disorder; iw diabetes mellitus; Hypertension; kidney disease; RETINAL DETACHMENT; - PSHx: 09:10 stomach surgery; iw - Immunization history:: Adult Immunizations up to date. - Infectious Disease History:: Denies. - Social history:: Smoking status: Patient/guardian denies using tobacco, the patient reports quitting approximately 5 years ago. Screenin:24 [facility] ED Fall Risk Assessment (Adult) History of falling in the last 3 months, iw including since admission No falls in past 3 months (0 pts) Confusion or Disorientation No (0 pts) Intoxicated or Sedated No (0 pts) Impaired Gait Yes (1 pt) Mobility Assist Device Used Yes (1 pt) Altered Elimination No (0 pt) Score/Fall Risk Level 0 - 2 = Low Risk Oriented to surroundings, Maintained a safe environment. Abuse screen: Denies threats or abuse. Nutritional screening: No deficits noted. Tuberculosis screening: No symptoms or risk factors identified. Assessment: 09:10 General: Appears in no apparent distress. Behavior is calm, cooperative. Pain: iw Complains of pain in right arm. Neuro: Level of Consciousness is awake, alert, obeys commands, Oriented to person, place, time, Moves all extremities. Cardiovascular: Dialysis shunt: in the right bicep, with moderate erythema, moderate edema. Respiratory: Airway is patent Respiratory effort is even, unlabored, Respiratory pattern is regular, symmetrical. Musculoskeletal: Range of motion: intact in all extremities. 10:12 Reassessment: Patient appears in no apparent distress at this time. No changes from jl7 previously documented assessment. Patient and/or family updated on plan of care and expected duration. Pain level reassessed. Patient is alert, oriented x 3, equal unlabored respirations, skin warm/dry/pink. 11:24 Reassessment: Patient appears in no apparent distress at this time. Patient and/or iw family updated on plan of care and expected duration. Pain level reassessed. report given to ROMMEL Lam at [facility]. Vital Signs: 09:09 BP 168 / 75; Pulse 71; Resp 18; Temp 98.6; Pulse Ox 100% ; Weight 99.34 kg; Height 5 iw ft. 8 in. ; 10:12 BP 156 / 76; Pulse 66; Resp 15; Pulse Ox 100% ; jl7 11:49 BP 134 / 76; Pulse 70; Resp 16; Pulse Ox 100% on R/A; iw 09:09 Body Mass Index 33.30 (99.34 kg, 172.72 cm) iw ED Course: 09:06 Patient arrived in ED. iw 09:07 Myrtle Fowler MD is Attending Physician. sp3 09:09 Triage completed. iw 09:10 Arm band placed on. iw 09:10 Patient has correct armband on for positive identification. Provided Education on: . iw 09:30 First set of blood cultures drawn by me. ty 09:46 Second set of blood cultures drawn by me. ty 09:50 Reanna Serrato, RN is Primary Nurse. iw 09:57 Inserted saline lock: 20 gauge in left upper arm, using aseptic technique. Blood ty collected. Flushed with 10 mL NS. 10:[address] Hernández..........dr fowler is currently on phone with Dr Hernández. bd 10:38 initiated transfer to [facility]. bd 11:01 pt accepted in transfer to [facility] by dr [place] admin approval given by Jakob jerez P,pt going to [id number]. 11:50 No provider procedures requiring assistance completed. Patient transferred, IV remains iw in place. Administered Medications: 10:12 Drug: vancoMYCIN IVPB 500 mg IVPB once over 1 hrs Route: IVPB; Infused Over: 1 hrs; jl7 Site: left upper arm; Medication: 09:51 VIS not applicable for this client. iw Outcome: 10:33 ER care complete, transfer ordered by MD. bean 11:50 Transferred by ground EMS to [facility], Transfer form iw completed. X-rays sent w/ patient. Note: [place] 11:50 Condition: good 11:50 Discharge instructions given to patient, Instructed on the need for transfer, Demonstrated understanding of instructions, 11:51 Patient left the ED. iw Signatures: Carolyn Lubin Irene RN Simón Bahena RN RN jl7 Myrtle Fowler MD MD spOsmani Watkins
[2025-02-04 11:55] VITALS: TEMP 98.6; O2SAT 100
[2025-02-04 11:58] VITALS: BP 134/76
== END 2025-02-04 11:51 | disposition short-term general hospital (02) ==
LOC: ER 09:02
DX: T81.49XA Infection following a procedure, other surgical site, initial encounter (principal); L03.113 Cellulitis of right upper limb
CPT/HCPCS: 87040 ×2; 85025; 36415; 85610; 83605; 85730; 80053; 96374; 99285; J7050